=== PATIENT | female | born 1945 | race Caucasian/White ===

== ENCOUNTER → 2016-12-22 | Outpatient (CLI) | payer MEDICARE ==
--- NOTE | 2016-12-22 10:14 | CT ---
EXAMINATION TYPE: CT pelvis wo con DATE OF EXAM: 12/22/2016 COMPARISON: Previous CT scan of the chest, abdomen and pelvis dated 01/26/2013 HISTORY: pelvic pain CT DLP: 309.1 mGycm Automated exposure control for dose reduction was used. FINDINGS: There is a right hip prosthesis in place. There has been an extensive interpedicular fusion extending from the thoracic spine and to the level of S1. There is been an extensive laminectomy. There is uncomplicated diverticular disease small bowel loops are normal. The bladder is unremarkable. The uterus and ovaries are not visualized. IMPRESSION: 1. NO ACUTE ABNORMALITY. 2. EXTENSIVE POSTSURGICAL CHANGE.
== END | disposition home or self-care (01) ==
LOC: RADCTMAIN 08:14
PROVIDERS: ATTEND Family Medicine
DX: R10.2 Pelvic and perineal pain (principal); Z98.890 Other specified postprocedural states
CPT/HCPCS: 72192

== ENCOUNTER 2017-04-29 11:05 | Emergency (ER) | payer MEDICARE, OTHER ==
[2017-04-29] MEDS ORDERED: SODIUM CHLORIDE 0.9% 1,000 ML IV STA (11:23)
--- NOTE | 2017-04-29 11:23 | ED ---
General Adult HPI - General Chief complaint: GI Bleed Stated complaint: Coughing up blood Time Seen by Provider: 04/29/17 11:10 Source: patient, EMS, RN notes reviewed, old records reviewed Mode of arrival: EMS Limitations: no limitations - History of Present Illness Initial comments: This is a 72-year-old female to the ER for evaluation of coughing up blood. Patient has no medical history of similar issue. No shortness of breath with that she start coughing up blood today. Red blood. Patient denies blood in her stool. Denies any other symptoms. No chest pain. Patient was did recently have surgery where she was intubated. Patient states symptoms started shortly after. Again she denies any shortness of breath or pain - Related Data Home Medications Medication Instructions Recorded Confirmed Methotrexate Sodium [Methotrexate] 5 mg PO WE 05/20/16 04/29/17 traMADol HCL [Ultram] 50 mg PO Q4H PRN 05/20/16 04/29/17 Escitalopram [Lexapro] 10 mg PO DAILY 04/29/17 04/29/17 Irbesartan [Avapro] 150 mg PO DAILY 04/29/17 04/29/17 Allergies Allergy/AdvReac Type Severity Reaction Status Date / Time azathioprine [From Imuran] Allergy Rash/Hives Verified 04/29/17 11:50 codeine Allergy Rash/Hives Verified 04/29/17 11:50 hydrocodone Allergy Rash/Hives Verified 04/29/17 11:50 hydromorphone [From Dilaudid] Allergy Rash/Hives Verified 04/29/17 11:50 meperidine [From Demerol] Allergy Rash/Hives Verified 04/29/17 11:50 morphine Allergy Rash/Hives Verified 04/29/17 11:50 propoxyphene Allergy Rash/Hives Verified 04/29/17 11:50 [From Darvocet-N] Tetracyclines Allergy Rash/Hives Verified 04/29/17 11:50 Review of Systems ROS Statement: Those systems with pertinent positive or pertinent negative responses have been documented in the HPI. ROS Other: All systems not noted in ROS Statement are negative. Past Medical History Past Medical History: Cancer, Hypertension Additional Past Medical History / Comment(s): back pain (DDD), breast cancer History of Any Multi-Drug Resistant Organisms: None Reported Past Surgical History: Back Surgery, Joint Replacement Additional Past Surgical History / Comment(s): breast masectomy Past Psychological History: No Psychological Hx Reported Smoking Status: Never smoker Past Alcohol Use History: None Reported Past Drug Use History: None Reported General Exam Limitations: no limitations General appearance: alert, in no apparent distress Head exam: Present: atraumatic, normocephalic, normal inspection Eye exam: Present: normal appearance, PERRL, EOMI. Absent: scleral icterus, conjunctival injection, periorbital swelling ENT exam: Present: normal exam, mucous membranes moist Neck exam: Present: normal inspection. Absent: tenderness, meningismus, lymphadenopathy Respiratory exam: Present: normal lung sounds bilaterally. Absent: respiratory distress, wheezes, rales, rhonchi, stridor Cardiovascular Exam: Present: regular rate, normal rhythm, normal heart sounds. Absent: systolic murmur, diastolic murmur, rubs, gallop, clicks GI/Abdominal exam: Present: soft, normal bowel sounds. Absent: distended, tenderness, guarding, rebound, rigid Extremities exam: Present: normal inspection, full ROM, normal capillary refill. Absent: tenderness, pedal edema, joint swelling, calf tenderness Back exam: Present: normal inspection Neurological exam: Present: alert, oriented X3, CN II-XII intact Psychiatric exam: Present: normal affect, normal mood Skin exam: Present: warm, dry, intact, normal color. Absent: rash Course Vital Signs 04/29/17 04/29/17 11:08 12:58 Temperature 98.6 F 99.0 F Pulse Rate 69 66 Respiratory 18 16 Rate Blood Pressure 163/79 153/81 O2 Sat by Pulse 95 94 L Oximetry - Reevaluation(s) Reevaluation #1: Of patient with no significant lightheadedness or dizziness. EKG Findings - EKG Comments: EKG Findings:: EKG shows normal sinus rhythm rate of 64, WV 134, QRS 94, QTC 435 Medical Decision Making - Medical Decision Making 72 female to the ER for evaluation of coughing up blood. Patient is offices, patient was recently had surgery which with intubation. No significant source of breath x-rays negative labwork is normal and patient can be discharged home - Lab Data Result diagrams: 04/29/17 11:28 04/29/17 11:28 Lab Results 04/29/17 04/29/17 04/29/17 Range/Units 11:28 11:28 11:28 WBC 9.2 (3.8-10.6) k/uL RBC 3.43 L (3.80-5.40) m/uL Hgb 10.4 L (11.4-16.0) gm/dL Hct 31.6 L (34.0-46.0) % MCV 92.1 (80.0-100.0) fL MCH 30.4 (25.0-35.0) pg MCHC 33.0 (31.0-37.0) g/dL RDW 15.1 (11.5-15.5) % Plt Count 164 (150-450) k/uL Neutrophils % 72 % Lymphocytes % 20 % Monocytes % 6 % Eosinophils % 1 % Basophils % 0 % Neutrophils # 6.6 (1.3-7.7) k/uL Lymphocytes # 1.8 (1.0-4.8) k/uL Monocytes # 0.5 (0-1.0) k/uL Eosinophils # 0.1 (0-0.7) k/uL Basophils # 0.0 (0-0.2) k/uL PT (9.0-12.0) sec INR (<1.2) APTT (22.0-30.0) sec Sodium 134 L (137-145) mmol/L Potassium 4.3 (3.5-5.1) mmol/L Chloride 99 (98-107) mmol/L Carbon Dioxide 29 (22-30) mmol/L Anion Gap 6 mmol/L BUN 12 (7-17) mg/dL Creatinine 0.80 (0.52-1.04) mg/dL Est GFR (MDRD) Af Amer >60 (>60 ml/min/1.73 sqM) Est GFR (MDRD) Non-Af >60 (>60 ml/min/1.73 sqM) Glucose 86 (74-99) mg/dL Calcium 8.9 (8.4-10.2) mg/dL Magnesium 1.8 (1.6-2.3) mg/dL Total Bilirubin 0.5 (0.2-1.3) mg/dL AST 21 (14-36) U/L ALT 28 (9-52) U/L Alkaline Phosphatase 87 (38-126) U/L NT-Pro-B Natriuret Pep pg/mL Total Protein 6.1 L (6.3-8.2) g/dL Albumin 3.5 (3.5-5.0) g/dL Lipase 42 (23-300) U/L Blood Type O Positive Blood Type Recheck O Pos Antibody Screen NEGATIVE Spec Expiration Date 05/02/2017232704/29/17 04/29/17 Range/Units 11:28 11:28 WBC (3.8-10.6) k/uL RBC (3.80-5.40) m/uL Hgb (11.4-16.0) gm/dL Hct (34.0-46.0) % MCV (80.0-100.0) fL MCH (25.0-35.0) pg MCHC (31.0-37.0) g/dL RDW (11.5-15.5) % Plt Count (150-450) k/uL Neutrophils % % Lymphocytes % % Monocytes % % Eosinophils % % Basophils % % Neutrophils # (1.3-7.7) k/uL Lymphocytes # (1.0-4.8) k/uL Monocytes # (0-1.0) k/uL Eosinophils # (0-0.7) k/uL Basophils # (0-0.2) k/uL PT 9.4 (9.0-12.0) sec INR 0.9 (<1.2) APTT 23.0 (22.0-30.0) sec Sodium (137-145) mmol/L Potassium (3.5-5.1) mmol/L Chloride (98-107) mmol/L Carbon Dioxide (22-30) mmol/L Anion Gap mmol/L BUN (7-17) mg/dL Creatinine (0.52-1.04) mg/dL Est GFR (MDRD) Af Amer (>60 ml/min/1.73 sqM) Est GFR (MDRD) Non-Af (>60 ml/min/1.73 sqM) Glucose (74-99) mg/dL Calcium (8.4-10.2) mg/dL Magnesium (1.6-2.3) mg/dL Total Bilirubin (0.2-1.3) mg/dL AST (14-36) U/L ALT (9-52) U/L Alkaline Phosphatase (38-126) U/L NT-Pro-B Natriuret Pep 1400 pg/mL Total Protein (6.3-8.2) g/dL Albumin (3.5-5.0) g/dL Lipase (23-300) U/L Blood Type Blood Type Recheck Antibody Screen Spec Expiration Date - Radiology Data Radiology results: report reviewed (Chest x-rays negative), image reviewed Disposition Clinical Impression: Hematemesis Disposition: HOME SELF-CARE Condition: Good Instructions: Hematemesis (ED) Referrals: Pk Pizarro DO [Primary Care Provider] - 1-2 days
[2017-04-29 11:51] LABS: Basophils % (A) 0 %; CHCM 32.8; Eosinophils # (A) 0.1 k/uL (0-0.7); Eosinophils % (A) 1 %; HCT 31.6 % (34.0-46.0); HDW 2.46; HGB 10.4 gm/dL (11.4-16.0); Luc # (Auto) 0.13; Luc % (Auto) 1; Lymphocytes # (A) 1.8 k/uL (1.0-4.8); Lymphocytes % (A) 20 %; MCH 30.4 pg (25.0-35.0); MCV 92.1 fL (80.0-100.0); Mean Platelet Volume 8.6; Monocytes # (A) 0.5 k/uL (0-1.0); Monocytes % (A) 6 %; Neutrophils # (A) 6.6 k/uL (1.3-7.7); Neutrophils % (A) 72 %; RBC 3.43 m/uL (3.80-5.40); RDW 15.1 % (11.5-15.5); WBC 9.2 k/uL (3.8-10.6); WBC (Perox) 9.17
[2017-04-29 11:59] LABS: INR 0.9 (<1.2); Prothrombin Time 9.4 sec (9.0-12.0)
[2017-04-29 12:02] LABS: ALT 28 U/L (9-52); AST 21 U/L (14-36); Alkaline Phosphatase 87 U/L (38-126); Anion Gap 6 mmol/L; Blood Urea Nitrogen 12 mg/dL (7-17); Calcium 8.9 mg/dL (8.4-10.2); Carbon Dioxide 29 mmol/L (22-30); Chloride 99 mmol/L (98-107); Glucose 86 mg/dL (74-99); Magnesium 1.8 mg/dL (1.6-2.3); Non-African American GFR(MDRD) >60 (>60 ml/min/1.73 sqM); Potassium 4.3 mmol/L (3.5-5.1); Sodium 134 mmol/L (137-145); Total Bilirubin 0.5 mg/dL (0.2-1.3); Total Protein 6.1 g/dL (6.3-8.2)
--- NOTE | 2017-04-29 12:23 | XR ---
EXAMINATION TYPE: XR chest 2V DATE OF EXAM: 04/29/2017 COMPARISON: Prior chest x-ray 06/26/2013 HISTORY: Hemoptysis, chest pain TECHNIQUE: Frontal and lateral views of the chest are obtained. FINDINGS: There is no pleural effusion, or pneumothorax seen. No definite airspace disease. Postop changes are noted to the thoracic lumbar spine, upper abdomen. The cardiac silhouette size is within normal limits. The osseous structures are intact. IMPRESSION: No acute cardiopulmonary process.
[2017-04-29 13:00] VITALS: BP 153/81; PULSE 66; RESP 16; TEMP 99
--- NOTE | 2017-05-07 07:54 | CDI ---
Documentation Clarification OP Dear Renny HUNT, DO Please do addendum to ED report for HPI , Physical exam and MDM. Thank you, Julita Tong Process Control Technician If you have any question, Please contact sql manager at [phone] [facility]
== END 2017-04-29 12:56 | disposition home or self-care (01) ==
LOC: EC 11:05
DX: K92.0 Hematemesis (principal); I10 Essential (primary) hypertension; Z85.3 Personal history of malignant neoplasm of breast; Z79.899 Other long term (current) drug therapy; Z88.8 Allergy status to other drugs, medicaments and biological substances; Z88.5 Allergy status to narcotic agent; Z88.6 Allergy status to analgesic agent
CPT/HCPCS: 36415; 71020; 80053; 83690; 83735; 83880; 85025; 85610; 85730; 86850; 86900; 86901; 93005; 96360; 99285

== ENCOUNTER → 2017-10-27 | Outpatient (CLI) | payer MEDICARE ==
[2017-10-27 12:00] LABS: HCT 37.1 % (34.0-46.0); HGB 12.6 gm/dL (11.4-16.0); MCH 30.2 pg (25.0-35.0); MCHC 33.8 g/dL (31.0-37.0); MCV 89.4 fL (80.0-100.0); Mean Platelet Volume 7.5; Platelet Count 227 k/uL (150-450); RBC 4.15 m/uL (3.80-5.40); RDW 14.8 % (11.5-15.5); WBC 8.3 k/uL (3.8-10.6)
[2017-10-27 12:09] LABS: Partial Thromboplastin Time 22.5 sec (22.0-30.0); Prothrombin Time 9.6 sec (9.0-12.0)
[2017-10-27 12:14] LABS: Albumin 4.4 g/dL (3.5-5.0); Calcium 9.5 mg/dL (8.4-10.2); Potassium 4.2 mmol/L (3.5-5.1); Total Bilirubin 0.6 mg/dL (0.2-1.3)
[2017-10-27 12:29] LABS: Appearance,Urine Clear (Clear); Bilirubin,Urine Negative (Negative); Blood,Urine Negative (Negative); Color,Urine Light Yellow; Glucose,Urine (UA) Negative (Negative); Ketones,Urine Negative (Negative); Leukocyte Esterase,Urine Negative (Negative); Nitrite,Urine Negative (Negative); PH, Urine 6.5 (5.0-8.0); Protein,Urine Negative (Negative); Specific Gravity,Urine 1.004 (1.001-1.035); Urobilinogen,Urine <2.0 mg/dL (<2.0)
== END | disposition home or self-care (01) ==
LOC: LABPAT 10:59
PROVIDERS: ATTEND Orthopaedic Surgery
DX: Z01.818 Encounter for other preprocedural examination (principal); Z01.812 Encounter for preprocedural laboratory examination
CPT/HCPCS: 36415; 80053; 81003; 85027; 85610; 85730; 87070; 93005

== ENCOUNTER 2017-11-08 10:45 | Inpatient (IN) | payer MEDICARE, OTHER ==
[2017-10-28 09:38] VITALS: BMI 25.9
[~2017-11-08 10:45] MED LIST: ACETAMINOPHEN TAB 500 MG TAB PO ONE; DEXAMETHASONE SOD PHOSPHATE 10 MG/ML 1 ML VIAL IV ONE; MELOXICAM 7.5 MG TAB PO ONE; MIDAZOLAM 2 MG/2 ML VIAL IV PRN; ONDANSETRON 4 MG/2 ML VIAL IVP ONE; TRANEXAMIC ACID 1,000 MG in SODIUM CHLORIDE 0.9% 50 ML IVPB ONE; ceFAZolin IN SWFI 2 GM/20 ML SYRINGE IVP ONE
[2017-11-08] MEDS ORDERED: LIDOCAINE 1% 20 ML VIAL (10MG/ML) FOR IV START INTRADERMA ONE (11:17)
[2017-11-08] MEDS: LACTATED RINGERS 1,000 ML IV SCH ×2 (11:17→15:21)
[2017-11-08] MEDS ORDERED: ACETAMINOPHEN IV (For NPO) 1,000 MG/100 ML VIAL IVPB ONE (11:53)
--- NOTE | 2017-11-08 13:45 | P.OP ---
Date of Procedure: 11/08/17 Preoperative Diagnosis: Severe osteoarthritis left hip Postoperative Diagnosis: Severe osteoarthritis left hip Procedure(s) Performed: Total left hip arthroplasty with a direct anterior approach Implants: Ortega [employer] nephew Polarstem size 2 standard [employer]tega [employer] Nephew R3, 3 hole acetabular shell, 52 mm [employer]tega [employer]hew reflection 6.5 mm cancellus screw, 20 mm 2 [employer]hew R3, XLPE 20 acetabular liner [employer]tega [employer] Nephew Oxinium femoral head 36 m, +0 All components were press-fit. The articulation is Oxinium on polyethylene. Anesthesia: ROSIOA Surgeon: Bulmaro Sewell Heel Former #1: Pepper Lyn Estimated Blood Loss (ml): 450 (192 mL returned with Cell Saver) Pathology: other (Femoral head) Condition: stable Disposition: PACU Indications for Procedure: After failure of conservative treatment we discussed the surgical and nonsurgical treatment options at length. Patient wishes to proceed with a total hip arthroplasty with a direct anterior approach. Complications specific to this procedure were discussed at length, including but not limited to infection, leg length discrepancy, dislocation, and nerve injury. Patient is aware of all these complications and informed consent was obtained Operative Findings: The operative findings are consistent with severe osteoarthritis of the left hip Description of Procedure: Patient was seen and evaluated in the preoperative area, consent was reviewed, and the surgical site was marked with a skin marker. Patient was then brought to the operating room and given prophylactic antibiotics intravenously. 1 g of Tranexamic acid was also given. A general anesthetic was administered by the anesthesia department. The patient was then placed on the Dushore table with the bony prominences well-padded. The hip area was then prepped and draped in usual sterile fashion. A universal timeout was then performed, which confirmed the patient's name, surgical site, ALLERGIES, and procedure being performed. Next the incision site was located at 1 cm distal and 1 cm lateral to the anterior superior iliac spine. The skin and subcutaneous tissues were sharply incised. Incision was carefully dissected down to the fascia overlying the tensor fascia ric muscle. This fascia was then incised in line with the incision. Next, using blunt finger dissection, the tensor fascia ric muscle was dissected off its investing fascia. The muscle was then carefully retracted laterally with a cobra retractor over the lateral neck of the femur. Next, the circumflex vessels were identified and cauterized using the AquaMantis device. The anterior hip capsule was then exposed. The capsule was then opened and an inverted T fashion. Cobra retractors were then placed intracapsularly. The proximal femur was then visualized. The femoral neck was then osteotomized appropriate level above the lesser trochanter. Small amount of traction was placed with the Dushore table. A small wedge of bone was then removed from the remaining femoral head. Next, using a corkscrew femoral head was easily removed from the acetabulum. On gross visual inspection, the femoral head had complete loss of articular cartilage in multiple periarticular osteophytes. Attention was then turned to the acetabulum. the acetabulum was exposed and any remaining labrum was excised. Sequential reaming of the acetabulum was performed using fluoroscopic guidance. When the appropriate size was reached, a trial was then placed. The position and fit of the trial was checked with fluoroscopy. The trial was then removed. Then, using fluoroscopic guidance, the final implant was impacted at 20 of anteversion and 40 of abduction, and fully seated in the acetabulum. 2 screws were then placed in the acetabulum. Again fluoroscopy was used to check position of the screws. Next, the liner was then impacted, with a 20 elevated liner located in the anterior superior quadrant. Component locking was confirmed. Attention was then directed to the femur. With the aid of the Dushore table, the femur was externally rotated to approximately 130, extended, and abducted under the opposite leg. A side hook was then placed under the proximal femur, and the side hook elevator was used to elevate the proximal femur. Retractors were then placed. A capsular release was performed, as well as a release of the conjoined tendon, which afforded excellent visualization of the proximal femur. Next, a box osteotome was used to lateralize the proximal femur. A hand sole sewer was then used to locate the femoral canal. Sequential broaching was then performed with appropriate size which afforded excellent fixation in the proximal femur. A trial was then placed with appropriate head and neck, and the hip was gently reduced with the aid of the Dushore table. Fluoroscopy was then used to check position of the components, as well as to ensure equal leg lengths. The hip was then gently dislocated and the trials were then removed. Final implants were then impacted and the hip was again reduced. Final fluoroscopic x-rays confirmed that the components were in anatomic position, as well as equal leg lengths. The hip was also taken through range of motion, and found to be stable. The hip was then copiously irrigated with antibiotic solution with pulsatile lavage. The hip was then irrigated with Irrisept solution. A second dose of 1 g of Tranexamic acid was also given. the fascia was then closed with 2-0 strata fix suture. The subcutaneous tissue was closed with 3-0 Vicryl. The subcuticular tissue was closed with 3-0 strata fix suture. The skin was then closed with Dermabond glue and a sterile silver dressing. The patient was then transferred to the recovery room in stable condition. The boiler assistant operator JL Hutchison was required due to the complexity of surgery, and the need for skilled pharmacy assistant for positioning, draping, exposure, retraction, and closure of the wound.
--- NOTE | 2017-11-08 13:50 | FL ---
Fluoroscopy HISTORY: Hip replacement 29 seconds fluoroscopy time supplied to the referring clinician. 2 intraoperative C-arm images docum ent the procedure. See dictated report from orthopedic surgery.
[2017-11-08] MEDS ORDERED: HYDROcodone/APAP 5-325MG 1 EACH TAB PO PRN ×2 (14:04)
[2017-11-08] MEDS ORDERED: MAGNESIUM HYDROXIDE 2,400 MG/10 ML CUP PO PRN (14:04)
[2017-11-08] MEDS ORDERED: NALOXONE 0.4 MG/ML 1 ML VIAL IV PRN (14:04)
[2017-11-08] MEDS ORDERED: ONDANSETRON 4 MG/2 ML VIAL IVP PRN (14:04)
[2017-11-08] MEDS ORDERED: hydrOXYzine PAMOATE 25 MG CAP PO PRN (14:04)
[2017-11-08] MEDS ORDERED: TEMAZEPAM 15 MG CAP PO PRN (14:04)
[2017-11-08] MEDS: fentaNYL (PF) 50 MCG/ML 2 ML AMP IV PRN ×2 (14:10→14:25)
[2017-11-08] MEDS ORDERED: diphenhydrAMINE 50 MG/ML 1 ML VIAL IVP ONE (14:10)
--- NOTE | 2017-11-08 14:10 | XR ---
EXAMINATION TYPE: XR Hip Limited LT DATE OF EXAM: 11/08/2017 COMPARISON: NONE HISTORY: Hip arthroplasty Fluoroscopy support supplied to the referring clinician. See dictated report from orthopedic surgery . 2 intraoperative C-arm images document the procedure.
[2017-11-08 14:26] VITALS: RESP 16
[2017-11-08] MEDS ORDERED: traMADol 50 MG TAB PO PRN (14:30)
--- NOTE | 2017-11-08 14:38 | XR ---
Limited left hip HISTORY: Status post left hip arthroplasty Single frontal view of the left hip Patient is status post left hip arthroplasty. There is anatomic alignment. Postop change noted to the lumbar spine. Lucency present in the soft tissues compatible with postop state. IMPRESSION: Orthopedic follow-up.
[2017-11-08] MEDS: traMADol 50 MG TAB PO PRN ×2 (15:12→21:39)
[2017-11-08] MEDS ORDERED: ACETAMINOPHEN TAB 500 MG TAB PO PRN (18:26)
[2017-11-08] MEDS ORDERED: SENNOSIDES-DOCUSATE SODIUM 1 EACH TAB PO SCH (21:00)
[2017-11-08] MEDS: ASPIRIN 325 MG TAB PO SCH (21:39)
[2017-11-08] MEDS: ceFAZolin IN SWFI 2 GM/20 ML SYRINGE IVP SCH (21:47)
[2017-11-09] MEDS: LACTATED RINGERS 1,000 ML IV SCH ×3 (00:31→10:47)
[2017-11-09] MEDS: traMADol 50 MG TAB PO PRN ×3 (04:38→15:28)
[2017-11-09] MEDS: ceFAZolin IN SWFI 2 GM/20 ML SYRINGE IVP SCH (04:39)
[2017-11-09 07:31] LABS: Basophils % (A) 0 %; Eosinophils % (A) 0 %; HCT 30.6 % (34.0-46.0); Lymphocytes # (A) 1.4 k/uL (1.0-4.8); Lymphocytes % (A) 10 %; MCHC 32.3 g/dL (31.0-37.0); MCV 92.9 fL (80.0-100.0); Mean Platelet Volume 7.6; Monocytes # (A) 0.9 k/uL (0-1.0); Monocytes % (A) 6 %; Neutrophils # (A) 12.1 k/uL (1.3-7.7); Neutrophils % (A) 83 %; Platelet Count 187 k/uL (150-450); RBC 3.29 m/uL (3.80-5.40); RDW 15.7 % (11.5-15.5); WBC 14.5 k/uL (3.8-10.6)
[2017-11-09 07:39] LABS: HGB 9.9 gm/dL (11.4-16.0)
[2017-11-09] MEDS: ASPIRIN 325 MG TAB PO SCH (08:21)
--- NOTE | 2017-11-09 08:41 | P.DS ---
Providers Date of admission: 11/08/17 10:45 Expected date of discharge: 11/09/17 Attending physician: Bulmaro Sewell Consults: 11/08/17 14:07 Consult Physician Routine Consulting Provider: Pk Pizarro Reason/Comments: medical management Do you want consulting provider notified?: Yes Primary care physician: Pk Pizarro - Discharge Diagnosis(es) (1) Primary localized osteoarthritis of left hip Current Visit: Yes Status: Acute (2) Status post total hip replacement, left Current Visit: Yes Status: Acute Hospital Course: This is a 72-year-old female with known history of degenerative arthritis of the left hip. The patient presents for evaluation. After discussion and consideration patient elects to proceed with total hip arthroplasty. The patient is seen preoperatively by Dr. Pizarro and cleared for surgery. Patient is admitted to [facility] on 11/08/2017 for total hip arthroplasty. The procedures performed without complication or sequelae. The patient is doing well postoperatively. Labs and vital signs are stable on day of discharge. On day of discharge patient's hip incision is healing well. There is minimal erythema. There is no drainage noted at this time. There is minimal soft tissue swelling to the hip and thigh. Patient has full foot and ankle motion without difficulty or pain. Neurovascular status to the left lower extremity is intact. Patient is discharged to home in good condition. Pertinent Studies: Laboratory Tests 11/09/17 06:57 WBC 14.5 H RBC 3.29 L Hgb 9.9 L D Hct 30.6 L RDW 15.7 H Neutrophils # 12.1 H Patient Condition at Discharge: Stable Plan - Discharge Summary Discharge Rx Participant: Yes New Discharge Prescriptions: New Aspirin 325 mg PO BID #60 tab Sennosides-Docusate Sodium [Senokot-S] 2 tab PO DAILY #30 tablet traMADol HCl [Ultram] 50 - 100 mg PO Q4-6H PRN #90 tab PRN Reason: Pain No Action traMADol HCL [Ultram] 50 mg PO Q4H PRN PRN Reason: Pain Methotrexate Sodium [Methotrexate] 5 mg PO MO Diltiazem HCl [Cardizem LA] 180 mg PO HS Escitalopram [Lexapro] 10 mg PO HS Discharge Medication List Methotrexate Sodium [Methotrexate] 5 mg PO MO 05/20/16 [History] traMADol HCL [Ultram] 50 mg PO Q4H PRN 05/20/16 [History] Diltiazem HCl [Cardizem LA] 180 mg PO HS 10/28/17 [History] Escitalopram [Lexapro] 10 mg PO HS 10/28/17 [History] Aspirin 325 mg PO BID #60 tab 11/09/17 [Rx] Sennosides-Docusate Sodium [Senokot-S] 2 tab PO DAILY #30 tablet 11/09/17 [Rx] traMADol HCl [Ultram] 50 - 100 mg PO Q4-6H PRN #90 tab 11/09/17 [Rx] Follow up Appointment(s)/Referral(s): Bulmaro Sewell DO [Doctor of Osteopathic Medicine] - 2 Weeks Activity/Diet/Wound Care/Special Instructions: Weightbearing as tolerated with a walker Aspirin twice a daily for 1 month Homecare to remove dressing in 10 days May shower over dressing Call [facility] at [phone] with questions or concerns Discharge Disposition: HOME WITH HOME HEALTH SERVICES
[2017-11-09 14:29] VITALS: BP 117/57; PULSE 77; TEMP 98.2
--- NOTE | 2017-11-09 20:58 | CONS ---
CONSULTATION DATE OF CONSULTATION: 11/09/2017 The patient is a pleasant 72-year-old white female. I was asked to consult and participate regarding multiple medical problems. She underwent an elective left total hip arthroplasty with anterior approach secondary to [id number] degenerative joint disease. She is currently resting in bed comfortably without any complaints, ready to eat breakfast. PAST MEDICAL HISTORY: 1. Hypertension. 2. Hyperthyroidism. 3. Neuropathy. 4. Breast cancer. ALLERGIES: 1. DILAUDID. 2. MORPHINE. 3. DARVON. 4. CODEINE. 5. DARVOCET. 6. TETRACYCLINE. HOME MEDICATIONS: 1. Tramadol 50 mg q.4. 2. Methotrexate 5 mg daily. 3. Lexapro 10 mg daily. 4. Cardizem LA 180 at bedtime. 5. Senokot daily. 6. Aspirin 325 b.i.d. 7. 300 mg once daily. SOCIAL: Negative for tobacco, alcohol or drugs. REVIEW OF SYSTEMS: Essentially unremarkable. She denies any fever, cough, congestion. She denies any shortness of breath. She denies any abdominal pain, diarrhea. She denies any chest pain. She denies any paralysis or stroke. She denies any depression. She is recently, she states. PAST MEDICAL HISTORY: 1. Scleroderma. 2. Ankylosing spondylitis. 3. Basal cell carcinoma of the face. 4. Previous H pylori. PAST SURGICAL HISTORY: 1. Cholecystectomy. 2. Tonsils and adenoids. 3. Gastroplasty. 4. Parathyroidectomy. 5. Right total hip arthroplasty. 6. T10-S1 fusion. 7. Bilateral cataracts. 8. Basal cell of her nose with repair. FAMILY HISTORY: Hypertension. PHYSICAL EXAMINATION: Patient is alert and oriented x3. No acute distress. HEENT. Head is normocephalic and atraumatic. NECK: Supple. No JVD. HEART: Regular rate and rhythm. LUNGS: Clear to auscultation. ABDOMEN: Soft, nontender. No rebound, rigidity or guarding. EXTREMITIES: Left lower extremity with anterior ABD pad placed and a small incision, left groin. NEUROLOGICAL: Cranial nerves 2 through 12 are grossly intact. IMPRESSIONS: 1. Left total hip arthroplasty with anterior approach. 2. Hypertensive cardiovascular disease, controlled with medication. 3. History of scleroderma, currently on methotrexate, well controlled. 4. Ankylosing spondylitis with previous spinal fusion. PLAN: DVT prophylaxis. Pain control. Early ambulation. Physical therapy. Patient is doing very well. She is up and around. Anticipate discharge today. Thank you for allowing me to participate in this patient's care. GUERDA / CHAD: [id number] /
== END 2017-11-09 15:47 | disposition home health service (06) | DRG 470 ==
LOC: 2ORMAIN 10:45 → 3SUR 14:07
PROVIDERS: ADMIT Orthopaedic Surgery; ATTEND Orthopaedic Surgery
PROC: 4A11X4G Monitoring of Peripheral Nervous Electrical Activity, Intraoperative, External Approach (ICD-10-PCS; 2017-11-08)
PROC: 0SRB06A Replacement of Left Hip Joint with Oxidized Zirconium on Polyethylene Synthetic Substitute, Uncemented, Open Approach (ICD-10-PCS; principal; 2017-11-08 12:30)
DX: M16.12 Unilateral primary osteoarthritis, left hip (principal); I11.9 Hypertensive heart disease without heart failure; M34.9 Systemic sclerosis, unspecified; G62.9 Polyneuropathy, unspecified; E89.2 Postprocedural hypoparathyroidism; Z79.899 Other long term (current) drug therapy; Z98.1 Arthrodesis status; Z96.641 Presence of right artificial hip joint; Z86.19 Personal history of other infectious and parasitic diseases; Z85.828 Personal history of other malignant neoplasm of skin; Z85.3 Personal history of malignant neoplasm of breast; Z88.1 Allergy status to other antibiotic agents; Z88.5 Allergy status to narcotic agent; Z88.8 Allergy status to other drugs, medicaments and biological substances; Z90.710 Acquired absence of both cervix and uterus; Z90.49 Acquired absence of other specified parts of digestive tract; Z98.42 Cataract extraction status, left eye; Z98.41 Cataract extraction status, right eye; Z96.1 Presence of intraocular lens; Z82.49 Family history of ischemic heart disease and other diseases of the circulatory system
CPT/HCPCS: 73501; 85025; 86850; 86891; 86900; 86901; 88300

== ENCOUNTER → 2018-01-05 | Outpatient (CLI) | payer MEDICARE ==
[2018-01-05 13:22] LABS: HCT 35.9 % (34.0-46.0); HGB 11.4 gm/dL (11.4-16.0); Hypochromasia Slight; MCH 28.5 pg (25.0-35.0); MCHC 31.9 g/dL (31.0-37.0); MCV 89.6 fL (80.0-100.0); Mean Platelet Volume 7.5; Platelet Count 294 k/uL (150-450); RBC 4.01 m/uL (3.80-5.40); RDW 14.2 % (11.5-15.5); WBC 9.4 k/uL (3.8-10.6)
[2018-01-05 15:06] LABS: Erythrocyte Sedimentation Rate 35 mm/hr (0-20)
== END | disposition home or self-care (01) ==
LOC: LABWHC1 12:23
PROVIDERS: ATTEND Orthopaedic Surgery
DX: M25.552 Pain in left hip (principal); Z47.1 Aftercare following joint replacement surgery; Z96.642 Presence of left artificial hip joint
CPT/HCPCS: 36415; 83520; 85027; 85652; 86140

== ENCOUNTER 2018-01-23 15:55 | Emergency (ER) | payer MEDICARE ==
[2018-01-23 16:05] VITALS: RESP 18
[2018-01-23] MEDS ORDERED: SODIUM CHLORIDE 0.9% 1,000 ML IV STA (16:19)
--- NOTE | 2018-01-23 16:22 | ED ---
General Adult HPI - General Chief complaint: Neuro Symptoms/Deficit Stated complaint: Hypertension Time Seen by Provider: 01/23/18 16:15 Source: patient, RN notes reviewed Mode of arrival: ambulatory Limitations: no limitations - History of Present Illness Initial comments: Patient is a pleasant 72-year-old female presenting to the emergency department with concerns for high blood pressure and an odd facial sensation. Blood pressure at home was 212/108. Patient was concerned her blood pressure may be high. Patient also had paresthesias of the right side of her face. Patient also had headache behind her right eye that was 8/10. Headache is near resolved and now only mild. No history of similar symptoms previously. No speech problems. No confusion. No weakness. No visual change. - Related Data Home Medications Medication Instructions Recorded Confirmed Methotrexate Sodium [Methotrexate] 5 mg PO MO 05/20/16 01/23/18 Diltiazem HCl [Cardizem LA] 180 mg PO DAILY 10/28/17 01/23/18 Escitalopram [Lexapro] 10 mg PO HS 10/28/17 01/23/18 Aspirin EC [Ecotrin Low Dose] 324 mg PO DAILY PRN 01/23/18 01/23/18 Colchicine [Colcrys] 0.6 mg PO DAILY 01/23/18 01/23/18 Irbesartan 300 mg PO DAILY 01/23/18 01/23/18 Previous Rx's Medication Instructions Recorded traMADol HCl [Ultram] 50 - 100 mg PO Q4-6H PRN #90 tab 11/09/17 Allergies Allergy/AdvReac Type Severity Reaction Status Date / Time azathioprine [From Imuran] Allergy liver Verified 01/23/18 16:52 inflammation codeine Allergy Rash/Hives Verified 01/23/18 16:52 hydrocodone Allergy Rash/Hives Verified 01/23/18 16:52 hydromorphone [From Dilaudid] Allergy Rash/Hives Verified 01/23/18 16:52 ibuprofen [From Motrin] Allergy Unknown Verified 01/23/18 16:52 meperidine [From Demerol] Allergy Rash/Hives Verified 01/23/18 16:52 morphine Allergy Rash/Hives Verified 01/23/18 16:52 propoxyphene Allergy Rash/Hives Verified 01/23/18 16:52 [From Darvocet-N] Tetracyclines Allergy Rash/Hives Verified 01/23/18 16:52 clonidine [From Catapres] AdvReac Cough Verified 01/23/18 16:52 lisinopril AdvReac Cough Verified 01/23/18 16:52 Review of Systems ROS Statement: Those systems with pertinent positive or pertinent negative responses have been documented in the HPI. ROS Other: All systems not noted in ROS Statement are negative. Constitutional: Denies: fever Eyes: Denies: vision change ENT: Denies: ear pain Respiratory: Denies: cough Cardiovascular: Denies: chest pain Endocrine: Denies: fatigue Gastrointestinal: Denies: abdominal pain Genitourinary: Denies: dysuria Musculoskeletal: Denies: back pain Skin: Denies: rash Neurological: Reports: paresthesias. Denies: weakness Past Medical History Past Medical History: Cancer, Hypertension Additional Past Medical History / Comment(s): back pain (DDD), breast cancer, states esophageous doesn't work right--has a hard time swallowing and stomach contents come back up History of Any Multi-Drug Resistant Organisms: None Reported Past Surgical History: Back Surgery, Joint Replacement Additional Past Surgical History / Comment(s): breast masectomy Past Anesthesia/Blood Transfusion Reactions: Previous Problems w/ Anesthesia Additional Past Anesthesia/Blood Transfusion Reaction / Comment(s): stopped breathing in Recovery after spinal fusion revision in 2012(7 hr surgery),no problems with prior blood transfusions. Past Psychological History: No Psychological Hx Reported Smoking Status: Never smoker Past Alcohol Use History: None Reported Past Drug Use History: None Reported - Past Family History Brother(s) Family Medical History: Cancer Additional Family Medical History / Comment(s): colon Mother Family Medical History: Cancer Additional Family Medical History / Comment(s): gallbladder General Exam Limitations: no limitations General appearance: alert, in no apparent distress Head exam: Present: atraumatic, other (No tenderness over the temporal artery) Eye exam: Present: normal appearance, PERRL, EOMI. Absent: nystagmus ENT exam: Present: normal oropharynx Neck exam: Present: normal inspection Respiratory exam: Present: normal lung sounds bilaterally Cardiovascular Exam: Present: regular rate, normal rhythm GI/Abdominal exam: Present: soft. Absent: tenderness Extremities exam: Present: normal inspection Neurological exam: Present: alert, oriented X3, CN II-XII intact. Absent: motor sensory deficit Expanded Neurological exam: Present: protecting the airway Patient oriented to: Present: person, place, time Speech: Present: fluid speech Cranial nerves: EOM's Intact: Normal, Facial Sensation: Normal Sensory exam: Upper Extremity Light Touch: Normal, Lower Extremity Light Touch: Normal Motor strength exam: RUE: 5, LUE: 5, RLE: 5, LLE: 5 Eye Response: (4) open spontaneously Motor Response: (6) obeys commands Verbal Response: (5) oriented Psychiatric exam: Present: normal affect, normal mood Skin exam: Present: normal color Course Vital Signs 01/23/18 01/23/18 01/23/18 16:00 17:14 19:13 Temperature 98.7 F 98.1 F Pulse Rate 98 55 L 51 L Respiratory 18 18 18 Rate Blood Pressure 158/68 148/68 163/77 O2 Sat by Pulse 98 96 96 Oximetry EKG Findings - EKG Comments: EKG Findings:: Sinus spray cardiac 59. WI 134. QRS 92. QT 408. QTC 43. Left axis. LVH criteria. No acute ST change. Medical Decision Making - Medical Decision Making Patient reevaluated and further improved. Patient is near symptom-free. Still no weakness. Patient is updated on results. Patient is comfortable with discharge home. Patient advised close follow-up with her primary care physician regarding this as well as blood pressure. Blood pressure has been stable in the emergency department. - Lab Data Result diagrams: 01/23/18 16:45 01/23/18 16:45 Lab Results 01/23/18 01/23/18 01/23/18 Range/Units 16:45 16:45 16:45 WBC 8.4 (3.8-10.6) k/uL RBC 4.17 (3.80-5.40) m/uL Hgb 11.5 (11.4-16.0) gm/dL Hct 35.9 (34.0-46.0) % MCV 86.1 (80.0-100.0) fL MCH 27.5 (25.0-35.0) pg MCHC 32.0 (31.0-37.0) g/dL RDW 14.9 (11.5-15.5) % Plt Count 235 (150-450) k/uL Neutrophils % 63 % Lymphocytes % 26 % Monocytes % 7 % Eosinophils % 1 % Basophils % 1 % Neutrophils # 5.2 (1.3-7.7) k/uL Lymphocytes # 2.2 (1.0-4.8) k/uL Monocytes # 0.6 (0-1.0) k/uL Eosinophils # 0.1 (0-0.7) k/uL Basophils # 0.1 (0-0.2) k/uL ESR 26 H (0-20) mm/hr PT (9.0-12.0) sec INR (<1.2) APTT (22.0-30.0) sec Sodium 141 (137-145) mmol/L Potassium 3.8 (3.5-5.1) mmol/L Chloride 107 (98-107) mmol/L Carbon Dioxide 25 (22-30) mmol/L Anion Gap 9 mmol/L BUN 25 H (7-17) mg/dL Creatinine 0.90 (0.52-1.04) mg/dL Est GFR (CKD-EPI)AfAm 74 (>60 ml/min/1.73 sqM) Est GFR (CKD-EPI)NonAf 64 (>60 ml/min/1.73 sqM) Glucose 100 H (74-99) mg/dL Calcium 9.4 (8.4-10.2) mg/dL Total Bilirubin 0.2 (0.2-1.3) mg/dL AST 22 (14-36) U/L ALT 20 (9-52) U/L Alkaline Phosphatase 117 (38-126) U/L Total Creatine Kinase 49 (30-135) U/L CK-MB (CK-2) 0.8 (0.0-2.4) ng/mL CK-MB (CK-2) Rel Index 1.6 Troponin I <0.012 (0.000-0.034) ng/mL Total Protein 6.7 (6.3-8.2) g/dL Albumin 4.0 (3.5-5.0) g/dL 01/23/18 Range/Units 16:45 WBC (3.8-10.6) k/uL RBC (3.80-5.40) m/uL Hgb (11.4-16.0) gm/dL Hct (34.0-46.0) % MCV (80.0-100.0) fL MCH (25.0-35.0) pg MCHC (31.0-37.0) g/dL RDW (11.5-15.5) % Plt Count (150-450) k/uL Neutrophils % % Lymphocytes % % Monocytes % % Eosinophils % % Basophils % % Neutrophils # (1.3-7.7) k/uL Lymphocytes # (1.0-4.8) k/uL Monocytes # (0-1.0) k/uL Eosinophils # (0-0.7) k/uL Basophils # (0-0.2) k/uL ESR (0-20) mm/hr PT 9.4 (9.0-12.0) sec INR 0.9 (<1.2) APTT 22.2 (22.0-30.0) sec Sodium (137-145) mmol/L Potassium (3.5-5.1) mmol/L Chloride (98-107) mmol/L Carbon Dioxide (22-30) mmol/L Anion Gap mmol/L BUN (7-17) mg/dL Creatinine (0.52-1.04) mg/dL Est GFR (CKD-EPI)AfAm (>60 ml/min/1.73 sqM) Est GFR (CKD-EPI)NonAf (>60 ml/min/1.73 sqM) Glucose (74-99) mg/dL Calcium (8.4-10.2) mg/dL Total Bilirubin (0.2-1.3) mg/dL AST (14-36) U/L ALT (9-52) U/L Alkaline Phosphatase (38-126) U/L Total Creatine Kinase (30-135) U/L CK-MB (CK-2) (0.0-2.4) ng/mL CK-MB (CK-2) Rel Index Troponin I (0.000-0.034) ng/mL Total Protein (6.3-8.2) g/dL Albumin (3.5-5.0) g/dL - Radiology Data Radiology results: report reviewed (Computed tomography scan the brain and CTA shows no acute process.), image reviewed (Chest x-ray shows no acute process) Disposition Clinical Impression: Paresthesia Disposition: HOME SELF-CARE Condition: Stable Instructions: Paresthesia (ED) Additional Instructions: Aspirin daily until further directed by primary care physician. Please follow- up with primary care physician in the next one to 2 days for recheck. Please also have primary care physician review blood pressure and CT scan results from today. He will need further evaluation regarding lung nodule on computed tomography scan. Return for weakness, facial weakness, speech problems, confusion, loss of sensation, worsening symptoms or other concerns. Is patient prescribed a controlled substance at d/c from ED?: No Referrals: Pk Pizarro DO [Primary Care Provider] - 1-2 days Time of Disposition: 20:18
[2018-01-23 16:55] LABS: Basophils # (A) 0.1 k/uL (0-0.2); Basophils % (A) 1 %; Eosinophils # (A) 0.1 k/uL (0-0.7); Eosinophils % (A) 1 %; HCT 35.9 % (34.0-46.0); HGB 11.5 gm/dL (11.4-16.0); Lymphocytes # (A) 2.2 k/uL (1.0-4.8); Lymphocytes % (A) 26 %; MCH 27.5 pg (25.0-35.0); MCV 86.1 fL (80.0-100.0); Mean Platelet Volume 7.2; Monocytes # (A) 0.6 k/uL (0-1.0); Monocytes % (A) 7 %; Neutrophils # (A) 5.2 k/uL (1.3-7.7); Neutrophils % (A) 63 %; Platelet Count 235 k/uL (150-450); RBC 4.17 m/uL (3.80-5.40); RDW 14.9 % (11.5-15.5); WBC 8.4 k/uL (3.8-10.6)
[2018-01-23 17:07] LABS: Calcium 9.4 mg/dL (8.4-10.2); Potassium 3.8 mmol/L (3.5-5.1); Total Bilirubin 0.2 mg/dL (0.2-1.3); Total Protein 6.7 g/dL (6.3-8.2)
[2018-01-23 17:10] LABS: Creatine Kinase 49 U/L (30-135); INR 0.9 (<1.2); Partial Thromboplastin Time 22.2 sec (22.0-30.0); Prothrombin Time 9.4 sec (9.0-12.0)
--- NOTE | 2018-01-23 17:13 | XR ---
EXAMINATION TYPE: XR chest 2V DATE OF EXAM: 01/23/2018 COMPARISON: Chest radiograph 11-17 HISTORY: TECHNIQUE: Frontal and lateral views of the chest are obtained. FINDINGS: There is no focal air space opacity, pleural effusion, or pneumothorax seen. The cardiac silhouette size is within normal limits. Surgical clips in the right axillary region.. Posterior thor acolumbar fusion hardware is again present and intact. IMPRESSION: No acute cardiopulmonary process.
[2018-01-23 17:22] LABS: Creatine Kinase MB 0.8 ng/mL (0.0-2.4); Troponin I <0.012 ng/mL (0.000-0.034)
--- NOTE | 2018-01-23 18:57 | CT ---
EXAMINATION TYPE: CT brain wo con DATE OF EXAM: 01/23/2018 HISTORY: Weakness and Right sided headache with inability to regulate blood pressure CT DLP: 1064.3 mGycm. Automated Exposure Control for Dose Reduction was Utilized. TECHNIQUE: CT scan of the head is performed without contrast. COMPARISON: None. FINDINGS: There is no acute intracranial hemorrhage or midline shift identified. There is diffuse v entricular and sulcal prominence consistent with diffuse age-related cerebral atrophy. There is low- attenuation in the periventricular white matter consistent with chronic small vessel ischemic change. The globes are intact and the visualized sinuses are clear. No acute skull fracture. IMPRESSION: No acute intracranial hemorrhage or midline shift. There is minimal age-related cerebra l atrophy and chronic small vessel ischemic change noted.
[2018-01-23 19:16] VITALS: TEMP 98.1
[2018-01-23 19:17] LABS: Erythrocyte Sedimentation Rate 26 mm/hr (0-20)
--- NOTE | 2018-01-23 19:48 | CT ---
EXAMINATION TYPE: CT angio head neck DATE OF EXAM: 01/23/2018 HISTORY: Weakness and Right sided headache with inability to regulate blood pressure COMPARISON: NONE CT DLP: 334.6 mGycm. Automated Exposure Control for Dose Reduction was Utilized. TECHNIQUE: CTA scan of the neck is performed with IV Contrast, patient injected with 65 mL of Isovue 370, axial images are obtained, coronal and sagittal reformatted images are reviewed. Three-D recons tructed images are created on an independent workstation and reviewed. FINDINGS: Carotid/Vascular Structures: Visualized portions of the aortic arch are unremarkable with the excepti on of some calcified atheromatous plaquing. Normal three-vessel aortic arch. The bilateral vertebral arteries are unremarkable throughout their visualized portions of the neck and eventual joining at th e basilar artery. The common carotid arteries have a normal origin with no significant atheroscleroti c or other narrowing. Some minimal less than 50% luminal narrowing is seen secondary to calcified ath eromatous plaquing near the right carotid bulb. The origins of the external carotid arteries are with in normal limits. The internal carotid arteries are patent bilaterally with extension intracranially without significant narrowing or dilatation. Intracranial arterial structures demonstrate no high-grade luminal narrowing or aneurysmal dilatation . The right posterior communicating artery is not identified. The basilar artery is within normal powell its. The posterior cerebral arteries, middle cerebral arteries and anterior cerebral arteries are pat ent throughout the visualized portions. Other: Degenerative type changes are seen throughout the cervical spine. Prevertebral soft tissues ar e unremarkable. A 3 mm pleural-based nodule is identified in the posterior right lung. Lung apices ar e otherwise unremarkable. IMPRESSION: 1. No significant luminal narrowing or aneurysmal dilatation of the bilateral carotid system, vertebr al arteries or intracranial vasculature. 2. Multilevel degenerative changes of the cervical spine. 3. 3 mm pleural-based right lung apex nodule.
[2018-01-23 20:20] VITALS: BP 138/72; PULSE 53
== END 2018-01-23 20:27 | disposition home or self-care (01) ==
LOC: EC 15:55
DX: R20.2 Paresthesia of skin (principal); I10 Essential (primary) hypertension; R40.2142 Coma scale, eyes open, spontaneous, at arrival to emergency department; R40.2252 Coma scale, best verbal response, oriented, at arrival to emergency department; R40.2362 Coma scale, best motor response, obeys commands, at arrival to emergency department; Z85.3 Personal history of malignant neoplasm of breast; Z79.82 Long term (current) use of aspirin; Z79.899 Other long term (current) drug therapy; Z88.8 Allergy status to other drugs, medicaments and biological substances; Z88.5 Allergy status to narcotic agent; Z88.6 Allergy status to analgesic agent; Z88.1 Allergy status to other antibiotic agents
CPT/HCPCS: 36415; 93005; 80053; 85652; 82550; 82553; 84484; 85025; 85610; 85730; 71046; 70496; 70450; 70498; 99284; 96360; 96361 ×2; Q9967

== ENCOUNTER → 2018-03-04 | Outpatient (CLI) | payer MEDICARE ==
[2018-03-04 15:07] LABS: Basophils # (A) 0.1 k/uL (0-0.2); Basophils % (A) 1 %; Eosinophils # (A) 0.1 k/uL (0-0.7); Eosinophils % (A) 1 %; HCT 36.5 % (34.0-46.0); HGB 11.4 gm/dL (11.4-16.0); Hypochromasia Slight; Lymphocytes # (A) 2.6 k/uL (1.0-4.8); Lymphocytes % (A) 29 %; MCH 27.1 pg (25.0-35.0); MCHC 31.1 g/dL (31.0-37.0); Mean Platelet Volume 7.3; Monocytes # (A) 0.6 k/uL (0-1.0); Monocytes % (A) 6 %; Neutrophils # (A) 5.5 k/uL (1.3-7.7); Neutrophils % (A) 60 %; Platelet Count 240 k/uL (150-450); RBC 4.19 m/uL (3.80-5.40); RDW 15.9 % (11.5-15.5); WBC 9.1 k/uL (3.8-10.6)
[2018-03-04 18:08] LABS: Erythrocyte Sedimentation Rate 35 mm/hr (0-20)
== END | disposition home or self-care (01) ==
LOC: LABWHC1 14:20
PROVIDERS: ATTEND Orthopaedic Surgery
DX: M25.552 Pain in left hip (principal); Z96.642 Presence of left artificial hip joint
CPT/HCPCS: 36415; 85025; 85652; 86140

== ENCOUNTER → 2018-03-14 | Outpatient (CLI) | payer MEDICARE ==
--- NOTE | 2018-03-14 08:47 | CT ---
EXAMINATION TYPE: CT hip LT wo con DATE OF EXAM: 03/14/2018 COMPARISON: 12/22/2016 HISTORY: Presence of left artificial hip joint CT DLP: 677 mGycm Automated exposure control for dose reduction was used. Unenhanced CT of the left hip was performed w ith bone and soft tissue settings are submitted. Coronal and sagittal reconstruction also reviewed. FINDINGS: There is extensive streak artifact from the patient's left hip prosthesis. This results in significan t image degradation and limitation. There is evidence of total left hip arthroplasty with femoral and acetabular components appearing well seated. I do not see evidence for fracture dislocation or bony lesion. No abnormal collections seen. Vacuum changes of the SI joints. Postoperative changes lumbar s pine. Postoperative changes right hip. IMPRESSION: LEFT HIP PROSTHESIS APPEARS TO BE WELL SEATED. NO EVIDENCE FOR FRACTURE. STUDY IS LIMITED BY STREAK A RTIFACT.
== END | disposition home or self-care (01) ==
LOC: RADCTMAIN 07:34
PROVIDERS: ATTEND Orthopaedic Surgery
DX: M25.552 Pain in left hip (principal); Z96.642 Presence of left artificial hip joint

== ENCOUNTER → 2018-04-25 | Outpatient (CLI) | payer MEDICARE ==
--- NOTE | 2018-04-25 11:14 | MM ---
Reason for exam: additional evaluation requested from prior study. Last mammogram was performed 1 year ago. History: Patient is postmenopausal, has history of breast cancer at age 59, and history of other cancer. Family history of breast cancer in paternal cousin. Radiation therapy of the right breast, 2004. Lumpectomy of the right breast, 2003. Benign core biopsy of the left breast, 1989. Benign core biopsy of the left breast, 1987. Took estrogen for 30 years. Took antineoplastic for 5 years beginning at age 59. Physical Findings: Nurse did not find any significant physical abnormalities on exam. MG 3D Diag Mammo W/Cad JANUSZ Bilateral CC and MLO view(s) were taken. Prior study comparison: April 23, 2017, bilateral MG 3d diag mammo w/cad JANUSZ. April 06, 2016, bilateral MG 3d diag mammo w/cad JANUSZ. The breast tissue is heterogeneously dense. This may lower the sensitivity of mammography. Stable benign calcifications. Stable post operative changes in the right breast. No significant new findings when compared with previous films. These results were verbally communicated with the patient and result sheet given to the patient on 04/25/18. ASSESSMENT: Benign, BI-RAD 2 RECOMMENDATION: Follow-up diagnostic mammogram of both breasts in 1 year.
== END ==
LOC: RADMAMWWP 10:26
PROVIDERS: ATTEND Internal Medicine Hematology & Oncology
DX: Z08 Encounter for follow-up examination after completed treatment for malignant neoplasm (principal); Z85.3 Personal history of malignant neoplasm of breast
CPT/HCPCS: 77066; G0279; 77062

== ENCOUNTER → 2019-01-24 | Outpatient (CLI) | payer MEDICARE ==
--- NOTE | 2019-01-24 11:34 | CT ---
EXAMINATION TYPE: CT chest w con DATE OF EXAM: 01/24/2019 COMPARISON: CT angiogram of the neck dated 01/23/2018, CT chest 01/26/2013 HISTORY: Previous abnormal exam of the lung. History of nodule. CT DLP: 315.8 mGycm Automated exposure control for dose reduction was used. CONTRAST: CT scan of the chest is performed with IV Contrast, patient injected with 80 mL of Isovue M300. FINDINGS: LUNGS: The lungs are stable, there is no concerning parenchymal mass or nodule identified. The subpl eural nodule in the right upper lobe has been stable since prior chest CT 01/26/2013 and is benign, kassie cified nodule present in the right lower lobe. There is no pleural effusion or pneumothorax seen. Th e tracheobronchial tree is patent. MEDIASTINUM: There are no greater than 1 cm hilar or mediastinal lymph nodes. No pericardial effusi on is seen. There are coronary artery calcifications present. Calcified right hilar nodes are presen t. Pulmonary artery is prominent measuring 3.5 cm. AORTA: No additional significant abnormality is seen. OTHER: Postop changes are noted to the thoracic lumbar spine level. There is multilevel spondylosis. Postop changes are noted to the stomach. In spite of low dense focus associated with the right lobe of the thyroid. Postop changes associated with the right breast towards the axillary region. IMPRESSION: Old granulomatous disease. Postop changes. Correlate for possible pulmonary artery hyper tension. Additional findings above.
== END | disposition home or self-care (01) ==
LOC: RADCTMAIN 10:04
PROVIDERS: ATTEND Internal Medicine Hematology & Oncology
DX: R91.8 Other nonspecific abnormal finding of lung field (principal); Z98.890 Other specified postprocedural states
CPT/HCPCS: 36415; 71260; 82565; 84520

== ENCOUNTER → 2019-05-31 | Outpatient (CLI) | payer MEDICARE, OTHER ==
--- NOTE | 2019-05-31 10:29 | MM ---
Reason for exam: additional evaluation requested from prior study. Last mammogram was performed 1 year and 1 month ago. History: Patient is postmenopausal, has history of breast cancer at age 59, and history of other cancer. Family history of breast cancer in paternal cousin. Radiation therapy of the right breast, 2004. Lumpectomy of the right breast, 2003. Benign core biopsy of the left breast, 1989. Benign core biopsy of the left breast, 1987. Took estrogen for 30 years. Took antineoplastic for 5 years beginning at age 59. Physical Findings: Nurse did not find any significant physical abnormalities on exam. MG 3D Diag Mammo W/Cad JANUSZ Bilateral CC and MLO view(s) were taken. Prior study comparison: April 25, 2018, bilateral MG 3d diag mammo w/cad JANUSZ. April 23, 2017, bilateral MG 3d diag mammo w/cad JANUSZ. There are scattered fibroglandular densities. Benign appearing bilateral calcifications. Right upper outer quadrant far posterior depth post therapy change. These results were verbally communicated with the patient and result sheet given to the patient on 05/31/19. ASSESSMENT: Benign, BI-RAD 2 RECOMMENDATION: Follow-up diagnostic mammogram of both breasts in 1 year.
== END | disposition home or self-care (01) ==
LOC: RADMAMWWP 08:53
PROVIDERS: ATTEND Internal Medicine Hematology & Oncology
DX: Z08 Encounter for follow-up examination after completed treatment for malignant neoplasm (principal); Z85.3 Personal history of malignant neoplasm of breast
CPT/HCPCS: 77066; G0279; 77062

== ENCOUNTER 2019-06-12 07:34 | Emergency (ER) | payer MEDICARE ==
[2019-06-12 07:41] VITALS: TEMP 98
[2019-06-12] MEDS ORDERED: diphenhydrAMINE 50 MG/ML 1 ML VIAL IVP STA (08:00)
[2019-06-12] MEDS ORDERED: methylPREDNISolone SOD SUCCI 125 MG/2 ML VIAL IV STA (08:00)
--- NOTE | 2019-06-12 08:08 | ED ---
General Adult HPI - General Chief complaint: Allergic Reaction Stated complaint: throat/tongue swelling Time Seen by Provider: 06/12/19 07:40 Source: patient, RN notes reviewed, old records reviewed Mode of arrival: ambulatory Limitations: no limitations - History of Present Illness Initial comments: This is a 74-year-old female who presents emergency department stating that she comes in because the left side of her tongue is swollen. Patient states she was started on a new high blood pressure med about 6 months ago and for the last 2 months she can't stop coughing. Patient now states she is having swelling or tongue. Patient denies any shortness of breath or difficulty breathing. Patient states she has no problems swallowing. Patient denies any rashes or hives. Patient denies any other symptoms at this time. Patient's medication for her high blood pressure is benzopril - Related Data Home Medications Medication Instructions Recorded Confirmed Methotrexate Sodium [Methotrexate] 5 mg PO MO 05/20/16 01/23/18 Diltiazem HCl [Cardizem LA] 180 mg PO DAILY 10/28/17 01/23/18 Escitalopram [Lexapro] 10 mg PO HS 10/28/17 01/23/18 Aspirin EC [Ecotrin Low Dose] 324 mg PO DAILY PRN 01/23/18 01/23/18 Colchicine [Colcrys] 0.6 mg PO DAILY 01/23/18 01/23/18 Irbesartan 300 mg PO DAILY 01/23/18 01/23/18 Previous Rx's Medication Instructions Recorded traMADol HCl [Ultram] 50 - 100 mg PO Q4-6H PRN #90 tab 11/09/17 predniSONE 40 mg PO DAILY #8 tab 06/12/19 Allergies Allergy/AdvReac Type Severity Reaction Status Date / Time azathioprine [From Imuran] Allergy liver Verified 01/23/18 16:52 inflammation codeine Allergy Rash/Hives Verified 01/23/18 16:52 hydrocodone Allergy Rash/Hives Verified 01/23/18 16:52 hydromorphone [From Dilaudid] Allergy Rash/Hives Verified 01/23/18 16:52 ibuprofen [From Motrin] Allergy Unknown Verified 01/23/18 16:52 meperidine [From Demerol] Allergy Rash/Hives Verified 01/23/18 16:52 morphine Allergy Rash/Hives Verified 01/23/18 16:52 propoxyphene Allergy Rash/Hives Verified 01/23/18 16:52 [From Darvocet-N] Tetracyclines Allergy Rash/Hives Verified 01/23/18 16:52 clonidine [From Catapres] AdvReac Cough Verified 01/23/18 16:52 lisinopril AdvReac Cough Verified 01/23/18 16:52 Review of Systems ROS Statement: Those systems with pertinent positive or pertinent negative responses have been documented in the HPI. ROS Other: All systems not noted in ROS Statement are negative. Past Medical History Past Medical History: Cancer, Hypertension Additional Past Medical History / Comment(s): back pain (DDD), breast cancer, states esophageous doesn't work right--has a hard time swallowing and stomach contents come back up History of Any Multi-Drug Resistant Organisms: None Reported Past Surgical History: Back Surgery, Joint Replacement Additional Past Surgical History / Comment(s): breast masectomy, left hip replacement Past Anesthesia/Blood Transfusion Reactions: Previous Problems w/ Anesthesia Additional Past Anesthesia/Blood Transfusion Reaction / Comment(s): stopped breathing in Recovery after spinal fusion revision in 2012(7 hr surgery),no problems with prior blood transfusions. Past Psychological History: No Psychological Hx Reported Smoking Status: Never smoker Past Alcohol Use History: None Reported Past Drug Use History: None Reported - Past Family History Brother(s) Family Medical History: Cancer Additional Family Medical History / Comment(s): colon Mother Family Medical History: Cancer Additional Family Medical History / Comment(s): gallbladder General Exam - General Exam Comments Initial Comments: GENERAL: Patient is well-developed and well-nourished. Patient is nontoxic and well- hydrated and is in no acute distress. ENT: Neck is soft and supple. No significant lymphadenopathy is noted. Oropharynx is clear. Patient's left side of her tongue is swollen. Moist mucous membranes. Neck has full range of motion without eliciting any pain. EYES: The sclera were anicteric and conjunctiva were pink and moist. Extraocular movements were intact and pupils were equal round and reactive to light. Eyelids were unremarkable. PULMONARY: Unlabored respirations. Good breath sounds bilaterally. No audible rales rhonchi or wheezing was noted. CARDIOVASCULAR: There is a regular rate and rhythm without any murmurs gallops or rubs. ABDOMEN: Soft and nontender with normal bowel sounds. SKIN: Skin is clear with no lesions or rashes and otherwise unremarkable. NEUROLOGIC: Patient is alert and oriented x3. Cranial nerves II through XII are grossly intact. Motor and sensory are also intact. Normal speech, volume and content. Symmetrical smile. MUSCULOSKELETAL: Normal extremities with adequate strength and full range of motion. LYMPHATICS: No significant lymphadenopathy is noted PSYCHIATRIC: Normal psychiatric evaluation. Limitations: no limitations Course Vital Signs 06/12/19 06/12/19 07:38 08:18 Temperature 98.0 F Pulse Rate 87 Respiratory 20 18 Rate Blood Pressure 152/77 O2 Sat by Pulse 98 Oximetry Medical Decision Making - Medical Decision Making Dr. Pizarro will see the patient later today and will determine if the patient is on an CHRIST inhibitor for sure and if she is he will stop that. If not the patient is going to take the prednisone as prescribed. Disposition Clinical Impression: CHRIST inhibitor-aggravated angioedema Disposition: HOME SELF-CARE Condition: Good Instructions (If sedation given, give patient instructions): Angioedema (ED) Additional Instructions: Patient is to contact her physician today to get placed on another blood pressure medication. Patient is to stop her Benzapril Prescriptions: predniSONE 40 mg PO DAILY #8 tab Is patient prescribed a controlled substance at d/c from ED?: No Referrals: Pk Pizarro DO [Primary Care Provider] - 1-2 days Time of Disposition: 08:07
[2019-06-12 08:22] VITALS: RESP 18
[2019-06-12 08:46] VITALS: BP 150/76; PULSE 80
== END 2019-06-12 08:45 | disposition home or self-care (01) ==
LOC: EC 07:34
DX: T78.3XXA Angioneurotic edema, initial encounter (principal); T46.4X5A Adverse effect of angiotensin-converting-enzyme inhibitors, initial encounter; R05 Cough; I10 Essential (primary) hypertension; Z85.3 Personal history of malignant neoplasm of breast; Z96.652 Presence of left artificial knee joint; Z79.82 Long term (current) use of aspirin; Z79.899 Other long term (current) drug therapy; Z88.8 Allergy status to other drugs, medicaments and biological substances; Z88.5 Allergy status to narcotic agent; Z88.6 Allergy status to analgesic agent; Z88.1 Allergy status to other antibiotic agents
CPT/HCPCS: 99285; 96374; 96375; J1200; J2930

== ENCOUNTER 2019-06-13 00:02 | Emergency (ER) | payer MEDICARE ==
[2019-06-13 00:06] VITALS: RESP 18; TEMP 97.9
[2019-06-13] MEDS ORDERED: diphenhydrAMINE 50 MG/ML 1 ML VIAL IVP STA (00:20)
[2019-06-13] MEDS ORDERED: FAMOTIDINE 20 MG/2 ML VIAL IV STA (00:20)
--- NOTE | 2019-06-13 00:28 | ED ---
General Adult HPI - General Chief complaint: Allergic Reaction Stated complaint: Allergic Reaction Time Seen by Provider: 06/13/19 00:14 Source: patient, RN notes reviewed, old records reviewed Mode of arrival: ambulatory Limitations: no limitations - History of Present Illness Initial comments: 74-year-old female presentingfor reevaluation of tongue swelling. Patient was seen in the emergency department earlier today with angioedema of the tongue. She is on Benzapril took her last dose this morning. She was initiated on prednisone and discharged home. Her tongue swelling had improved prior to discharge and over the past several hours she developed recurrent tongue swelling which is predominantly on the right side. Denies any lip swelling. She reports some anxiety and dyspnea associated with this. No cough. No fever. She did not take any additional doses of Benzapril. - Related Data Home Medications Medication Instructions Recorded Confirmed Methotrexate Sodium [Methotrexate] 5 mg PO MO 05/20/16 01/23/18 Diltiazem HCl [Cardizem LA] 180 mg PO DAILY 10/28/17 01/23/18 Escitalopram [Lexapro] 10 mg PO HS 10/28/17 01/23/18 Aspirin EC [Ecotrin Low Dose] 324 mg PO DAILY PRN 01/23/18 01/23/18 Colchicine [Colcrys] 0.6 mg PO DAILY 01/23/18 01/23/18 Irbesartan 300 mg PO DAILY 01/23/18 01/23/18 Previous Rx's Medication Instructions Recorded traMADol HCl [Ultram] 50 - 100 mg PO Q4-6H PRN #90 tab 11/09/17 predniSONE 40 mg PO DAILY #8 tab 06/12/19 Allergies Allergy/AdvReac Type Severity Reaction Status Date / Time azathioprine [From Imuran] Allergy liver Verified 01/23/18 16:52 inflammation codeine Allergy Rash/Hives Verified 01/23/18 16:52 hydrocodone Allergy Rash/Hives Verified 01/23/18 16:52 hydromorphone [From Dilaudid] Allergy Rash/Hives Verified 01/23/18 16:52 ibuprofen [From Motrin] Allergy Unknown Verified 01/23/18 16:52 meperidine [From Demerol] Allergy Rash/Hives Verified 01/23/18 16:52 morphine Allergy Rash/Hives Verified 01/23/18 16:52 propoxyphene Allergy Rash/Hives Verified 01/23/18 16:52 [From Darvocet-N] Tetracyclines Allergy Rash/Hives Verified 01/23/18 16:52 clonidine [From Catapres] AdvReac Cough Verified 01/23/18 16:52 lisinopril AdvReac Cough Verified 01/23/18 16:52 Review of Systems ROS Statement: Those systems with pertinent positive or pertinent negative responses have been documented in the HPI. ROS Other: All systems not noted in ROS Statement are negative. Past Medical History Past Medical History: Cancer, Hypertension Additional Past Medical History / Comment(s): back pain (DDD), breast cancer, states esophageous doesn't work right--has a hard time swallowing and stomach contents come back up History of Any Multi-Drug Resistant Organisms: None Reported Past Surgical History: Back Surgery, Joint Replacement Additional Past Surgical History / Comment(s): breast masectomy, left hip replacement Past Anesthesia/Blood Transfusion Reactions: Previous Problems w/ Anesthesia Additional Past Anesthesia/Blood Transfusion Reaction / Comment(s): stopped breathing in Recovery after spinal fusion revision in 2012(7 hr surgery),no problems with prior blood transfusions. Past Psychological History: No Psychological Hx Reported Smoking Status: Never smoker Past Alcohol Use History: None Reported Past Drug Use History: None Reported - Past Family History Brother(s) Family Medical History: Cancer Additional Family Medical History / Comment(s): colon Mother Family Medical History: Cancer Additional Family Medical History / Comment(s): gallbladder General Exam Limitations: no limitations General appearance: alert, in no apparent distress Head exam: Present: atraumatic, normocephalic Eye exam: Present: normal appearance, PERRL ENT exam: Present: other (tongue swelling on the right. No lip swelling. Uvula has been surgically removed) Neck exam: Present: normal inspection. Absent: tenderness, meningismus Respiratory exam: Present: normal lung sounds bilaterally. Absent: respiratory distress, wheezes, stridor Cardiovascular Exam: Present: regular rate, normal rhythm GI/Abdominal exam: Present: soft. Absent: distended, tenderness Extremities exam: Present: normal inspection, normal capillary refill. Absent: pedal edema Neurological exam: Present: alert, oriented X3, CN II-XII intact. Absent: motor sensory deficit Psychiatric exam: Present: normal affect, normal mood Skin exam: Present: warm, dry, intact. Absent: cyanosis, diaphoretic Course Vital Signs 06/13/19 06/13/19 00:03 00:06 Temperature 97.9 F Pulse Rate 77 75 Respiratory 18 18 Rate Blood Pressure 191/78 156/56 O2 Sat by Pulse 95 98 Oximetry Medical Decision Making - Medical Decision Making 74-YEAR-OLD FEMALE WITH christ INHIBITOR-INDUCED ANGIOEDEMA OF THE TONGUE. pATIENT IS WELL-APPEARING SHE HAS SWELLING OF THE RIGHT SIDE OF HER TONGUE. nO LIP SWELLING. nO POSTERIOR OROPHARYNGEAL SWELLING. sHE'S HAD HER UVULA SURGICALLY REMOVED IN THE REMOTE PAST. She was given prednisone at the time of discharge she has taken this today. She was given Benadryl and Pepcid in the emergency department. She is observed with significant improvement in tongue swelling. Laboratory studies were obtained and these are reviewed she has a mild elevation in serum creatinine she's given IV fluid and is encouraged to maintain oral hydration. This will be rechecked by her primary care physician. Benzopril will be added to her ALLERGY list. She will continue prednisone and Benadryl at home. she is requesting discharge and has family at home. She is home with family and can be observed closely at home they will return with any worsening or changing symptoms. I discussed case with the patient's primary care physician Dr. Pizarro who will see her in the office tomorrow for reevaluation and close monitoring of blood pressure and medication. - Lab Data Result diagrams: 06/13/19 00:15 06/13/19 00:15 Lab Results 06/13/19 06/13/19 06/13/19 Range/Units 00:15 00:15 00:33 WBC 10.1 (3.8-10.6) k/uL RBC 4.54 (3.80-5.40) m/uL Hgb 12.9 (11.4-16.0) gm/dL Hct 39.4 (34.0-46.0) % MCV 86.8 (80.0-100.0) fL MCH 28.5 (25.0-35.0) pg MCHC 32.8 (31.0-37.0) g/dL RDW 14.3 (11.5-15.5) % Plt Count 212 (150-450) k/uL Neutrophils % 83 % Lymphocytes % 10 % Monocytes % 5 % Eosinophils % 0 % Basophils % 0 % Neutrophils # 8.4 H (1.3-7.7) k/uL Lymphocytes # 1.0 (1.0-4.8) k/uL Monocytes # 0.5 (0-1.0) k/uL Eosinophils # 0.0 (0-0.7) k/uL Basophils # 0.0 (0-0.2) k/uL Sodium 140 (137-145) mmol/L Potassium 4.6 (3.5-5.1) mmol/L Chloride 109 H (98-107) mmol/L Carbon Dioxide 19 L (22-30) mmol/L Anion Gap 12 mmol/L BUN 25 H (7-17) mg/dL Creatinine 1.72 H (0.52-1.04) mg/dL Est GFR (CKD-EPI)AfAm 33 (>60 ml/min/1.73 sqM) Est GFR (CKD-EPI)NonAf 29 (>60 ml/min/1.73 sqM) Glucose 111 H (74-99) mg/dL Calcium 9.7 (8.4-10.2) mg/dL Total Bilirubin 0.4 (0.2-1.3) mg/dL AST 24 (14-36) U/L ALT 18 (4-34) U/L Alkaline Phosphatase 97 (38-126) U/L Total Protein 7.4 (6.3-8.2) g/dL Albumin 4.4 (3.5-5.0) g/dL Blood Type O Positive Blood Type Recheck O Pos Bld Type Recheck Status No Antibody Screen NEGATIVE Spec Expiration Date 06/16/20192332 Disposition Clinical Impression: CHRIST inhibitor-aggravated angioedema Disposition: HOME SELF-CARE Condition: Good Instructions (If sedation given, give patient instructions): Angioedema (ED) Additional Instructions: please continue Benadryl and prednisone, follow-up with primary care physician tomorrow. Is patient prescribed a controlled substance at d/c from ED?: No Referrals: Pk Pizarro DO [Primary Care Provider] - 1-2 days Time of Disposition: 02:20
[2019-06-13 00:45] LABS: Basophils % (A) 0 %; Eosinophils % (A) 0 %; HCT 39.4 % (34.0-46.0); HGB 12.9 gm/dL (11.4-16.0); Lymphocytes % (A) 10 %; MCH 28.5 pg (25.0-35.0); MCHC 32.8 g/dL (31.0-37.0); MCV 86.8 fL (80.0-100.0); Mean Platelet Volume 8.5; Monocytes # (A) 0.5 k/uL (0-1.0); Monocytes % (A) 5 %; Neutrophils # (A) 8.4 k/uL (1.3-7.7); Neutrophils % (A) 83 %; Platelet Count 212 k/uL (150-450); RBC 4.54 m/uL (3.80-5.40); RDW 14.3 % (11.5-15.5); WBC 10.1 k/uL (3.8-10.6)
[2019-06-13 00:53] LABS: Albumin 4.4 g/dL (3.5-5.0); Calcium 9.7 mg/dL (8.4-10.2); Potassium 4.6 mmol/L (3.5-5.1); Total Bilirubin 0.4 mg/dL (0.2-1.3); Total Protein 7.4 g/dL (6.3-8.2)
[2019-06-13] MEDS ORDERED: SODIUM CHLORIDE 0.9% 500 ML 500 ML IV ONE (01:17)
[2019-06-13] MEDS ORDERED: SODIUM CHLORIDE 0.9% 1,000 ML IV SCH (01:30)
[2019-06-13 02:35] VITALS: BP 150/84; PULSE 65
== END 2019-06-13 02:35 | disposition home or self-care (01) ==
LOC: EC 00:02
DX: T78.3XXA Angioneurotic edema, initial encounter (principal); R79.89 Other specified abnormal findings of blood chemistry; I10 Essential (primary) hypertension; Z79.82 Long term (current) use of aspirin; Z79.899 Other long term (current) drug therapy; Z88.1 Allergy status to other antibiotic agents; Z88.5 Allergy status to narcotic agent; Z88.6 Allergy status to analgesic agent; Z88.8 Allergy status to other drugs, medicaments and biological substances; Z85.3 Personal history of malignant neoplasm of breast; Z96.642 Presence of left artificial hip joint; Z90.10 Acquired absence of unspecified breast and nipple
CPT/HCPCS: 99285; 96374; 96375; 96361; 36415; 86900; 86901; 80053; 85025; 86850; J1200

== ENCOUNTER 2019-07-30 11:40 | Emergency (ER) | payer MEDICARE ==
--- NOTE | 2019-07-30 13:01 | XR ---
EXAMINATION TYPE: XR chest 2V DATE OF EXAM: 07/30/2019 HISTORY: cough and fever. REFERENCE: Previous study dated 01/23/2018. FINDINGS: The lungs remain clear. Pleural space are clear. The heart is not enlarged. There is been p revious carmelo fixation of the lumbar spine. IMPRESSION: NO ACTIVE INTRATHORACIC DISEASE.
[2019-07-30 13:06] LABS: Basophils # (A) 0.1 k/uL (0-0.2); Basophils % (A) 1 %; Eosinophils # (A) 0.2 k/uL (0-0.7); Eosinophils % (A) 2 %; HCT 38.2 % (34.0-46.0); HGB 12.4 gm/dL (11.4-16.0); Lymphocytes % (A) 16 %; MCH 28.7 pg (25.0-35.0); MCHC 32.4 g/dL (31.0-37.0); MCV 88.8 fL (80.0-100.0); Mean Platelet Volume 8.3; Monocytes # (A) 0.8 k/uL (0-1.0); Monocytes % (A) 6 %; Neutrophils % (A) 72 %; Platelet Count 195 k/uL (150-450); WBC 12.4 k/uL (3.8-10.6)
[2019-07-30 13:21] LABS: Albumin 4.2 g/dL (3.5-5.0); Calcium 9.2 mg/dL (8.4-10.2); Potassium 4.4 mmol/L (3.5-5.1); Total Bilirubin 0.4 mg/dL (0.2-1.3); Total Protein 7.5 g/dL (6.3-8.2)
[2019-07-30] MEDS ORDERED: SODIUM CHLORIDE 0.9% 1,000 ML IV STA (13:37)
--- NOTE | 2019-07-30 14:53 | ED ---
General Adult HPI - General Source: patient Mode of arrival: wheelchair Limitations: no limitations <Hrenando Mendez - Last Filed: 07/30/19 15:52> <George De La Rosa - Last Filed: 07/30/19 16:12> - General Chief complaint: Recheck/Abnormal Lab/Rx Stated complaint: positive flu test Time Seen by Provider: 07/30/19 12:24 - History of Present Illness Initial comments: Patient is 74-year-old female presenting to emergency Department with a chief complaint of a fever and cough. States the symptoms began about one week ago. Patient reports exactly 8 days ago she was exposed to her grandmother's boyfriend was diagnosed with the flu. Stay she developed symptoms the following day. Patient reports taking Tylenol Motrin home to control the fever. Patient also reports bilateral otalgia, sinus congestion and clear bilateral rhinorrhea. Also reports a left shoulder and left elbow pain is started yesterday. She d oes a history of bone spurs in the left shoulder is states the pain is most likely secondary to that. Does report sore throat. History of tonsillectomy. No history of asthma or smoking. Denies chest pain or shortness of breath back. Her abdominal pain. Denies nausea vomiting diarrhea. Does report an occasional headache after coughing fits which gradually resolved after. (Hernando Ybarra) - Related Data Home Medications Medication Instructions Recorded Confirmed Methotrexate Sodium [Methotrexate] 5 mg PO MO 05/20/16 01/23/18 Diltiazem HCl [Cardizem LA] 180 mg PO DAILY 10/28/17 01/23/18 Escitalopram [Lexapro] 10 mg PO HS 10/28/17 01/23/18 Aspirin EC [Ecotrin Low Dose] 324 mg PO DAILY PRN 01/23/18 01/23/18 Colchicine [Colcrys] 0.6 mg PO DAILY 01/23/18 01/23/18 Irbesartan 300 mg PO DAILY 01/23/18 01/23/18 Previous Rx's Medication Instructions Recorded traMADol HCl [Ultram] 50 - 100 mg PO Q4-6H PRN #90 tab 11/09/17 predniSONE [Deltasone] 40 mg PO DAILY #8 tab 06/12/19 Azithromycin [Zithromax Z-pack] 0 mg PO DIRECTED #1 pack 07/30/19 Allergies Allergy/AdvReac Type Severity Reaction Status Date / Time azathioprine [From Imuran] Allergy liver Verified 07/30/19 12:09 inflammation benazepril Allergy Anaphylaxis Verified 07/30/19 12:09 codeine Allergy Rash/Hives Verified 07/30/19 12:09 hydrocodone Allergy Rash/Hives Verified 07/30/19 12:09 hydromorphone [From Dilaudid] Allergy Rash/Hives Verified 07/30/19 12:09 ibuprofen [From Motrin] Allergy Unknown Verified 07/30/19 12:09 meperidine [From Demerol] Allergy Rash/Hives Verified 07/30/19 12:09 morphine Allergy Rash/Hives Verified 07/30/19 12:09 propoxyphene Allergy Rash/Hives Verified 07/30/19 12:09 [From Darvocet-N] Tetracyclines Allergy Rash/Hives Verified 07/30/19 12:09 clonidine [From Catapres] AdvReac Cough Verified 07/30/19 12:09 lisinopril AdvReac Anaphylaxis Verified 07/30/19 12:09 Review of Systems ROS Other: All systems not noted in ROS Statement are negative. <Hernando Mendez - Last Filed: 07/30/19 15:52> ROS Other: All systems not noted in ROS Statement are negative. <George De La Rosa - Last Filed: 07/30/19 16:12> ROS Statement: Those systems with pertinent positive or pertinent negative responses have been documented in the HPI. Past Medical History Past Medical History: Cancer, Hypertension Additional Past Medical History / Comment(s): back pain (DDD), breast cancer (in remission,) states esophageous doesn't work right--has a hard time swallowing and stomach contents come back up History of Any Multi-Drug Resistant Organisms: None Reported Past Surgical History: Back Surgery, Joint Replacement Additional Past Surgical History / Comment(s): breast masectomy, left hip replacement Past Anesthesia/Blood Transfusion Reactions: Previous Problems w/ Anesthesia Additional Past Anesthesia/Blood Transfusion Reaction / Comment(s): stopped breathing in Recovery after spinal fusion revision in 2012(7 hr surgery),no problems with prior blood transfusions. Past Psychological History: No Psychological Hx Reported Smoking Status: Never smoker Past Alcohol Use History: None Reported Past Drug Use History: None Reported - Past Family History Brother(s) Family Medical History: Cancer Additional Family Medical History / Comment(s): colon Mother Family Medical History: Cancer Additional Family Medical History / Comment(s): gallbladder <MartinHernando regan - Last Filed: 07/30/19 15:52> General Exam Limitations: no limitations General appearance: alert, in no apparent distress Head exam: Present: atraumatic, normocephalic, normal inspection Eye exam: Present: normal appearance. Absent: PERRL, EOMI Pupils: Present: normal accommodation ENT exam: Present: normal exam, normal oropharynx (Tonsillectomy no pharyngeal erythema.), mucous membranes moist, TM's normal bilaterally (Fluid behind bilateral tympanic members. No erythema or bulging.), normal external ear exam Neck exam: Present: normal inspection, full ROM. Absent: lymphadenopathy Respiratory exam: Present: normal lung sounds bilaterally. Absent: respiratory distress, wheezes, rales, chest wall tenderness, accessory muscle use, decreased breath sounds Cardiovascular Exam: Present: regular rate, normal rhythm, normal heart sounds GI/Abdominal exam: Present: soft. Absent: distended, tenderness Extremities exam: Present: normal inspection, full ROM, tenderness (Mild tenderness of the left shoulder.), normal capillary refill, other (+2 ulnar and radial pulses bilaterally.) Back exam: Present: normal inspection, full ROM Neurological exam: Present: alert, oriented X3 Psychiatric exam: Present: normal affect, normal mood Skin exam: Present: warm, dry, intact, normal color <Hernando Mendez - Last Filed: 07/30/19 15:52> Course <George De La Rosa - Last Filed: 07/30/19 16:12> Vital Signs 07/30/19 07/30/19 07/30/19 12:09 12:26 13:44 Temperature 98.4 F Pulse Rate 83 68 Respiratory 18 20 20 Rate Blood Pressure 148/86 168/98 O2 Sat by Pulse 95 97 Oximetry 07/30/19 14:59 Temperature Pulse Rate Respiratory 18 Rate Blood Pressure O2 Sat by Pulse Oximetry - Reevaluation(s) Reevaluation #1: 07/30/19 16:12 PA supervision: I proceeded [id number] evaluation patient does present with c omplaints of shortness of breath fevers her lung sounds at this time are clear x-ray was unremarkable for acute findings patient will be discharged with appropriate medication I do agree with the assessment and plan. She and her family are in agreement with this. (George De La Rosa) Medical Decision Making - Lab Data Result diagrams: 07/30/19 12:55 07/30/19 12:55 <Hernando Mendez - Last Filed: 07/30/19 15:52> - Lab Data Result diagrams: 07/30/19 12:55 07/30/19 12:55 <George De La Rosa - Last Filed: 07/30/19 16:12> - Medical Decision Making Patient is 74-year-old female presenting to emergency Department with a chief complaint of cough and fever. Patient developed symptoms about one week ago after she was exposed to somebody with influenza positive. Patient also reports bilateral otalgia sinus congestion. No nausea vomiting. Does report chills but never obtain a fever at home. No chest pain or shortness of breath. Denies any back pain. Does report a headache after coughing fits that resolves quickly. Physical examination is indicative of fluid behind bilateral tympanic membranes. No signs of otitis media. Patient is not in respiratory distress. Chest x-ray is unremarkable. EKG shows no signs of ST changes. Similar to an EKG in 2018. Influenza negative. Initial troponins are negative. CBC shows mild leukocytosis but otherwise unremarkable. CMP does show elevation in BUN most likely secondary to mild dehydration. Patient given antibiotics in the ED and will be discharged with azithromycin. Strict return primary was with early discussed the patient was understanding and agreeable. Vitals are stable. Patient will follow up with primary care. Case discussed with physician. (Hernando Mendez) - Lab Data Lab Results 07/30/19 07/30/19 07/30/19 Range/Units 12:25 12:55 12:55 WBC 12.4 H (3.8-10.6) k/uL RBC 4.30 (3.80-5.40) m/uL Hgb 12.4 (11.4-16.0) gm/dL Hct 38.2 (34.0-46.0) % MCV 88.8 (80.0-100.0) fL MCH 28.7 (25.0-35.0) pg MCHC 32.4 (31.0-37.0) g/dL RDW 14.0 (11.5-15.5) % Plt Count 195 (150-450) k/uL Neutrophils % 72 % Lymphocytes % 16 % Monocytes % 6 % Eosinophils % 2 % Basophils % 1 % Neutrophils # 9.0 H (1.3-7.7) k/uL Lymphocytes # 2.0 (1.0-4.8) k/uL Monocytes # 0.8 (0-1.0) k/uL Eosinophils # 0.2 (0-0.7) k/uL Basophils # 0.1 (0-0.2) k/uL Sodium 142 (137-145) mmol/L Potassium 4.4 (3.5-5.1) mmol/L Chloride 106 (98-107) mmol/L Carbon Dioxide 26 (22-30) mmol/L Anion Gap 10 mmol/L BUN 22 H (7-17) mg/dL Creatinine 0.88 (0.52-1.04) mg/dL Est GFR (CKD-EPI)AfAm 75 (>60 ml/min/1.73 sqM) Est GFR (CKD-EPI)NonAf 65 (>60 ml/min/1.73 sqM) Glucose 96 (74-99) mg/dL Calcium 9.2 (8.4-10.2) mg/dL Total Bilirubin 0.4 (0.2-1.3) mg/dL AST 24 (14-36) U/L ALT 13 (4-34) U/L Alkaline Phosphatase 120 (38-126) U/L Troponin I (0.000-0.034) ng/mL Total Protein 7.5 (6.3-8.2) g/dL Albumin 4.2 (3.5-5.0) g/dL Influenza Type A RNA Not Detected (Not Detectd) Influenza Type B (PCR) Not Detected (Not Detectd) 07/30/19 Range/Units 12:55 WBC (3.8-10.6) k/uL RBC (3.80-5.40) m/uL Hgb (11.4-16.0) gm/dL Hct (34.0-46.0) % MCV (80.0-100.0) fL MCH (25.0-35.0) pg MCHC (31.0-37.0) g/dL RDW (11.5-15.5) % Plt Count (150-450) k/uL Neutrophils % % Lymphocytes % % Monocytes % % Eosinophils % % Basophils % % Neutrophils # (1.3-7.7) k/uL Lymphocytes # (1.0-4.8) k/uL Monocytes # (0-1.0) k/uL Eosinophils # (0-0.7) k/uL Basophils # (0-0.2) k/uL Sodium (137-145) mmol/L Potassium (3.5-5.1) mmol/L Chloride (98-107) mmol/L Carbon Dioxide (22-30) mmol/L Anion Gap mmol/L BUN (7-17) mg/dL Creatinine (0.52-1.04) mg/dL Est GFR (CKD-EPI)AfAm (>60 ml/min/1.73 sqM) Est GFR (CKD-EPI)NonAf (>60 ml/min/1.73 sqM) Glucose (74-99) mg/dL Calcium (8.4-10.2) mg/dL Total Bilirubin (0.2-1.3) mg/dL AST (14-36) U/L ALT (4-34) U/L Alkaline Phosphatase (38-126) U/L Troponin I <0.012 (0.000-0.034) ng/mL Total Protein (6.3-8.2) g/dL Albumin (3.5-5.0) g/dL Influenza Type A RNA (Not Detectd) Influenza Type B (PCR) (Not Detectd) Disposition Is patient prescribed a controlled substance at d/c from ED?: No Time of Disposition: 15:57 <Hernando Mendez - Last Filed: 07/30/19 15:52> <George De La Rosa - Last Filed: 07/30/19 16:12> Clinical Impression: Bronchitis, Cough, Otalgia, bilateral Disposition: HOME SELF-CARE Condition: Stable Instructions (If sedation given, give patient instructions): Acute Bronchitis (ED) Additional Instructions: Please take prescribed medication as directed. Follow-up with primary care. Return to emergency department if symptoms worsen. Prescriptions: Azithromycin [Zithromax Z-pack] 0 mg PO DIRECTED #1 pack Referrals: Pk Pizarro DO [Primary Care Provider] - 1-2 days
[2019-07-30] MEDS ORDERED: cefTRIAXone IN SWFI 1,000 MG/10 ML SYRINGE IVP STA (15:58)
[2019-07-30 16:16] VITALS: BP 161/86; PULSE 64; RESP 16; TEMP 98.1
== END 2019-07-30 16:10 | disposition home or self-care (01) ==
LOC: EC 11:40
DX: J40 Bronchitis, not specified as acute or chronic (principal); H92.03 Otalgia, bilateral; D72.829 Elevated white blood cell count, unspecified; E86.0 Dehydration; I10 Essential (primary) hypertension; Z79.899 Other long term (current) drug therapy; Z88.5 Allergy status to narcotic agent; Z88.8 Allergy status to other drugs, medicaments and biological substances; Z88.6 Allergy status to analgesic agent; Z88.1 Allergy status to other antibiotic agents; Z85.3 Personal history of malignant neoplasm of breast; Z90.10 Acquired absence of unspecified breast and nipple; Z96.642 Presence of left artificial hip joint
CPT/HCPCS: 36415; 93005; 80053; 84484; 85025; 87502; 71046; 99284; 96374; 96361; J0696

== ENCOUNTER 2019-11-09 10:37 | Inpatient (IN) | payer MEDICARE ==
[2019-11-09] MEDS ORDERED: ALPRAZolam 0.5 MG TAB PO STA (11:08)
[2019-11-09] MEDS ORDERED: ASPIRIN 81 MG PO STA (11:08)
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
[2019-11-09 11:44] LABS: Basophils # (A) 0.1 k/uL (0-0.2); Basophils % (A) 1 %; Eosinophils # (A) 0.1 k/uL (0-0.7); Eosinophils % (A) 1 %; HCT 41.1 % (34.0-46.0); HGB 13.1 gm/dL (11.4-16.0); Lymphocytes # (A) 2.4 k/uL (1.0-4.8); Lymphocytes % (A) 24 %; MCH 27.7 pg (25.0-35.0); MCHC 31.8 g/dL (31.0-37.0); Mean Platelet Volume 7.7; Monocytes # (A) 0.8 k/uL (0-1.0); Monocytes % (A) 8 %; Neutrophils # (A) 6.4 k/uL (1.3-7.7); Neutrophils % (A) 64 %; Platelet Count 224 k/uL (150-450); RBC 4.73 m/uL (3.80-5.40); RDW 14.1 % (11.5-15.5); WBC 10.1 k/uL (3.8-10.6)
[2019-11-09] MEDS ORDERED: hydrALAZINE HCL 20 MG/ML 1 ML VIAL IVP STA (11:52)
[2019-11-09 12:04] LABS: INR 0.9 (<1.2); Partial Thromboplastin Time 22.3 sec (22.0-30.0); Prothrombin Time 9.3 sec (9.0-12.0)
[2019-11-09 12:12] LABS: Calcium 9.8 mg/dL (8.4-10.2); Magnesium 2.2 mg/dL (1.6-2.3); Potassium 4.5 mmol/L (3.5-5.1); Total Bilirubin 0.2 mg/dL (0.2-1.3); Total Protein 7.1 g/dL (6.3-8.2)
[2019-11-09] MEDS ORDERED: NALOXONE 0.4 MG/ML 1 ML VIAL IV PRN (12:27)
[2019-11-09] MEDS ORDERED: NITROGLYCERIN SL TABS 0.4 MG TAB SUBLINGUAL PRN (12:28)
[2019-11-09] MEDS ORDERED: HEPARIN SODIUM,PORCINE 5,000 UNIT/ML 1 ML VIAL IV PRN (12:47)
[2019-11-09] MEDS ORDERED: HEPARIN SODIUM,PORCINE 5,000 UNIT/ML 1 ML VIAL IV ONE (12:47)
--- NOTE | 2019-11-09 13:13 | XR ---
EXAMINATION TYPE: XR chest 2V DATE OF EXAM: 11/09/2019 COMPARISON: Prior chest x-ray 07/30/2019 HISTORY: Chest pain TECHNIQUE: Frontal and lateral views of the chest are obtained. FINDINGS: There is no focal air space opacity, pleural effusion, or pneumothorax seen. The cardiac silhouette size is within normal limits. The osseous structures are intact. Postop changes are note d at the thoracic lumbar spine. There are overlying cardiac leads. Arthropathy noted at the acromiocl avicular joints. IMPRESSION: No acute cardiopulmonary process.
[2019-11-09] MEDS: HEPARIN SOD,PORK IN 0.45% NACL 25,000 UNIT in 0.45% NACL 1 250ML.BAG IV SCH (13:37)
[2019-11-09] MEDS ORDERED: ALPRAZolam 0.5 MG TAB PO PRN (17:41)
[2019-11-09 19:14] LABS: Glucose,Whole Blood 109 mg/dL (75-99)
[2019-11-10 06:14] LABS: Basophils # (A) 0.1 k/uL (0-0.2); Basophils % (A) 1 %; Eosinophils # (A) 0.1 k/uL (0-0.7); Eosinophils % (A) 2 %; HCT 38.4 % (34.0-46.0); HGB 11.7 gm/dL (11.4-16.0); Lymphocytes # (A) 2.8 k/uL (1.0-4.8); Lymphocytes % (A) 36 %; MCHC 30.5 g/dL (31.0-37.0); MCV 88.3 fL (80.0-100.0); Monocytes # (A) 0.6 k/uL (0-1.0); Monocytes % (A) 8 %; Neutrophils % (A) 51 %; Platelet Count 199 k/uL (150-450); RBC 4.35 m/uL (3.80-5.40); RDW 14.1 % (11.5-15.5); WBC 7.9 k/uL (3.8-10.6)
[2019-11-10 06:27] LABS: Cholesterol 168 mg/dL (<200); HDL Cholesterol 54 mg/dL (40-60); LDL Cholesterol,Calculated 92 mg/dL (0-99); Triglycerides 112 mg/dL (<150)
[2019-11-10] MEDS ORDERED: ALPRAZolam 0.25 MG TAB PO PRN (09:31)
[2019-11-10] MEDS ORDERED: ASPIRIN 325 MG TAB PO STA (09:31)
[2019-11-10] MEDS ORDERED: ATORVASTATIN 80 MG TAB PO STA (09:31)
[2019-11-10] MEDS ORDERED: NITROGLYCERIN SL TABS 0.4 MG TAB SUBLINGUAL PRN (09:31)
[2019-11-10] MEDS ORDERED: SODIUM CHLORIDE 0.9% 1,000 ML in EMPTY BAG 1 BAG IV ONE (09:31)
[2019-11-10] MEDS ORDERED: ALPRAZolam 0.5 MG TAB PO PRN (09:31)
--- NOTE | 2019-11-10 10:49 | ECHOF ---
Referral Reason:mi MEASUREMENTS -------- HEIGHT: 167.6 cm WEIGHT: 83.0 kg BP: IVSd: 1.7 cm (0.6 - 1.1) LVIDd: 4.1 cm (3.9 - 5.3) LVPWd: 1.7 cm (0.6 - 1.1) IVSs: 2.0 cm LVIDs: 2.2 cm LVPWs: 1.9 cm Ao Diam: 3.2 cm (2.0 - 3.7) AV Cusp: 2.1 cm (1.5 - 2.6) LA Diam: 2.7 cm (2.7 - 3.8) MV EXCURSION: 18.048 mm (> 18.000) MV EF SLOPE: 62 mm/s (70 - 150) EPSS: 1.0 cm MV E Dagoberto: 0.45 m/s MV DecT: 365 ms MV A Dagoberto: 0.56 m/s MV E/A Ratio: 0.82 AR PHT: 381 ms RAP: 5.00 mmHg RVSP: 20.42 mmHg FINDINGS -------- Sinus rhythm. This was a technically difficult study with suboptimal views. The left ventricular size is normal. There is severe concentric left ventricular hypertrophy. Ove rall left ventricular systolic function is normal with, an EF between 55 - 60 %. The right ventricle is normal in size. The left atrial size is normal. The right atrial size is normal. Lumason used Interatrial and interventricular septum intact. The aortic valve is trileaflet and appears structurally normal. Trace amount of aortic regurgitatio n. The mitral valve is normal. The mitral valve leaflets are mildly thickened. Mild mitral annular c alcification present. Mild mitral regurgitation is present. The tricuspid valve appears structurally normal. Mild tricuspid regurgitation present. Right vent ricular systolic pressure is normal at < 35 mmHg. There is no pulmonic regurgitation present. The aortic root size is normal. IVC Not well visulized. There is no pericardial effusion. CONCLUSIONS -------- 1. Sinus rhythm. 2. This was a technically difficult study with suboptimal views. 3. The left ventricular size is normal. 4. There is severe concentric left ventricular hypertrophy. 5. Overall left ventricular systolic function is normal with, an EF between 55 - 60 %. 6. The right ventricle is normal in size. 7. The left atrial size is normal. 8. The right atrial size is normal. 9. Lumason used 10. Interatrial and interventricular septum intact. 11. The aortic valve is trileaflet and appears structurally normal. 12. Trace amount of aortic regurgitation. 13. The mitral valve is normal. 14. The mitral valve leaflets are mildly thickened. 15. Mild mitral annular calcification present. 16. Mild mitral regurgitation is present. 17. The tricuspid valve appears structurally normal. 18. Mild tricuspid regurgitation present. 19. Right ventricular systolic pressure is normal at < 35 mmHg. 20. There is no pulmonic regurgitation present. 21. The aortic root size is normal. 22. IVC Not well visulized. 23. There is no pericardial effusion. GROCERY SUPERVISOR: Alanna Greenwood RDCS
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
[2019-11-10 12:02] VITALS: RESP 16
[2019-11-10 12:28] LABS: Glucose,Whole Blood 88 mg/dL (75-99)
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
[2019-11-10] MEDS ORDERED: IV FLUID CONTINUATION 600 ML IV ONE (14:38)
[2019-11-10] MEDS: HEPARIN SOD,PORK IN 0.45% NACL 25,000 UNIT in 0.45% NACL 1 250ML.BAG IV SCH (14:46)
[2019-11-10] MEDS ORDERED: LIDOCAINE 1% INJ 10MG/ML (20 ML MDV) ONE (14:47)
[2019-11-10] MEDS ORDERED: MIDAZOLAM 2 MG/2 ML VIAL IV ONE ×2 (14:48→14:51)
[2019-11-10] MEDS ORDERED: LIDOCAINE 1% INJ 10MG/ML (20 ML MDV) SQ ONE ×2 (14:50→14:53)
[2019-11-10] MEDS ORDERED: fentaNYL (PF) 50 MCG/ML 2 ML AMP IV ONE ×2 (14:52→14:55)
[2019-11-10] MEDS ORDERED: fentaNYL (PF) 50 MCG/ML 2 ML AMP ONE (14:52)
[2019-11-10] MEDS ORDERED: IOPAMIDOL-370 125ML BTL INJ ONE (15:09)
[2019-11-10] MEDS ORDERED: RX INFO: IV CONTRAST WAS GIVEN 1 EACH MISC MISCELLANE PRN (15:09)
[2019-11-10] MEDS: PANTOPRAZOLE 40 MG/10 ML VIAL IVP SCH (15:37)
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
[2019-11-10] MEDS ORDERED: amLODIPine 5 MG TAB PO SCH (21:00)
[2019-11-11] MEDS: PANTOPRAZOLE 40 MG/10 ML VIAL IVP SCH (08:37)
[2019-11-11] MEDS ORDERED: ATORVASTATIN 80 MG TAB PO SCH (09:00)
[2019-11-11 09:05] LABS: Basophils % (A) 1 %; Eosinophils # (A) 0.1 k/uL (0-0.7); Eosinophils % (A) 1 %; HCT 40.3 % (34.0-46.0); HGB 12.1 gm/dL (11.4-16.0); Hypochromasia Slight; Lymphocytes # (A) 1.8 k/uL (1.0-4.8); Lymphocytes % (A) 25 %; MCHC 29.9 g/dL (31.0-37.0); MCV 90.4 fL (80.0-100.0); Mean Platelet Volume 8.1; Monocytes # (A) 0.5 k/uL (0-1.0); Monocytes % (A) 7 %; Neutrophils # (A) 4.7 k/uL (1.3-7.7); Neutrophils % (A) 65 %; Platelet Count 186 k/uL (150-450); RBC 4.46 m/uL (3.80-5.40); WBC 7.2 k/uL (3.8-10.6)
[2019-11-11 09:17] LABS: Calcium 9.3 mg/dL (8.4-10.2); Potassium 4.5 mmol/L (3.5-5.1)
--- NOTE | 2019-11-11 10:52 | P.PN ---
Subjective Progress Note Date: 11/11/19 This is a 74-year-old female with past medical history of hypertension presented to the hospital with complaints of chest pain in the precordial area with moderate intensity at rest with radiation to the left arm. Patient gradually became chest pain-free after being admitted to the hospital. Patient has been hemodynamically stable. EKG was a sinus rhythm with nonspecific ST-T wave changes. 11/10: Patient underwent heart catheterization yesterday with Dr. Cason that found mild nonobstructive coronary artery disease. Chest pain most likely is related to acute stressful event that she recently experienced as her boyfriend suddenly while he was driving a truck down the road. Troponin elevation most likely related to that. Echocardiogram revealed normal LV function. Patient denies having any chest pain or shortness of breath at this time. She is anxious to be discharged home. Patient will have follow-up in the office with Dr. Cason Gen: This is a 74-year-old female. Patient is resting in recliner appears to be comfortable. VS: Afebrile, heart rate 72, blood pressure 135/64, pulse ox 96% on room air. HEENT: Head is atraumatic, normocephalic. Pupils equal, round. Sclerae is anicteric. NECK: Supple. No JVD. No lymphadenopathy. No thyromegaly. LUNGS: Clear to auscultation. No wheezes or rhonchi. No intercostal retractions. HEART: Regular rate and rhythm. No murmur. ABDOMEN: Soft. Bowel sounds are present. No masses. No tenderness. EXTREMITIES: No pedal edema. No calf tenderness. Left groin soft. NEUROLOGICAL: Patient is awake, alert and oriented x3. Cranial nerves 2 through 12 are grossly intact. Assessment: Elevated troponins most likely secondary to stressful event, mild nonobstructive coronary artery disease on heart catheterization Hypertension Plan: Continue current cardiac medications Patient is cleared for discharge home Follow up with Dr. Cason in 1-2 weeks Nurse practitioner note has been reviewed, I agree with documented findings and plan of care. Patient was seen and examined. Objective - Vital Signs Vital signs: Vital Signs Temp 97.8 F 11/11/19 05:24 Pulse 72 11/11/19 05:24 Resp 16 11/11/19 05:24 BP 135/64 11/11/19 05:24 Pulse Ox 96 11/11/19 05:24 Intake & Output 11/10/19 11/11/19 11/11/19 18:59 06:59 18:59 Intake Total 468 250 Balance 468 250 Weight 82.6 kg Intake: IV 100 Intake, IV Titration 250 250 Amount Sodium Chloride 0.9% 1, 250 250 000 ml In Empty Bag 1 bag @ 1 ML/KG/HR 83.3 mls/hr IV .Q12H1M ONE Rx#: [id number] Oral 118 Other: Voiding Method Bedpan # Voids 1 - Labs CBC & Chem 7: 11/11/19 08:32 11/11/19 08:32 Labs: Abnormal Lab Results - Last 24 Hours (Table) 11/10/19 11/11/19 11/11/19 Range/Units 12:11 08:32 08:32 MCHC 29.9 L (31.0-37.0) g/dL APTT 32.6 H (22.0-30.0) sec BUN 24 H (7-17) mg/dL Creatinine 1.07 H (0.52-1.04) mg/dL Glucose 106 H (74-99) mg/dL
--- NOTE | 2019-11-11 14:42 | P.DS ---
Providers Date of admission: 11/10/19 07:21 Expected date of discharge: 11/11/19 Attending physician: Pk Pizarro Consults: 11/09/19 12:28 Consult Physician Urgent Consulting Provider: Pedro Cason Consult Reason/Comments: chest pain, elevated troponin and STEMI vs takotsubo Do you want consulting provider notified?: Yes Primary care physician: Pk Pizarro Hospital Course: 74-year-old female with past medical history of hypertension presented to the hospital with complaints of chest pain in the precordial area with moderate intensity at rest with radiation to the left arm. Patient gradually became chest pain-free after being admitted to the hospital. Patient has been hemodynamically stable. EKG was a sinus rhythm with nonspecific ST-T wave changes. 11/10: Patient underwent heart catheterization yesterday with Dr. Cason that found mild nonobstructive coronary artery disease. Chest pain most likely is related to acute stressful event that she recently experienced as her boyfriend suddenly while he was driving a truck down the road. Troponin elevation most likely related to that. Echocardiogram revealed normal LV function. Patient denies having any chest pain or shortness of breath at this time. She is anxious to be discharged home. Patient is started on Lipitor 80 mg daily at bedtime and aspirin 81 mg daily; Patient will have follow-up in the office with Dr. Cason Patient Condition at Discharge: Stable Plan - Discharge Summary Discharge Rx Participant: No New Discharge Prescriptions: New Atorvastatin [Lipitor] 80 mg PO DAILY #30 tab Continue Aspirin EC [Ecotrin Low Dose] 81 mg PO HS amLODIPine [Norvasc] 5 mg PO HS Discharge Medication List Aspirin EC [Ecotrin Low Dose] 81 mg PO HS 01/23/18 [History] amLODIPine [Norvasc] 5 mg PO HS 11/09/19 [History] Atorvastatin [Lipitor] 80 mg PO DAILY #30 tab 11/11/19 [Rx] Follow up Appointment(s)/Referral(s): Pk Pizarro DO [Primary Care Provider] - 1-2 days Pedro Cason MD [STAFF PHYSICIAN] - 1 Week Patient Instructions/Handouts: Chest Pain (ED) Discharge Disposition: HOME SELF-CARE
[2019-11-11 15:17] VITALS: TEMP 97.7
[2019-11-11 15:25] VITALS: BP 156/70; PULSE 56
[2019-11-11] MEDS ORDERED: ASPIRIN 81 MG PO SCH (21:00)
[2019-11-12] MEDS ORDERED: PANTOPRAZOLE 40 MG TABLET PO SCH (09:00)
== END 2019-11-11 16:24 | disposition home or self-care (01) | DRG 287 ==
LOC: EC 10:37 → 3SCARD 12:27 → 2SICU 17:46 → OBSVTOIN 11-10 07:21 → 3SCARD 11-10 07:57
PROVIDERS: ADMIT Family Medicine; ATTEND Family Medicine
PROC: B2111ZZ Fluoroscopy of Multiple Coronary Arteries using Low Osmolar Contrast (ICD-10-PCS; principal; 2019-11-10 11:20)
PROC: 4A023N7 Measurement of Cardiac Sampling and Pressure, Left Heart, Percutaneous Approach (ICD-10-PCS; principal; 2019-11-10 11:20)
DX: I51.81 Takotsubo syndrome (principal); E86.0 Dehydration; I10 Essential (primary) hypertension; I25.10 Atherosclerotic heart disease of native coronary artery without angina pectoris; G89.29 Other chronic pain; M54.9 Dorsalgia, unspecified; R79.89 Other specified abnormal findings of blood chemistry; F41.9 Anxiety disorder, unspecified; Z11.59 Encounter for screening for other viral diseases; Z79.82 Long term (current) use of aspirin; Z79.899 Other long term (current) drug therapy; Z88.5 Allergy status to narcotic agent; Z88.8 Allergy status to other drugs, medicaments and biological substances; Z85.3 Personal history of malignant neoplasm of breast; Z96.642 Presence of left artificial hip joint; Z98.1 Arthrodesis status; Z90.10 Acquired absence of unspecified breast and nipple; Z82.49 Family history of ischemic heart disease and other diseases of the circulatory system; Z80.0 Family history of malignant neoplasm of digestive organs
CPT/HCPCS: 36415; 71046; 80048; 80053; 80061; 83735; 84484; 85025; 85610; 85730; 87635; 93005; 93306; 93458; 96365; 96366; 96376; 99291

== ENCOUNTER 2019-12-03 18:45 | Emergency (ER) | payer MEDICARE ==
[2019-12-03 18:53] VITALS: BP 192/92; PULSE 77; RESP 18; TEMP 98.2
[2019-12-03] MEDS ORDERED: LIDOCAINE 1% INJ 10MG/ML (20 ML MDV) SQ ONE (18:55)
[2019-12-03] MEDS ORDERED: DIPH,PERTUS(ACELL)TETVAC-LF 0.5 ML VIAL IM ONE (19:00)
--- NOTE | 2019-12-03 19:05 | ED ---
Wound/Laceration HPI - General Chief Complaint: Wound/Laceration Stated Complaint: Hand laceration Time Seen by Provider: 12/03/19 18:55 Source: patient Mode of arrival: ambulatory Limitations: no limitations - History of Present Illness Initial Comments: Patient is a 74-year-old female presenting to emergency Department with a chief complaint of a laceration. Patient states she was handling a hanging basket when she lacerated the posterior aspect of the right hand. Patient reports there was some initial bleeding which has since resolved. He has full range of motion the thumb. Denies any numbness or tingling. Denies taking medication to alleviate her symptoms. - Related Data Home Medications Medication Instructions Recorded Confirmed Aspirin EC [Ecotrin Low Dose] 81 mg PO HS 01/23/18 11/09/19 amLODIPine [Norvasc] 5 mg PO HS 11/09/19 11/09/19 Previous Rx's Medication Instructions Recorded Atorvastatin [Lipitor] 80 mg PO DAILY #30 tab 11/11/19 Allergies Allergy/AdvReac Type Severity Reaction Status Date / Time azathioprine [From Imuran] Allergy liver Verified 12/03/19 18:53 inflammation benazepril Allergy Anaphylaxis Verified 12/03/19 18:53 codeine Allergy Rash/Hives Verified 12/03/19 18:53 hydrocodone Allergy Rash/Hives Verified 12/03/19 18:53 hydromorphone [From Dilaudid] Allergy Rash/Hives Verified 12/03/19 18:53 ibuprofen [From Motrin] Allergy Unknown Verified 12/03/19 18:53 meperidine [From Demerol] Allergy Rash/Hives Verified 12/03/19 18:53 morphine Allergy Rash/Hives Verified 12/03/19 18:53 propoxyphene Allergy Rash/Hives Verified 12/03/19 18:53 [From Darvocet-N] Tetracyclines Allergy Rash/Hives Verified 12/03/19 18:53 clonidine [From Catapres] AdvReac Cough Verified 12/03/19 18:53 lisinopril AdvReac Anaphylaxis Verified 12/03/19 18:53 Review of Systems ROS Statement: Those systems with pertinent positive or pertinent negative responses have been documented in the HPI. ROS Other: All systems not noted in ROS Statement are negative. 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 Past Psychological History: No Psychological Hx Reported Smoking Status: Never smoker Past Alcohol Use History: None Reported Past Drug Use History: None Reported - Past Family History Brother(s) Family Medical History: Cancer Additional Family Medical History / Comment(s): colon Mother Family Medical History: Cancer Additional Family Medical History / Comment(s): gallbladder General Exam Limitations: no limitations General appearance: alert, in no apparent distress Head exam: Present: atraumatic, normocephalic, normal inspection Eye exam: Present: normal appearance, PERRL, EOMI Pupils: Present: normal accommodation ENT exam: Present: normal exam, normal oropharynx, mucous membranes moist Neck exam: Present: normal inspection, full ROM Respiratory exam: Present: normal lung sounds bilaterally. Absent: respiratory distress, wheezes, rales Cardiovascular Exam: Present: regular rate, normal rhythm, normal heart sounds Extremities exam: Present: full ROM (Full range of motion in the right thumb), normal capillary refill, other (+2 ulnar and radial pulses bilaterally.). Absent: normal inspection (3 cm laceration with flap formation on the posterior aspect of the right hand near the thumb.) Back exam: Present: normal inspection, full ROM Neurological exam: Present: alert, oriented X3 Psychiatric exam: Present: normal affect, normal mood Skin exam: Present: warm, dry, intact, normal color Course Vital Signs 12/03/19 18:50 Temperature 98.2 F Pulse Rate 77 Respiratory 18 Rate Blood Pressure 192/92 Procedures - Laceration Laceration #1 Consent Obtained: verbal consent Indication: laceration Site: hand Size (cm): 3 Description: linear, clean Depth: simple, single layer Sedation/Analgesia: none Anesthetic Used: lidocaine 1% Anesthesia Technique: local infiltration Amount (mls): 2 Pre-repair: irrigated extensively, deep structures intact Type of Sutures: nylon Size of Sutures: 4-0 Number of Sutures: 4 Technique: simple, interrupted Patient Tolerated Procedure: well, no complications Medical Decision Making - Medical Decision Making Patient is 74-year-old female presenting to emergency Department with a chief complaint of laceration. Patient has a superficial laceration on the dorsal aspect of the left right hand. She has full range of motion in thumb is neurovascularly intact. Tetanus was administered. Laceration site was repaired with 4 sutures. Advised to return in 7-10 days for suture removal. Suture instructions given. Patient tolerate the procedure well. Case discussed physician. Disposition Clinical Impression: Laceration Disposition: HOME SELF-CARE Instructions (If sedation given, give patient instructions): Care For Your Stitches (DC), Laceration (DC) Additional Instructions: Return to emergency department for suture removal in 7-10 days. Is patient prescribed a controlled substance at d/c from ED?: No Referrals: Pk Pizarro DO [Primary Care Provider] - 1-2 days Time of Disposition: 19:33
== END 2019-12-03 19:50 | disposition home or self-care (01) ==
LOC: EC 18:45
DX: S61.411A Laceration without foreign body of right hand, initial encounter (principal); I10 Essential (primary) hypertension; Z23 Encounter for immunization; Z79.82 Long term (current) use of aspirin; Z79.899 Other long term (current) drug therapy; Z88.8 Allergy status to other drugs, medicaments and biological substances; Z88.5 Allergy status to narcotic agent; Z88.6 Allergy status to analgesic agent; Z88.1 Allergy status to other antibiotic agents; Z85.3 Personal history of malignant neoplasm of breast; Z90.11 Acquired absence of right breast and nipple; Z96.642 Presence of left artificial hip joint; W26.8XXA Contact with other sharp object(s), not elsewhere classified, initial encounter; Y93.89 Activity, other specified
CPT/HCPCS: 90715; 90471; 12002; 99282; J2001

== ENCOUNTER 2020-05-24 14:34 | Emergency (ER) | payer MEDICARE ==
--- NOTE | 2020-05-24 15:13 | ED ---
General Adult HPI - General Chief complaint: Upper Respiratory Infection Stated complaint: Upper Resp Time Seen by Provider: 05/24/20 14:45 Source: patient Mode of arrival: ambulatory Limitations: no limitations - History of Present Illness Initial comments: 75-year-old female presenting to the emergency department with chief complaint of sinus congestion and sore throat. Patient reports symptoms have been ongoing for over a week. Patient reports she was recently at a home for low family member and was exposed to several people. She also reports her granddaughter tested positive and was around her. Patient reports she didn't have any upper respiratory like symptoms along with a productive cough with white sputum production. She also reports over the last day she's noticed some discomfort in her "left lung". She denies any radiation of the discomfort. Denies any shortness of breath. She denies any nausea or vomiting headaches one-sided weakness or paresthesias. She also reports generalized fatigue. - Related Data Home Medications Medication Instructions Recorded Confirmed amLODIPine [Norvasc] 5 mg PO HS 11/09/19 05/24/20 ALPRAZolam [Xanax] 0.5 mg PO HS 05/24/20 05/24/20 Niacin (Unknown Strength) 1 tab PO W/BRKFST 05/24/20 05/24/20 Vitamin C (Unknown Strength) 1 tab PO W/BRKFST 05/24/20 05/24/20 Vitamin D (Unknown Strength) 1 tab PO W/BRKFST 05/24/20 05/24/20 Allergies Allergy/AdvReac Type Severity Reaction Status Date / Time azathioprine [From Imuran] Allergy liver Verified 05/24/20 18:59 inflammation benazepril Allergy Anaphylaxis Verified 05/24/20 18:59 codeine Allergy Rash/Hives Verified 05/24/20 18:59 hydrocodone Allergy Rash/Hives Verified 05/24/20 18:59 hydromorphone [From Dilaudid] Allergy Rash/Hives Verified 05/24/20 18:59 ibuprofen [From Motrin] Allergy Unknown Verified 05/24/20 18:59 meperidine [From Demerol] Allergy Rash/Hives Verified 05/24/20 18:59 morphine Allergy Rash/Hives Verified 05/24/20 18:59 propoxyphene Allergy Rash/Hives Verified 05/24/20 18:59 [From Darvocet-N] Tetracyclines Allergy Rash/Hives Verified 05/24/20 18:59 clonidine [From Catapres] AdvReac Cough Verified 05/24/20 18:59 lisinopril AdvReac Anaphylaxis Verified 05/24/20 18:59 Review of Systems ROS Statement: Those systems with pertinent positive or pertinent negative responses have been documented in the HPI. ROS Other: All systems not noted in ROS Statement are negative. 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 Past Psychological History: No Psychological Hx Reported Smoking Status: Never smoker Past Alcohol Use History: None Reported Past Drug Use History: None Reported - Past Family History Brother(s) Family Medical History: Cancer Additional Family Medical History / Comment(s): colon Mother Family Medical History: Cancer Additional Family Medical History / Comment(s): gallbladder General Exam Limitations: no limitations General appearance: alert, in no apparent distress, obese Head exam: Present: atraumatic, normocephalic, normal inspection Eye exam: Present: normal appearance, PERRL, EOMI Pupils: Present: normal accommodation ENT exam: Present: normal exam, normal oropharynx, mucous membranes moist, TM's normal bilaterally, normal external ear exam Neck exam: Present: normal inspection, full ROM. Absent: tenderness Respiratory exam: Present: normal lung sounds bilaterally. Absent: respiratory distress, wheezes, rales, rhonchi, stridor, chest wall tenderness, accessory muscle use Cardiovascular Exam: Present: regular rate, normal rhythm, normal heart sounds. Absent: systolic murmur GI/Abdominal exam: Present: soft. Absent: distended, tenderness, guarding, rebound, rigid Extremities exam: Present: normal inspection, full ROM, normal capillary refill, other (+2 ulnar and radial pulses bilaterally). Absent: tenderness, pedal edema, joint swelling, calf tenderness Back exam: Present: normal inspection, full ROM. Absent: tenderness, CVA tenderness (R), CVA tenderness (L), muscle spasm, paraspinal tenderness Neurological exam: Present: alert, oriented X3, normal gait Psychiatric exam: Present: normal affect, normal mood Skin exam: Present: warm, dry, intact, normal color Course Vital Signs 05/24/20 05/24/20 05/24/20 14:38 16:12 16:30 Temperature 98.5 F Pulse Rate 95 Respiratory 18 Rate Blood Pressure 191/94 174/107 161/89 O2 Sat by Pulse 97 Oximetry 05/24/20 05/24/20 05/24/20 16:51 17:00 17:30 Temperature Pulse Rate 82 Respiratory 20 Rate Blood Pressure 172/104 164/74 O2 Sat by Pulse 97 Oximetry 05/24/20 05/24/20 05/24/20 18:00 18:30 19:00 Temperature Pulse Rate Respiratory Rate Blood Pressure 182/103 170/102 161/99 O2 Sat by Pulse Oximetry 05/24/20 05/24/20 19:34 20:29 Temperature 98.6 F Pulse Rate 92 86 Respiratory 16 14 Rate Blood Pressure 157/97 152/97 O2 Sat by Pulse 98 97 Oximetry Medical Decision Making - Medical Decision Making 75-year-old female presenting to the emergency department with chief complaint of sinus congestion or sore throat. Physical examination is unremarkable. Patient is not in any respiratory distress. She is clear to auscultation. CBC CMP and coags within normal limits. Patient did have an elevated d-dimer 1.26. She had no significant chest pain or shortness of breath. CT of chest angiogram performed shows no signs of a PE or other acute pulmonary processes. Initial troponin is negative. Patient had a cardiac cath performed in October of this year which revealed mild nonobstructive coronary artery disease. covid-19 test was also negative. However, there is a possibility for false negative. On reevaluation, patient reports there is no more chest discomfort. Repeat troponi n is also negative. Patient was advised to follow-up with her primary care physician. Strict return parameters were thoroughly discussed the patient is understanding and agreeable. Case discussed with physician. - Lab Data Result diagrams: 05/24/20 16:19 05/24/20 16:19 Lab Results 05/24/20 05/24/20 05/24/20 Range/Units 16:19 16:19 16:19 WBC 9.0 (3.8-10.6) k/uL RBC 4.34 (3.80-5.40) m/uL Hgb 12.8 (11.4-16.0) gm/dL Hct 38.4 (34.0-46.0) % MCV 88.6 (80.0-100.0) fL MCH 29.6 (25.0-35.0) pg MCHC 33.4 (31.0-37.0) g/dL RDW 14.3 (11.5-15.5) % Plt Count 219 (150-450) k/uL MPV 7.5 Neutrophils % 65 % Lymphocytes % 25 % Monocytes % 6 % Eosinophils % 1 % Basophils % 1 % Neutrophils # 5.9 (1.3-7.7) k/uL Lymphocytes # 2.2 (1.0-4.8) k/uL Monocytes # 0.6 (0-1.0) k/uL Eosinophils # 0.1 (0-0.7) k/uL Basophils # 0.1 (0-0.2) k/uL PT 9.3 (9.0-12.0) sec INR 0.9 (<1.2) APTT 22.4 (22.0-30.0) sec D-Dimer 1.23 H (<0.60) mg/L FEU Sodium 141 (137-145) mmol/L Potassium 4.3 (3.5-5.1) mmol/L Chloride 107 (98-107) mmol/L Carbon Dioxide 28 (22-30) mmol/L Anion Gap 6 mmol/L BUN 17 (7-17) mg/dL Creatinine 0.97 (0.52-1.04) mg/dL Est GFR (CKD-EPI)AfAm 66 (>60 ml/min/1.73 sqM) Est GFR (CKD-EPI)NonAf 57 (>60 ml/min/1.73 sqM) Glucose 105 H (74-99) mg/dL Calcium 9.1 (8.4-10.2) mg/dL Magnesium 2.3 (1.6-2.3) mg/dL Total Bilirubin 0.3 (0.2-1.3) mg/dL AST 22 (14-36) U/L ALT 14 (4-34) U/L Alkaline Phosphatase 121 (38-126) U/L Troponin I (0.000-0.034) ng/mL Total Protein 6.7 (6.3-8.2) g/dL Albumin 3.8 (3.5-5.0) g/dL Coronavirus (PCR) (Not Detectd) 05/24/20 05/24/20 05/24/20 Range/Units 16:19 16:19 19:02 WBC (3.8-10.6) k/uL RBC (3.80-5.40) m/uL Hgb (11.4-16.0) gm/dL Hct (34.0-46.0) % MCV (80.0-100.0) fL MCH (25.0-35.0) pg MCHC (31.0-37.0) g/dL RDW (11.5-15.5) % Plt Count (150-450) k/uL MPV Neutrophils % % Lymphocytes % % Monocytes % % Eosinophils % % Basophils % % Neutrophils # (1.3-7.7) k/uL Lymphocytes # (1.0-4.8) k/uL Monocytes # (0-1.0) k/uL Eosinophils # (0-0.7) k/uL Basophils # (0-0.2) k/uL PT (9.0-12.0) sec INR (<1.2) APTT (22.0-30.0) sec D-Dimer (<0.60) mg/L FEU Sodium (137-145) mmol/L Potassium (3.5-5.1) mmol/L Chloride (98-107) mmol/L Carbon Dioxide (22-30) mmol/L Anion Gap mmol/L BUN (7-17) mg/dL Creatinine (0.52-1.04) mg/dL Est GFR (CKD-EPI)AfAm (>60 ml/min/1.73 sqM) Est GFR (CKD-EPI)NonAf (>60 ml/min/1.73 sqM) Glucose (74-99) mg/dL Calcium (8.4-10.2) mg/dL Magnesium (1.6-2.3) mg/dL Total Bilirubin (0.2-1.3) mg/dL AST (14-36) U/L ALT (4-34) U/L Alkaline Phosphatase (38-126) U/L Troponin I <0.012 <0.012 (0.000-0.034) ng/mL Total Protein (6.3-8.2) g/dL Albumin (3.5-5.0) g/dL Coronavirus (PCR) Not Detected (Not Detectd) Disposition Clinical Impression: Chest discomfort, Sinus congestion Disposition: HOME SELF-CARE Condition: Stable Instructions (If sedation given, give patient instructions): Chest Pain (DC) Additional Instructions: Follow-up with your fundraising coordinator. Return to emergency department if symptoms worsen. Is patient prescribed a controlled substance at d/c from ED?: No Referrals: Pk Pizarro DO [Primary Care Provider] - 1-2 days Time of Disposition: 19:47
--- NOTE | 2020-05-24 15:52 | XR ---
EXAMINATION TYPE: XR chest 1V portable DATE OF EXAM: 05/24/2020 COMPARISON: 11/09/2019 INDICATION: Cough and cavernous sinus contrast TECHNIQUE: Single frontal view of the chest is obtained. FINDINGS: The heart size is normal. The pulmonary vasculature is normal. The lungs are clear. Postsurgical changes are at the thoracolumbar junction IMPRESSION: 1. No acute pulmonary process.
[2020-05-24 16:37] LABS: Basophils # (A) 0.1 k/uL (0-0.2); Basophils % (A) 1 %; Eosinophils # (A) 0.1 k/uL (0-0.7); Eosinophils % (A) 1 %; HCT 38.4 % (34.0-46.0); HGB 12.8 gm/dL (11.4-16.0); Lymphocytes # (A) 2.2 k/uL (1.0-4.8); Lymphocytes % (A) 25 %; MCH 29.6 pg (25.0-35.0); MCHC 33.4 g/dL (31.0-37.0); MCV 88.6 fL (80.0-100.0); Mean Platelet Volume 7.5; Monocytes # (A) 0.6 k/uL (0-1.0); Monocytes % (A) 6 %; Neutrophils # (A) 5.9 k/uL (1.3-7.7); Neutrophils % (A) 65 %; Platelet Count 219 k/uL (150-450); RBC 4.34 m/uL (3.80-5.40); RDW 14.3 % (11.5-15.5)
[2020-05-24 16:48] LABS: Albumin 3.8 g/dL (3.5-5.0); Calcium 9.1 mg/dL (8.4-10.2); Magnesium 2.3 mg/dL (1.6-2.3); Potassium 4.3 mmol/L (3.5-5.1); Total Bilirubin 0.3 mg/dL (0.2-1.3); Total Protein 6.7 g/dL (6.3-8.2)
[2020-05-24 16:53] LABS: INR 0.9 (<1.2); Partial Thromboplastin Time 22.4 sec (22.0-30.0); Prothrombin Time 9.3 sec (9.0-12.0)
[2020-05-24 16:57] LABS: D-Dimer 1.23 mg/L FEU (<0.60)
--- NOTE | 2020-05-24 18:06 | CT ---
EXAMINATION TYPE: CT chest angio for PE DATE OF EXAM: 05/24/2020 COMPARISON: 01/24/2019 HISTORY: Elevated d-dimer. CT DLP: 418.6 mGycm Automated exposure control for dose reduction was used. CONTRAST: Performed with IV Contrast, patient injected with 80 mL of Isovue 300. There is some mild interstitial density scattered in the lungs. There is no evidence of a pulmonary m ass. There is no pleural effusion. There is no pericardial effusion. Heart is top normal in size. There is no mediastinal adenopathy. There are no hilar masses. The ascending aorta measures 3.2 cm. T here is no aneurysm or dissection. There is normal contrast opacification of the pulmonary arteries. There are no filling defects. There is some spurring in the thoracic spine. There is posterior fusion surgery in the lower thoracic spine. IMPRESSION: No evidence of pulmonary embolism. Slight increased pulmonary interstitial markings compared to old e xam. No suspicious pulmonary mass.
[2020-05-24 20:30] VITALS: BP 152/97; PULSE 86; RESP 14; TEMP 98.6
== END 2020-05-24 20:25 | disposition home or self-care (01) ==
LOC: EC 14:34
DX: R09.81 Nasal congestion (principal); R07.89 Other chest pain; I10 Essential (primary) hypertension; Z79.899 Other long term (current) drug therapy; Z88.1 Allergy status to other antibiotic agents; Z88.5 Allergy status to narcotic agent; Z88.8 Allergy status to other drugs, medicaments and biological substances; Z96.642 Presence of left artificial hip joint; Z98.1 Arthrodesis status; Z85.3 Personal history of malignant neoplasm of breast
CPT/HCPCS: 99284; 36415; 93005; 85379; 80053; 83735; 84484; 85025; 85610; 85730; 87635; 71045; 71275; Q9967

== ENCOUNTER → 2020-06-04 | Outpatient (CLI) | payer MEDICARE ==
--- NOTE | 2020-06-04 11:42 | MM ---
Reason for exam: additional evaluation requested from prior study. Last mammogram was performed 1 year ago. History: Patient is postmenopausal, has history of other cancer at age 69, and has history of breast cancer at age 59. Family history of breast cancer in paternal cousin at age 60. Radiation therapy of the right breast, 2004. Lumpectomy of the right breast, 2003. Benign core biopsy of the left breast, 1989. Benign core biopsy of the left breast, 1987. Took estrogen for 30 years. Took antineoplastic for 5 years beginning at age 59. Physical Findings: Nurse did not find any significant physical abnormalities on exam. MG 3D Diag Mammo W/Cad JANUSZ Bilateral CC and MLO view(s) were taken. Prior study comparison: May 31, 2019, bilateral MG 3d diag mammo w/cad JANUSZ. April 25, 2018, bilateral MG 3d diag mammo w/cad JANUSZ. The breast tissue is heterogeneously dense. This may lower the sensitivity of mammography. Post surgical changes, right upper outer quadrant. Limited right CC view. No significant new findings when compared with previous films. These results were verbally communicated with the patient and result sheet given to the patient on 06/04/20. ASSESSMENT: Benign, BI-RAD 2 RECOMMENDATION: Routine screening mammogram of both breasts in 1 year.
== END | disposition home or self-care (01) ==
LOC: RADMAMWWP 10:41
PROVIDERS: ATTEND Internal Medicine Hematology & Oncology
DX: Z08 Encounter for follow-up examination after completed treatment for malignant neoplasm (principal); Z85.3 Personal history of malignant neoplasm of breast
CPT/HCPCS: 77066; G0279; 77062

== ENCOUNTER 2021-04-04 14:40 | Emergency (ER) | payer MEDICARE ==
[2021-04-04 15:55] VITALS: RESP 20
[2021-04-04 16:25] LABS: Basophils # (A) 0.1 k/uL (0-0.2); Basophils % (A) 1 %; Eosinophils # (A) 0.2 k/uL (0-0.7); Eosinophils % (A) 2 %; HCT 39.2 % (34.0-46.0); HGB 12.7 gm/dL (11.4-16.0); Lymphocytes # (A) 2.9 k/uL (1.0-4.8); Lymphocytes % (A) 24 %; MCH 28.9 pg (25.0-35.0); MCHC 32.5 g/dL (31.0-37.0); MCV 88.8 fL (80.0-100.0); Mean Platelet Volume 7.7; Monocytes # (A) 0.8 k/uL (0-1.0); Monocytes % (A) 7 %; Neutrophils % (A) 66 %; Platelet Count 291 k/uL (150-450); RBC 4.41 m/uL (3.80-5.40); RDW 14.4 % (11.5-15.5); WBC 12.1 k/uL (3.8-10.6)
[2021-04-04 16:35] LABS: Albumin 4.3 g/dL (3.5-5.0); Calcium 9.4 mg/dL (8.4-10.2); Potassium 4.7 mmol/L (3.5-5.1); Total Bilirubin 0.3 mg/dL (0.2-1.3); Total Protein 7.8 g/dL (6.3-8.2)
[2021-04-04] MEDS ORDERED: KETOROLAC 15 MG/ML 1 ML VIAL IVP STA (19:03)
--- NOTE | 2021-04-04 19:17 | ED ---
General Adult HPI - General Chief complaint: Shortness of Breath Stated complaint: LAUREANO Time Seen by Provider: 04/04/21 18:43 Source: patient, RN notes reviewed, old records reviewed Mode of arrival: ambulatory Limitations: no limitations - History of Present Illness Initial comments: I evaluated the patient when she was placed in a room. Workup was started by triage. Patient a 75-year-old female with past medical history remarkable for cancer, chronic back pain, esophageal dysmotility, hypertension who presents emergency Department complaining of a 1-2 week history of chest pain. She scribes the pain as a achy sensation located over left chest with radiation towards her left shoulder. It is palpable, including the radiation towards her left shoulder. It is somewhat worse with movement of her left shoulder. It is somewhat pleuritic in nature. Denies any cough, fevers. Denies any sick contacts. Denies any abdominal pain, nausea, vomiting. Denies any lightheadedness, blurry vision. She has no known palliative or provocative factors. She presents emergency department over concern for chest pain. Patient was seen in early 2019 for similar chest pain, which she had after she witnessed her boyfriend I have a cardiac arrest in front of her. Cath at that time was negative for significant stenosis. - Related Data Home Medications Medication Instructions Recorded Confirmed amLODIPine [Norvasc] 5 mg PO HS 11/09/19 05/24/20 ALPRAZolam [Xanax] 0.5 mg PO HS 05/24/20 05/24/20 Niacin (Unknown Strength) 1 tab PO W/BRKFST 05/24/20 05/24/20 Vitamin C (Unknown Strength) 1 tab PO W/BRKFST 05/24/20 05/24/20 Vitamin D (Unknown Strength) 1 tab PO W/BRKFST 05/24/20 05/24/20 Previous Rx's Medication Instructions Recorded Lidocaine 5% Patch [Lidoderm 5% 1 patch TOPICAL DAILY PRN 14 Days 04/04/21 Patch] #14 patch Allergies Allergy/AdvReac Type Severity Reaction Status Date / Time azathioprine [From Imuran] Allergy liver Verified 04/04/21 15:55 inflammation benazepril Allergy Anaphylaxis Verified 04/04/21 15:55 codeine Allergy Rash/Hives Verified 04/04/21 15:55 hydrocodone Allergy Rash/Hives Verified 04/04/21 15:55 hydromorphone [From Dilaudid] Allergy Rash/Hives Verified 04/04/21 15:55 ibuprofen [From Motrin] Allergy Unknown Verified 04/04/21 15:55 meperidine [From Demerol] Allergy Rash/Hives Verified 04/04/21 15:55 morphine Allergy Rash/Hives Verified 04/04/21 15:55 propoxyphene Allergy Rash/Hives Verified 04/04/21 15:55 [From Darvocet-N] Tetracyclines Allergy Rash/Hives Verified 04/04/21 15:55 clonidine [From Catapres] AdvReac Cough Verified 05/24/20 18:59 lisinopril AdvReac Anaphylaxis Verified 05/24/20 18:59 Review of Systems ROS Statement: Those systems with pertinent positive or pertinent negative responses have been documented in the HPI. Review of Systems: CONST: Denies fever EYES: Denies blurry vision ENT: Denies nasal congestion C/V: Endorses chest pain RESP: Denies shortness of breath GI: Denies abdominal pain : Denies dysuria SKIN: Denies rash. MSK: Denies joint pain. NEURO: Denies headache ROS Other: All systems not noted in ROS Statement are negative. Past Medical History Past Medical History: Cancer, Hypertension Additional Past Medical History / Comment(s): back pain (DDD), breast cancer (in remission,) states esophageous doesn't work right--has a hard time swallowing and stomach contents come back up, History of Any Multi-Drug Resistant Organisms: None Reported Past Surgical History: Back Surgery, Joint Replacement Additional Past Surgical History / Comment(s): breast masectomy(right), left hip replacement, Past Anesthesia/Blood Transfusion Reactions: Previous Problems w/ Anesthesia Additional Past Anesthesia/Blood Transfusion Reaction / Comment(s): stopped breathing in recovery after spinal fusion revision in 2013 (7 hr surgery),no problems with prior blood transfusions. Past Psychological History: No Psychological Hx Reported Smoking Status: Never smoker Past Alcohol Use History: None Reported Past Drug Use History: None Reported - Past Family History Brother(s) Family Medical History: Cancer Additional Family Medical History / Comment(s): colon Mother Family Medical History: Cancer Additional Family Medical History / Comment(s): gallbladder General Exam - General Exam Comments Initial Comments: General: Appears in no acute distress. HEAD: Normal with no signs of head trauma. EYES: PERRLA, EOMI, conjunctiva normal, no discharge. ENT: Hearing grossly intact, normal oropharynx. RESPIRATORY: Clear breath sounds bilaterally. No wheezes, rales, or rhonchi. C/V: Regular rate and rhythm. S1 and S2 auscultated, no edema, peripheral pulses 2+ and intact throughout. Chest pain is somewhat reproducible on palpation of the left pectoral muscle was left shoulder. ABD: Abd is soft, nontender, nondistended EXT: Normal range of motion, no obvious deformity SKIN: No rashes or lesions observed on exposed skin. NEURO: Alert and oriented 4. Limitations: no limitations Course Vital Signs 04/04/21 04/04/21 15:53 19:36 Temperature 98.2 F Pulse Rate 86 81 Respiratory 20 20 Rate Blood Pressure 168/84 138/79 O2 Sat by Pulse 94 L 98 Oximetry Medical Decision Making - Medical Decision Making Based on the patient's presentation and physical exam, I would like to rule out cardiac etiology for her current symptoms. Cardiac he evaluation will be obtained including troponin, EKG, chest x-ray. We will also add on a d-dimer throughout the possibility of pulmonary embolus. She does not perk out and her well's criteria is low. She was in agreement this plan. By the time I evaluated the patient, initial laboratory studies were remarkable for negative troponin, mild leukocytosis 12.1 which is likely reactive, as well as baseline any function. Remainder of her labs are unremarkable. EKG showed no signs of acute ischemia. I spoke with the patient, and she was in agreement the plan for further workup, including a second troponin as well as a d-dimer. She'll be given Toradol for pain management. She was in agreement with this plan. Patient's second troponin is negative. D-dimer is elevated to 1.13 and therefore we will obtain a CT angiogram of the possibility of pulmonary embolism. Chest x-ray revealed no acute cardiopulmonary process.Patient's CT angiogram showed no signs of pulmonary embolism. It shows a healed prior infectious process. No other acute findings. On reevaluation, patient's chest wall pain is very improved. She states it is minimally tender at this time. I discussed with her the results of laboratory studies and imaging. I do believe it is safer to be discharged home, as we obtain 2 troponins, as well as a negative CT angiogram on this admission. It appears that her chest pain is likely secondary to muscular skeletal pain in the chest wall. She was in agreement. Patient will be discharged home with close follow-up with her PCP. I will provide the patient with a prescription for lidocaine patches. I instructed the patient to follow up with their PCP in the next 3 days. I explained that the patient should return to the emergency department if they experience any worsening symptoms. Strict return precautions were discussed with the patient. The patient expressed understanding of these instructions. I answered all questions that the patient had. The patient was discharged home in good condition with their prescriptions and follow up information. - Lab Data Result diagrams: 04/04/21 16:16 04/04/21 16:16 Lab Results 04/04/21 04/04/21 04/04/21 Range/Units 16:16 16:16 16:16 WBC 12.1 H (3.8-10.6) k/uL RBC 4.41 (3.80-5.40) m/uL Hgb 12.7 (11.4-16.0) gm/dL Hct 39.2 (34.0-46.0) % MCV 88.8 (80.0-100.0) fL MCH 28.9 (25.0-35.0) pg MCHC 32.5 (31.0-37.0) g/dL RDW 14.4 (11.5-15.5) % Plt Count 291 (150-450) k/uL MPV 7.7 Neutrophils % 66 % Lymphocytes % 24 % Monocytes % 7 % Eosinophils % 2 % Basophils % 1 % Neutrophils # 8.0 H (1.3-7.7) k/uL Lymphocytes # 2.9 (1.0-4.8) k/uL Monocytes # 0.8 (0-1.0) k/uL Eosinophils # 0.2 (0-0.7) k/uL Basophils # 0.1 (0-0.2) k/uL D-Dimer (<0.60) mg/L FEU Sodium 137 (137-145) mmol/L Potassium 4.7 (3.5-5.1) mmol/L Chloride 104 (98-107) mmol/L Carbon Dioxide 24 (22-30) mmol/L Anion Gap 9 mmol/L BUN 32 H (7-17) mg/dL Creatinine 1.09 H (0.52-1.04) mg/dL Est GFR (CKD-EPI)AfAm 57 (>60 ml/min/1.73 sqM) Est GFR (CKD-EPI)NonAf 50 (>60 ml/min/1.73 sqM) Glucose 95 (74-99) mg/dL Calcium 9.4 (8.4-10.2) mg/dL Total Bilirubin 0.3 (0.2-1.3) mg/dL AST 22 (14-36) U/L ALT 11 (4-34) U/L Alkaline Phosphatase 138 H (38-126) U/L Troponin I <0.012 (0.000-0.034) ng/mL Total Protein 7.8 (6.3-8.2) g/dL Albumin 4.3 (3.5-5.0) g/dL 04/04/21 04/04/21 Range/Units 19:27 19:27 WBC (3.8-10.6) k/uL RBC (3.80-5.40) m/uL Hgb (11.4-16.0) gm/dL Hct (34.0-46.0) % MCV (80.0-100.0) fL MCH (25.0-35.0) pg MCHC (31.0-37.0) g/dL RDW (11.5-15.5) % Plt Count (150-450) k/uL MPV Neutrophils % % Lymphocytes % % Monocytes % % Eosinophils % % Basophils % % Neutrophils # (1.3-7.7) k/uL Lymphocytes # (1.0-4.8) k/uL Monocytes # (0-1.0) k/uL Eosinophils # (0-0.7) k/uL Basophils # (0-0.2) k/uL D-Dimer 1.13 H (<0.60) mg/L FEU Sodium (137-145) mmol/L Potassium (3.5-5.1) mmol/L Chloride (98-107) mmol/L Carbon Dioxide (22-30) mmol/L Anion Gap mmol/L BUN (7-17) mg/dL Creatinine (0.52-1.04) mg/dL Est GFR (CKD-EPI)AfAm (>60 ml/min/1.73 sqM) Est GFR (CKD-EPI)NonAf (>60 ml/min/1.73 sqM) Glucose (74-99) mg/dL Calcium (8.4-10.2) mg/dL Total Bilirubin (0.2-1.3) mg/dL AST (14-36) U/L ALT (4-34) U/L Alkaline Phosphatase (38-126) U/L Troponin I <0.012 (0.000-0.034) ng/mL Total Protein (6.3-8.2) g/dL Albumin (3.5-5.0) g/dL - EKG Data -: EKG Interpreted by Me EKG Comments: 12-lead Electrocardiogram Interpretation Note EKG was reviewed and interpreted by myself. 12-lead ECG performed at 1600 is interpreted by me as revealing normal sinus rhythm at a rate of 62 beats per minute. Mild left axis deviation. OH interval is 130 ms, QRS duration is 90 ms, QTc is 90 ms.. There were no ST or T wave abnormalities to suggest myocardial ischemia or injury. R wave progression across the precordium was satisfactory. By my interpretation this EKG is non-diagnostic for acute ischemia. EKG is unchanged when compared to prior EKG's in our system. Disposition Clinical Impression: Chest wall pain, Elevated d-dimer, Musculoskeletal pain Disposition: HOME SELF-CARE Condition: Good Instructions (If sedation given, give patient instructions): Chest Wall Pain (ED) Prescriptions: Lidocaine 5% Patch [Lidoderm 5% Patch] 1 patch TOPICAL DAILY PRN 14 Days #14 patch PRN Reason: Pain Is patient prescribed a controlled substance at d/c from ED?: No Referrals: Pk Pizarro DO [Primary Care Provider] - 1-2 days
--- NOTE | 2021-04-04 20:22 | XR ---
EXAMINATION TYPE: XR chest 2V DATE OF EXAM: 04/04/2021 COMPARISON: Chest radiograph 05/24/2020, chest CT dated October 2020 HISTORY: Chest pain TECHNIQUE: Frontal and lateral views of the chest are obtained. FINDINGS: There is no focal air space opacity, pleural effusion, or pneumothorax seen. The cardiac silhouette size is within normal limits. The osseous structures are intact. Partially visualized posterior spinal fusion hardware of the thoracolumbar spine. Clips over the righ t chest wall. IMPRESSION: No acute cardiopulmonary process.
--- NOTE | 2021-04-04 21:22 | CT ---
EXAMINATION TYPE: CT chest angio for PE DATE OF EXAM: 04/04/2021 COMPARISON: CT chest 01/24/2019 HISTORY: chest pain, elevated d-dimer CT DLP: 470.6 mGycm Automated exposure control for dose reduction was used. CONTRAST: CT Chest for pulmonary embolism performed with with IV Contrast, patient injected with 80cc mL of Iso fatoumata 370. FINDINGS: LUNGS: The lungs are grossly clear, there is no concerning parenchymal mass or nodule identified. Mi nimal groundglass opacity in the right middle lobe. There are tiny 3 mm pleural-based nodules at the right apex similar to prior study from 2019. Mild bronchial wall thickening. There is no pleural effu charles or pneumothorax seen. The tracheobronchial tree is patent. MEDIASTINUM: There is satisfactory enhancement of the pulmonary artery and its branches, there is no CT evidence for pulmonary embolism. Hilar and subcarinal lymph nodes. There are no greater than 1 cm hilar or mediastinal lymph nodes. No pericardial effusion is seen. The esophagus is mildly patulou s. OTHER: Gastric bypass surgery. Partially visualized spinal fusion hardware. Calcifications in the ri ght axilla scarring/nodularity of the right anterolateral chest wall similar to prior. IMPRESSION: 1. No pulmonary embolus. 2. Minimal groundglass opacity some bronchial wall thickening in the lung with some prominent but no nenlarged right hilar and subcarinal lymph nodes. Likely post infectious/post inflammatory. Attention on follow-up.
[2021-04-04 21:53] VITALS: BP 129/78; PULSE 85; TEMP 98
== END 2021-04-04 21:45 | disposition home or self-care (01) ==
LOC: EC 14:40
DX: R07.89 Other chest pain (principal); R79.1 Abnormal coagulation profile; I10 Essential (primary) hypertension; Z79.899 Other long term (current) drug therapy; Z88.5 Allergy status to narcotic agent; Z88.6 Allergy status to analgesic agent; Z88.8 Allergy status to other drugs, medicaments and biological substances; Z85.3 Personal history of malignant neoplasm of breast
CPT/HCPCS: 36415; 85379; 80053; 84484; 85025; 71046; 71275; 99285; 96374; J1885; Q9967; 93005

== ENCOUNTER 2021-04-21 10:01 | Day surgery (SDC) | payer MEDICARE ==
[2021-04-17 10:54] VITALS: BMI 29.0
[2021-04-21] MEDS ORDERED: LACTATED RINGERS 1,000 ML IV SCH (10:37)
[2021-04-21 10:51] VITALS: TEMP 98.3
--- NOTE | 2021-04-21 11:15 | P.GSHP ---
History of Present Illness H&P Date: 04/21/21 Chief Complaint: Rectal bleeding, GERD Dysphagia Is a 76-year-old female who has history of rectal bleeding. Patient also has history of GERD and dysphagia. She has a previous history of vertical banded gastroplasty performed by Dr. Ward approximately 30 years ago. 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 Past Psychological History: No Psychological Hx Reported - Past Family History Brother(s) Family Medical History: Cancer Additional Family Medical History / Comment(s): colon Mother Family Medical History: Cancer Additional Family Medical History / Comment(s): gallbladder Father Family Medical History: Cancer Medications and Allergies Home Medications Medication Instructions Recorded Confirmed Type amLODIPine [Norvasc] 5 mg PO HS 11/09/19 04/17/21 History ALPRAZolam [Xanax] 0.25 mg PO HS 05/24/20 04/17/21 History Escitalopram [Lexapro] 5 mg PO HS 04/17/21 04/17/21 History Allergies Allergy/AdvReac Type Severity Reaction Status Date / Time azathioprine [From Imuran] Allergy liver Verified 04/21/21 10:45 inflammation benazepril Allergy Anaphylaxis Verified 04/21/21 10:45 codeine Allergy Rash/Hives Verified 04/21/21 10:45 hydrocodone Allergy Rash/Hives Verified 04/21/21 10:45 hydromorphone [From Dilaudid] Allergy Rash/Hives Verified 04/21/21 10:45 ibuprofen [From Motrin] Allergy Unknown Verified 04/21/21 10:45 meperidine [From Demerol] Allergy Rash/Hives Verified 04/21/21 10:45 morphine Allergy Rash/Hives Verified 04/21/21 10:45 propoxyphene Allergy Rash/Hives Verified 04/21/21 10:45 [From Darvocet-N] Tetracyclines Allergy Rash/Hives Verified 04/21/21 10:45 clonidine [From Catapres] AdvReac Cough Verified 04/21/21 10:45 lisinopril AdvReac Anaphylaxis Verified 04/21/21 10:45 Surgical - Exam Vital Signs Temp Pulse Resp BP Pulse Ox 98.3 F 90 16 158/82 95 04/21/21 10:43 04/21/21 10:43 04/21/21 10:43 04/21/21 10:43 04/21/21 10:43 - General well developed, well nourished, no distress - Eyes PERRL - ENT normal pinna - Neck no masses - Respiratory normal expansion - Cardiovascular Rhythm: regular - Abdomen Abdomen: soft, non tender Assessment and Plan Assessment: Rectal bleeding, we'll perform colonoscopy. GERD, dysphagia we'll perform EGD
--- NOTE | 2021-04-21 11:33 | P.OP ---
Date of Procedure: 04/21/21 Preoperative Diagnosis: GERD Dysphagia Rectal bleeding Postoperative Diagnosis: Gastritis Mild esophagitis Procedure(s) Performed: EGD Colonoscopy Anesthesia: MAC Surgeon: Shane Leroy Pathology: other (Antrum, esophagus) Condition: stable Disposition: PACU Description of Procedure: Patient's placed on the endoscopy table in the lateral position. She received IV sedation. The gastro-/oropharynx passed in the esophagus into the patient a previous gastroplasty. The proximal stomach appeared to be slightly dilated. This was mildly inflamed. Biopsies performed. The scope was placed into the distal stomach. Scope withdrawn. The distal esophagus appeared mildly inflamed. A biopsies performed. The proximal esophagus appeared normal. Scope was withdrawn for patient. Next digital rectal exam was performed which revealed external hemorrhoids. The flexible colonoscope was then placed patient anus passed rotator entire colon. The ileocecal valve was visualized. The cecum, ascending and transverse colon appeared normal. In the descending; there is moderate diverticular changes. The scope was brought back the rectum this appeared normal. The scope was withdrawn for patient. There is no evidence of any GI bleed. However is presumed patient's rectal bleeding is due to hemorrhoids.
[2021-04-21] MEDS ORDERED: PROPOFOL 10 MG/ML 20 ML VIAL IV ONE (11:41)
[2021-04-21] MEDS ORDERED: LIDOCAINE 1% INJ 10MG/ML (20 ML MDV) ONE (11:41)
[2021-04-21 12:01] VITALS: BP 132/87
[2021-04-21 12:50] VITALS: PULSE 66; RESP 20
== END 2021-04-21 13:11 | disposition home or self-care (01) ==
LOC: ORWHC2ENDO 10:01
PROVIDERS: ATTEND Surgery
DX: K29.50 Unspecified chronic gastritis without bleeding (principal); B96.81 Helicobacter pylori [H. pylori] as the cause of diseases classified elsewhere; K64.4 Residual hemorrhoidal skin tags; I25.10 Atherosclerotic heart disease of native coronary artery without angina pectoris; I10 Essential (primary) hypertension; Z85.3 Personal history of malignant neoplasm of breast; R13.10 Dysphagia, unspecified; G47.33 Obstructive sleep apnea (adult) (pediatric); R32 Unspecified urinary incontinence; Z90.11 Acquired absence of right breast and nipple; Z96.642 Presence of left artificial hip joint; Z98.1 Arthrodesis status; Z80.0 Family history of malignant neoplasm of digestive organs; Z98.84 Bariatric surgery status; Z80.8 Family history of malignant neoplasm of other organs or systems; Z85.828 Personal history of other malignant neoplasm of skin; Z86.73 Personal history of transient ischemic attack (TIA), and cerebral infarction without residual deficits; Z97.2 Presence of dental prosthetic device (complete) (partial); Z79.899 Other long term (current) drug therapy; Z88.6 Allergy status to analgesic agent; Z88.1 Allergy status to other antibiotic agents; Z88.5 Allergy status to narcotic agent; Z88.8 Allergy status to other drugs, medicaments and biological substances
CPT/HCPCS: 88305; 88342; 45378; 43239; J2001; J2704

== ENCOUNTER → 2021-05-07 | Outpatient (CLI) | payer MEDICARE ==
--- NOTE | 2021-05-07 15:09 | CT ---
EXAMINATION TYPE: CT abdomen pelvis w con DATE OF EXAM: 05/07/2021 COMPARISON: No recent prior exam HISTORY: Diverticulitis CT DLP: 1543.70 mGycm Automated exposure control for dose reduction was used. TECHNIQUE: Helical acquisition of images from the lung bases through the pelvis have been completed. CONTRAST: Performed with Oral Contrast and with IV Contrast, patient injected with 100 mL of Isovue 300. FINDINGS: Patient is likely post gastric surgery, suture line is present along the stomach, there is a portion of the stomach lateral to the suture line which is filling with an retaining contrast. LUNG BASES: No significant abnormality is appreciated. AORTA: No significant abnormality is appreciated. LIVER/GB: No significant abnormality is appreciated within the liver, gallbladder is absent. PANCREAS: No significant abnormality is seen. SPLEEN: No significant abnormality is seen. ADRENALS: No significant abnormality is seen. KIDNEYS: No significant abnormality is seen. REPRODUCTIVE ORGANS: Uterus and adnexal structures are not seen. BOWEL: Diverticular changes associated with the sigmoid colon, no inflammatory change. The appendix is not seen. FREE AIR: No Free Air visible. ASCITES: None visible. PELVIC ADENOPATHY: None visualized. RETROPERITONEAL ADENOPATHY: No Retroperitoneal Adenopathy visible. URINARY BLADDER: No significant abnormality is seen. OSSEOUS STRUCTURES: Postop changes to the thoracic lumbar spine, bilateral hip arthroplasties are pr esent streak artifact over portions of the exam. IMPRESSION: POSTOP CHANGES, DIVERTICULOSIS
== END | disposition home or self-care (01) ==
LOC: RADCTMAIN 09:45
PROVIDERS: ATTEND Surgery
DX: K57.30 Diverticulosis of large intestine without perforation or abscess without bleeding (principal); Z98.890 Other specified postprocedural states
CPT/HCPCS: 82565; 84520; 74177; 36415; Q9967

== ENCOUNTER 2021-07-01 11:31 | Emergency (ER) | payer MEDICARE ==
[2021-07-01 11:51] VITALS: RESP 20; TEMP 98.5
--- NOTE | 2021-07-01 12:16 | ED ---
General Adult HPI - General Chief complaint: Upper Respiratory Infection Stated complaint: Covid+/BAM Time Seen by Provider: 07/01/21 11:55 Source: patient Mode of arrival: ambulatory Limitations: no limitations - History of Present Illness Initial comments: Dictation was produced using [employer] dictation software. please excuse any grammatical, word or spelling errors. Chief Complaint: 76-year-old female presents to the emergency department for monoclonal antibodies History of Present Illness: Patient is a 76-year-old female presents emergency department for 2 days of COVID-19 symptoms. She had a positive tests earlier today ordered by her primary care doctor. Patient states she had a [employer] get-together which is when she believes she might have contracted the virus. She has not had any obvious exposures. She went to follow-up with her primary care doctor today. He sent her to the inpatient lead to get a Covid test which was positive. She is instructed to come to the emergency department to receive monoclonal antibodies. She states that her symptoms include myalgias, weakness cough and shortness of breath. The ROS documented in this emergency department record has been reviewed and confirmed by me. Those systems with pertinent positive or negative responses have been documented in the HPI. All other systems are other negative and/or noncontributory. PHYSICAL EXAM: General Impression: Alert and oriented x3, not in acute distress HEENT: Normocephalic atraumatic, extra-ocular movements intact, pupils equal and reactive to light bilaterally, mucous membranes moist. Cardiovascular: Heart regular rate and rhythm Chest: Able to complete full sentences, no retractions, no tachypnea Abdomen: abdomen soft, non-tender, non-distended, no organomegaly Musculoskeletal: Pulses present and equal in all extremities, no peripheral edema Motor: no focal deficits noted Neurological: CN II-XII grossly intact, no focal motor or sensory deficits noted Skin: Intact with no visualized rashes Psych: Normal affect and mood ED course: 76-year-old female presents emergency department for monoclonal antibodies. Has been symptomatic for 2 days. She doesn't positive for COVID-19 today. There is confirmation of positive result on our electronic medical record dated for today at 10:47 AM. Vital signs upon arrival are within acceptable limits. She is not hypoxic she is well-appearing at the bedside. Patient meets criteria for monoclonal antibodies for medical history and age. Observed in emergency department for one hour after infusion found to be in stable medical condition. Patient be discharged. - Related Data Home Medications Medication Instructions Recorded Confirmed amLODIPine [Norvasc] 5 mg PO HS 11/09/19 07/01/21 ALPRAZolam [Xanax] 0.25 mg PO HS 05/24/20 07/01/21 Escitalopram [Lexapro] 10 mg PO HS 07/01/21 07/01/21 Allergies Allergy/AdvReac Type Severity Reaction Status Date / Time benazepril Allergy Anaphylaxis Verified 07/01/21 13:29 codeine Allergy Rash/Hives Verified 07/01/21 13:29 hydrocodone Allergy Rash/Hives Verified 07/01/21 13:29 hydromorphone [From Dilaudid] Allergy Rash/Hives Verified 07/01/21 13:29 ibuprofen [From Motrin] Allergy Unknown Verified 07/01/21 13:29 lisinopril Allergy Anaphylaxis Verified 07/01/21 13:29 meperidine [From Demerol] Allergy Rash/Hives Verified 07/01/21 13:29 morphine Allergy Rash/Hives Verified 07/01/21 13:29 propoxyphene Allergy Rash/Hives Verified 07/01/21 13:29 [From Darvocet-N] Tetracyclines Allergy Rash/Hives Verified 07/01/21 13:29 azathioprine [From Imuran] AdvReac liver Verified 07/01/21 13:29 inflammation clonidine [From Catapres] AdvReac Cough Verified 07/01/21 13:29 Review of Systems ROS Statement: Those systems with pertinent positive or pertinent negative responses have been documented in the HPI. ROS Other: All systems not noted in ROS Statement are negative. Past Medical History Past Medical History: Cancer, Hypertension Additional Past Medical History / Comment(s): back pain (DDD), breast cancer (in remission,) states esophageous doesn't work right--has a hard time swallowing and stomach contents come back up, History of Any Multi-Drug Resistant Organisms: None Reported Past Surgical History: Back Surgery, Heart Catheterization, Joint Replacement Additional Past Surgical History / Comment(s): breast masectomy(right), sayda hip replacement, back surgery x 5(rods and screws/fusion) Past Anesthesia/Blood Transfusion Reactions: Previous Problems w/ Anesthesia Additional Past Anesthesia/Blood Transfusion Reaction / Comment(s): stopped breathing in recovery after spinal fusion revision in 2013 (7 hr surgery),no problems with 2 surgeries after this one Past Psychological History: No Psychological Hx Reported Smoking Status: Never smoker Past Alcohol Use History: None Reported Past Drug Use History: None Reported - Past Family History Brother(s) Family Medical History: Cancer Additional Family Medical History / Comment(s): colon Mother Family Medical History: Cancer Additional Family Medical History / Comment(s): gallbladder Father Family Medical History: Cancer General Exam Limitations: no limitations Course Vital Signs 07/01/21 11:48 Temperature 98.5 F Pulse Rate 90 Respiratory 20 Rate Blood Pressure 124/65 O2 Sat by Pulse 96 Oximetry Disposition Clinical Impression: Coronavirus infection Disposition: HOME SELF-CARE Condition: Fair Instructions (If sedation given, give patient instructions): Coronavirus Disease 2019 (COVID-19) Is patient prescribed a controlled substance at d/c from ED?: No Referrals: Pk Pizarro DO [Primary Care Provider] - 1-2 days
[2021-07-01] MEDS ORDERED: BAMLANIVIMAB (EUA) 700 MG, ETESEVIMAB (EUA) 1,400 MG in SODIUM CHLORIDE 0.9% 100 ML IVPB ONE (12:30)
[2021-07-01] MEDS ORDERED: SODIUM CHLORIDE 0.9% 50 ML IVPB ONE (13:00)
[2021-07-01 14:33] VITALS: BP 172/84; PULSE 74
== END 2021-07-01 14:30 | disposition home or self-care (01) ==
LOC: EC 11:31
DX: U07.1 COVID-19 (principal); I10 Essential (primary) hypertension; Z79.899 Other long term (current) drug therapy
CPT/HCPCS: 99284; J3490

== ENCOUNTER 2021-08-28 08:02 | Day surgery (SDC) | payer MEDICARE ==
[2021-08-27 09:09] VITALS: BMI 29.5
[~2021-08-28 08:02] MED LIST changes: -ACETAMINOPHEN TAB 500 MG TAB PO ONE; -DEXAMETHASONE SOD PHOSPHATE 10 MG/ML 1 ML VIAL IV ONE; +LACTATED RINGERS 1,000 ML IV SCH; -MELOXICAM 7.5 MG TAB PO ONE; -MIDAZOLAM 2 MG/2 ML VIAL IV PRN; -ONDANSETRON 4 MG/2 ML VIAL IVP ONE; -TRANEXAMIC ACID 1,000 MG in SODIUM CHLORIDE 0.9% 50 ML IVPB ONE; -ceFAZolin IN SWFI 2 GM/20 ML SYRINGE IVP ONE
[2021-08-28 08:28] VITALS: RESP 16; TEMP 98.2
[2021-08-28] MEDS ORDERED: LIDOCAINE 1% (10MG/ML) FOR IV START INTRADERMA ONE (08:35)
[2021-08-28] MEDS ORDERED: PROPOFOL 10 MG/ML 20 ML VIAL IV ONE (08:51)
--- NOTE | 2021-08-28 08:57 | P.GSHP ---
History of Present Illness H&P Date: 08/28/21 Chief Complaint: Dysphagia gastritis This is a 76-year-old female who has complaints of dysphagia. Patient states he feels food sitting in her stomach after she eats. Patient has a previous history of what sounds like a horizontal gastroplasty by Dr. Ward in the 1980s. Past Medical History Past Medical History: Cancer, Hypertension Additional Past Medical History / Comment(s): Back pain (DDD), breast cancer (in remission), states esophageous doesn't work right-has a hard time swallowing and stomach contents come back up, +COVID 06/30/21, " LOW HR AND OXYGEN LEVELS 89-91%-HAD ANTIBODY INFUSION. History of Any Multi-Drug Resistant Organisms: None Reported Past Surgical History: Back Surgery, Heart Catheterization, Joint Replacement Additional Past Surgical History / Comment(s): Breast masectomy(right), bilateral hip replacements, back surgery X5(rods and screws/fusion), BILATERAL CATARACTS REMOVED WITH LENS IMPLANTS. Past Anesthesia/Blood Transfusion Reactions: Previous Problems w/ Anesthesia Additional Past Anesthesia/Blood Transfusion Reaction / Comment(s): Stopped james thing in recovery after spinal fusion revision in 2012 (7 hr surgery),no problems with 2 surgeries after that one. Past Psychological History: No Psychological Hx Reported Smoking Status: Never smoker Past Alcohol Use History: None Reported Past Drug Use History: None Reported - Past Family History Brother(s) Family Medical History: Cancer Additional Family Medical History / Comment(s): Colon cancer. Mother Family Medical History: Cancer Additional Family Medical History / Comment(s): Gallbladder. Father Family Medical History: Cancer Medications and Allergies Home Medications Medication Instructions Recorded Confirmed Type amLODIPine [Norvasc] 5 mg PO HS 11/09/19 08/27/21 History ALPRAZolam [Xanax] 0.25 mg PO HS 05/24/20 08/27/21 History Escitalopram [Lexapro] 10 mg PO HS 07/01/21 08/27/21 History Allergies Allergy/AdvReac Type Severity Reaction Status Date / Time benazepril Allergy Anaphylaxis Verified 08/28/21 08:24 codeine Allergy Rash/Hives Verified 08/28/21 08:24 hydrocodone Allergy Rash/Hives Verified 08/28/21 08:24 hydromorphone [From Dilaudid] Allergy Rash/Hives Verified 08/28/21 08:24 ibuprofen [From Motrin] Allergy Unknown Verified 08/28/21 08:24 lisinopril Allergy Anaphylaxis Verified 08/28/21 08:24 meperidine [From Demerol] Allergy Rash/Hives Verified 08/28/21 08:24 morphine Allergy Rash/Hives Verified 08/28/21 08:24 propoxyphene Allergy Rash/Hives Verified 08/28/21 08:24 [From Darvocet-N] Tetracyclines Allergy Rash/Hives Verified 08/28/21 08:24 azathioprine [From Imuran] AdvReac liver Verified 08/28/21 08:24 inflammation clonidine [From Catapres] AdvReac Cough Verified 08/28/21 08:24 Surgical - Exam Vital Signs Temp Pulse Resp BP Pulse Ox 98.2 F 70 16 133/70 95 08/28/21 08:26 08/28/21 08:26 08/28/21 08:26 08/28/21 08:26 08/28/21 08:26 - General well developed, well nourished, no distress - Eyes PERRL - ENT normal pinna - Neck no masses - Respiratory normal expansion - Cardiovascular Rhythm: regular - Abdomen Abdomen: soft, non tender Assessment and Plan Assessment: Dysphagia, gastritis. Patient will undergo EGD.
--- NOTE | 2021-08-28 09:06 | P.OP ---
Date of Procedure: 08/28/21 Preoperative Diagnosis: Dysphagia, GERD Postoperative Diagnosis: Patulous esophagus History of horizontal gastroplasty. No obvious obstruction of upper GI tract Anesthesia: MAC Surgeon: Shane Leroy Pathology: none sent Condition: stable Disposition: PACU Description of Procedure: The patient's placed on the endoscopy table in the lateral position. She received IV sedation. The gastroscope placed oropharynx passed in the esophagus and into the stomach. The scope was then placed through the pylorus. The first and second portion of the duodenum appeared normal. Scope was brought back. The distal some appeared normal. Scope was brought back and there was evidence of a previous horizontal gastroplasty. The gastroplasty lumen was narrowed however the scope was easily passed through this area. The proximal stomach appeared normal. The GE junction was at 40 cm the distal esophagus appeared inflamed. The proximal esophagus appeared normal. The scope was withdrawn for patient. Patient was scheduled for and esophagram upper GI.
[2021-08-28 09:33] VITALS: BP 154/71; PULSE 82
--- NOTE | 2021-08-28 16:22 | FL ---
EXAMINATION TYPE: FL UGI w esophagus DATE OF EXAM: 08/28/2021 COMPARISON: None HISTORY: Dysphagia history of horizontal gastroplasty TECHNIQUE: Real-time fluoroscopy is utilized for single contrast evaluation FINDINGS: Fluoroscopy time: 43 seconds Images: 105 Esophagus dilates to normal caliber and has a normal contour the gastroesophageal junction. Gastroeso phageal junction opens to normal caliber. Some reflux is evident during this examination. Single contrast imaging through the stomach appears unremarkable. There is contrast emptying into the duodenal cap and sweep. Duodenum appears in a normal position. Surgical changes are adjacent to the proximal stomach IMPRESSION: 1. Postsurgical changes within the stomach. 2. Mild gastroesophageal reflux.
== END 2021-08-28 10:50 | disposition home or self-care (01) ==
LOC: ORWHC2ENDO 08:02
PROVIDERS: ATTEND Surgery
DX: Q39.1 Atresia of esophagus with tracheo-esophageal fistula (principal); K21.9 Gastro-esophageal reflux disease without esophagitis; I10 Essential (primary) hypertension; I25.10 Atherosclerotic heart disease of native coronary artery without angina pectoris; Z86.73 Personal history of transient ischemic attack (TIA), and cerebral infarction without residual deficits; Z80.9 Family history of malignant neoplasm, unspecified
CPT/HCPCS: 43235; 74240; J2704

== ENCOUNTER → 2021-09-04 | Outpatient (CLI) | payer MEDICARE ==
--- NOTE | 2021-09-04 14:09 | MM ---
Reason for exam: additional evaluation requested from prior study. Last mammogram was performed 1 year and 3 months ago. History: Patient is postmenopausal, has history of other cancer at age 69, and has history of breast cancer at age 59. Family history of breast cancer in paternal cousin at age 60. Radiation therapy of the right breast, 2004. Lumpectomy of the right breast, 2003. Benign core biopsy of the left breast, 1989. Benign core biopsy of the left breast, 1987. Took estrogen for 30 years. Took antineoplastic for 5 years beginning at age 59. Physical Findings: A clinical breast exam by your physician is recommended on an annual basis and results should be correlated with mammographic findings. MG 3D Diag Mammo W/Cad JANUSZ Bilateral CC and MLO view(s) were taken. Prior study comparison: June 04, 2020, bilateral MG 3d diag mammo w/cad JANUSZ. May 31, 2019, bilateral MG 3d diag mammo w/cad JANUSZ. Post operative changes right breast. Benign appearing bilateral calcifications. No significant new findings when compared with previous films. These results were verbally communicated with the patient and result sheet given to the patient on 09/04/21. ASSESSMENT: Benign, BI-RAD 2 RECOMMENDATION: Follow-up diagnostic mammogram of both breasts in 1 year.
== END | disposition home or self-care (01) ==
LOC: RADMAMWWP 11:55
PROVIDERS: ATTEND Internal Medicine Hematology & Oncology
DX: R92.8 Other abnormal and inconclusive findings on diagnostic imaging of breast (principal); Z85.3 Personal history of malignant neoplasm of breast; Z78.0 Asymptomatic menopausal state; Z80.3 Family history of malignant neoplasm of breast
CPT/HCPCS: 77066; G0279; 77062

== ENCOUNTER → 2021-10-17 | Outpatient (CLI) | payer MEDICARE | END | disposition home or self-care (01) | LOC: RADCTMAIN 06:39 | PROVIDERS: ATTEND Internal Medicine | DX: R91.8 Other nonspecific abnormal finding of lung field (principal) | CPT/HCPCS: 82565; 84520 ==

== ENCOUNTER → 2021-10-20 | Outpatient (CLI) | payer MEDICARE ==
--- NOTE | 2021-10-20 14:15 | CT ---
EXAMINATION TYPE: CT chest wo con DATE OF EXAM: 10/20/2021 COMPARISON: 01/24/2019 HISTORY: R91.[address] DLP: [address] of the chest was performed with lung and mediastinal window settings submitted. The la ck of contrast limits evaluation of the vascular, mediastinal and parenchymal structures including th e upper abdomen. LUNGS: The lungs are clear and free of infiltrate. A few scattered calcified granulomas noted. No ate lectasis. No pulmonary nodule or mass is detected. No pleural effusion. Hyperinflation compatible w ith COPD. Mild scattered subpleural fibrosis. MEDIASTINUM/PARKER: Thoracic aorta is of normal caliber with limited evaluation given lack of contrast . The heart is not enlarged. No evidence for mediastinal mass. No lymph nodes greater than 1cm. UPPER ABDOMEN: No significant abnormality is seen. OTHER: No significant other abnormality. IMPRESSION: 1. Remote granulomatous disease. COPD. Mild scattered subpleural fibrosis.
== END | disposition home or self-care (01) ==
LOC: RADCTMAIN 10:27
PROVIDERS: ATTEND Internal Medicine
DX: J44.9 Chronic obstructive pulmonary disease, unspecified (principal); D71 Functional disorders of polymorphonuclear neutrophils; J94.1 Fibrothorax
CPT/HCPCS: 71250

== ENCOUNTER → 2021-12-22 | Outpatient (CLI) | payer MEDICARE ==
[2021-12-22 18:38] LABS: Basophils # (A) 0.06 X 10*3/uL (0.00-0.10); Basophils % (A) 0.7 %; Eosinophils % (A) 1.1 %; HCT 38.1 % (37.2-46.3); HGB 11.7 g/dL (12.0-15.0); Lymphocytes # (A) 2.08 X 10*3/uL (0.90-5.00); Lymphocytes % (A) 22.8 %; MCH 27.5 pg (27.0-32.0); MCHC 30.7 g/dL (32.0-37.0); MCV 89.6 fL (80.0-97.0); Mean Platelet Volume 10.6 fL (9.5-12.2); Monocytes # (A) 0.97 X 10*3/uL (0.20-1.00); Monocytes % (A) 10.6 %; NRBC Per 100 WBC 0 /100 WBCS (0.0-0.0); Neutrophils # (A) 5.82 X 10*3/uL (1.80-7.70); Neutrophils % (A) 63.8 %; Platelet Count 261 X 10*3/uL (140-440); RBC 4.25 X 10*6/uL (4.10-5.20); RDW 13.7 % (11.5-14.5); WBC 9.12 X 10*3/uL (4.50-10.00)
[2021-12-22 18:46] LABS: Anion Gap 10.9 mmol/L (10.00-18.00); Carbon Dioxide 25.1 mmol/L (20.0-27.5); Potassium 4.7 mmol/L (3.5-5.5)
== END | disposition home or self-care (01) ==
LOC: LABPAT 12:02
PROVIDERS: ATTEND Orthopaedic Surgery Hand Surgery
DX: Z01.812 Encounter for preprocedural laboratory examination (principal); M65.341 Trigger finger, right ring finger
CPT/HCPCS: 80051; 85025

== ENCOUNTER 2021-12-24 06:24 | Day surgery (SDC) | payer MEDICARE ==
--- NOTE | 2021-12-22 09:03 | P.HPOR ---
History of Present Illness H&P Date: 12/22/21 Chief Complaint: Right ring finger trigger finger Subjective: This is a 76 year old female that presents today for initial evaluation regarding regarding over a year history of right ring finger stiffness and pain. She states the finger started off as a trigger finger but she then noticed it was no longer able to be passively corrected and has been in the flexed position for months now. She denies any injury or other symptoms. Physical Examination: RUE: AIN/PIN/Radial/Ulnar/Median motor intact. Radial/Ulnar/Median SILT. 2+/4 Radial/Ulnar pulses palpated. 5/5 APB, 5/5 FDI. Negative Finkelsteins, negative CMC grind, negative Durkan's compression. Left ring finger TTP over A1 tatum with finger unable to be passively extended at PIP joint due to pain. Imaging: X-Rays of the right ring finger demonstrate no acute fracture/ dislocation Impression: 1.) Right ring finger trigger finger, incarcerated. Plan: Diagnosis and treatment options were discussed with the patient. She wishes to proceed with surgical intervention. We discussed A1 tatum release with possible need for PIP joint contracture release if we are unable to achieve extension after A1 tatum release. She would like to have the procedure done under local anesthetic which I am agreeable to. CC: Pk Marks DO -Con Ryan DO Orthopedic Hand/Upper Extremity Surgeon Past Medical History Past Medical History: Cancer, Hypertension Additional Past Medical History / Comment(s): Back pain (DDD), breast cancer (in remission), states esophageous doesn't work right-has a hard time swallowing and stomach contents come back up, +COVID 06/30/21, " LOW HR AND OXYGEN LEVELS 89-91%-HAD ANTIBODY INFUSION. History of Any Multi-Drug Resistant Organisms: None Reported Past Surgical History: Back Surgery, Heart Catheterization, Joint Replacement Additional Past Surgical History / Comment(s): Breast masectomy(right), bilateral hip replacements, back surgery X5(rods and screws/fusion), BILATERAL CATARACTS REMOVED WITH LENS IMPLANTS. Past Anesthesia/Blood Transfusion Reactions: Previous Problems w/ Anesthesia Additional Past Anesthesia/Blood Transfusion Reaction / Comment(s): Stopped breathing in recovery after spinal fusion revision in 2012 (7 hr surgery),no problems with 2 surgeries after that one. Past Psychological History: No Psychological Hx Reported Smoking Status: Never smoker Past Alcohol Use History: None Reported Past Drug Use History: None Reported - Past Family History Brother(s) Family Medical History: Cancer Additional Family Medical History / Comment(s): Colon cancer. Mother Family Medical History: Cancer Additional Family Medical History / Comment(s): Gallbladder. Father Family Medical History: Cancer Medications and Allergies Home Medications Medication Instructions Recorded Confirmed Type amLODIPine [Norvasc] 5 mg PO HS 11/09/19 08/27/21 History ALPRAZolam [Xanax] 0.25 mg PO HS 05/24/20 08/27/21 History Escitalopram [Lexapro] 10 mg PO HS 07/01/21 08/27/21 History Allergies Allergy/AdvReac Type Severity Reaction Status Date / Time benazepril Allergy Anaphylaxis Verified 08/28/21 08:24 codeine Allergy Rash/Hives Verified 08/28/21 08:24 hydrocodone Allergy Rash/Hives Verified 08/28/21 08:24 hydromorphone [From Dilaudid] Allergy Rash/Hives Verified 08/28/21 08:24 ibuprofen [From Motrin] Allergy Unknown Verified 08/28/21 08:24 lisinopril Allergy Anaphylaxis Verified 08/28/21 08:24 meperidine [From Demerol] Allergy Rash/Hives Verified 08/28/21 08:24 morphine Allergy Rash/Hives Verified 08/28/21 08:24 propoxyphene Allergy Rash/Hives Verified 08/28/21 08:24 [From Darvocet-N] Tetracyclines Allergy Rash/Hives Verified 08/28/21 08:24 azathioprine [From Imuran] AdvReac liver Verified 08/28/21 08:24 inflammation clonidine [From Catapres] AdvReac Cough Verified 08/28/21 08:24 Physical Examination Osteopathic Statement: *. No significant issues noted on an osteopathic structural exam other than those noted in the History and Physical/Consult.
[2021-12-22 14:19] VITALS: BMI 30.7
[~2021-12-24 06:24] MED LIST changes: +LIDOCAINE 1% (10MG/ML) FOR IV START INTRADERMA PRN; +Pre Op ABX Message 1 EACH MISC MISCELLANE ONE
[2021-12-24] MEDS ORDERED: fentaNYL (PF) 50 MCG/ML 2 ML AMP IV PRN (07:00)
[2021-12-24 07:07] VITALS: TEMP 97.8
[2021-12-24] MEDS ORDERED: ONDANSETRON 4 MG/2 ML VIAL ONE (07:13)
[2021-12-24] MEDS ORDERED: DEXAMETHASONE SOD PHOSPHATE 4 MG/ML 1 ML VIAL IVP ONE (07:14)
[2021-12-24] MEDS ORDERED: ONDANSETRON 4 MG/2 ML VIAL IVP ONE (07:15)
[2021-12-24] MEDS ORDERED: PROPOFOL 10 MG/ML 20 ML VIAL IV ONE (07:21)
[2021-12-24] MEDS ORDERED: fentaNYL (PF) 50 MCG/ML 2 ML AMP ONE (07:21)
[2021-12-24] MEDS ORDERED: MIDAZOLAM 2 MG/2 ML VIAL ONE (07:21)
[2021-12-24] MEDS ORDERED: BUPIVACAINE (PF) 0.5% 30 ML VIAL SQ ONE (07:29)
[2021-12-24] MEDS ORDERED: LIDOCAINE 1% INJ 10MG/ML (20 ML MDV) SQ ONE (07:29)
[2021-12-24 08:13] VITALS: BP 146/75; PULSE 78; RESP 17
--- NOTE | 2021-12-24 18:27 | P.OP ---
Date of Procedure: 12/24/21 Preoperative Diagnosis: Right ring finger trigger finger Postoperative Diagnosis: Right ring finger trigger finger Procedure(s) Performed: 1.) Right ring finger A1 tatum release 2.) Right ring finger ulnar FDS partial slip release/excision Anesthesia: MAC Surgeon: Con Ryan Estimated Blood Loss (ml): 0 Pathology: none sent Condition: stable Disposition: PACU Description of Procedure: This is a 76 year old female who presents today for a right trigger finger A1 tatum release after having failed conservative treatment. Risks and benefits of surgery were discussed with the patient including bleeding, damage to surrounding tissue, infection, need for further surgery as well as risks of anesthesia including pulmonary embolism and even and the patient wished to proceed with surgical intervention. The patient was seen in the pre-operative area by myself. Consent and H&P were completed and updated. The correct extremity was marked in the pre-operative area by myself and all other questions were answered. Operative Narrative: The patient was brought to the operating room by the department of anesthesia. They remained on the portable stretcher and a rolling hand table was brought to the side of the operative extremity. Pre-operative time out was performed indicating the correct patient, procedure and laterality. All in the room agreed. Pre-operative antibiotics were given prior to skin incision. The patient was then drifted off to sleep by the department of anesthesia. MAC anesthesia was utilized and a 50:50 mixture of 1% Lidocaine and 0.5% bupivacaine was injected into the subcutaneous tissues of the palmar skin, 6 ccs total. A nonsterile tourniquet was then applied to the operative extremity and the right upper extremity was then prepped and draped in normal sterile fashion. The operative extremity was the exsanguinated with an esmarch bandage and the tourniquet was inflated to 250mmHg. Oblique incision was made at the base of the right finger. Blunt dissection was taken down to the level of the A1 tatum. Ragnell retractors were placed both radially and ulnarly to protect neurovascular bundles. Littler tenotomy scissors were then used to release the A1 tatum from proximal to distal under direct visualization. Proximal fascial attachments were released. The tendon was then taken through range of motion and there was still fullness with locking or catching even despite having released the A1 Tatum. Rupert incision was extended distally and the A2 tatum was slightly vented. The ulnar slip of the FDS tendon was released and excised. The hand was then taken through range of motion and there was no locking or catching appreciated any longer. The patient was then woken prior to skin closure and active flexion and extension of the digit was achieved with smooth gliding and no catching. The wound was then closed with interrupted 4-0 nylon sutures in a horizontal mattress fashion. Sterile dressing consisting of adaptic, 4x4s, webril, and an renny wrap was applied. Tourniquet was let down and the hand was immediately well perfused. The patient was then woken by the department of anesthesia and transferred to PACU in stable condition. Con Ryan D.O. Orthopedic Hand/Upper Extremity Surgeon
== END 2021-12-24 08:45 | disposition home or self-care (01) ==
LOC: OR 06:24
PROVIDERS: ATTEND Orthopaedic Surgery Hand Surgery
DX: M65.341 Trigger finger, right ring finger (principal); I10 Essential (primary) hypertension; Z85.3 Personal history of malignant neoplasm of breast; Z86.16 Personal history of COVID-19; Z96.643 Presence of artificial hip joint, bilateral; Z98.1 Arthrodesis status; Z98.42 Cataract extraction status, left eye; Z98.41 Cataract extraction status, right eye; Z96.1 Presence of intraocular lens; Z80.0 Family history of malignant neoplasm of digestive organs; Z80.8 Family history of malignant neoplasm of other organs or systems; Z79.899 Other long term (current) drug therapy; Z88.5 Allergy status to narcotic agent; Z88.8 Allergy status to other drugs, medicaments and biological substances; Z88.0 Allergy status to penicillin; Z88.6 Allergy status to analgesic agent; Z88.1 Allergy status to other antibiotic agents
CPT/HCPCS: 26055; J2250; J1100; J2405; J2001; J3010; J2704

== ENCOUNTER → 2022-09-23 | Outpatient (CLI) | payer MEDICARE ==
--- NOTE | 2022-09-24 09:56 | MM ---
Reason for Exam: Screening (asymptomatic). Last screening mammogram was performed 12 month(s) ago. Patient History: Menarche at age 12. First Full-Term at age 25. Right ovary removed at age 32. Hysterectomy at age 32. Postmenopausal. Other cancer, age 69. Breast cancer, age 59. Previous chest radiation therapy at age 59. Patient used Estrogen for 30 years. 1989, Benign Core Biopsy on the left side. 1987, Benign Core Biopsy on the left side. 2003, Lumpectomy on the Right side. 2004, Radiation Therapy on the right side. Paternal cousin had breast cancer, age 60. Prior Study Comparison: Screening Mammogram, [facility]. 04/22/2005 Screening Mammogram, [place]. 05/06/2009 Right Diagnostic Mammogram, [facility]. 11/04/2009 Bilateral Diagnostic Mammogram, [facility]. 10/23/2010 Bilateral Diagnostic Mammogram, [facility]. 10/28/2011 Bilateral Diagnostic Mammogram, [facility]. 04/28/2012 Left Diagnostic Mammogram, [facility]. 04/28/2012 Left Diagnostic Ultrasound, [facility]. 01/26/2013 Right Diagnostic Ultrasound, [facility]. 03/30/2013 Bilateral Diagnostic Mammogram, [facility]. 04/02/2014 Bilateral Diagnostic Mammogram, [facility]. 04/03/2015 Bilateral Diagnostic Mammogram, [facility]. 10/04/2015 Right Diagnostic Mammogram, [facility]. 04/06/2016 Bilateral Diagnostic Mammogram, [facility]. 04/23/2017 Bilateral Diagnostic Mammogram, [facility]. 04/25/2018 Bilateral Diagnostic Mammogram, [facility]. 05/31/2019 Bilateral Diagnostic Mammogram, [facility]. 06/04/2020 Bilateral Diagnostic Mammogram, [facility]. 09/04/2021 Bilateral Diagnostic Mammogram, [facility]. Tissue Density: There are scattered fibroglandular densities. Findings: Analyzed By CAD. There is asymmetry of breast size with small right breast compared to left. Postsurgical changes are evident. Benign round calcifications are within the left breast. No suspicious groups of microcalcifications, spiculated or lobular masses, architectural distortion or other secondary signs of malignancy are mammographically apparent. Overall Assessment: Benign, BI-RAD 2 Management: Screening Mammogram of both breasts in 1 year. A negative mammogram report should not preclude additional follow up of suspicious palpable abnormalities. Patient should continue monthly self breast exam. A clinical breast exam by your physician is recommended on an annual basis and results should be correlated with mammographic findings. Electronically signed and approved by: Manuel Flower D.O. Radiologis
== END | disposition home or self-care (01) ==
LOC: RADMAMWWP 13:13
PROVIDERS: ATTEND Internal Medicine Hematology & Oncology
DX: Z12.31 Encounter for screening mammogram for malignant neoplasm of breast (principal); Z78.0 Asymptomatic menopausal state; Z80.3 Family history of malignant neoplasm of breast
CPT/HCPCS: 77063; 77067

== ENCOUNTER 2022-11-16 13:48 | Observation (INO) | payer MEDICARE ==
--- NOTE | 2022-11-16 14:20 | ED ---
General Adult HPI - General Chief complaint: Chest Pain Stated complaint: Chest Pain Time Seen by Provider: 11/16/22 13:59 Source: patient Mode of arrival: wheelchair Limitations: no limitations - History of Present Illness Initial comments: Dictation was produced using [employer] dictation software. please excuse any grammatical, word or spelling errors. Chief Complaint: 77-year-old female presents emergency department for chest pain History of Present Illness: She 77-year-old female presents emergency department for pressure-like chest pain. She is a known history of coronary artery disease versus she has a 30% blockage in one of her heart arteries. Patient states that she had an episode today that felt worse. States that her chest is tight pressure radiates to the left chest left arm and left jaw. Denies any fevers. She had a similar episode though much milder approximately for 5 days ago. Patient states she's having symptoms at the bedside. The ROS documented in this emergency department record has been reviewed and confirmed by me. Those systems with pertinent positive or negative responses have been documented in the HPI. All other systems are other negative and/or noncontributory. - Related Data Home Medications Medication Instructions Recorded Confirmed amLODIPine [Norvasc] 5 mg PO HS 11/09/19 12/24/21 ALPRAZolam [Xanax] 0.25 mg PO HS 05/24/20 12/24/21 Escitalopram [Lexapro] 10 mg PO HS 07/01/21 12/24/21 Cholecalciferol [Vitamin D3 (25 50 mcg PO DAILY 12/22/21 12/24/21 Mcg = 1000 Iu)] Famotidine [Pepcid] 10 mg PO HS 12/22/21 12/24/21 Oxybutynin Chloride 5 mg PO HS 12/22/21 12/24/21 Allergies Allergy/AdvReac Type Severity Reaction Status Date / Time benazepril Allergy Anaphylaxis Verified 12/24/21 07:08 codeine Allergy Rash/Hives Verified 12/24/21 07:08 hydrocodone Allergy Rash/Hives Verified 12/24/21 07:08 hydromorphone [From Dilaudid] Allergy Rash/Hives Verified 12/24/21 07:08 ibuprofen [From Motrin] Allergy Unknown Verified 12/24/21 07:08 lisinopril Allergy Anaphylaxis Verified 12/24/21 07:08 meperidine [From Demerol] Allergy Rash/Hives Verified 12/24/21 07:08 morphine Allergy Rash/Hives Verified 12/24/21 07:08 propoxyphene Allergy Rash/Hives Verified 12/24/21 07:08 [From Darvocet-N] Tetracyclines Allergy Rash/Hives Verified 12/24/21 07:08 azathioprine [From Imuran] AdvReac liver Verified 12/24/21 07:08 inflammation clonidine [From Catapres] AdvReac Cough Verified 12/24/21 07:08 Review of Systems ROS Statement: Those systems with pertinent positive or pertinent negative responses have been documented in the HPI. ROS Other: All systems not noted in ROS Statement are negative. Past Medical History Past Medical History: Coronary Artery Disease (CAD), Cancer, Hypertension Additional Past Medical History / Comment(s): Back pain (DDD), breast cancer (in remission), states esophageous doesn't work right-has a hard time swallowing and stomach contents come back up, +COVID 06/30/21, " LOW HR AND OXYGEN LEVELS 89-91%-HAD ANTIBODY INFUSION. History of Any Multi-Drug Resistant Organisms: None Reported Past Surgical History: Back Surgery, Heart Catheterization, Joint Replacement Additional Past Surgical History / Comment(s): Breast masectomy(right), bilateral hip replacements, back surgery X5(rods and screws/fusion), BILATERAL CATARACTS REMOVED WITH LENS IMPLANTS. Past Anesthesia/Blood Transfusion Reactions: Previous Problems w/ Anesthesia Additional Past Anesthesia/Blood Transfusion Reaction / Comment(s): Stopped breathing in recovery after spinal fusion revision in 2012 (7 hr surgery),no problems with 2 surgeries after that one. Past Psychological History: No Psychological Hx Reported Smoking Status: Never smoker Past Alcohol Use History: None Reported Past Drug Use History: None Reported - Past Family History Brother(s) Family Medical History: Cancer Additional Family Medical History / Comment(s): Colon cancer. Mother Family Medical History: Cancer Additional Family Medical History / Comment(s): Gallbladder. Father Family Medical History: Cancer General Exam - General Exam Comments Initial Comments: PHYSICAL EXAM: General Impression: Alert and oriented x3, not in acute distress HEENT: Normocephalic atraumatic, extra-ocular movements intact, pupils equal and reactive to light bilaterally, mucous membranes moist. Cardiovascular: Heart regular rate and rhythm Chest: Able to complete full sentences, no retractions, no tachypnea Abdomen: abdomen soft, non-tender, non-distended, no organomegaly Musculoskeletal: Pulses present and equal in all extremities, no peripheral edema Motor: no focal deficits noted Neurological: CN II-XII grossly intact, no focal motor or sensory deficits noted Skin: Intact with no visualized rashes Psych: Normal affect and mood Limitations: no limitations Course Vital Signs 11/16/22 13:54 Temperature 97.9 F Pulse Rate 64 Respiratory 20 Rate O2 Sat by Pulse 98 Oximetry EKG Findings - EKG Comments: EKG Findings:: My EKG interpretation: Ventricular rate 66, sinus rhythm,. 144, QRS 116, QTC 418. No MO prolongation, no QTC prolongation, no ST or T-wave changes noted. EKG compared to 04/04/2021 showing no changes. Overall, this EKG is unremarkable Medical Decision Making - Medical Decision Making Was pt. sent in by a medical professional or institution (, PA, DOCUMENT IMAGE TECHNICIAN, urgent care, hospital, or longterm...) When possible be specific @ -No Did you speak to anyone other than the patient for history (EMS, parent, family, police, friend...)? What history was obtained from this source @ -Daughter At the bedside states that patient has been having chest pain for several days Did you review nursing and triage notes (agree or disagree)? Why? @ -I reviewed and agree with nursing and triage notes Were old charts reviewed (outside hosp., previous admission, EMS record, old EKG, old radiological studies, urgent care reports/EKG's, longterm records)? Report findings @ -Cardiac catheter was reviewed showing patient has history of coronary artery disease Differential Diagnosis (chest pain, altered mental status, abdominal pain women, abdominal pain men, vaginal bleeding, musculoskeletal, weakness, fever, dyspnea, syncope, headache, dizziness, GI bleed, back pain, seizure, CVA, palpatations, mental health)? @ -Differential Chest Pain: Stable Angina, Unstable Angina, STEMI, NSTEMI Aortic Dissection, Pneumothorax, Musculoskeletal, Esophageal Spasm GERD, Cholecystitis, Pancreatitis, Zoster, this is not meant to be an all-inclusive list. EKG interpreted by me (3pts min.). @ -See above X-rays interpreted by me (1pt min.). @ -Chest x-ray is unremarkable CT interpreted by me (1pt min.). @ -None done U/S interpreted by me (1pt. min.). @ -None done What testing was considered but not performed or refused? (CT, X-rays, U/S, labs)? Why? @ -None What meds were considered but not given or refused? Why? @ -None Did you discuss the management of the patient with other professionals (christine wiseman i.e. , PA, DOCUMENT IMAGE TECHNICIAN, lab, RT, psych nurse, dialysis social worker, stonecutter assistant, teacher, credit officer, case repairer)? Give summary @ -Discussed with Dr. Pk Pizarro for admission. Labs and imaging were reviewed with Dr. Pk Pizarro Was smoking cessation discussed for >3mins.? @ -No Was critical care preformed (if so, how long)? @ -No Were there social determinants of health that impacted care today? How? (Homelessness, low income, unemployed, alcoholism, drug addiction, transportation, low edu. Level, literacy, decrease access to med. care, halfway, rehab)? @ -No Was there de-escalation of care discussed even if they declined (Discuss DNR or withdrawal of care, Hospice)? DNR status @ -No What co-morbidities impacted this encounter? (DM, HTN, Smoking, COPD, CAD, Cancer, CVA, ARF, Chemo, Hep., AIDS, mental health diagnosis, sleep apnea, morbid obesity)? @ -Coronary artery disease Was patient admitted / discharged? Hospital course, mention meds given and route, prescriptions, significant lab abnormalities, going to OR and other pertinent info. @ -69-year-old female past medical history of coronary artery disease presents to emergency Department with episodic ACS symptoms. Vital signs are stable. EKG does not show any ischemic or infarction. She does have some nonspecific signs. Troponin is negative. Rest was within acceptable limits. Patient will be admitted observation for cardiac care, desk monitor and cardiology consultation. Undiagnosed new problem with uncertain prognosis? @ -No Drug Therapy requiring intensive monitoring for toxicity (Heparin, Nitro, Insulin, Cardizem)? @ -No Were any procedures done? @ -No Diagnosis/symptom? Acute, or Chronic, or Acute on Chronic? Uncomplicated (wit hout systemic symptoms) or Complicated (systemic symptoms)? @ -1. Chest pain Side effects of treatment? @ -No Exacerbation, Progression, or Severe Exacerbation? @ -No Poses a threat to life or bodily function? How? (Chest pain, [place], [place], pneumonia, PE, COPD, DKA, ARF, appy, cholecystitis, CVA, Diverticulitis, Homicidal, Suicidal, threat to staff... and all critical care pts) @ -yes - Lab Data Result diagrams: 11/16/22 14:18 11/16/22 14:18 Lab Results 11/16/22 11/16/22 11/16/22 Range/Units 14:18 14:18 14:18 WBC 11.5 H (3.8-10.6) k/uL RBC 4.33 (3.80-5.40) m/uL Hgb 12.6 (11.4-16.0) gm/dL Hct 38.1 (34.0-46.0) % MCV 88.0 (80.0-100.0) fL MCH 29.0 (25.0-35.0) pg MCHC 33.0 (31.0-37.0) g/dL RDW 14.2 (11.5-15.5) % Plt Count 265 (150-450) k/uL MPV 8.0 Neutrophils % 71 % Lymphocytes % 19 % Monocytes % 6 % Eosinophils % 1 % Basophils % 0 % Neutrophils # 8.2 H (1.3-7.7) k/uL Lymphocytes # 2.2 (1.0-4.8) k/uL Monocytes # 0.7 (0-1.0) k/uL Eosinophils # 0.1 (0-0.7) k/uL Basophils # 0.0 (0-0.2) k/uL PT 9.4 (9.0-12.0) sec INR 0.9 (<1.2) APTT 23.2 (22.0-30.0) sec Sodium 140 (137-145) mmol/L Potassium 4.4 (3.5-5.1) mmol/L Chloride 104 (98-107) mmol/L Carbon Dioxide 24 (22-30) mmol/L Anion Gap 12 mmol/L BUN 29 H (7-17) mg/dL Creatinine 1.06 H (0.52-1.04) mg/dL Est GFR (CKD-EPI)AfAm 58 (>60 ml/min/1.73 sqM) Est GFR (CKD-EPI)NonAf 51 (>60 ml/min/1.73 sqM) Glucose 92 (74-99) mg/dL Calcium 9.0 (8.4-10.2) mg/dL Magnesium 2.2 (1.6-2.3) mg/dL Total Bilirubin 0.4 (0.2-1.3) mg/dL AST 23 (14-36) U/L ALT 17 (4-34) U/L Alkaline Phosphatase 106 (38-126) U/L Troponin I (0.000-0.034) ng/mL Total Protein 7.8 (6.3-8.2) g/dL Albumin 4.3 (3.5-5.0) g/dL 11/16/22 Range/Units 14:18 WBC (3.8-10.6) k/uL RBC (3.80-5.40) m/uL Hgb (11.4-16.0) gm/dL Hct (34.0-46.0) % MCV (80.0-100.0) fL MCH (25.0-35.0) pg MCHC (31.0-37.0) g/dL RDW (11.5-15.5) % Plt Count (150-450) k/uL MPV Neutrophils % % Lymphocytes % % Monocytes % % Eosinophils % % Basophils % % Neutrophils # (1.3-7.7) k/uL Lymphocytes # (1.0-4.8) k/uL Monocytes # (0-1.0) k/uL Eosinophils # (0-0.7) k/uL Basophils # (0-0.2) k/uL PT (9.0-12.0) sec INR (<1.2) APTT (22.0-30.0) sec Sodium (137-145) mmol/L Potassium (3.5-5.1) mmol/L Chloride (98-107) mmol/L Carbon Dioxide (22-30) mmol/L Anion Gap mmol/L BUN (7-17) mg/dL Creatinine (0.52-1.04) mg/dL Est GFR (CKD-EPI)AfAm (>60 ml/min/1.73 sqM) Est GFR (CKD-EPI)NonAf (>60 ml/min/1.73 sqM) Glucose (74-99) mg/dL Calcium (8.4-10.2) mg/dL Magnesium (1.6-2.3) mg/dL Total Bilirubin (0.2-1.3) mg/dL AST (14-36) U/L ALT (4-34) U/L Alkaline Phosphatase (38-126) U/L Troponin I <0.012 (0.000-0.034) ng/mL Total Protein (6.3-8.2) g/dL Albumin (3.5-5.0) g/dL Disposition Clinical Impression: Chest pain Disposition: ADMITTED IP TO THIS HOSP Condition: Fair Referrals: Pk Pizarro DO [Primary Care Provider] - 1-2 days Decision Time: 15:15
[2022-11-16 14:27] LABS: Basophils % (A) 0 %; Eosinophils # (A) 0.1 k/uL (0-0.7); Eosinophils % (A) 1 %; HCT 38.1 % (34.0-46.0); HGB 12.6 gm/dL (11.4-16.0); Lymphocytes # (A) 2.2 k/uL (1.0-4.8); Lymphocytes % (A) 19 %; Monocytes # (A) 0.7 k/uL (0-1.0); Monocytes % (A) 6 %; Neutrophils # (A) 8.2 k/uL (1.3-7.7); Neutrophils % (A) 71 %; Platelet Count 265 k/uL (150-450); RBC 4.33 m/uL (3.80-5.40); RDW 14.2 % (11.5-15.5); WBC 11.5 k/uL (3.8-10.6)
[2022-11-16 14:36] LABS: INR 0.9 (<1.2); Partial Thromboplastin Time 23.2 sec (22.0-30.0); Prothrombin Time 9.4 sec (9.0-12.0)
[2022-11-16 14:46] LABS: Albumin 4.3 g/dL (3.5-5.0); Magnesium 2.2 mg/dL (1.6-2.3); Potassium 4.4 mmol/L (3.5-5.1); Total Bilirubin 0.4 mg/dL (0.2-1.3); Total Protein 7.8 g/dL (6.3-8.2)
--- NOTE | 2022-11-16 15:13 | XR ---
EXAMINATION TYPE: XR chest 2V DATE OF EXAM: 11/16/2022 COMPARISON: 04/04/2021 HISTORY: 77-year-old female with chest pain TECHNIQUE: PA and lateral views FINDINGS: Heart normal size. Mild atherosclerotic arch calcifications. Mild interstitial prominence of the partnership development manager cesar appearance. Some strandy atelectasis at the left base. No consolidation or pleural effusion. Part ially visualized lower thoracolumbar fusion hardware. Some surgical clips of the right axilla. IMPRESSION: No acute cardiopulmonary process.
[2022-11-16] MEDS ORDERED: NITROGLYCERIN SL TABS 0.4 MG TAB SUBLINGUAL STA (16:05)
[2022-11-16] MEDS ORDERED: NALOXONE 0.4 MG/ML 1 ML VIAL IV PRN (17:24)
--- NOTE | 2022-11-16 17:27 | ED ---
Medical Decision Making - Medical Decision Making Prior physician forgot admission orders. These were subsequently placed by myself, including cardiology consult. Dr. Pizarro notified by prior physician who accepted the patient. - Lab Data Result diagrams: 11/16/22 14:18 11/16/22 14:18 Lab Results 11/16/22 11/16/22 11/16/22 Range/Units 14:18 14:18 14:18 WBC 11.5 H (3.8-10.6) k/uL RBC 4.33 (3.80-5.40) m/uL Hgb 12.6 (11.4-16.0) gm/dL Hct 38.1 (34.0-46.0) % MCV 88.0 (80.0-100.0) fL MCH 29.0 (25.0-35.0) pg MCHC 33.0 (31.0-37.0) g/dL RDW 14.2 (11.5-15.5) % Plt Count 265 (150-450) k/uL MPV 8.0 Neutrophils % 71 % Lymphocytes % 19 % Monocytes % 6 % Eosinophils % 1 % Basophils % 0 % Neutrophils # 8.2 H (1.3-7.7) k/uL Lymphocytes # 2.2 (1.0-4.8) k/uL Monocytes # 0.7 (0-1.0) k/uL Eosinophils # 0.1 (0-0.7) k/uL Basophils # 0.0 (0-0.2) k/uL PT 9.4 (9.0-12.0) sec INR 0.9 (<1.2) APTT 23.2 (22.0-30.0) sec Sodium 140 (137-145) mmol/L Potassium 4.4 (3.5-5.1) mmol/L Chloride 104 (98-107) mmol/L Carbon Dioxide 24 (22-30) mmol/L Anion Gap 12 mmol/L BUN 29 H (7-17) mg/dL Creatinine 1.06 H (0.52-1.04) mg/dL Est GFR (CKD-EPI)AfAm 58 (>60 ml/min/1.73 sqM) Est GFR (CKD-EPI)NonAf 51 (>60 ml/min/1.73 sqM) Glucose 92 (74-99) mg/dL Calcium 9.0 (8.4-10.2) mg/dL Magnesium 2.2 (1.6-2.3) mg/dL Total Bilirubin 0.4 (0.2-1.3) mg/dL AST 23 (14-36) U/L ALT 17 (4-34) U/L Alkaline Phosphatase 106 (38-126) U/L Troponin I (0.000-0.034) ng/mL Total Protein 7.8 (6.3-8.2) g/dL Albumin 4.3 (3.5-5.0) g/dL 11/16/22 Range/Units 14:18 WBC (3.8-10.6) k/uL RBC (3.80-5.40) m/uL Hgb (11.4-16.0) gm/dL Hct (34.0-46.0) % MCV (80.0-100.0) fL MCH (25.0-35.0) pg MCHC (31.0-37.0) g/dL RDW (11.5-15.5) % Plt Count (150-450) k/uL MPV Neutrophils % % Lymphocytes % % Monocytes % % Eosinophils % % Basophils % % Neutrophils # (1.3-7.7) k/uL Lymphocytes # (1.0-4.8) k/uL Monocytes # (0-1.0) k/uL Eosinophils # (0-0.7) k/uL Basophils # (0-0.2) k/uL PT (9.0-12.0) sec INR (<1.2) APTT (22.0-30.0) sec Sodium (137-145) mmol/L Potassium (3.5-5.1) mmol/L Chloride (98-107) mmol/L Carbon Dioxide (22-30) mmol/L Anion Gap mmol/L BUN (7-17) mg/dL Creatinine (0.52-1.04) mg/dL Est GFR (CKD-EPI)AfAm (>60 ml/min/1.73 sqM) Est GFR (CKD-EPI)NonAf (>60 ml/min/1.73 sqM) Glucose (74-99) mg/dL Calcium (8.4-10.2) mg/dL Magnesium (1.6-2.3) mg/dL Total Bilirubin (0.2-1.3) mg/dL AST (14-36) U/L ALT (4-34) U/L Alkaline Phosphatase (38-126) U/L Troponin I <0.012 (0.000-0.034) ng/mL Total Protein (6.3-8.2) g/dL Albumin (3.5-5.0) g/dL Disposition Clinical Impression: Chest pain Disposition: ADMITTED IP TO THIS HOSP Condition: Fair Referrals: Pk Pizarro DO [Primary Care Provider] - 1-2 days
[2022-11-16] MEDS: HEPARIN SODIUM,PORCINE/PF 5,000 UNIT/0.5 ML SYRINGE SQ SCH (21:07)
[2022-11-17] MEDS ORDERED: ALPRAZolam 0.5 MG TAB PO PRN (05:15)
[2022-11-17] MEDS: SODIUM CHLORIDE 0.9% 250 ML IV SCH ×6 (08:26→12:35)
[2022-11-17] MEDS: SODIUM CHLORIDE 0.9% 1,000 ML IV SCH ×2 (08:26→20:36)
[2022-11-17 08:50] LABS: African American GFR (CKD) 50.1 (60.0-200.0); Anion Gap 11.3 mmol/L (10.00-18.00); BUN/Creat Ratio 20.67 Ratio (12.00-20.00); Blood Urea Nitrogen 24.8 mg/dL (9.0-27.0); Calcium 9.7 mg/dL (8.7-10.3); Carbon Dioxide 27.7 mmol/L (20.0-27.5); Non-African American GFR(CKD) 43.3 (60.0-200.0); Potassium 4.7 mmol/L (3.5-5.5)
[2022-11-17] MEDS ORDERED: amLODIPine 5 MG TAB PO SCH (09:00)
--- NOTE | 2022-11-17 10:08 | P.CRDCN ---
History of Present Illness History of present illness: HISTORY OF PRESENT ILLNESS: This is a 77-year-old female with a past medical history significant for mild coronary artery disease and hypertension. Patient used to follow in the office with Dr. Levy but has not been to the office since November 2019. We have been asked to see the patient in consultation for chest pain. Patient examined at the bedside. Patient states on Wednesday she began having pain in the middle of her chest. She states that the pain has continued since then but has been intermittent. She states the pain radiates into her back. She states her blood pressures have been high at home and she has been taking extra blood pressure medication. She states that she got up yesterday morning and the pain is worse so she came to the emergency room. She also reports that she feels her heart skipping beats at times. Patient's blood pressure has been elevated since admission with systolics up to the 180s. * EKG reveals sinus mechanism with nonspecific ST-T wave changes. T-wave inversion in lead 3. * Chest xray negative for acute process * Laboratory data: WBC 11.5. Hemoglobin 12.6. Platelet count 265. Sodium 145. Potassium 4.7. BUN 24. Creatinine 1.2. Troponin negative 3. * Current home cardiac medications include aspirin 81 mg daily and Norvasc 5 mg daily * Most recent echocardiogram obtained in October 2019 revealed ejection fraction 55- 60%, mild MR, mild TR * Cardiac catheterization history: October 2019 revealing mild coronary artery dise ase REVIEW OF SYSTEMS: At the time of my exam: CONSTITUTIONAL: Denies fever or chills. HEENT: Denies blurred vision, vision changes, or eye pain. Denies hemoptysis CARDIOVASCULAR: Denies chest pain. Denies orthopnea. Denies PND. Denies palpitations RESPIRATORY: Denies shortness of breath. GASTROINTESTINAL: Denies abdominal pain. Denies nausea or vomiting. HEMATOLOGIC: Denies bleeding disorders. GENITOURINARY: Denies any blood in urine. SKIN: Denies pruitis. Denies rash. PHYSICAL EXAM: VITAL SIGNS: Reviewed. GENERAL: Well-developed in no acute distress. HEENT: Head is normocephalic. Pupils are equal, round. Sclerae anicteric. Mucous membranes of the mouth are moist. Neck supple. No JVD or thyromegaly LUNGS: Respirations even and unlabored. Lungs essentially clear to auscultation bilaterally. HEART: Regular rate and rhythm. S1 and S2 heard. ABDOMEN: Soft. Nondistended. Nontender. EXTREMITIES: Normal range of motion. No clubbing or cyanosis. Peripheral pulses intact. No lower extremity edema NEUROLOGIC: Awake and alert. Oriented x 3. ASSESSMENT: Chest pain, troponins negative 3 Hypertension, uncontrolled Mild nonobstructive coronary artery disease per cath in 2006 PLAN: An acute coronary event has been ruled out Increase amlodipine to 10 mg daily Continue to monitor blood pressure Obtain chest CT to assess aorta Further recommendations pending patient's course Nurse practitioner note has been reviewed by physician. Signing provider agrees with the documented findings, assessment, and plan of care. Past Medical History Past Medical History: Coronary Artery Disease (CAD), Cancer, Hypertension Additional Past Medical History / Comment(s): Back pain (DDD), breast cancer (in remission), states esophageous doesn't work right-has a hard time swallowing and stomach contents come back up, +COVID 06/30/21, " LOW HR AND OXYGEN LEVELS 89-91%-HAD ANTIBODY INFUSION. History of Any Multi-Drug Resistant Organisms: None Reported Past Surgical History: Back Surgery, Heart Catheterization, Joint Replacement Additional Past Surgical History / Comment(s): Breast masectomy(right), bilateral hip replacements, back surgery X5(rods and screws/fusion), BILATERAL CATARACTS REMOVED WITH LENS IMPLANTS. Past Anesthesia/Blood Transfusion Reactions: Previous Problems w/ Anesthesia Additional Past Anesthesia/Blood Transfusion Reaction / Comment(s): Stopped breathing in recovery after spinal fusion revision in 2012 (7 hr surgery),no problems with 2 surgeries after that one. Past Psychological History: No Psychological Hx Reported Smoking Status: Never smoker Past Alcohol Use History: None Reported Past Drug Use History: None Reported - Past Family History Brother(s) Family Medical History: Cancer Additional Family Medical History / Comment(s): Colon cancer. Mother Family Medical History: Cancer Additional Family Medical History / Comment(s): Gallbladder. Father Family Medical History: Cancer Medications and Allergies Home Medications Medication Instructions Recorded Confirmed Type amLODIPine [Norvasc] 5 mg PO DAILY 11/09/19 11/16/22 History ALPRAZolam [Xanax] 0.5 mg PO DAILY PRN 11/16/22 11/16/22 History Aspirin EC [Ecotrin Low Dose] 81 mg PO DAILY 11/16/22 11/16/22 History Omeprazole 20 mg PO DAILY 11/16/22 11/16/22 History oxyBUTYnin chloride [oxyBUTYnin 5 mg PO DAILY 11/16/22 11/16/22 History chloride ER] Allergies Allergy/AdvReac Type Severity Reaction Status Date / Time benazepril Allergy Anaphylaxis Verified 11/16/22 17:00 codeine Allergy Rash/Hives Verified 11/16/22 17:00 hydrocodone Allergy Rash/Hives Verified 11/16/22 17:00 hydromorphone [From Dilaudid] Allergy Rash/Hives Verified 11/16/22 17:00 ibuprofen [From Motrin] Allergy Unknown Verified 11/16/22 17:00 lisinopril Allergy Anaphylaxis Verified 11/16/22 17:00 meperidine [From Demerol] Allergy Rash/Hives Verified 11/16/22 17:00 morphine Allergy Rash/Hives Verified 11/16/22 17:00 propoxyphene Allergy Rash/Hives Verified 11/16/22 17:00 [From Darvocet-N] Tetracyclines Allergy Rash/Hives Verified 11/16/22 17:00 azathioprine [From Imuran] AdvReac liver Verified 11/16/22 17:00 inflammation clonidine [From Catapres] AdvReac Cough Verified 11/16/22 17:00 Physical Exam Vitals: Vital Signs Temp Pulse Pulse Resp BP BP Pulse Ox 11/17/22 02:12 98.4 F 79 16 178/86 95 11/16/22 22:36 98.0 F 65 16 183/93 96 11/16/22 21:35 86 161/83 11/16/22 21:06 68 18 179/95 94 L 11/16/22 19:08 64 18 155/92 96 11/16/22 13:54 97.9 F 64 20 98 Intake and Output 11/16/22 11/17/22 11/17/22 22:59 06:59 14:59 Other: # Voids 1 1 Weight 88.451 kg Results 11/16/22 14:18 11/17/22 05:45 Cardiac Enzymes 11/16/22 11/16/22 11/16/22 Range/Units 14:18 14:18 18:38 AST 23 (14-36) U/L Troponin I <0.012 <0.012 (0.000-0.034) ng/mL 11/16/22 Range/Units 22:16 AST (14-36) U/L Troponin I <0.012 (0.000-0.034) ng/mL Coagulation 11/16/22 Range/Units 14:18 PT 9.4 (9.0-12.0) sec APTT 23.2 (22.0-30.0) sec CBC 11/16/22 Range/Units 14:18 WBC 11.5 H (3.8-10.6) k/uL RBC 4.33 (3.80-5.40) m/uL Hgb 12.6 (11.4-16.0) gm/dL Hct 38.1 (34.0-46.0) % Plt Count 265 (150-450) k/uL Comprehensive Metabolic Panel 11/16/22 Range/Units 14:18 Sodium 140 (137-145) mmol/L Potassium 4.4 (3.5-5.1) mmol/L Chloride 104 (98-107) mmol/L Carbon Dioxide 24 (22-30) mmol/L BUN 29 H (7-17) mg/dL Creatinine 1.06 H (0.52-1.04) mg/dL Glucose 92 (74-99) mg/dL Calcium 9.0 (8.4-10.2) mg/dL AST 23 (14-36) U/L ALT 17 (4-34) U/L Alkaline Phosphatase 106 (38-126) U/L Total Protein 7.8 (6.3-8.2) g/dL Albumin 4.3 (3.5-5.0) g/dL Current Medications Generic Name Dose Route Start Last Admin Trade Name Freq PRN Reason Stop Dose Admin Alprazolam 0.5 mg 11/17/22 05:15 Alprazolam 0.5 Mg Tab PO DAILY PRN Anxiety Amlodipine Besylate 10 mg 11/17/22 09:00 Amlodipine 5 Mg Tab PO DAILY RENUKA Aspirin 81 mg 11/17/22 09:00 Aspirin 81 Mg PO DAILY RENUKA Heparin Sodium (Porcine) 5,000 unit 11/16/22 21:00 11/16/22 21:07 Heparin Sodium,Porcine/Pf 5,000 Unit/0.5 Ml Syringe SQ 5,000 unit Q12HR RENUKA Administration Naloxone HCl 0.2 mg 11/16/22 17:24 Naloxone 0.4 Mg/Ml 1 Ml Vial IV Q2M PRN Opioid Reversal Oxybutynin Chloride 5 mg 11/17/22 09:00 Oxybutynin Xl 5 Mg Tab.Er.24 PO DAILY RENUKA Pantoprazole Sodium 40 mg 11/17/22 09:00 Pantoprazole 40 Mg Tablet PO DAILY RENUKA Intake and Output 11/16/22 11/17/22 11/17/22 22:59 06:59 14:59 Other: # Voids 1 1 Weight 88.451 kg 11/16/22 14:18 11/16/22 14:18
[2022-11-17] MEDS: amLODIPine 10 MG TAB PO SCH (10:11)
[2022-11-17] MEDS: HEPARIN SODIUM,PORCINE/PF 5,000 UNIT/0.5 ML SYRINGE SQ SCH ×2 (10:11→20:36)
[2022-11-17] MEDS: ASPIRIN 81 MG PO SCH (10:11)
[2022-11-17] MEDS: OXYBUTYNIN XL 5 MG TAB.ER.24 PO SCH (10:11)
[2022-11-17] MEDS: PANTOPRAZOLE 40 MG TABLET PO SCH (10:12)
--- NOTE | 2022-11-17 10:45 | CT ---
EXAMINATION TYPE: CT angio chest CT DLP: 909 mGycm, Automated exposure control for dose reduction was used. DATE OF EXAM: 11/17/2022 10:09 AM COMPARISON: 10/20/2021 CLINICAL INDICATION:Female, 77 years old with history of assess aorta, uncontrolled HTN; chest pain a nd assess aorta TECHNIQUE/CONTRAST: CTA scan of the thorax is performed with IV Contrast, patient injected with 80 mL of Isovue 370, pulm onary embolism protocol. MIP images are created and reviewed these are created on a separate worksta tion.. FINDINGS: Pulmonary Artery: There is no evidence for a filling defect within the pulmonary vasculature to sugge st acute pulmonary embolism. The pulmonary artery is of normal size. Lungs/Pleura: No evidence of focal consolidation, pleural effusion or pneumothorax. Right lower lobe calcified granulomas.. Airway: Large airways are patent. Heart: Heart is within normal limits for size. Vasculature: The aorta is within normal limits for size. No evidence for dissection or aortic aneurys m. Major vessels of the aorta are intact. There is a 2 vessel branching pattern of the aortic arch. S cattered atherosclerosis of the arterial vasculature. Mediastinum: No gross evidence of adenopathy. Musculoskeletal: No acute osseous abnormalities, multilevel disc degeneration changes throughout the spine. There is fixation hardware within the lower thoracic spine and upper lumbar spine. Hardware ap pears intact. Soft Tissues: Unremarkable. Lower neck: No significant findings. Upper Abdomen: Postsurgical changes to the gastric lumen. Small splenule is present. Left renal cyst partially visualized. IMPRESSION: 1. No evidence of pulmonary embolism. 2. No evidence for aortic aneurysm or dissection. Mild atherosclerosis of the aorta.
--- NOTE | 2022-11-17 14:00 | CA ---
Transthoracic Echo Report Name: Emilee Marks Age: 77 Gender: F : 1945 Exam Date: 11/17/2022 10:57 Exam Location: [facility] Ht (in): 66 Wt (lb): 195 Ordering Physician: Cinthya Carolina Attending/Referring Phys: [id number], Caity Mixing Roll Operator Natalia Schneider, LES Procedure CPT: Indications: LV function Cardiac Hx: Technical Quality: Technically difficult study Contrast 1: Lumason Total Dose (mL): 3 Contrast 2: Total Dose (mL): MEASUREMENTS (Male / Female) Normal Values 2D ECHO LV Diastolic Diameter PLAX 5.0 cm 4.2 - 5.9 / 3.9 - 5.3 cm LV Systolic Diameter PLAX 2.8 cm IVS Diastolic Thickness 1.2 cm 0.6 - 1.0 / 0.6 - 0.9 cm LVPW Diastolic Thickness 1.3 cm 0.6 - 1.0 / 0.6 - 0.9 cm LV Relative Wall Thickness 0.5 RV Internal Dim ED PLAX 3.6 cm LA Systolic Diameter LX 3.8 cm 3.0 - 4.0 / 2.7 - 3.8 cm LA Volume 54.6 cm??? 18 - 58 / 22 - 52 cm??? M-MODE Aortic Root Diameter MM 3.4 cm MV E Point Septal Separation 0.5 cm AV Cusp Separation MM 1.9 cm DOPPLER AV Peak Velocity 127.8 cm/s AV Peak Gradient 6.5 mmHg AI Peak Velocity 248.5 cm/s AI Peak Gradient 24.7 mmHg AI Pressure Half Time 703.8 ms MV Area PHT 2.4 cm??? Mitral E Point Velocity 87.1 cm/s Mitral A Point Velocity 112.7 cm/s Mitral E to A Ratio 0.8 MV Deceleration Time 254.1 ms TR Peak Velocity 285.3 cm/s TR Peak Gradient 32.6 mmHg Right Ventricular Systolic Press 36.6 mmHg FINDINGS Left Ventricle Left ventricular ejection fraction is estimated at 55-60 %. Left ventricular cavity size normal. Mildly increased septal wall thickness. Mildly increased posterior wall thickness. Right Ventricle Mild right ventricular dilatation. Mild pulmonary hypertension. Right Atrium Normal right atrial size. Left Atrium Mildly increased left atrial volume. Mitral Valve Mitral valve thickened. Mild mitral regurgitation. Aortic Valve Trileaflet aortic valve. Mild aortic regurgitation. Tricuspid Valve Structurally normal tricuspid valve. Mild tricuspid regurgitation. Pulmonic Valve Structurally normal pulmonic valve. Mild pulmonic regurgitation. Pericardium Normal pericardium. No pericardial effusion. Aorta Normal size aortic root and proximal ascending aorta. CONCLUSIONS Normal LV size and systolic function Previewed by: Dr. Farzad Pereira MD (Electronically Signed) Final Date: 17 Nov 2022 13:59
[2022-11-17] MEDS ORDERED: ATORVASTATIN 20 MG TAB PO SCH (21:00)
[2022-11-18] MEDS: SODIUM CHLORIDE 0.9% 1,000 ML IV SCH (04:33)
[2022-11-18] MEDS: OXYBUTYNIN XL 5 MG TAB.ER.24 PO SCH (08:05)
[2022-11-18] MEDS: ASPIRIN 81 MG PO SCH (08:06)
[2022-11-18] MEDS: PANTOPRAZOLE 40 MG TABLET PO SCH (08:06)
[2022-11-18] MEDS: HEPARIN SODIUM,PORCINE/PF 5,000 UNIT/0.5 ML SYRINGE SQ SCH (08:06)
[2022-11-18] MEDS: amLODIPine 10 MG TAB PO SCH (08:06)
[2022-11-18] MEDS ORDERED: METOPROLOL SUCCINATE (ER) 25 MG TAB.ER.24H PO SCH (09:00)
--- NOTE | 2022-11-18 09:05 | P.PN ---
Subjective HISTORY OF PRESENT ILLNESS: This is a 77-year-old female with a past medical history significant for mild coronary artery disease and hypertension. Patient used to follow in the office with Dr. Levy but has not been to the office since November 2019. We have been asked to see the patient in consultation for chest pain. Patient examined at the bedside. Patient states on Wednesday she began having pain in the middle of her chest. She states that the pain has continued since then but has been intermittent. She states the pain radiates into her back. She states her blood pressures have been high at home and she has been taking extra blood pressure medication. She states that she got up yesterday morning and the pain is worse so she came to the emergency room. She also reports that she feels her heart skipping beats at times. Patient's blood pressure has been elevated since admission with systolics up to the 180s. * EKG reveals sinus mechanism with nonspecific ST-T wave changes. T-wave inversion in lead 3. * Chest xray negative for acute process * Laboratory data: WBC 11.5. Hemoglobin 12.6. Platelet count 265. Sodium 145. Potassium 4.7. BUN 24. Creatinine 1.2. Troponin negative 3. * Current home cardiac medications include aspirin 81 mg daily and Norvasc 5 mg daily * Most recent echocardiogram obtained in October 2019 revealed ejection fraction 55- 60%, mild MR, mild TR * Cardiac catheterization history: October 2019 revealing mild coronary artery disease 11/18/2022 Patient examined this morning at the bedside. Patient denies chest pain or pressure. She denies shortness of breath. Blood pressures are improved with a systolic in the 130s. Echocardiogram completed revealing ejection fraction 55- 60%, mild MR, mild AR, mild TR PHYSICAL EXAM: VITAL SIGNS: Reviewed. GENERAL: Well-developed in no acute distress. HEENT: Head is normocephalic. Pupils are equal, round. Sclerae anicteric. Mucous membranes of the mouth are moist. Neck supple. No JVD or thyromegaly LUNGS: Respirations even and unlabored. Lungs essentially clear to auscultation bilaterally. HEART: Regular rate and rhythm. S1 and S2 heard. ABDOMEN: Soft. Nondistended. Nontender. EXTREMITIES: Normal range of motion. No clubbing or cyanosis. Peripheral pulses intact. No lower extremity edema NEUROLOGIC: Awake and alert. Oriented x 3. ASSESSMENT: Chest pain, troponins negative 3 Hypertension, uncontrolled on admission, improved Mild nonobstructive coronary artery disease per cath in 2006 PLAN: Continue current cardiac medications Add metoprolol succinate 12.5 mg daily Recommend outpatient stress testing Patient may be discharged home today from a cardiac standpoint She is to follow up on an outpatient basis Nurse practitioner note has been reviewed by physician. Signing provider agrees with the documented findings, assessment, and plan of care. Objective - Vital Signs Vital signs: Vital Signs Temp 97.5 F L 11/18/22 07:30 Pulse 67 11/18/22 07:30 Resp 16 11/18/22 07:30 BP 135/67 11/18/22 07:30 Pulse Ox 95 11/18/22 07:30 FiO2 21 11/18/22 07:26 Intake & Output 11/17/22 11/18/22 11/18/22 18:59 06:59 18:59 Intake Total 298 Balance 298 Intake: Oral 298 Other: # Voids 1 1 - Labs CBC & Chem 7: 11/16/22 14:18 11/17/22 05:45
[2022-11-18 14:10] VITALS: BP 157/62; PULSE 59; RESP 16; TEMP 98.2
--- NOTE | 2022-11-18 22:55 | P.DS ---
Providers Date of admission: 11/16/22 17:24 Expected date of discharge: 11/18/22 Attending physician: Pk Pizarro Primary care physician: Pk Pizarro - Discharge Diagnosis(es) (1) Chest pain Status: Acute (2) Dehydration Status: Acute (3) Elevated troponin Status: Acute (4) Uncontrolled hypertension Status: Acute Hospital Course: This is a pleasant 77-year-old white female who was admitted for chest pressure and left-sided pain she underwent cardiac evaluation and found not to have myocardial infarction. She had recently undergone a heart catheterization which showed a 30-40% blockage. She was sent for a CT and a chest x-ray at this visit which were both unremarkable she was eating sleeping ambulating without difficulty. Patient was cleared for discharge Patient Condition at Discharge: Fair Plan - Discharge Summary New Discharge Prescriptions: New Atorvastatin [Lipitor] 20 mg PO HS #90 tab amLODIPine [Norvasc] 10 mg PO DAILY #90 tab Metoprolol Succinate (ER) [Toprol XL] 12.5 mg PO DAILY #90 tab Continue Aspirin EC [Ecotrin Low Dose] 81 mg PO DAILY Discontinued amLODIPine [Norvasc] 5 mg PO DAILY No Action Omeprazole 20 mg PO DAILY oxyBUTYnin chloride [oxyBUTYnin chloride ER] 5 mg PO DAILY ALPRAZolam [Xanax] 0.5 mg PO DAILY PRN PRN Reason: Anxiety Discharge Medication List ALPRAZolam [Xanax] 0.5 mg PO DAILY PRN 11/16/22 [History] Aspirin EC [Ecotrin Low Dose] 81 mg PO DAILY 11/16/22 [History] Omeprazole 20 mg PO DAILY 11/16/22 [History] oxyBUTYnin chloride [oxyBUTYnin chloride ER] 5 mg PO DAILY 11/16/22 [History] Atorvastatin [Lipitor] 20 mg PO HS #90 tab 11/18/22 [Rx] Metoprolol Succinate (ER) [Toprol XL] 12.5 mg PO DAILY #90 tab 11/18/22 [Rx] amLODIPine [Norvasc] 10 mg PO DAILY #90 tab 11/18/22 [Rx] Follow up Appointment(s)/Referral(s): Farzad Pereira MD [STAFF PHYSICIAN] - 12/09/22 3:15 pm (Appointment made with Dr Cason) Pk Pizarro DO [Primary Care Provider] - 1-2 days Patient Instructions/Handouts: Chest Pain (DC)
== END 2022-11-18 15:42 ==
LOC: EC 13:48 → 6NMEDSUR 17:24
PROVIDERS: ADMIT Family Medicine; ATTEND Family Medicine
DX: R07.89 Other chest pain (principal); E86.0 Dehydration; I10 Essential (primary) hypertension; I25.10 Atherosclerotic heart disease of native coronary artery without angina pectoris; R79.89 Other specified abnormal findings of blood chemistry; R13.10 Dysphagia, unspecified; Z79.82 Long term (current) use of aspirin; Z79.899 Other long term (current) drug therapy; Z88.6 Allergy status to analgesic agent; Z88.1 Allergy status to other antibiotic agents; Z88.5 Allergy status to narcotic agent; Z88.8 Allergy status to other drugs, medicaments and biological substances; Z85.3 Personal history of malignant neoplasm of breast; Z86.16 Personal history of COVID-19; Z96.643 Presence of artificial hip joint, bilateral; Z98.42 Cataract extraction status, left eye; Z98.41 Cataract extraction status, right eye; Z96.1 Presence of intraocular lens; Z90.11 Acquired absence of right breast and nipple; Z98.1 Arthrodesis status; Z98.890 Other specified postprocedural states; Z80.0 Family history of malignant neoplasm of digestive organs
CPT/HCPCS: 96372 ×3; 96360; 96361; 99285; 36415; 94760 ×2; 93005; 80053; 80048; 83735; 84484; 85025; 85610; 85730; 71046; 71275; G0378 ×3; C8929; Q9950; Q9967; J1644 ×3; 93306

== ENCOUNTER 2023-08-20 12:34 | Inpatient (IN) | payer MEDICARE ==
[2023-08-20 13:19] LABS: Basophils % (A) 0 %; Eosinophils # (A) 0.2 k/uL (0-0.7); Eosinophils % (A) 2 %; HCT 39.3 % (34.0-46.0); HGB 12.8 gm/dL (11.4-16.0); Lymphocytes # (A) 2.5 k/uL (1.0-4.8); Lymphocytes % (A) 23 %; MCH 28.7 pg (25.0-35.0); MCHC 32.4 g/dL (31.0-37.0); MCV 88.5 fL (80.0-100.0); Monocytes # (A) 0.7 k/uL (0-1.0); Monocytes % (A) 7 %; Neutrophils # (A) 7.2 k/uL (1.3-7.7); Neutrophils % (A) 67 %; Platelet Count 222 k/uL (150-450); RBC 4.45 m/uL (3.80-5.40); RDW 13.8 % (11.5-15.5); WBC 10.8 k/uL (3.8-10.6)
[2023-08-20] MEDS: SODIUM CHLORIDE 0.9% 500 ML 500 ML IV STA (13:30)
[2023-08-20 13:33] LABS: ALT 17 U/L (4-34); African American GFR (CKD) 45 (>60 ml/min/1.73 sqM); Albumin 4.2 g/dL (3.5-5.0); Anion Gap 9 mmol/L; Blood Urea Nitrogen 36 mg/dL (7-17); Calcium 9.1 mg/dL (8.4-10.2); Carbon Dioxide 21 mmol/L (22-30); Chloride 109 mmol/L (98-107); Glucose 95 mg/dL (74-99); Non-African American GFR(CKD) 39 (>60 ml/min/1.73 sqM); Sodium 139 mmol/L (137-145); Total Bilirubin 0.5 mg/dL (0.2-1.3); Total Protein 7.6 g/dL (6.3-8.2)
[2023-08-20] MEDS: NITROGLYCERIN SL TABS 0.4 MG TAB SUBLINGUAL STA (13:33)
[2023-08-20 13:36] LABS: Magnesium 2.3 mg/dL (1.6-2.3); Potassium 5.8 mmol/L (3.5-5.1)
--- NOTE | 2023-08-20 13:36 | XR ---
EXAMINATION TYPE: XR chest 2V DATE OF EXAM: 08/20/2023 COMPARISON: 11/16/2022 TECHNIQUE: PA and lateral views submitted. HISTORY: Chest pain FINDINGS: The lungs are clear and there is no pneumothorax, pleural effusion, or focal pneumonia. Heart size normal and no overt failure. Osseous structures demonstrate hypertrophic and degenerative changes of the spine. AC joint arthropathy. Surgical clips in the right axilla. Atherosclerotic change aorta. IMPRESSION: 1. No acute process.
[2023-08-20 13:37] LABS: AST 30 U/L (14-36); Alkaline Phosphatase 109 U/L (38-126)
[2023-08-20 13:41] LABS: NT-Pro-B-Type Natriuretic Pept 795 pg/mL
[2023-08-20 13:46] LABS: INR 0.8 (<1.2); Partial Thromboplastin Time 22.2 sec (22.0-30.0); Prothrombin Time 9.5 sec (10.0-12.5)
[2023-08-20] MEDS ORDERED: NALOXONE 0.4 MG/ML 1 ML VIAL IV PRN (14:41)
--- NOTE | 2023-08-20 14:43 | ED ---
General Adult HPI - General Chief complaint: Chest Pain Stated complaint: Chest Pain Time Seen by Provider: 08/20/23 12:34 Source: patient, RN notes reviewed, old records reviewed Mode of arrival: ambulatory Limitations: no limitations - History of Present Illness Initial comments: Patient is a 78-year-old female who presents emergency department complaining of chest pain for 2 months, low-grade fever, cough, as well as bradycardia. No history of bradycardia. Patient states she has a history of CAD but no stents. States she has had the same chest pain for the last month and 1/2 to 2 months. She has a chronic ache in her left chest. Occasionally gets worse with radiation to her left shoulder. This has been stable over that time with no change. No known palliative or provocative factors, except for worsening movement. Denies any other acute complaints at this time. Denies any nausea, vomiting, diarrhea. Denies any abdominal pain. Presents for further evaluation. - Related Data Home Medications Medication Instructions Recorded Confirmed ALPRAZolam [Xanax] 0.5 mg PO HS 11/16/22 08/20/23 oxyBUTYnin chloride [oxyBUTYnin 5 mg PO HS 11/16/22 08/20/23 chloride ER] Aspirin EC [Ecotrin] 325 mg PO HS 08/20/23 08/20/23 Bismuth Subsalicylate 262 - 524 mg PO Q1H PRN 08/20/23 08/20/23 [Pepto-Bismol] Escitalopram [Lexapro] 10 mg PO HS 08/20/23 08/20/23 amLODIPine [Norvasc] 10 mg PO HS 08/20/23 08/20/23 Allergies Allergy/AdvReac Type Severity Reaction Status Date / Time benazepril Allergy Anaphylaxis Verified 08/20/23 14:54 codeine Allergy Rash/Hives Verified 08/20/23 14:54 hydrocodone Allergy Rash/Hives Verified 08/20/23 14:54 hydromorphone [From Dilaudid] Allergy Rash/Hives Verified 08/20/23 14:54 ibuprofen [From Motrin] Allergy Unknown Verified 08/20/23 14:54 lisinopril Allergy Anaphylaxis Verified 08/20/23 14:54 meperidine [From Demerol] Allergy Rash/Hives Verified 08/20/23 14:54 morphine Allergy Rash/Hives Verified 08/20/23 14:54 propoxyphene Allergy Rash/Hives Verified 08/20/23 14:54 [From Darvocet-N] Tetracyclines Allergy Rash/Hives Verified 08/20/23 14:54 azathioprine [From Imuran] AdvReac liver Verified 08/20/23 14:54 inflammation clonidine [From Catapres] AdvReac Cough Verified 08/20/23 14:54 Review of Systems ROS Statement: Those systems with pertinent positive or pertinent negative responses have been documented in the HPI. Review of Systems: CONST: Denies fever EYES: Denies blurry vision ENT: Denies nasal congestion C/V: Endorses chronic chest pain RESP: Denies shortness of breath GI: Denies abdominal pain : Denies dysuria SKIN: Denies rash. MSK: Denies joint pain. NEURO: Denies headache ROS Other: All systems not noted in ROS Statement are negative. Past Medical History Past Medical History: Coronary Artery Disease (CAD), Cancer, Hypertension Additional Past Medical History / Comment(s): Back pain (DDD), breast cancer (in remission), states esophageous doesn't work right-has a hard time swallowing and stomach contents come back up, +COVID 06/30/21, " LOW HR AND OXYGEN LEVELS 89-91%-HAD ANTIBODY INFUSION. History of Any Multi-Drug Resistant Organisms: None Reported Past Surgical History: Back Surgery, Heart Catheterization, Joint Replacement Additional Past Surgical History / Comment(s): Breast masectomy(right), bilateral hip replacements, back surgery X5(rods and screws/fusion), BILATERAL CATARACTS REMOVED WITH LENS IMPLANTS. Past Anesthesia/Blood Transfusion Reactions: Previous Problems w/ Anesthesia Additional Past Anesthesia/Blood Transfusion Reaction / Comment(s): Stopped breathing in recovery after spinal fusion revision in 2012 (7 hr surgery),no problems with 2 surgeries after that one. Past Psychological History: No Psychological Hx Reported Smoking Status: Never smoker Past Alcohol Use History: None Reported Past Drug Use History: None Reported - Past Family History Brother(s) Family Medical History: Cancer Additional Family Medical History / Comment(s): Colon cancer. Mother Family Medical History: Cancer Additional Family Medical History / Comment(s): Gallbladder. Father Family Medical History: Cancer General Exam - General Exam Comments Initial Comments: General: Appears in no acute distress. HEAD: Normal with no signs of head trauma. EYES: PERRLA, EOMI, conjunctiva normal, no discharge. ENT: Hearing grossly intact, normal oropharynx. RESPIRATORY: Clear breath sounds bilaterally. No wheezes, rales, or rhonchi. C/V: Bradycardia . S1 and S2 auscultated, no edema, peripheral pulses 2+ and intact throughout ABD: Abd is soft, nontender, nondistended EXT: Normal range of motion, no obvious deformity SKIN: No rashes or lesions observed on exposed skin. NEURO: Alert and oriented x 4. Cranial nerves II-XII intact. No focal sensory or strength deficits. Limitations: no limitations Course Vital Signs 08/20/23 08/20/23 08/20/23 12:45 13:00 13:31 Temperature 98.6 F Pulse Rate 42 L 35 L 38 L Respiratory 18 18 18 Rate Blood Pressure 169/72 148/72 142/74 O2 Sat by Pulse 96 96 95 Oximetry 08/20/23 08/20/23 08/20/23 14:00 14:30 14:59 Temperature 98.4 F Pulse Rate 38 L 50 L 47 L Respiratory 18 18 Rate Blood Pressure 184/73 148/77 O2 Sat by Pulse 94 L 95 Oximetry 08/20/23 08/20/23 08/20/23 15:00 15:09 16:00 Temperature 98.5 F Pulse Rate 47 L 52 L 73 Respiratory 18 18 Rate Blood Pressure 152/93 148/75 O2 Sat by Pulse 95 93 L Oximetry 08/20/23 17:41 Temperature 98.4 F Pulse Rate 82 Respiratory 18 Rate Blood Pressure 151/79 O2 Sat by Pulse 95 Oximetry Medical Decision Making - Medical Decision Making Was pt. sent in by a medical professional or institution (, PA, SOCIAL INSURANCE ADMINISTRATOR, urgent care, hospital, or [facility]...) When possible be specific @ -No Did you speak to anyone other than the patient for history (EMS, parent, family, police, friend...)? What history was obtained from this source @ -No Did you review nursing and triage notes (agree or disagree)? Why? @ -I reviewed and agree with nursing and triage notes Were old charts reviewed (outside hosp., previous admission, EMS record, old EKG, old radiological studies, urgent care reports/EKG's, mcc records)? Report findings @ -Old charts reviewed Differential Diagnosis (chest pain, altered mental status, abdominal pain women, abdominal pain men, vaginal bleeding, weakness, fever, dyspnea, syncope, headache, dizziness, GI bleed, back pain, seizure, CVA, palpatations, mental health, musculoskeletal)? @ -Differential Chest Pain: Stable Angina, Unstable Angina, STEMI, NSTEMI Aortic Dissection, Pneumothorax, Musculoskeletal, Esophageal Spasm GERD, Cholecystitis, Pancreatitis, Zoster, this is not meant to be an all-inclusive list. EKG interpreted by me (3pts min.). @ -As above X-rays interpreted by me (1pt min.). @ -Chest x-ray reveals no obvious acute cardiopulmonary process CT interpreted by me (1pt min.). @ -None done U/S interpreted by me (1pt. min.). @ -None done What testing was considered but not performed or refused? (CT, X-rays, U/S, labs)? Why? @ -None What meds were considered but not given or refused? Why? @ -None Did you discuss the management of the patient with other professionals (professionals i.e. , PA, SOCIAL INSURANCE ADMINISTRATOR, lab, RT, psych nurse, neonatal social worker, service or work dispatcher chief, teacher, event security officer, case finisher)? Give summary @ -Discussed with Dr. Araujo who was in agreement the plan and accepted the admission. Was smoking cessation discussed for >3mins.? @ -No Was critical care preformed (if so, how long)? @ -No Were there social determinants of health that impacted care today? How? (Homelessness, low income, unemployed, alcoholism, drug addiction, transportation, low edu. Level, literacy, decrease access to med. care, mcc, rehab)? @ -No Was there de-escalation of care discussed even if they declined (Discuss DNR or withdrawal of care, Hospice)? DNR status @ -No What co-morbidities impacted this encounter? (DM, HTN, Smoking, COPD, CAD, Cancer, CVA, ARF, Chemo, Hep., AIDS, mental health diagnosis, sleep apnea, morbid obesity)? @ -CAD Was patient admitted / discharged? Hospital course, mention meds given and route, prescriptions, significant lab abnormalities, going to OR and other pertinent info. @ -Patient presents for chronic chest pain. Also bradycardia. Vital signs currently remarkable for bradycardia. We will obtain cardiopulmonary workup. She was in agreement this plan. Vital signs otherwise within acceptable limits. Patient be symptomatically treated with IV fluids at this time as well as a dose of nitro. Patient already took 324 mg of aspirin. Nitroglycerin did nothing for the patient's chest pain. EKG shows sinus bradycardia. Chest x-ray shows no obvious acute cardiopulmonary process. Laboratory studies remarkable for a hyperkalemia as well as undetectable troponin. Remainder the labs within acceptable limits. Urine is still pending. I updated the patient. Chest pain is the normal steady ache that she has had for the last 2 months that is constant. She has had no breakthrough worsening of the pain which happened earlier today prior to arrival. I discussed results with her. She will be given hyperkalemia cocktail. This could be contributing to her bradycardia. She was in agreement this plan. Cocktail consists of c alcium, albuterol, insulin, sodium bicarb. Patient also received Lokelma. Patient will be admitted at this time. I spoke with Dr. Araujo who accepted the admission. Patient's bradycardia improved following the therapy. Cardiology consulted for the chest pain and bradycardia Undiagnosed new problem with uncertain prognosis? @ -No Drug Therapy requiring intensive monitoring for toxicity (Heparin, Nitro, Insulin, Cardizem)? @ -No Were any procedures done? @ -No Diagnosis/symptom? @ -Sinus bradycardia, chronic chest pain, hyperkalemia Acute, or Chronic, or Acute on Chronic? @ -Acute Uncomplicated (without systemic symptoms) or Complicated (systemic symptoms)? @ -Complicated Side effects of treatment? @ -No Exacerbation, Progression, or Severe Exacerbation? @ -No Poses a threat to life or bodily function? How? (Chest pain, [place], [place], pneumonia, PE, COPD, DKA, ARF, appy, cholecystitis, CVA, Diverticulitis, Homicidal, Suicidal, threat to staff... and all critical care pts) @ -Yes - Lab Data Result diagrams: 08/20/23 13:12 08/20/23 17:51 Lab Results 08/20/23 08/20/23 08/20/23 Range/Units 13:12 13:12 13:12 WBC 10.8 H (3.8-10.6) k/uL RBC 4.45 (3.80-5.40) m/uL Hgb 12.8 (11.4-16.0) gm/dL Hct 39.3 (34.0-46.0) % MCV 88.5 (80.0-100.0) fL MCH 28.7 (25.0-35.0) pg MCHC 32.4 (31.0-37.0) g/dL RDW 13.8 (11.5-15.5) % Plt Count 222 (150-450) k/uL MPV 8.0 Neutrophils % 67 % Lymphocytes % 23 % Monocytes % 7 % Eosinophils % 2 % Basophils % 0 % Neutrophils # 7.2 (1.3-7.7) k/uL Lymphocytes # 2.5 (1.0-4.8) k/uL Monocytes # 0.7 (0-1.0) k/uL Eosinophils # 0.2 (0-0.7) k/uL Basophils # 0.0 (0-0.2) k/uL PT 9.5 L (10.0-12.5) sec INR 0.8 (<1.2) APTT 22.2 (22.0-30.0) sec Sodium 139 (137-145) mmol/L Potassium 5.8 H (3.5-5.1) mmol/L Chloride 109 H (98-107) mmol/L Carbon Dioxide 21 L (22-30) mmol/L Anion Gap 9 mmol/L BUN 36 H (7-17) mg/dL Creatinine 1.30 H (0.52-1.04) mg/dL Est GFR (CKD-EPI)AfAm 45 (>60 ml/min/1.73 sqM) Est GFR (CKD-EPI)NonAf 39 (>60 ml/min/1.73 sqM) Glucose 95 (74-99) mg/dL Calcium 9.1 (8.4-10.2) mg/dL Magnesium 2.3 (1.6-2.3) mg/dL Total Bilirubin 0.5 (0.2-1.3) mg/dL AST 30 (14-36) U/L ALT 17 (4-34) U/L Alkaline Phosphatase 109 (38-126) U/L Troponin I (0.000-0.034) ng/mL NT-Pro-B Natriuret Pep 795 pg/mL Total Protein 7.6 (6.3-8.2) g/dL Albumin 4.2 (3.5-5.0) g/dL TSH (0.465-4.680) mIU/L Influenza Type A (PCR) (Not Detectd) Influenza Type B (PCR) (Not Detectd) RSV (PCR) (Not Detectd) SARS-CoV-2 (PCR) (Not Detectd) 08/20/23 08/20/23 08/20/23 Range/Units 13:12 13:12 14:02 WBC (3.8-10.6) k/uL RBC (3.80-5.40) m/uL Hgb (11.4-16.0) gm/dL Hct (34.0-46.0) % MCV (80.0-100.0) fL MCH (25.0-35.0) pg MCHC (31.0-37.0) g/dL RDW (11.5-15.5) % Plt Count (150-450) k/uL MPV Neutrophils % % Lymphocytes % % Monocytes % % Eosinophils % % Basophils % % Neutrophils # (1.3-7.7) k/uL Lymphocytes # (1.0-4.8) k/uL Monocytes # (0-1.0) k/uL Eosinophils # (0-0.7) k/uL Basophils # (0-0.2) k/uL PT (10.0-12.5) sec INR (<1.2) APTT (22.0-30.0) sec Sodium (137-145) mmol/L Potassium 5.4 H (3.5-5.1) mmol/L Chloride (98-107) mmol/L Carbon Dioxide (22-30) mmol/L Anion Gap mmol/L BUN (7-17) mg/dL Creatinine (0.52-1.04) mg/dL Est GFR (CKD-EPI)AfAm (>60 ml/min/1.73 sqM) Est GFR (CKD-EPI)NonAf (>60 ml/min/1.73 sqM) Glucose (74-99) mg/dL Calcium (8.4-10.2) mg/dL Magnesium (1.6-2.3) mg/dL Total Bilirubin (0.2-1.3) mg/dL AST (14-36) U/L ALT (4-34) U/L Alkaline Phosphatase (38-126) U/L Troponin I <0.012 (0.000-0.034) ng/mL NT-Pro-B Natriuret Pep pg/mL Total Protein (6.3-8.2) g/dL Albumin (3.5-5.0) g/dL TSH (0.465-4.680) mIU/L Influenza Type A (PCR) Not Detected (Not Detectd) Influenza Type B (PCR) Not Detected (Not Detectd) RSV (PCR) Not Detected (Not Detectd) SARS-CoV-2 (PCR) Not Detected (Not Detectd) 08/20/23 Range/Units 14:24 WBC (3.8-10.6) k/uL RBC (3.80-5.40) m/uL Hgb (11.4-16.0) gm/dL Hct (34.0-46.0) % MCV (80.0-100.0) fL MCH (25.0-35.0) pg MCHC (31.0-37.0) g/dL RDW (11.5-15.5) % Plt Count (150-450) k/uL MPV Neutrophils % % Lymphocytes % % Monocytes % % Eosinophils % % Basophils % % Neutrophils # (1.3-7.7) k/uL Lymphocytes # (1.0-4.8) k/uL Monocytes # (0-1.0) k/uL Eosinophils # (0-0.7) k/uL Basophils # (0-0.2) k/uL PT (10.0-12.5) sec INR (<1.2) APTT (22.0-30.0) sec Sodium (137-145) mmol/L Potassium (3.5-5.1) mmol/L Chloride (98-107) mmol/L Carbon Dioxide (22-30) mmol/L Anion Gap mmol/L BUN (7-17) mg/dL Creatinine (0.52-1.04) mg/dL Est GFR (CKD-EPI)AfAm (>60 ml/min/1.73 sqM) Est GFR (CKD-EPI)NonAf (>60 ml/min/1.73 sqM) Glucose (74-99) mg/dL Calcium (8.4-10.2) mg/dL Magnesium (1.6-2.3) mg/dL Total Bilirubin (0.2-1.3) mg/dL AST (14-36) U/L ALT (4-34) U/L Alkaline Phosphatase (38-126) U/L Troponin I (0.000-0.034) ng/mL NT-Pro-B Natriuret Pep pg/mL Total Protein (6.3-8.2) g/dL Albumin (3.5-5.0) g/dL TSH 2.270 (0.465-4.680) mIU/L Influenza Type A (PCR) (Not Detectd) Influenza Type B (PCR) (Not Detectd) RSV (PCR) (Not Detectd) SARS-CoV-2 (PCR) (Not Detectd) - EKG Data -: EKG Interpreted by Me EKG Comments: 12-lead Electrocardiogram Interpretation Note EKG was reviewed and interpreted by myself. 12-lead ECG performed at 1259 is interpreted by me as revealing sinus bradycardia at a rate of 34 beats per minute. [place] is normal. AR interval is 143 ms, QRS duration is 109 ms, QTc is 374 ms. Isolated T wave inversion lead V3.. There were no ST or T wave abnormalities to suggest myocardial ischemia or injury. R wave progression across the precordium was satisfactory. By my interpretation this EKG is non- diagnostic for acute ischemia. Disposition Clinical Impression: Chest pain, Bradycardia, Hyperkalemia Disposition: ADMITTED IP TO THIS HOSP Condition: Stable Time of Disposition: 14:41
[2023-08-20] MEDS: ALBUTEROL NEB (CONC) 2.5 MG/0.5 ML INHALATION ONE (14:58)
[2023-08-20] MEDS: SODIUM BICARB 8.4% 50 ML SYR (1 MEQ/ML) IV ONE (17:33)
[2023-08-20] MEDS: DEXTROSE 50% SYRINGE 50 ML IVP ONE (17:34)
[2023-08-20] MEDS: INSULIN REGULAR 100 UNIT/ML VIAL (IV) IV ONE (17:36)
[2023-08-20] MEDS: SODIUM ZIRCONIUM CYCLOSILICATE 10 GM PACKET PO ONE (17:38)
[2023-08-20] MEDS: NITROGLYCERIN OINT 1 INCH/GM PACKET TOPICAL SCH (17:38)
[2023-08-20] MEDS: CALCIUM GLUCONATE IN NACL 1 GM in SALINE 1 100ML.BAG IVPB ONE (17:39)
[2023-08-20] MEDS: ALPRAZolam 0.5 MG TAB PO SCH (21:08)
[2023-08-20] MEDS: ESCITALOPRAM 10 MG TAB PO SCH (21:08)
[2023-08-20] MEDS: HEPARIN SODIUM,PORCINE 5,000 UNIT/ML 1 ML VIAL SQ SCH (21:09)
[2023-08-20] MEDS: amLODIPine 10 MG TAB PO SCH (21:09)
[2023-08-20] MEDS: ASPIRIN 325 MG TAB PO SCH (21:09)
[2023-08-20] MEDS: OXYBUTYNIN XL 5 MG TAB.ER.24 PO SCH (21:09)
--- NOTE | 2023-08-20 21:58 | P.HPIM ---
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 Patient was also having cough. Yesterday patient had resection of SCC on the forehead. Since yesterday patient has been having persistent chest pressure along with left arm pain. Also felt leg weakness. Presents to ER for further relation. Patient does have cough with deep breathing. No complaints of pleuritic pain. Denies any dizziness or lightheadedness. No nausea vomiting or diarrhea. Patient did receive nitro tablet in the ER which seemed to help her pain. Patient was also given albuterol inhalation while in the ER. Patient also states that she is not having left leg swelling on and off for the past 2 months. Denies any calf tenderness. Patient has been afebrile on admission. Patient was bradycardic with heart rate went down to 35 on admission. Chest x-ray showed no acute process. EKG showed sinus bradycardia Laboratory showed sodium 139 potassium 5.8 with slight hemolysis and repeat 5.4 Chloride 109 bicarb is 21 BUN 36 and creatinine 1.30 Liver enzymes are not elevated. Troponin x 3 negative., proBNP 795 and TSH 2.27 within normal limits. Influenza A B RSV and COVID-19 PCR not detected. Review of Systems Constitutional: Patient denies any fever or chills . Patient does have generalized weakness. No weight loss. Abdomen: Patient denied nausea vomiting and diarrhea and abdominal pain. Cardiovascular: Patient complains of chest pressure. Mild short of breath no palpitations. Left leg occasional swelling Respiratory: patient cough without production. Mild shortness of breath Neurologic: Patient denied any numbness or tingling headache. Musculoskeletal: Patient denies any complaints of joint swelling or deformity. Skin: Negative Psychiatric: Negative Endocrine: No heat or cold intolerance. No recent weight gain. Genitourinary: No dysuria or hematuria. All other 14 point ROS negative except the above Past Medical History Past Medical History: Coronary Artery Disease (CAD), Cancer, Hypertension Additional Past Medical History / Comment(s): Back pain (DDD), breast cancer (in remission), states esophageous doesn't work right-has a hard time swallowing and stomach contents come back up, +COVID 06/30/21, " LOW HR AND OXYGEN LEVELS 89-91%-HAD ANTIBODY INFUSION. History of Any Multi-Drug Resistant Organisms: None Reported Past Surgical History: Back Surgery, Heart Catheterization, Joint Replacement Additional Past Surgical History / Comment(s): Breast masectomy(right), bilateral hip replacements, back surgery X5(rods and screws/fusion), BILATERAL CATARACTS REMOVED WITH LENS IMPLANTS. Past Anesthesia/Blood Transfusion Reactions: Previous Problems w/ Anesthesia Additional Past Anesthesia/Blood Transfusion Reaction / Comment(s): Stopped breathing in recovery after spinal fusion revision in 2012 (7 hr surgery),no problems with 2 surgeries after that one. Past Psychological History: No Psychological Hx Reported Smoking Status: Never smoker Past Alcohol Use History: None Reported Past Drug Use History: None Reported - Past Family History Brother(s) Family Medical History: Cancer Additional Family Medical History / Comment(s): Colon cancer. Mother Family Medical History: Cancer Additional Family Medical History / Comment(s): Gallbladder. Father Family Medical History: Cancer Medications and Allergies Home Medications Medication Instructions Recorded Confirmed Type ALPRAZolam [Xanax] 0.5 mg PO HS 11/16/22 08/20/23 History oxyBUTYnin chloride [oxyBUTYnin 5 mg PO HS 11/16/22 08/20/23 History chloride ER] Aspirin EC [Ecotrin] 325 mg PO HS 08/20/23 08/20/23 History Bismuth Subsalicylate 262 - 524 mg PO Q1H PRN 08/20/23 08/20/23 History [Pepto-Bismol] Escitalopram [Lexapro] 10 mg PO HS 08/20/23 08/20/23 History amLODIPine [Norvasc] 10 mg PO HS 08/20/23 08/20/23 History Allergies Allergy/AdvReac Type Severity Reaction Status Date / Time benazepril Allergy Anaphylaxis Verified 08/20/23 14:54 codeine Allergy Rash/Hives Verified 08/20/23 14:54 hydrocodone Allergy Rash/Hives Verified 08/20/23 14:54 hydromorphone [From Dilaudid] Allergy Rash/Hives Verified 08/20/23 14:54 ibuprofen [From Motrin] Allergy Unknown Verified 08/20/23 14:54 lisinopril Allergy Anaphylaxis Verified 08/20/23 14:54 meperidine [From Demerol] Allergy Rash/Hives Verified 08/20/23 14:54 morphine Allergy Rash/Hives Verified 08/20/23 14:54 propoxyphene Allergy Rash/Hives Verified 08/20/23 14:54 [From Darvocet-N] Tetracyclines Allergy Rash/Hives Verified 08/20/23 14:54 azathioprine [From Imuran] AdvReac liver Verified 08/20/23 14:54 inflammation clonidine [From Catapres] AdvReac Cough Verified 08/20/23 14:54 Physical Exam Vitals: Vital Signs Temp Pulse Resp BP Pulse Ox 08/20/23 21:05 65 18 153/76 96 08/20/23 17:41 98.4 F 82 18 151/79 95 08/20/23 16:00 73 18 148/75 93 L 08/20/23 15:09 52 L 08/20/23 15:00 98.5 F 47 L 18 152/93 95 08/20/23 14:59 47 L 08/20/23 14:30 50 L 18 148/77 95 08/20/23 14:00 98.4 F 38 L 18 184/73 94 L 08/20/23 13:31 38 L 18 142/74 95 08/20/23 13:00 35 L 18 148/72 96 08/20/23 12:45 98.6 F 42 L 18 169/72 96 Intake and Output 08/20/23 08/20/23 08/20/23 06:59 14:59 22:59 Other: Weight 81.193 kg PHYSICAL EXAMINATION: Patient is lying in the bed comfortably, no acute distress, awake alert and oriented.. HEENT: Normocephalic. Neck is supple. Pupils reactive. Nostrils clear. Oral cavity is moist. Neck reveals no JVD, carotid bruits, or thyromegaly. CHEST EXAMINATION: Trachea is central. Symmetrical expansion. Patient does have expiratory wheezing and no rhonchi or crackles. Nonlabored breathing.. CARDIAC: Normal S1, S2 with no gallops. No murmurs ABDOMEN: Soft. Bowel sounds normal. No organomegaly. No abdominal bruits. Extremities: reveal no edema. No clubbing or cyanosis Neurologically awake, alert, oriented x3 with well-coordinated movements. No focal deficits noted Skin: No rash or skin lesions. Psychiatric: Coperative. Nonsuicidal Musculoskeletal: No joint swelling or deformity. Normal range of motion. Results CBC & Chem 7: 08/20/23 13:12 08/20/23 17:51 Labs: Abnormal Lab Results - Last 24 Hours (Table) 08/20/23 08/20/23 08/20/23 Range/Units 13:12 13:12 13:12 WBC 10.8 H (3.8-10.6) k/uL PT 9.5 L (10.0-12.5) sec Potassium 5.8 H (3.5-5.1) mmol/L Chloride 109 H (98-107) mmol/L Carbon Dioxide 21 L (22-30) mmol/L BUN 36 H (7-17) mg/dL Creatinine 1.30 H (0.52-1.04) mg/dL 08/20/23 Range/Units 14:02 WBC (3.8-10.6) k/uL PT (10.0-12.5) sec Potassium 5.4 H (3.5-5.1) mmol/L Chloride (98-107) mmol/L Carbon Dioxide (22-30) mmol/L BUN (7-17) mg/dL Creatinine (0.52-1.04) mg/dL Thrombosis Risk Factor Assmnt - DVT/VTE Prophylaxis DVT/VTE Prophylaxis: Pharmacologic Prophylaxis ordered Assessment and Plan Assessment: Atypical chest pain/pressure. Rule out ACS. Could be due to bronchospasm. Sinus bradycardia Hyperkalemia could be due to acute kidney injury. Mild non-anion gap metabolic acidosis Coronary artery disease with prior cardiac catheterization. No PCI SCC on the forehead s/p resection on 08/19/2023 Hypertension uncontrolled on admission History of breast cancer currently in remission History of back surgery x 5 and bilateral hip replacement Secondhand smoking x 50 years DVT prophylaxis with heparin subcu Plan: Patient will be continued on telemonitoring. Serial EKG and troponin x 3 negative. proBNP is not elevated. Continue with DuoNebs and monitor breathing status. Patient was given Lokelma, insulin and D50 and sodium bicarb in the ER. Potassium came down to 4.1. Monitor renal function. Cardiology was consulted for further evaluation. Follow-up CBC and BMP tomorrow. Time with Patient: Greater than 30
--- NOTE | 2023-08-20 23:41 | US ---
EXAMINATION TYPE: US venous doppler duplex LE DATE OF EXAM: 08/20/2023 11:19 PM COMPARISON: US 2012 CLINICAL INDICATION: Female, 78 years old with history of left leg swelling; No hx of DVT. Patient ta kes aspirin. Patient states she gets swelling in her right leg. SIDE PERFORMED: Bilateral per Aguila Taylor NP structural ironworker provider. TECHNIQUE: The lower extremity deep venous system is examined utilizing real time linear array sonog jayne with graded compression, doppler sonography and color-flow sonography. VESSELS IMAGED: Common Femoral Vein Deep Femoral Vein Greater Saphenous Vein * Femoral Vein Popliteal Vein Small Saphenous Vein * Proximal Calf Veins (* superficial vessels) Right Leg: No evidence of DVT. Left Leg: No evidence of DVT. *Complex fluid collection seen left medial knee area: 5.2 x 3.2 x 0. 7 cm. Probable small to moderate sized popliteal cyst. IMPRESSION: No ultrasound evidence for acute DVT in either lower extremity.
--- NOTE | 2023-08-21 12:07 | P.PN ---
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 Patient was also having cough. Yesterday patient had resection of SCC on the forehead. Since yesterday patient has been having persistent chest pressure along with left arm pain. Also felt leg weakness. Presents to ER for further relation. Patient does have cough with deep breathing. No complaints of pleuritic pain. Denies any dizziness or lightheadedness. No nausea vomiting or diarrhea. Patient did receive nitro tablet in the ER which seemed to help her pain. Patient was also given albuterol inhalation while in the ER. Patient also states that she is not having left leg swelling on and off for the past 2 months. Denies any calf tenderness. Patient has been afebrile on admission. Patient was bradycardic with heart rate went down to 35 on admission. Chest x-ray showed no acute process. EKG showed sinus bradycardia Laboratory showed sodium 139 potassium 5.8 with slight hemolysis and repeat 5.4 Chloride 109 bicarb is 21 BUN 36 and creatinine 1.30 Liver enzymes are not elevated. Troponin x 3 negative., proBNP 795 and TSH 2.27 within normal limits. Influenza A B RSV and COVID-19 PCR not detected. 08/21/2023 Patient has little chest pressure No dyspnea, she has chronic cough and phlegm which is mild, She feels very tired No confused., Patient is afebrile She reports some choking, were going to check swallow evaluation Cardiology on the case for possible pacemaker for severe bradycardia Objective - Vital Signs Vital signs: Vital Signs Temp 97.8 F 08/21/23 08:30 Pulse 53 L 08/21/23 08:30 Resp 16 08/21/23 08:30 BP 126/61 08/21/23 08:30 Pulse Ox 97 08/21/23 08:30 FiO2 Intake & Output 08/20/23 08/21/23 08/21/23 18:59 06:59 18:59 Weight 81.193 kg 81.193 kg Other: Voiding Method Toilet Toilet # Voids 0 - Labs CBC & Chem 7: 02/23/24 13:12 08/20/23 17:51 Labs: Abnormal Lab Results - Last 24 Hours (Table) 08/20/23 08/20/23 08/20/23 Range/Units 13:12 13:12 13:12 WBC 10.8 H (3.8-10.6) k/uL PT 9.5 L (10.0-12.5) sec Potassium 5.8 H (3.5-5.1) mmol/L Chloride 109 H (98-107) mmol/L Carbon Dioxide 21 L (22-30) mmol/L BUN 36 H (7-17) mg/dL Creatinine 1.30 H (0.52-1.04) mg/dL 08/20/23 Range/Units 14:02 WBC (3.8-10.6) k/uL PT (10.0-12.5) sec Potassium 5.4 H (3.5-5.1) mmol/L Chloride (98-107) mmol/L Carbon Dioxide (22-30) mmol/L BUN (7-17) mg/dL Creatinine (0.52-1.04) mg/dL Assessment and Plan Assessment: Atypical chest pain/pressure. Rule out ACS. Sinus bradycardia, severe. Present on admission Hyperkalemia could be due to acute kidney injury. Coronary artery disease with prior cardiac catheterization. No PCI SCC on the forehead s/p resection on 08/19/2023 Hypertension uncontrolled on admission History of breast cancer currently in remission History of back surgery x 5 and bilateral hip replacement Secondhand smoking x 50 years DVT prophylaxis with heparin subcu Plan: Cardiology consult for possible pacemaker requirement Patient will be continued on tele-monitoring. d. Continue with DuoNebs and monitor breathing status. mointor potassium level Monitor renal function. Check swallow evaluation Cardiology was consulted for further evaluation. Prognosis guarded
[2023-08-21 12:48] LABS: Basophils # (A) 0.1 k/uL (0-0.2); Basophils % (A) 1 %; Eosinophils # (A) 0.1 k/uL (0-0.7); Eosinophils % (A) 1 %; HCT 38.5 % (34.0-46.0); HGB 12.4 gm/dL (11.4-16.0); Lymphocytes # (A) 1.9 k/uL (1.0-4.8); Lymphocytes % (A) 24 %; MCH 28.5 pg (25.0-35.0); MCHC 32.3 g/dL (31.0-37.0); MCV 88.3 fL (80.0-100.0); Mean Platelet Volume 7.8; Monocytes # (A) 0.5 k/uL (0-1.0); Monocytes % (A) 6 %; Neutrophils # (A) 5.3 k/uL (1.3-7.7); Neutrophils % (A) 66 %; Platelet Count 238 k/uL (150-450); RBC 4.36 m/uL (3.80-5.40); RDW 13.8 % (11.5-15.5); WBC 7.9 k/uL (3.8-10.6)
[2023-08-21 12:58] LABS: African American GFR (CKD) 38 (>60 ml/min/1.73 sqM); Anion Gap 9 mmol/L; Blood Urea Nitrogen 27 mg/dL (7-17); Calcium 9.6 mg/dL (8.4-10.2); Carbon Dioxide 27 mmol/L (22-30); Chloride 106 mmol/L (98-107); Glucose 102 mg/dL (74-99); Non-African American GFR(CKD) 33 (>60 ml/min/1.73 sqM); Potassium 4.5 mmol/L (3.5-5.1); Sodium 142 mmol/L (137-145)
--- NOTE | 2023-08-21 14:43 | P.CRDCN ---
History of Present Illness Consult date: 08/21/23 Reason for Consult (text): Bradycardia History of present illness: The patient is a 78-year-old female who presented to the hospital with weakness and fatigue. The patient states she had been extremely tired with lower extremity weakness over the course the last month. The patient has a known history of hypertension. Initial EKG showed sinus bradycardia. DIAGNOSTICS: EKG shows sinus bradycardia with heart rate at 34 Telemetry shows heart rates averaging in the 40s Ultrasound lower extremity shows no evidence DVT Chest x-ray shows no acute cardiopulmonary process Lab data: WBC 7.9, hemoglobin 12.4, hematocrit 30.5, platelet 238, sodium 142, potassium 4.5, BUN 27, creatinine 1.49, troponins negative x 3, TSH 2.27 REVIEW OF SYSTEMS: No fever or chills. No cough or expectoration. No diaphoresis. Patient denies headache, dizziness, blurred vision, double vision. Patient denies any stomach discomfort. No nausea, vomiting. No hematochezia. No hematemesis. Denies any black stools or blood in his stools. Denies dysuria or hematuria. Positive for generalized weakness. Denies chest pain or chest pressure. No shortness of breath. PHYSICAL EXAMINATION: This is a 78-year-old female in no apparent distress at the time of my examination. HEENT: Head is atraumatic, normocephalic. Pupils are equal, round. There is no jugular venous distention. No carotid bruit is heard. CHEST EXAMINATION: Lungs are clear to auscultation. No chest wall tenderness is noted on palpation or with deep breathing. HEART EXAMINATION: Heart regular rate and rhythm. S1, S2 heard. No murmurs, gallops or rub. ABDOMEN: Soft, nontender. Bowel sounds are heard. No organomegaly noted. EXTREMITIES: 2+ peripheral pulses with no evidence of peripheral edema and no calf tenderness noted. NEUROLOGIC EXAMINATION: Patient is awake, alert and oriented x3. FINAL ASSESSMENT AND PLAN: Symptomatic bradycardia Hypertension Hyperkalemia Coronary artery disease Hypertension PLAN: Continue to monitor on telemetry Proceed with permanent pacemaker implantation on Wednesday with Dr. Pereira I am dictating on behalf of Dr Farzad Pereira's history/physical and as sessment/plan. Past Medical History Past Medical History: Coronary Artery Disease (CAD), Cancer, Hypertension Additional Past Medical History / Comment(s): Back pain (DDD), breast cancer (in remission), states esophageous doesn't work right-has a hard time swallowing and stomach contents come back up, +COVID 06/30/21, " LOW HR AND OXYGEN LEVELS 89-91%-HAD ANTIBODY INFUSION. History of Any Multi-Drug Resistant Organisms: None Reported Past Surgical History: Back Surgery, Heart Catheterization, Joint Replacement Additional Past Surgical History / Comment(s): Breast masectomy(right), bilateral hip replacements, back surgery X5(rods and screws/fusion), BILATERAL CATARACTS REMOVED WITH LENS IMPLANTS. Past Anesthesia/Blood Transfusion Reactions: Previous Problems w/ Anesthesia Additional Past Anesthesia/Blood Transfusion Reaction / Comment(s): Stopped breathing in recovery after spinal fusion revision in 2012 (7 hr surgery),no problems with 2 surgeries after that one. Past Psychological History: No Psychological Hx Reported Smoking Status: Never smoker Past Alcohol Use History: None Reported Past Drug Use History: None Reported - Past Family History Brother(s) Family Medical History: Cancer Additional Family Medical History / Comment(s): Colon cancer. Mother Family Medical History: Cancer Additional Family Medical History / Comment(s): Gallbladder. Father Family Medical History: Cancer Medications and Allergies Home Medications Medication Instructions Recorded Confirmed Type ALPRAZolam [Xanax] 0.5 mg PO HS 11/16/22 08/20/23 History oxyBUTYnin chloride [oxyBUTYnin 5 mg PO HS 11/16/22 08/20/23 History chloride ER] Aspirin EC [Ecotrin] 325 mg PO HS 08/20/23 08/20/23 History Bismuth Subsalicylate 262 - 524 mg PO Q1H PRN 08/20/23 08/20/23 History [Pepto-Bismol] Escitalopram [Lexapro] 10 mg PO HS 08/20/23 08/20/23 History amLODIPine [Norvasc] 10 mg PO HS 08/20/23 08/20/23 History Allergies Allergy/AdvReac Type Severity Reaction Status Date / Time benazepril Allergy Anaphylaxis Verified 08/20/23 14:54 codeine Allergy Rash/Hives Verified 08/20/23 14:54 hydrocodone Allergy Rash/Hives Verified 08/20/23 14:54 hydromorphone [From Dilaudid] Allergy Rash/Hives Verified 08/20/23 14:54 ibuprofen [From Motrin] Allergy Unknown Verified 08/20/23 14:54 lisinopril Allergy Anaphylaxis Verified 08/20/23 14:54 meperidine [From Demerol] Allergy Rash/Hives Verified 08/20/23 14:54 morphine Allergy Rash/Hives Verified 08/20/23 14:54 propoxyphene Allergy Rash/Hives Verified 08/20/23 14:54 [From Darvocet-N] Tetracyclines Allergy Rash/Hives Verified 08/20/23 14:54 azathioprine [From Imuran] AdvReac liver Verified 08/20/23 14:54 inflammation clonidine [From Catapres] AdvReac Cough Verified 08/20/23 14:54 Physical Exam Vitals: Vital Signs Temp Pulse Pulse Resp BP BP Pulse Ox 08/21/23 12:03 97.6 F 46 L 16 125/60 96 08/21/23 08:30 97.8 F 53 L 16 126/61 97 08/21/23 04:00 57 L 16 111/54 98 08/21/23 02:00 46 L 16 08/21/23 00:30 98.0 F 46 L 16 154/68 96 08/21/23 00:25 46 L 08/21/23 00:09 97.8 F 49 L 18 145/75 93 L 08/20/23 23:00 46 L 18 146/75 95 08/20/23 22:00 78 18 187/85 94 L 08/20/23 21:05 65 18 153/76 96 08/20/23 17:41 98.4 F 82 18 151/79 95 08/20/23 16:00 73 18 148/75 93 L 08/20/23 15:09 52 L 08/20/23 15:00 98.5 F 47 L 18 152/93 95 08/20/23 14:59 47 L 08/20/23 14:30 50 L 18 148/77 95 Intake and Output 08/20/23 08/21/23 08/21/23 22:59 06:59 14:59 Intake Total 240 Balance 240 Intake: Oral 240 Other: Voiding Method Toilet Toilet # Voids 0 Weight 81.193 kg Results 08/21/23 12:23 08/21/23 12:23 Cardiac Enzymes 08/20/23 08/20/23 Range/Units 16:07 17:51 Troponin I <0.012 <0.012 (0.000-0.034) ng/mL CBC 08/21/23 Range/Units 12:23 WBC 7.9 (3.8-10.6) k/uL RBC 4.36 (3.80-5.40) m/uL Hgb 12.4 (11.4-16.0) gm/dL Hct 38.5 (34.0-46.0) % Plt Count 238 (150-450) k/uL Comprehensive Metabolic Panel 08/20/23 08/20/23 08/21/23 Range/Units 14:02 17:51 12:23 Sodium 142 (137-145) mmol/L Potassium 5.4 H 4.1 4.5 (3.5-5.1) mmol/L Chloride 106 (98-107) mmol/L Carbon Dioxide 27 (22-30) mmol/L BUN 27 H (7-17) mg/dL Creatinine 1.49 H (0.52-1.04) mg/dL Glucose 102 H (74-99) mg/dL Calcium 9.6 (8.4-10.2) mg/dL Current Medications Generic Name Dose Route Start Last Admin Trade Name Freq PRN Reason Stop Dose Admin Albuterol/Ipratropium 3 ml 08/20/23 21:29 Ipratropium-Albuterol 3 Ml Neb INHALATION RT-QID PRN Shortness Of Breath Or Wheezing Alprazolam 0.5 mg 08/20/23 21:00 08/20/23 21:08 Alprazolam 0.5 Mg Tab PO 0.5 mg HS RENUKA Administration Amlodipine Besylate 10 mg 08/20/23 21:00 08/20/23 21:09 Amlodipine 10 Mg Tab PO 10 mg HS RENUKA Administration Aspirin 325 mg 08/20/23 21:00 08/20/23 21:09 Aspirin 325 Mg Tab PO 325 mg HS RENUKA Administration Escitalopram Oxalate 10 mg 08/20/23 21:00 08/20/23 21:08 Escitalopram 10 Mg Tab PO 10 mg HS RENUKA Administration Heparin Sodium (Porcine) 5,000 unit 08/20/23 21:00 08/21/23 08:24 Heparin Sodium,Porcine 5,000 Unit/Ml 1 Ml Vial SQ 5,000 unit Q12HR RENUKA Administration Cefazolin Sodium 2 gm/ Sodium 50 mls @ 100 mls/hr 08/23/23 07:00 Chloride IVPB 08/23/23 23:00 ONCE PRN Pre-Op Cefazolin Sodium 1 gm/ Sodium 250 mls @ 250 mls/hr 08/23/23 07:00 Chloride IRRIGATION 08/23/23 23:00 ONCE PRN PRE-OP Naloxone HCl 0.2 mg 08/20/23 14:41 Naloxone 0.4 Mg/Ml 1 Ml Vial IV Q2M PRN Opioid Reversal Nitroglycerin 0.5 inch 08/20/23 14:30 08/21/23 08:24 Nitroglycerin Oint 1 Inch/Gm Packet TOPICAL 0.5 inch Q8HR RENUKA Administration Ondansetron HCl 4 mg 08/20/23 14:41 Ondansetron 4 Mg/2 Ml Vial IVP Q8HR PRN Nausea And Vomiting Oxybutynin Chloride 5 mg 08/20/23 21:00 08/20/23 21:09 Oxybutynin Xl 5 Mg Tab.Er.24 PO 5 mg HS RENUKA Administration Intake and Output 08/20/23 08/21/23 08/21/23 22:59 06:59 14:59 Intake Total 240 Balance 240 Intake: Oral 240 Other: Voiding Method Toilet Toilet # Voids 0 Weight 81.193 kg 08/21/23 12:23 08/21/23 12:23
[2023-08-21 18:35] LABS: Appearance,Urine Clear (Clear); Bilirubin,Urine Negative (Negative); Blood,Urine Negative (Negative); Color,Urine Colorless; Glucose,Urine (UA) Negative (Negative); Ketones,Urine Negative (Negative); Leukocyte Esterase,Urine Negative (Negative); Nitrite,Urine Negative (Negative); PH, Urine 6.5 (5.0-8.0); Protein,Urine 1+ (Negative); RBC,Urine 1 /hpf (0-5); Specific Gravity,Urine 1.007 (1.001-1.035); Squamous Epithelial Cell,Urine 1 /hpf (0-4); Urobilinogen,Urine <2.0 mg/dL (<2.0); WBC,Urine 1 /hpf (0-5)
[2023-08-22] MEDS: NITROGLYCERIN OINT 1 INCH/GM PACKET TOPICAL STA (05:05)
[2023-08-22] MEDS: DOPamine DRIP 800 MG in DEXTROSE/WATER 1 250ML.BAG IV SCH (05:19)
[2023-08-22 05:24] LABS: African American GFR (CKD) 42 (>60 ml/min/1.73 sqM); Anion Gap 5 mmol/L; Blood Urea Nitrogen 23 mg/dL (7-17); Calcium 9.3 mg/dL (8.4-10.2); Carbon Dioxide 29 mmol/L (22-30); Chloride 106 mmol/L (98-107); Glucose 86 mg/dL (74-99); Non-African American GFR(CKD) 36 (>60 ml/min/1.73 sqM); Potassium 3.8 mmol/L (3.5-5.1); Sodium 140 mmol/L (137-145)
--- NOTE | 2023-08-22 11:19 | P.NPCON ---
History of Present Illness - Reason for Consult acute renal failure - History of Present Illness Patient is a 74-year-old female with history of hypertension who is admitted to the hospital with complaints of chest pain radiating to the left arm. Patient was noted to be bradycardic with heart rate in the 30s and has been started on dopamine. Patient is also maintained on IV fluids. Serum creatinine was 1.3 mg/dL on admission and increased to 1.49 yesterday. Today it is at 1.39. Previous labs show serum creatinine ranging from 1.3 to 1.0 mg/dL. No complaints of nausea vomiting abdominal pain or diarrhea. No history of use of NSAIDs. No significant hypotension documented. Review of Systems As per HPI Past Medical History Past Medical History: Coronary Artery Disease (CAD), Cancer, Hypertension Additional Past Medical History / Comment(s): Back pain (DDD), breast cancer (in remission), states esophageous doesn't work right-has a hard time swallowing and stomach contents come back up, +COVID 06/30/21, " LOW HR AND OXYGEN LEVELS 89-91%-HAD ANTIBODY INFUSION. History of Any Multi-Drug Resistant Organisms: None Reported Past Surgical History: Back Surgery, Heart Catheterization, Joint Replacement Additional Past Surgical History / Comment(s): Breast masectomy(right), bilateral hip replacements, back surgery X5(rods and screws/fusion), BILATERAL CATARACTS REMOVED WITH LENS IMPLANTS. Past Anesthesia/Blood Transfusion Reactions: Previous Problems w/ Anesthesia Additional Past Anesthesia/Blood Transfusion Reaction / Comment(s): Stopped breathing in recovery after spinal fusion revision in 2012 (7 hr surgery),no problems with 2 surgeries after that one. Past Psychological History: No Psychological Hx Reported Smoking Status: Never smoker Past Alcohol Use History: None Reported Past Drug Use History: None Reported - Past Family History Brother(s) Family Medical History: Cancer Additional Family Medical History / Comment(s): Colon cancer. Mother Family Medical History: Cancer Additional Family Medical History / Comment(s): Gallbladder. Father Family Medical History: Cancer Medications and Allergies Home Medications Medication Instructions Recorded Confirmed Type ALPRAZolam [Xanax] 0.5 mg PO HS 11/16/22 08/20/23 History oxyBUTYnin chloride [oxyBUTYnin 5 mg PO HS 11/16/22 08/20/23 History chloride ER] Aspirin EC [Ecotrin] 325 mg PO HS 08/20/23 08/20/23 History Bismuth Subsalicylate 262 - 524 mg PO Q1H PRN 08/20/23 08/20/23 History [Pepto-Bismol] Escitalopram [Lexapro] 10 mg PO HS 08/20/23 08/20/23 History amLODIPine [Norvasc] 10 mg PO HS 08/20/23 08/20/23 History Allergies Allergy/AdvReac Type Severity Reaction Status Date / Time benazepril Allergy Anaphylaxis Verified 08/20/23 14:54 codeine Allergy Rash/Hives Verified 08/20/23 14:54 hydrocodone Allergy Rash/Hives Verified 08/20/23 14:54 hydromorphone [From Dilaudid] Allergy Rash/Hives Verified 08/20/23 14:54 ibuprofen [From Motrin] Allergy Unknown Verified 08/20/23 14:54 lisinopril Allergy Anaphylaxis Verified 08/20/23 14:54 meperidine [From Demerol] Allergy Rash/Hives Verified 08/20/23 14:54 morphine Allergy Rash/Hives Verified 08/20/23 14:54 propoxyphene Allergy Rash/Hives Verified 08/20/23 14:54 [From Darvocet-N] Tetracyclines Allergy Rash/Hives Verified 08/20/23 14:54 azathioprine [From Imuran] AdvReac liver Verified 08/20/23 14:54 inflammation clonidine [From Catapres] AdvReac Cough Verified 08/20/23 14:54 Physical Exam Vitals: Vital Signs Temp Pulse Resp BP Pulse Ox 08/22/23 08:41 97.8 F 46 L 16 119/53 96 08/22/23 04:00 32 L 18 147/61 96 08/22/23 02:00 52 L 18 08/22/23 00:00 97.8 F 52 L 18 122/60 95 08/21/23 20:00 43 L 18 138/69 94 L 08/21/23 16:00 97.8 F 48 L 16 111/61 96 08/21/23 14:00 46 L 16 08/21/23 12:03 97.6 F 46 L 16 125/60 96 Intake and Output 08/21/23 08/22/23 08/22/23 22:59 06:59 14:59 Output Total 900 700 Balance -900 -700 Output: Urine 900 700 Other: Voiding Method Toilet Toilet Toilet Patient is awake, comfortable, no acute distress Examination of the heart S1 and S2 Examination of the lungs bilateral breath sounds are heard Abdomen is soft nontender Examination of lower extremities shows no significant edema [employer] exam grossly intact Results - Lab Results Most recent lab results Calcium 9.3 mg/dL (8.4-10.2) 08/22/23 04:57 Magnesium 2.3 mg/dL (1.6-2.3) 08/20/23 13:12 08/21/23 12:23 08/22/23 04:57 Assessment and Plan Assessment: 1. Acute kidney injury most likely associated with bradycardia. Currently nonoliguric. UA is quite benign. 2. Chronic kidney disease and Stage IIIa with baseline creatinine 1.0 to 1.2 mg/dL. Etiology is likely nephrosclerosis. UA shows 1+ protein but was negative in 2018. This will need to be followed as outpatient with repeat UA. Abdominal CT in 2020 did not show any renal abnormalities. 3. Bradycardia currently maintained on dopamine and scheduled for pacemaker placement in a.m. 4. Hyperkalemia on admission associated with acute kidney injury, currently improved. Rule out urine retention. Plan: Check bladder scan Continue IV fluids Repeat labs in a.m. Avoid nephrotoxic agents. Check ultrasound of the kidneys Thank you for the consultation. We will continue to follow the patient with you during her hospitalization.
--- NOTE | 2023-08-22 13:22 | P.PN ---
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 Patient was also having cough. Yesterday patient had resection of SCC on the forehead. Since yesterday patient has been having persistent chest pressure along with left arm pain. Also felt leg weakness. Presents to ER for further relation. Patient does have cough with deep breathing. No complaints of pleuritic pain. Denies any dizziness or lightheadedness. No nausea vomiting or diarrhea. Patient did receive nitro tablet in the ER which seemed to help her pain. Patient was also given albuterol inhalation while in the ER. Patient also states that she is not having left leg swelling on and off for the past 2 months. Denies any calf tenderness. Patient has been afebrile on admission. Patient was bradycardic with heart rate went down to 35 on admission. Chest x-ray showed no acute process. EKG showed sinus bradycardia Laboratory showed sodium 139 potassium 5.8 with slight hemolysis and repeat 5.4 Chloride 109 bicarb is 21 BUN 36 and creatinine 1.30 Liver enzymes are not elevated. Troponin x 3 negative., proBNP 795 and TSH 2.27 within normal limits. Influenza A B RSV and COVID-19 PCR not detected. 08/21/2023 Patient has little chest pressure No dyspnea, she has chronic cough and phlegm which is mild, She feels very tired No confused., Patient is afebrile She reports some choking, were going to check swallow evaluation Cardiology on the case for possible pacemaker for severe bradycardia 08/22. Patient seen and examined. Patient was bradycardic overnight, was started on dopamine drip this morning REVIEW OF SYSTEMS: CONSTITUTIONAL: No fever, no malaise,. CARDIOVASCULAR: No chest pain, no palpitations, no syncope. PULMONARY: No shortness of breath, no cough, GASTROINTESTINAL: No diarrhea, no nausea, no vomiting, no abdominal pain. NEUROLOGICAL: No headaches, no weakness, PHYSICAL EXAMINATION: GENERAL: The patient is alert and oriented x3, not in any acute distress. Well developed, well nourished. HEENT: Pupils are round and equally reacting to light. EOMI. No scleral icterus. No conjunctival pallor. Normocephalic, atraumatic. No pharyngeal erythema. No thyromegaly. CARDIOVASCULAR: S1 and S2 present. No murmurs, rubs, or gallops. Bradycardic PULMONARY: Chest is clear to auscultation, no wheezing or crackles. ABDOMEN: Soft, nontender, nondistended, normoactive bowel sounds. No palpable organomegaly. MUSCULOSKELETAL: No joint swelling or deformity. EXTREMITIES: No cyanosis, clubbing, or pedal edema. NEUROLOGICAL: Gross neurological examination did not reveal any focal deficits. SKIN: No rashes. Assessment and plan Atypical chest pain/pressure. Rule out ACS. Sinus bradycardia, severe. Present on admission Hyperkalemia could be due to acute kidney injury. Coronary artery disease with prior cardiac catheterization. No PCI SCC on the forehead s/p resection on 08/19/2023 Hypertension uncontrolled on admission History of breast cancer currently in remission History of back surgery x 5 and bilateral hip replacement Secondhand smoking x 50 years DVT prophylaxis with heparin subcu Plan: Monitor vital signs monitor CBC Monitor CMP Avoid AV aruna blocking agents Continue telemetry monitoring Continue IV dopamine Continue with DuoNebs and monitor breathing status. mointor potassium level Cardiology planning pacemaker placement the morning. Nephrology Consulted Labs and medication were reviewed.. Continue same treatment. Continue with symptomatic treatment. Resume home medication. Monitor labs and vitals. DVT and GI prophylaxis. Further recommendations as per clinical course of the patient Dictation was produced using [employer] dictation software. please excuse any grammatical, word or spelling errors. Objective - Vital Signs Vital signs: Vital Signs Temp 97.8 F 08/22/23 08:41 Pulse 46 L 08/22/23 08:41 Resp 16 08/22/23 08:41 BP 119/53 08/22/23 08:41 Pulse Ox 96 08/22/23 08:41 FiO2 Intake & Output 08/21/23 08/22/23 08/22/23 18:59 06:59 18:59 Intake Total 240 Output Total 900 700 Balance 240 -900 -700 Intake: Oral 240 Output: Urine 900 700 Other: Voiding Method Toilet Toilet Toilet - Labs CBC & Chem 7: 08/21/23 12:23 08/22/23 04:57 Labs: Abnormal Lab Results - Last 24 Hours (Table) 08/21/23 08/21/23 08/22/23 Range/Units 12:23 17:23 04:57 BUN 27 H 23 H (7-17) mg/dL Creatinine 1.49 H 1.39 H (0.52-1.04) mg/dL Glucose 102 H (74-99) mg/dL Urine Protein 1+ H (Negative)
--- NOTE | 2023-08-22 13:39 | US ---
EXAMINATION TYPE: US kidneys/renal and bladder DATE OF EXAM: 08/22/2023 Exam done portable COMPARISON: CT 2020 CLINICAL INDICATION: Female, 78 years old with history of frandy; EXAM MEASUREMENTS: Right Kidney: 8.4 x 4.8 x 4.0 cm Left Kidney: 9.2 x 4.5 x 4.3 cm Right Kidney: No hydronephrosis or masses seen Left Kidney: No hydronephrosis or masses seen Bladder: wnl Bilateral Jets seen: left jet seen, right jet not seen There is no evidence for hydronephrosis at this point in time. No nephrolithiasis is seen. No wen s are identified. The urinary bladder is anechoic. The left jet is visualized. The right jet visuali zed. IMPRESSION: No evidence for obstructive uropathy. Cortical medullary differentiation is maintained.
--- NOTE | 2023-08-22 13:46 | P.PN ---
Subjective Progress Note Date: 08/22/23 The patient is a 78-year-old female who presented to the hospital with weakness and fatigue. She is currently being monitored on telemetry in preparation for permanent pacemaker implantation tomorrow with Dr. Pereira. Overnight it was reported that the patient had several pauses with heart rates dipping into the 30s and therefore she was started on dopamine drip. Overall review of telemetry readings show average heart rates in the 40s and 50s. Patient currently denies any chest pain or difficulty breathing. No dizziness or lightheadedness. GENERAL: Well-appearing, well-nourished and in no acute distress. NECK: Supple without JVD or thyromegaly. LUNGS: Breath sounds clear to auscultation bilaterally. Respiration equal and unlabored. No wheezes, rales or rhonchi. HEART: Regular rate and rhythm without murmurs, rubs or gallops. S1 and S2 heard. EXTREMITIES: Normal range of motion, no edema. No clubbing or cyanosis. Peripheral pulses intact and strong. TELEMETRY: Sinus bradycardia with heart rates in the 40s and 50s overnight IMPRESSION: Symptomatic bradycardia Hypertension Hyperkalemia Coronary artery disease Hypertension PLAN: Start low-dose IV fluids Continue dopamine drip N.p.o. after midnight Proceed with pacemaker implantation tomorrow with Dr. Pereira I am dictating on behalf of Dr Farzad Pereira's history/physical and assessment/plan. Objective - Vital Signs Vital signs: Vital Signs Temp 98.2 F 08/22/23 12:02 Pulse 55 L 08/22/23 12:02 Resp 16 08/22/23 12:02 BP 121/66 08/22/23 12:02 Pulse Ox 99 08/22/23 12:02 FiO2 Intake & Output 08/21/23 08/22/23 08/22/23 18:59 06:59 18:59 Intake Total 240 Output Total 900 700 Balance 240 -900 -700 Intake: Oral 240 Output: Urine 900 700 Other: Voiding Method Toilet Toilet Toilet - Labs CBC & Chem 7: 08/21/23 12:23 08/22/23 04:57 Labs: Abnormal Lab Results - Last 24 Hours (Table) 08/21/23 08/22/23 Range/Units 17:23 04:57 BUN 23 H (7-17) mg/dL Creatinine 1.39 H (0.52-1.04) mg/dL Urine Protein 1+ H (Negative)
[2023-08-22] MEDS: SODIUM CHLORIDE 0.45% 1,000 ML IV SCH (18:12)
[2023-08-23] MEDS ORDERED: ceFAZolin 1 GM in SODIUM CHLORIDE 0.9% IRRIG BTL 250 ML IRRIGATION PRN (07:00)
[2023-08-23 09:14] LABS: Basophils % (A) 0 %; Eosinophils # (A) 0.1 k/uL (0-0.7); Eosinophils % (A) 1 %; HGB 11.5 gm/dL (11.4-16.0); Lymphocytes # (A) 1.6 k/uL (1.0-4.8); Lymphocytes % (A) 18 %; MCH 28.1 pg (25.0-35.0); MCHC 31.9 g/dL (31.0-37.0); MCV 88.1 fL (80.0-100.0); Monocytes # (A) 0.6 k/uL (0-1.0); Monocytes % (A) 6 %; Neutrophils # (A) 6.6 k/uL (1.3-7.7); Neutrophils % (A) 72 %; Platelet Count 259 k/uL (150-450); RBC 4.09 m/uL (3.80-5.40); RDW 13.9 % (11.5-15.5); WBC 9.1 k/uL (3.8-10.6)
[2023-08-23 09:32] LABS: ALT 12 U/L (4-34); AST 21 U/L (14-36); African American GFR (CKD) 38 (>60 ml/min/1.73 sqM); Albumin 3.9 g/dL (3.5-5.0); Alkaline Phosphatase 100 U/L (38-126); Anion Gap 9 mmol/L; Blood Urea Nitrogen 21 mg/dL (7-17); Calcium 9.3 mg/dL (8.4-10.2); Carbon Dioxide 25 mmol/L (22-30); Chloride 106 mmol/L (98-107); Glucose 112 mg/dL (74-99); Non-African American GFR(CKD) 33 (>60 ml/min/1.73 sqM); Potassium 4.1 mmol/L (3.5-5.1); Sodium 140 mmol/L (137-145); Total Bilirubin 0.4 mg/dL (0.2-1.3); Total Protein 6.9 g/dL (6.3-8.2)
--- NOTE | 2023-08-23 10:38 | P.PN ---
Subjective Patient is seen in follow-up for acute kidney injury on chronic kidney disease. Renal function fairly stable. Scheduled for pacemaker placement today. Denies chest pain or shortness of breath. Vital signs are stable. General: No acute distress. HEENT: Head exam is unremarkable. LUNGS: No audible rhonchi or wheezes. HEART: Bradycardic. ABDOMEN: No acute distress. EXTREMITITES: No edema. Objective - Vital Signs Vital signs: Vital Signs Temp 97.9 F 08/23/23 08:47 Pulse 57 L 08/23/23 09:53 Resp 19 08/23/23 09:53 BP 110/61 08/23/23 08:47 Pulse Ox 99 08/23/23 08:47 FiO2 Intake & Output 08/22/23 08/23/23 08/23/23 18:59 06:59 18:59 Intake Total 720 Output Total 1600 1550 Balance -880 -1550 Intake: Oral 720 Output: Urine 1600 1550 Other: Voiding Method Toilet External Catheter External Catheter - Labs CBC & Chem 7: 08/23/23 07:38 08/23/23 07:38 Labs: Abnormal Lab Results - Last 24 Hours (Table) 08/23/23 Range/Units 07:38 BUN 21 H (7-17) mg/dL Creatinine 1.50 H (0.52-1.04) mg/dL Glucose 112 H (74-99) mg/dL Assessment and Plan Plan: Assessment: 1. Acute kidney injury secondary to hemodynamic ATN. Renal function fairly stable. UA with 1+ protein and no blood. No hydronephrosis noted on kidney ultrasound. Right kidney atrophic. 2. Chronic kidney disease stage IIIa with baseline creatinine 1.1-1.3 secondary to nephrosclerosis. 3. Symptomatic bradycardia on dopamine. Scheduled for pacemaker placement. 4. Hypertension with chronic kidney disease. Stable. Plan: Maintain gentle IV hydration. Pacemaker to be placed today. Avoid nephrotoxins.
[2023-08-23] MEDS: IV FLUID CONTINUATION 1,000 ML IV ONE (14:15)
[2023-08-23] MEDS ORDERED: fentaNYL (PF) 50 MCG/ML 2 ML AMP ONE (14:15)
[2023-08-23] MEDS ORDERED: MIDAZOLAM 2 MG/2 ML VIAL ONE (14:15)
[2023-08-23] MEDS ORDERED: LIDOCAINE 1% INJ 10MG/ML (20 ML MDV) ONE (14:20)
[2023-08-23] MEDS: IOPAMIDOL-370 100ML BTL IVP ONE (14:31)
--- NOTE | 2023-08-23 14:34 | P.PN ---
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 Patient was also having cough. Yesterday patient had resection of SCC on the forehead. Since yesterday patient has been having persistent chest pressure along with left arm pain. Also felt leg weakness. Presents to ER for further relation. Patient does have cough with deep breathing. No complaints of pleuritic pain. Denies any dizziness or lightheadedness. No nausea vomiting or diarrhea. Patient did receive nitro tablet in the ER which seemed to help her pain. Patient was also given albuterol inhalation while in the ER. Patient also states that she is not having left leg swelling on and off for the past 2 months. Denies any calf tenderness. Patient has been afebrile on admission. Patient was bradycardic with heart rate went down to 35 on admission. Chest x-ray showed no acute process. EKG showed sinus bradycardia Laboratory showed sodium 139 potassium 5.8 with slight hemolysis and repeat 5.4 Chloride 109 bicarb is 21 BUN 36 and creatinine 1.30 Liver enzymes are not elevated. Troponin x 3 negative., proBNP 795 and TSH 2.27 within normal limits. Influenza A B RSV and COVID-19 PCR not detected. 08/21/2023 Patient has little chest pressure No dyspnea, she has chronic cough and phlegm which is mild, She feels very tired No confused., Patient is afebrile She reports some choking, were going to check swallow evaluation Cardiology on the case for possible pacemaker for severe bradycardia 08/22. Patient seen and examined. Patient was bradycardic overnight, was started on dopamine drip this morning 08/23. Patient seen and examined. Patient scheduled for pacemaker placement today. Labs done this morning showed WBC 9.1, hemoglobin 11.5, platelet count 259, sodium 140, potassium 4.1, BUN 21, creatinine 1.5, REVIEW OF SYSTEMS: CONSTITUTIONAL: No fever, no malaise,. CARDIOVASCULAR: No chest pain, no palpitations, no syncope. PULMONARY: No shortness of breath, no cough, GASTROINTESTINAL: No diarrhea, no nausea, no vomiting, no abdominal pain. NEUROLOGICAL: No headaches, no weakness, PHYSICAL EXAMINATION: GENERAL: The patient is alert and oriented x3, not in any acute distress. Well developed, well nourished. HEENT: Pupils are round and equally reacting to light. EOMI. No scleral icterus. No conjunctival pallor. Normocephalic, atraumatic. No pharyngeal erythema. No thyromegaly. CARDIOVASCULAR: S1 and S2 present. No murmurs, rubs, or gallops. Bradycardic PULMONARY: Chest is clear to auscultation, no wheezing or crackles. ABDOMEN: Soft, nontender, nondistended, normoactive bowel sounds. No palpable organomegaly. MUSCULOSKELETAL: No joint swelling or deformity. EXTREMITIES: No cyanosis, clubbing, or pedal edema. NEUROLOGICAL: Gross neurological examination did not reveal any focal deficits. SKIN: No rashes. Assessment and plan Atypical chest pain/pressure. Rule out ACS. Sinus bradycardia, severe. Present on admission Hyperkalemia could be due to acute kidney injury. Coronary artery disease with prior cardiac catheterization. No PCI SCC on the forehead s/p resection on 08/19/2023 Hypertension uncontrolled on admission History of breast cancer currently in remission History of back surgery x 5 and bilateral hip replacement Secondhand smoking x 50 years DVT prophylaxis with heparin subcu Plan: Monitor vital signs monitor CBC Monitor CMP Avoid AV aruna blocking agents Continue telemetry monitoring Continue IV dopamine Continue with DuoNebs and monitor breathing status. mointor potassium level Cardiology planning pacemaker placement today, currently n.p.o. Nephrology following Labs and medication were reviewed.. Continue same treatment. Continue with symptomatic treatment. Resume home medication. Monitor labs and vitals. DVT and GI prophylaxis. Further recommendations as per clinical course of the patient Dictation was produced using [employer] dictation software. please excuse any grammatical, word or spelling errors. Objective - Vital Signs Vital signs: Vital Signs Temp 97.9 F 08/23/23 08:47 Pulse 57 L 08/23/23 09:53 Resp 19 08/23/23 09:53 BP 110/61 08/23/23 08:47 Pulse Ox 99 08/23/23 08:47 FiO2 Intake & Output 08/22/23 08/23/23 08/23/23 18:59 06:59 18:59 Intake Total 720 Output Total 1600 1550 Balance -880 -1550 Intake: Oral 720 Output: Urine 1600 1550 Other: Voiding Method Toilet External Catheter External Catheter - Labs CBC & Chem 7: 08/23/23 07:38 08/23/23 07:38 Labs: Abnormal Lab Results - Last 24 Hours (Table) 08/23/23 Range/Units 07:38 BUN 21 H (7-17) mg/dL Creatinine 1.50 H (0.52-1.04) mg/dL Glucose 112 H (74-99) mg/dL
[2023-08-23] MEDS: LIDOCAINE 1% INJ 10MG/ML (20 ML MDV) SQ ONE (15:00)
--- NOTE | 2023-08-23 16:15 | P.EPPROC ---
- EP Procedure Note Electrophysiology Procedure Note: Diagnosis Severe symptomatic bradycardia, sick sinus syndrome with syncope No incriminating drugs, no triggers, normal thyroid function Procedure Dual-chamber pacemaker implantation Details Patient was brought to the EP lab in a fasting state. Written informed consent was obtained prior to the procedure. Conscious sedation provided. IV antibiotics administered. Local anesthesia administered. A 4 cm incision made in the pectoral area. Subfascial pocket made. Venous accesses obtained Venous sheaths placed. Leads placed in the right heart Atrial lead position the right atrial appendage. Littlejohn tendril STS screw-in lead Positioned in the right atrial appendage. Pacing threshold 1 V at point 5 ms, P waves 2.1 mV and pacing impedance 560 ohms 10 V test negative RV lead position in the RV apex. 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
[2023-08-23] MEDS: ACETAMINOPHEN IV (For NPO) 1,000 MG in EMPTY BAG 1 BAG IVPB ONE (16:58)
[2023-08-23] MEDS: SODIUM CHLORIDE 0.9% 1,000 ML IV SCH (16:59)
[2023-08-23] MEDS: ACETAMINOPHEN TAB 325 MG TAB PO PRN (16:59)
[2023-08-23] MEDS: ONDANSETRON 4 MG/2 ML VIAL IVP PRN (17:32)
[2023-08-24] MEDS: traMADol 50 MG TAB PO PRN (10:05)
--- NOTE | 2023-08-24 10:58 | P.PN ---
Subjective Patient is seen in follow-up for acute kidney injury on chronic kidney disease. Renal function fairly stable as of yesterday. Pacemaker placed August 23, 2023. Denies chest pain or shortness of breath. Vital signs are stable. General: No acute distress. HEENT: Head exam is unremarkable. LUNGS: No audible rhonchi or wheezes. HEART: Regular rate rhythm. ABDOMEN: No acute distress. EXTREMITITES: No edema. Objective - Vital Signs Vital signs: Vital Signs Temp 98.5 F 08/24/23 04:00 Pulse 60 08/24/23 04:00 Resp 18 08/24/23 04:00 BP 125/66 08/24/23 04:00 Pulse Ox 95 08/24/23 00:00 FiO2 Intake & Output 08/23/23 08/24/23 08/24/23 18:59 06:59 18:59 Intake Total 688 480 Output Total 1670 950 Balance 688 -1670 -470 Intake: IV 450 Oral 238 480 Output: Urine 1670 950 Other: Voiding Method External Catheter External Catheter - Labs CBC & Chem 7: 08/23/23 07:38 08/23/23 07:38 Assessment and Plan Plan: Assessment: 1. Acute kidney injury secondary to hemodynamic ATN. Renal function fairly stable as of yesterday. UA with 1+ protein and no blood. No hydronephrosis noted on kidney ultrasound. Right kidney atrophic. 2. Chronic kidney disease stage IIIa with baseline creatinine 1.1-1.3 secondary to nephrosclerosis. 3. Symptomatic bradycardia on dopamine. Status post pacemaker placement this a dmission. 4. Hypertension with chronic kidney disease. Stable. Plan: Maintain gentle IV hydration. Avoid nephrotoxins. Follow-up outpatient 1 week postdischarge.
--- NOTE | 2023-08-24 12:20 | P.PN ---
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 Patient was also having cough. Yesterday patient had resection of SCC on the forehead. Since yesterday patient has been having persistent chest pressure along with left arm pain. Also felt leg weakness. Presents to ER for further relation. Patient does have cough with deep breathing. No complaints of pleuritic pain. Denies any dizziness or lightheadedness. No nausea vomiting or diarrhea. Patient did receive nitro tablet in the ER which seemed to help her pain. Patient was also given albuterol inhalation while in the ER. Patient also states that she is not having left leg swelling on and off for the past 2 months. Denies any calf tenderness. Patient has been afebrile on admission. Patient was bradycardic with heart rate went down to 35 on admission. Chest x-ray showed no acute process. EKG showed sinus bradycardia Laboratory showed sodium 139 potassium 5.8 with slight hemolysis and repeat 5.4 Chloride 109 bicarb is 21 BUN 36 and creatinine 1.30 Liver enzymes are not elevated. Troponin x 3 negative., proBNP 795 and TSH 2.27 within normal limits. Influenza A B RSV and COVID-19 PCR not detected. 08/21/2023 Patient has little chest pressure No dyspnea, she has chronic cough and phlegm which is mild, She feels very tired No confused., Patient is afebrile She reports some choking, were going to check swallow evaluation Cardiology on the case for possible pacemaker for severe bradycardia 08/22. Patient seen and examined. Patient was bradycardic overnight, was started on dopamine drip this morning 08/23. Patient seen and examined. Patient scheduled for pacemaker placement today. Labs done this morning showed WBC 9.1, hemoglobin 11.5, platelet count 259, sodium 140, potassium 4.1, BUN 21, creatinine 1.5, 08/24. Patient seen examined. Status post pacemaker placement on 08/23. Complaining of pain in the left chest wall near the pacemaker site, added tramadol. Vital signs stable REVIEW OF SYSTEMS: CONSTITUTIONAL: No fever, no malaise,. CARDIOVASCULAR: No chest pain, no palpitations, no syncope. PULMONARY: No shortness of breath, no cough, GASTROINTESTINAL: No diarrhea, no nausea, no vomiting, no abdominal pain. NEUROLOGICAL: No headaches, no weakness, PHYSICAL EXAMINATION: GENERAL: The patient is alert and oriented x3, not in any acute distress. Well developed, well nourished. HEENT: Pupils are round and equally reacting to light. EOMI. No scleral icterus. No conjunctival pallor. Normocephalic, atraumatic. No pharyngeal erythema. No thyromegaly. CARDIOVASCULAR: S1 and S2 present. No murmurs, rubs, or gallops. Left chest pacemaker pocket seen PULMONARY: Chest is clear to auscultation, no wheezing or crackles. ABDOMEN: Soft, nontender, nondistended, normoactive bowel sounds. No palpable organomegaly. MUSCULOSKELETAL: No joint swelling or deformity. EXTREMITIES: No cyanosis, clubbing, or pedal edema. NEUROLOGICAL: Gross neurological examination did not reveal any focal deficits. SKIN: No rashes. Assessment and plan Atypical chest pain/pressure. Rule out ACS. Sinus bradycardia, severe. Present on admission Hyperkalemia could be due to acute kidney injury. Coronary artery disease with prior cardiac catheterization. No PCI SCC on the forehead s/p resection on 08/19/2023 Hypertension uncontrolled on admission History of breast cancer currently in remission History of back surgery x 5 and bilateral hip replacement Secondhand smoking x 50 years DVT prophylaxis with heparin subcu Plan: Monitor vital signs monitor CBC Monitor CMP Continue telemetry monitoring S/p dual-chamber pacemaker implantation on 08/23 Continue with DuoNebs and monitor breathing status. Cardiology following Nephrology following Labs and medication were reviewed.. Continue same treatment. Continue with symptomatic treatment. Resume home medication. Monitor labs and vitals. DVT and GI prophylaxis. Further recommendations as per clinical course of the patient Dictation was produced using [employer] dictation software. please excuse any grammatical, word or spelling errors. Objective - Vital Signs Vital signs: Vital Signs Temp 97.9 F 08/24/23 08:00 Pulse 60 08/24/23 08:00 Resp 18 08/24/23 08:00 BP 116/55 08/24/23 08:00 Pulse Ox 94 L 08/24/23 08:00 FiO2 Intake & Output 08/23/23 08/24/23 08/24/23 18:59 06:59 18:59 Intake Total 688 480 Output Total 1670 950 Balance 069 -4776 -547 Intake: IV 450 Oral 238 480 Output: Urine 1670 950 Other: Voiding Method External Catheter External Catheter External Catheter - Labs CBC & Chem 7: 08/23/23 07:38 08/23/23 07:38
--- NOTE | 2023-08-24 12:22 | XR ---
EXAMINATION TYPE: XR chest 2V DATE OF EXAM: 08/24/2023 COMPARISON: 08/20/2023 HISTORY: 78-year-old female placement check TECHNIQUE: PA and lateral views FINDINGS: Left anterior chest wall pacemaker generator with right atrial and right ventricular leads. Heart nor mal size. Interstitial prominence is unchanged. No consolidation or pleural effusion. No appreciable pneumothorax. Lower thoracolumbar fusion hardware partially visualized. Surgical material left upper quadrant. Surgical clips right axilla. IMPRESSION: Left anterior chest wall pacemaker generator with right atrial and ventricular leads. No appreciable pneumothorax.
--- NOTE | 2023-08-24 13:46 | P.PN ---
Subjective Progress Note Date: 08/24/23 The patient is a 78-year-old female who presented to the hospital with weakness and fatigue. She is currently being monitored on telemetry in preparation for permanent pacemaker implantation tomorrow with Dr. Pereira. Overnight it was reported that the patient had several pauses with heart rates dipping into the 30s and therefore she was started on dopamine drip. Overall review of telemetry readings show average heart rates in the 40s and 50s. Patient currently denies any chest pain or difficulty breathing. No dizziness or lightheadedness. 08/24 Yesterday, patient underwent dual-chamber pacemaker implantation with Dr. Pereira. Pacemaker interrogation has has been evaluated by company as well as chest x-ray reviewed. No postprocedural complications. Blood pressure 116/55, heart rate in the 60s. GENERAL: Well-appearing, well-nourished and in no acute distress. NECK: Supple without JVD or thyromegaly. LUNGS: Breath sounds clear to auscultation bilaterally. Respiration equal and unlabored. No wheezes, rales or rhonchi. HEART: Regular rate and rhythm without murmurs, rubs or gallops. S1 and S2 heard. EXTREMITIES: Normal range of motion, no edema. No clubbing or cyanosis. Peripheral pulses intact and strong. IMPRESSION: Symptomatic bradycardia Hypertension Hyperkalemia Coronary artery disease Hypertension PLAN: Continue current cardiac medications Patient is cleared for discharge from cardiology and may follow-up with Dr. Pereira in 1 to 2 weeks. Nurse practitioner note has been reviewed, I agree with documented findings and plan of care. Patient was seen and examined. Objective - Vital Signs Vital signs: Vital Signs Temp 98.5 F 08/24/23 04:00 Pulse 60 08/24/23 04:00 Resp 18 08/24/23 04:00 BP 125/66 08/24/23 04:00 Pulse Ox 95 08/24/23 00:00 FiO2 Intake & Output 08/23/23 08/24/23 08/24/23 18:59 06:59 18:59 Intake Total 688 480 Output Total 1670 Balance 688 -1670 480 Intake: IV 450 Oral 238 480 Output: Urine 1670 Other: Voiding Method External Catheter External Catheter - Labs CBC & Chem 7: 08/23/23 07:38 08/23/23 07:38
--- NOTE | 2023-08-25 10:41 | P.PN ---
Subjective Patient is seen in follow-up for acute kidney injury on chronic kidney disease. Renal function fairly stable as of August 23, 2023. Pacemaker placed August 23, 2023. Denies chest pain or shortness of breath. No active complaints. Vital signs are stable. General: No acute distress. HEENT: Head exam is unremarkable. LUNGS: No audible rhonchi or wheezes. HEART: Regular rate rhythm. ABDOMEN: No acute distress. EXTREMITITES: No edema. Objective - Vital Signs Vital signs: Vital Signs Temp 97.9 F 08/25/23 04:00 Pulse 60 08/25/23 04:00 Resp 18 08/25/23 02:00 BP 119/65 08/25/23 04:00 Pulse Ox 94 L 08/25/23 04:00 FiO2 Intake & Output 08/24/23 08/25/23 08/25/23 18:59 06:59 18:59 Intake Total 1690 234 480 Output Total 950 1400 Balance 740 -1166 480 Intake: Intake, IV Titration 550 Amount Sodium Chloride 0.9% 1, 550 000 ml @ 50 mls/hr IV . Q20H [facility] Rx#:[id number] Oral 1140 234 480 Output: Urine 950 1400 Other: Voiding Method External Catheter External Catheter - Labs CBC & Chem 7: 08/23/23 07:38 08/23/23 07:38 Assessment and Plan Plan: Assessment: 1. Acute kidney injury secondary to hemodynamic ATN. Creatinine 1.5 August 23, 2023. UA with 1+ protein and no blood. No hydronephrosis noted on kidney ultrasound. Right kidney atrophic. 2. Chronic kidney disease stage IIIa with baseline creatinine 1.1-1.3 secondary to nephrosclerosis. 3. Symptomatic bradycardia on dopamine. Status post pacemaker placement this admission. 4. Hypertension with chronic kidney disease. Stable. Plan: Hep-Lock IV fluids. Encouraged oral intake. Avoid nephrotoxins. Follow-up outpatient 1 week postdischarge.
[2023-08-25] MEDS: LIDOCAINE 4% CREAM 5 GM TUBE TOPICAL ONE (12:47)
[2023-08-25] MEDS: traMADol 50 MG TAB PO SCH (12:47)
[2023-08-25] MEDS: traMADol 50 MG TAB PO STA (12:47)
--- NOTE | 2023-08-25 13:13 | P.PN ---
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 Patient was also having cough. Yesterday patient had resection of SCC on the forehead. Since yesterday patient has been having persistent chest pressure along with left arm pain. Also felt leg weakness. Presents to ER for further relation. Patient does have cough with deep breathing. No complaints of pleuritic pain. Denies any dizziness or lightheadedness. No nausea vomiting or diarrhea. Patient did receive nitro tablet in the ER which seemed to help her pain. Patient was also given albuterol inhalation while in the ER. Patient also states that she is not having left leg swelling on and off for the past 2 months. Denies any calf tenderness. Patient has been afebrile on admission. Patient was bradycardic with heart rate went down to 35 on admission. Chest x-ray showed no acute process. EKG showed sinus bradycardia Laboratory showed sodium 139 potassium 5.8 with slight hemolysis and repeat 5.4 Chloride 109 bicarb is 21 BUN 36 and creatinine 1.30 Liver enzymes are not elevated. Troponin x 3 negative., proBNP 795 and TSH 2.27 within normal limits. Influenza A B RSV and COVID-19 PCR not detected. 08/21/2023 Patient has little chest pressure No dyspnea, she has chronic cough and phlegm which is mild, She feels very tired No confused., Patient is afebrile She reports some choking, were going to check swallow evaluation Cardiology on the case for possible pacemaker for severe bradycardia Resume the care of the patient on 08/25/2023 Patient status post permanent pacemaker left upper chest, she still have significant pain and tenderness at the PPM insertion site of the left upper chest which is worse with movement especially of left upper extremity Wound is healing and there is some evidence of mild hematoma. Patient currently on Ultram 3 times a day and increase it to 4 times a day and topical analgesic. Patient is some evidence of hypoxia on room air 84% improved to 90s on 2 L. Chest x-ray showing no acute process. Possible eminence on bronchitis and she was on normal saline 50 mL per order for her kidney function which is held now. The post chemo following. Troponin is negative. Speech therapist: Recommended continuing regular diet/thin liquids with strict reflux precautions. Objective - Vital Signs Vital signs: Vital Signs Temp 98.2 F 08/25/23 08:00 Pulse 60 08/25/23 12:00 Resp 18 08/25/23 08:00 BP 120/65 08/25/23 12:00 Pulse Ox 91 L 08/25/23 12:00 FiO2 Intake & Output 08/24/23 08/25/23 08/25/23 18:59 06:59 18:59 Intake Total 1690 234 480 Output Total 950 1400 Balance 740 -1166 480 Intake: Intake, IV Titration 550 Amount Sodium Chloride 0.9% 1, 550 000 ml @ 50 mls/hr IV . Q20H [facility] Rx#:[id number] Oral 1140 234 480 Output: Urine 950 1400 Other: Voiding Method External Catheter External Catheter External Catheter - Exam GENERAL: The patient is alert and oriented x3, not in any acute distress. Well developed, well nourished. HEENT: Pupils are round and equally reacting to light. EOMI. No scleral icterus. No conjunctival pallor. Normocephalic, atraumatic. No pharyngeal erythema. No thyromegaly. CARDIOVASCULAR: S1 and S2 present. No murmurs, rubs, or gallops. PULMONARY: Chest is clear to auscultation, no wheezing , no crackles. ABDOMEN: Soft, nontender, nondistended, normoactive bowel sounds. No palpable organomegaly. MUSCULOSKELETAL: No joint swelling or deformity. EXTREMITIES: No cyanosis, clubbing, or pedal edema. NEUROLOGICAL: Gross neurological examination did not reveal any focal deficits. SKIN: No rashes. no petechiae. - Labs CBC & Chem 7: 08/23/23 07:38 08/23/23 07:38 Assessment and Plan Assessment: Atypical chest pain/pressure. Improved, cardiac causes resolved Sinus bradycardia, severe. Present on admission. Status post permanent pacemaker Mild hypoxic respiratory failure most likely secondary to fluid overload and possible elements of bronchitis Hyperkalemia could be due to acute kidney injury. on chronic kidney disease stage III Coronary artery disease with prior cardiac catheterization. No PCI SCC on the forehead s/p resection on 08/19/2023 Hypertension uncontrolled on admission History of breast cancer currently in remission History of back surgery x 5 and bilateral hip replacement Secondhand smoking x 50 years DVT prophylaxis with heparin subcu Plan: Pain medication Incentive his parameters and bronchodilator. Also at fluid restriction Cardiology consult for pacemaker requirement Patient will be continued on tele-monitoring. Continue with DuoNebs and monitor breathing status. mointor potassium level Monitor renal function. Nephrology consult on the case Prognosis guarded
--- NOTE | 2023-08-25 13:56 | P.PN ---
Subjective Progress Note Date: 08/25/23 The patient is a 78-year-old female who presented to the hospital with weakness and fatigue. She is currently being monitored on telemetry in preparation for permanent pacemaker implantation tomorrow with Dr. Pereira. Overnight it was reported that the patient had several pauses with heart rates dipping into the 30s and therefore she was started on dopamine drip. Overall review of telemetry readings show average heart rates in the 40s and 50s. Patient currently denies any chest pain or difficulty breathing. No dizziness or lightheadedness. 08/24 Yesterday, patient underwent dual-chamber pacemaker implantation with Dr. Pereira. Pacemaker interrogation has has been evaluated by company as well as chest x-ray reviewed. No postprocedural complications. Blood pressure 116/55, heart rate in the 60s. 08/25 Patient is complaining of pain at the site of the pacemaker insertion. Patient is a small amount of dried blood, no active drainage, no erythema, edges are well-approximated. Heart rate is in the 60s, blood pressure 120/65, pulse ox 91% on 2 L. GENERAL: Well-appearing, well-nourished and in no acute distress. NECK: Supple without JVD or thyromegaly. LUNGS: Breath sounds clear to auscultation bilaterally. Respiration equal and unlabored. No wheezes, rales or rhonchi. HEART: Regular rate and rhythm without murmurs, rubs or gallops. S1 and S2 heard. EXTREMITIES: Normal range of motion, no edema. No clubbing or cyanosis. Peripheral pulses intact and strong. IMPRESSION: Symptomatic bradycardia Hypertension Hyperkalemia Coronary artery disease Hypertension PLAN: Continue current cardiac medications Patient is cleared for discharge from cardiology and may follow-up with Dr. Pereira in 1 to 2 weeks. Nurse practitioner note has been reviewed, I agree with documented findings and plan of care. Patient was seen and examined. Objective - Vital Signs Vital signs: Vital Signs Temp 97.9 F 08/25/23 04:00 Pulse 60 08/25/23 04:00 Resp 18 08/25/23 02:00 BP 119/65 08/25/23 04:00 Pulse Ox 94 L 08/25/23 04:00 FiO2 Intake & Output 08/24/23 08/25/23 08/25/23 18:59 06:59 18:59 Intake Total 1690 234 480 Output Total 950 1400 Balance 740 -1166 480 Intake: Intake, IV Titration 550 Amount Sodium Chloride 0.9% 1, 550 000 ml @ 50 mls/hr IV . Q20H [facility] Rx#:[id number] Oral 1140 234 480 Output: Urine 950 1400 Other: Voiding Method External Catheter External Catheter - Labs CBC & Chem 7: 08/23/23 07:38 08/23/23 07:38
--- NOTE | 2023-08-25 14:31 | XR ---
EXAMINATION TYPE: XR chest 1V DATE OF EXAM: 08/25/2023 COMPARISON: 08/24/2023 INDICATION: Hypoxia TECHNIQUE: Single frontal view of the chest is obtained. FINDINGS: The heart size is normal. The pulmonary vasculature is normal. The lungs are clear. Pacemaker overlies left chest. Surgical clips are in the right axilla IMPRESSION: 1. No acute pulmonary process.
[2023-08-25] MEDS: SYMBICORT 160-4.5 MCG INHALER INHALATION SCH (15:33)
[2023-08-25] MEDS: IPRATROPIUM-ALBUTEROL 3 ML NEB INHALATION STA (15:34)
[2023-08-25] MEDS: IPRATROPIUM-ALBUTEROL 3 ML NEB INHALATION PRN (16:14)
--- NOTE | 2023-08-26 10:43 | P.PN ---
Subjective Patient is seen in follow-up for acute kidney injury on chronic kidney disease. Renal function fairly stable as of August 23, 2023. Pacemaker placed August 23, 2023. Denies chest pain or shortness of breath. No active complaints. Vital signs are stable. General: No acute distress. HEENT: Head exam is unremarkable. LUNGS: No audible rhonchi or wheezes. HEART: Regular rate rhythm. ABDOMEN: No acute distress. EXTREMITITES: No edema. Objective - Vital Signs Vital signs: Vital Signs Temp 98.2 F 08/26/23 09:19 Pulse 68 08/26/23 09:40 Resp 16 08/26/23 09:19 BP 115/64 08/26/23 09:19 Pulse Ox 94 L 08/26/23 09:19 FiO2 Intake & Output 08/25/23 08/26/23 08/26/23 18:59 06:59 18:59 Intake Total 1216 360 Output Total 1500 900 Balance 1216 -1500 -540 Intake: Intake, IV Titration 500 Amount Sodium Chloride 0.9% 1, 500 000 ml @ 50 mls/hr IV . Q20H [facility] Rx#:[id number] Oral 716 360 Output: Urine 1500 900 Other: Voiding Method External Catheter External Catheter - Labs CBC & Chem 7: 08/23/23 07:38 08/23/23 07:38 Assessment and Plan Plan: Assessment: 1. Acute kidney injury secondary to hemodynamic ATN. Creatinine 1.5 August 23, 2023. UA with 1+ protein and no blood. No hydronephrosis noted on kidney ultrasound. Right kidney atrophic. 2. Chronic kidney disease stage IIIa with baseline creatinine 1.1-1.3 secondary to nephrosclerosis. 3. Symptomatic bradycardia s/p dopamine. Status post pacemaker placement this admission. 4. Hypertension with chronic kidney disease. Stable. Plan: Encouraged oral intake. Avoid nephrotoxins. Follow-up outpatient 1 week postdischarge.
[2023-08-26] MEDS: FUROSEMIDE 10 MG/ML 4 ML VIAL IV STA (11:11)
[2023-08-26 11:45] LABS: African American GFR (CKD) 44 (>60 ml/min/1.73 sqM); Anion Gap 8 mmol/L; Blood Urea Nitrogen 21 mg/dL (7-17); Carbon Dioxide 25 mmol/L (22-30); Chloride 105 mmol/L (98-107); Glucose 116 mg/dL (74-99); Non-African American GFR(CKD) 39 (>60 ml/min/1.73 sqM); Potassium 4.8 mmol/L (3.5-5.1); Sodium 138 mmol/L (137-145)
--- NOTE | 2023-08-26 14:17 | P.PN ---
Subjective Progress Note Date: 08/26/23 The patient is a 78-year-old female who presented to the hospital with weakness and fatigue. She is currently being monitored on telemetry in preparation for permanent pacemaker implantation tomorrow with Dr. Pereira. Overnight it was reported that the patient had several pauses with heart rates dipping into the 30s and therefore she was started on dopamine drip. Overall review of telemetry readings show average heart rates in the 40s and 50s. Patient currently denies any chest pain or difficulty breathing. No dizziness or lightheadedness. 08/24 Yesterday, patient underwent dual-chamber pacemaker implantation with Dr. Pereira. Pacemaker interrogation has has been evaluated by company as well as chest x-ray reviewed. No postprocedural complications. Blood pressure 116/55, heart rate in the 60s. 08/25 Patient is complaining of pain at the site of the pacemaker insertion. Patient is a small amount of dried blood, no active drainage, no erythema, edges are well-approximated. Heart rate is in the 60s, blood pressure 120/65, pulse ox 91% on 2 L. Patient continues to have tenderness at the site of the pacemaker insertion. The site continues to show no sign of infection. Small amount of dried blood at the incision. Edges are well-approximated. There is a small amount of ec chymosis and edema. Patient denies any chest pain, no lightheadedness or dizziness. She states that she is planning to go home today. Blood pressure 131/60, pulse ox 95% on 2 L, heart rate is in the 60s. GENERAL: Well-appearing, well-nourished and in no acute distress. NECK: Supple without JVD or thyromegaly. LUNGS: Breath sounds clear to auscultation bilaterally. Respiration equal and unlabored. No wheezes, rales or rhonchi. HEART: Regular rate and rhythm without murmurs, rubs or gallops. S1 and S2 heard. EXTREMITIES: Normal range of motion, no edema. No clubbing or cyanosis. Peripheral pulses intact and strong. IMPRESSION: Symptomatic bradycardia status post pacemaker Hypertension Hyperkalemia Coronary artery disease Hypertension PLAN: Continue current cardiac medications Patient is cleared for discharge from cardiology and may follow-up with Dr. Pereira in 1 to 2 weeks. Nurse practitioner note has been reviewed, I agree with documented findings and plan of care. Patient was seen and examined. Objective - Vital Signs Vital signs: Vital Signs Temp 98.2 F 08/26/23 09:19 Pulse 63 08/26/23 09:30 Resp 16 08/26/23 09:19 BP 115/64 08/26/23 09:19 Pulse Ox 94 L 08/26/23 09:19 FiO2 Intake & Output 08/25/23 08/26/23 08/26/23 18:59 06:59 18:59 Intake Total 1216 360 Output Total 1500 900 Balance 1216 -1500 -540 Intake: Intake, IV Titration 500 Amount Sodium Chloride 0.9% 1, 500 000 ml @ 50 mls/hr IV . Q20H [facility] Rx#:[id number] Oral 716 360 Output: Urine 1500 900 Other: Voiding Method External Catheter External Catheter - Labs CBC & Chem 7: 08/23/23 07:38 08/26/23 10:57
--- NOTE | 2023-08-26 20:12 | P.PN ---
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 Patient was also having cough. Yesterday patient had resection of SCC on the forehead. Since yesterday patient has been having persistent chest pressure along with left arm pain. Also felt leg weakness. Presents to ER for further relation. Patient does have cough with deep breathing. No complaints of pleuritic pain. Denies any dizziness or lightheadedness. No nausea vomiting or diarrhea. Patient did receive nitro tablet in the ER which seemed to help her pain. Patient was also given albuterol inhalation while in the ER. Patient also states that she is not having left leg swelling on and off for the past 2 months. Denies any calf tenderness. Patient has been afebrile on admission. Patient was bradycardic with heart rate went down to 35 on admission. Chest x-ray showed no acute process. EKG showed sinus bradycardia Laboratory showed sodium 139 potassium 5.8 with slight hemolysis and repeat 5.4 Chloride 109 bicarb is 21 BUN 36 and creatinine 1.30 Liver enzymes are not elevated. Troponin x 3 negative., proBNP 795 and TSH 2.27 within normal limits. Influenza A B RSV and COVID-19 PCR not detected. 08/21/2023 Patient has little chest pressure No dyspnea, she has chronic cough and phlegm which is mild, She feels very tired No confused., Patient is afebrile She reports some choking, were going to check swallow evaluation Cardiology on the case for possible pacemaker for severe bradycardia Resume the care of the patient on 08/25/2023 Patient status post permanent pacemaker left upper chest, she still have significant pain and tenderness at the PPM insertion site of the left upper chest which is worse with movement especially of left upper extremity Wound is healing and there is some evidence of mild hematoma. Patient currently on Ultram 3 times a day and increase it to 4 times a day and topical analgesic. Patient is some evidence of hypoxia on room air 84% improved to 90s on 2 L. Chest x-ray showing no acute process. Possible eminence on bronchitis and she was on normal saline 50 mL per order for her kidney function which is held now. The post chemo following. Troponin is negative. Speech therapist: Recommended continuing regular diet/thin liquids with strict reflux precautions. 08/26/2023 pt is still short of breath and requiring some oxygen , she was not on oxygen at home she has basal crepitation her creatinine is 1.3 and bun 21 We will give one dose of iv lasix 40 mg and reassess tomorrow as pt try to get off the oxygen possible dc in 2-48 hrs Objective - Vital Signs Vital signs: Vital Signs Temp 99 F 08/26/23 19:48 Pulse 60 08/26/23 19:48 Resp 18 08/26/23 19:48 BP 135/64 08/26/23 19:48 Pulse Ox 96 08/26/23 19:48 FiO2 Intake & Output 08/26/23 08/26/23 08/27/23 06:59 18:59 06:59 Intake Total 478 Output Total 1500 2000 Balance -1500 -1522 Intake: Oral 478 Output: Urine 1500 2000 Other: Voiding Method External Catheter External Catheter - Exam GENERAL: The patient is alert and oriented x3, not in any acute distress. Well developed, well nourished. HEENT: Pupils are round and equally reacting to light. EOMI. No scleral icterus. No conjunctival pallor. Normocephalic, atraumatic. No pharyngeal erythema. No thyromegaly. CARDIOVASCULAR: S1 and S2 present. No murmurs, rubs, or gallops. -PULMONARY: Chest is clear to auscultation, no wheezing , b/l basal crackles. ABDOMEN: Soft, nontender, nondistended, normoactive bowel sounds. No palpable organomegaly. MUSCULOSKELETAL: No joint swelling or deformity. EXTREMITIES: No cyanosis, clubbing, or pedal edema. NEUROLOGICAL: Gross neurological examination did not reveal any focal deficits. SKIN: No rashes. no petechiae. - Labs CBC & Chem 7: 08/23/23 07:38 08/26/23 10:57 Labs: Abnormal Lab Results - Last 24 Hours (Table) 08/26/23 Range/Units 10:57 BUN 21 H (7-17) mg/dL Creatinine 1.32 H (0.52-1.04) mg/dL Glucose 116 H (74-99) mg/dL Assessment and Plan Assessment: acute on chronic CHF , preserved EF 55-60 Based on Echo from 10/2022 Atypical chest pain/pressure. Improved, cardiac causes resolved Sinus bradycardia, severe. Present on admission. Status post permanent pacemaker Mild hypoxic respiratory failure most likely secondary to fluid overload and possible elements of bronchitis Hyperkalemia could be due to acute kidney injury. on chronic kidney disease stage III Coronary artery disease with prior cardiac catheterization. No PCI SCC on the forehead s/p resection on 08/19/2023 Hypertension uncontrolled on admission History of breast cancer currently in remission History of back surgery x 5 and bilateral hip replacement Secondhand smoking x 50 years DVT prophylaxis with heparin subcu Plan: lasix 40 mg iv x 1 Pain medication Incentive his parameters and bronchodilator. Also at fluid restriction Cardiology consult for pacemaker requirement Patient will be continued on tele-monitoring. Continue with DuoNebs and monitor breathing status. mointor potassium level Monitor renal function. Nephrology consult on the case Prognosis guarded
[2023-08-27 09:14] LABS: African American GFR (CKD) 35 (>60 ml/min/1.73 sqM); Anion Gap 9 mmol/L; Blood Urea Nitrogen 26 mg/dL (7-17); Calcium 9.2 mg/dL (8.4-10.2); Carbon Dioxide 27 mmol/L (22-30); Chloride 102 mmol/L (98-107); Glucose 89 mg/dL (74-99); Non-African American GFR(CKD) 30 (>60 ml/min/1.73 sqM); Potassium 4.7 mmol/L (3.5-5.1); Sodium 138 mmol/L (137-145)
[2023-08-27 09:35] VITALS: TEMP 98.1
--- NOTE | 2023-08-27 10:18 | P.PN ---
Subjective Patient is seen in follow-up for acute kidney injury on chronic kidney disease. Renal function worse from diuresis. Received IV Lasix yesterday. Pacemaker placed August 23, 2023. Denies chest pain or shortness of breath. No active complaints. Vital signs are stable. General: No acute distress. HEENT: Head exam is unremarkable. LUNGS: No audible rhonchi or wheezes. HEART: Regular rate rhythm. ABDOMEN: No acute distress. EXTREMITITES: No edema. Objective - Vital Signs Vital signs: Vital Signs Temp 98.1 F 08/27/23 09:04 Pulse 70 08/27/23 09:04 Resp 17 08/27/23 09:04 BP 109/57 08/27/23 09:04 Pulse Ox 90 L 08/27/23 09:04 FiO2 Intake & Output 08/26/23 08/27/23 08/27/23 18:59 06:59 18:59 Intake Total 478 200 Output Total 2000 800 Balance -1522 -800 200 Weight 84.1 kg Intake: Oral 478 200 Output: Urine 2000 800 Other: Voiding Method External Catheter Toilet Toilet - Labs CBC & Chem 7: 08/23/23 07:38 08/27/23 07:40 Labs: Abnormal Lab Results - Last 24 Hours (Table) 08/26/23 08/27/23 Range/Units 10:57 07:40 BUN 21 H 26 H (7-17) mg/dL Creatinine 1.32 H 1.61 H (0.52-1.04) mg/dL Glucose 116 H (74-99) mg/dL Assessment and Plan Plan: Assessment: 1. Acute kidney injury secondary to hemodynamic ATN. Renal function worse from diuretics. Creatinine 1.6 today. UA with 1+ protein and no blood. No hydronephrosis noted on kidney ultrasound. Right kidney atrophic. 2. Chronic kidney disease stage IIIa with baseline creatinine 1.1-1.3 secondary to nephrosclerosis. 3. Symptomatic bradycardia s/p dopamine. Status post pacemaker placement this admission. 4. Hypertension with chronic kidney disease. Stable. Plan: Encouraged oral intake. Avoid nephrotoxins. Follow-up outpatient 1 week postdischarge.
--- NOTE | 2023-08-27 13:27 | P.PN ---
Subjective Progress Note Date: 08/27/23 The patient is a 78-year-old female who presented to the hospital with weakness and fatigue. She is currently being monitored on telemetry in preparation for permanent pacemaker implantation tomorrow with Dr. Pereira. Overnight it was reported that the patient had several pauses with heart rates dipping into the 30s and therefore she was started on dopamine drip. Overall review of telemetry readings show average heart rates in the 40s and 50s. Patient currently denies any chest pain or difficulty breathing. No dizziness or lightheadedness. 08/24 Yesterday, patient underwent dual-chamber pacemaker implantation with Dr. Pereira. Pacemaker interrogation has has been evaluated by company as well as chest x-ray reviewed. No postprocedural complications. Blood pressure 116/55, heart rate in the 60s. 08/25 Patient is complaining of pain at the site of the pacemaker insertion. Patient is a small amount of dried blood, no active drainage, no erythema, edges are well-approximated. Heart rate is in the 60s, blood pressure 120/65, pulse ox 91% on 2 L. Patient continues to have tenderness at the site of the pacemaker insertion. The site continues to show no sign of infection. Small amount of dried blood at the incision. Edges are well-approximated. There is a small amount of ec chymosis and edema. Patient denies any chest pain, no lightheadedness or dizziness. She states that she is planning to go home today. Blood pressure 131/60, pulse ox 95% on 2 L, heart rate is in the 60s. 08/26 Patient has no new concerns today. She states she is going home today. Blood pressure running between 109/57-147/74, heart rate is in the 60s, pulse ox 94% on room air. Repeat blood work reveals BUN 26, creatinine 1.61, potassium 4.7. GENERAL: Well-appearing, well-nourished and in no acute distress. NECK: Supple without JVD or thyromegaly. LUNGS: Breath sounds clear to auscultation bilaterally. Respiration equal and unlabored. No wheezes, rales or rhonchi. HEART: Regular rate and rhythm without murmurs, rubs or gallops. S1 and S2 heard. EXTREMITIES: Normal range of motion, no edema. No clubbing or cyanosis. Peripheral pulses intact and strong. IMPRESSION: Symptomatic bradycardia status post pacemaker Hypertension Hyperkalemia Coronary artery disease Hypertension PLAN: Continue current cardiac medications Patient is cleared for discharge from cardiology and may follow-up with Dr. Pereira in 1 to 2 weeks. Nurse practitioner note has been reviewed, I agree with documented findings and plan of care. Patient was seen and examined. Objective - Vital Signs Vital signs: Vital Signs Temp 98.1 F 08/27/23 09:04 Pulse 70 08/27/23 09:04 Resp 17 08/27/23 09:04 BP 109/57 08/27/23 09:04 Pulse Ox 90 L 08/27/23 09:04 FiO2 Intake & Output 08/26/23 08/27/23 08/27/23 18:59 06:59 18:59 Intake Total 478 200 Output Total 2000 800 Balance -1522 -800 200 Weight 84.1 kg Intake: Oral 478 200 Output: Urine 2000 800 Other: Voiding Method External Catheter Toilet Toilet - Labs CBC & Chem 7: 08/23/23 07:38 08/27/23 07:40 Labs: Abnormal Lab Results - Last 24 Hours (Table) 08/26/23 08/27/23 Range/Units 10:57 07:40 BUN 21 H 26 H (7-17) mg/dL Creatinine 1.32 H 1.61 H (0.52-1.04) mg/dL Glucose 116 H (74-99) mg/dL
[2023-08-27 13:30] VITALS: BP 147/74; RESP 16
[2023-08-27 14:44] VITALS: BMI 29.9
[2023-08-27 15:58] VITALS: PULSE 64
--- NOTE | 2023-08-27 21:50 | P.DS ---
Providers Date of admission: 08/20/23 14:43 Attending physician: Pk Pizarro Consults: 08/20/23 14:41 Consult Physician Routine Consulting Provider: [facility] Consult Reason/Comments: chest pain, bradycardia Do you want consulting provider notified?: Yes 08/21/23 14:46 Consult Physician Routine Consulting Provider: Merari Valles Consult Reason/Comments: frandy Do you want consulting provider notified?: Yes Primary care physician: Pk Pizarro [place] Hospital Course: Diagnoses: acute on chronic CHF , preserved EF 55-60 Based on Echo from 10/2022 Atypical chest pain/pressure. Improved, cardiac causes resolved Sinus bradycardia, severe. Present on admission. Status post permanent pacemaker Mild hypoxic respiratory failure most likely secondary to fluid overload and possible elements of bronchitis Hyperkalemia could be due to acute kidney injury. on chronic kidney disease stage III Coronary artery disease with prior cardiac catheterization. 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 Patient was have severe bradycardia while she was not on beta-mayg she is s/p pacemaker placement in her left upper chest. She developed some mild subcutaneous hematoma and tenderness which is resolved. Also patient with evidence of mild pulmonary congestion and mild hypoxia s/p IV Lasix showing improvement. On the day of discharge she denies chest pain or dyspnea or coughing. Her basal crepitation improved. She is in saturation well on room air with saturation 95 to 96%, with exertion and drops down to 92%. Patient does not qualify for home oxygen. Creatinine with discharge age 1.6. Sodium within the reference range. No need for Lasix upon discharge, discussed with rn social work. Patient denies chest pain dyspnea. No other urinary or GI complaints. Patient is eager to go home today. Patient was cleared for discharge by all consultants including rn social work, cardiac rehabilitation program director. Problems and management plan were discussed with the patient and he verbalized understanding and acceptance Patient was found stable and can be discharged home in guarded prognosis however he needs follow-up as an outpatient. Patient was instructed to follow up with PCP Dr. Pizarro within one week and patient agrees Patient was instructed to follow-up with cardiac rehabilitation program director dr.krishen adler in 1 to 2 weeks patient was instructed to follow-up with Dr. Lopez in 1 week and she agrees On a chronic basis follow-up with ekg monitor Dr. Valdivia and she continues to continue doing follow-up Physical exam Gen: patient is a AAOx3, no distress CVS: S1-S2, RRR, no murmur Lungs: B/L CTA, no wheezing Abdomen: soft, no distention, no tenderness, positive bowel sounds Extremity: no leg edema or induration Time spent more than 35 minutes Patient Condition at Discharge: Stable Plan - Discharge Summary Discharge Rx Participant: No New Discharge Prescriptions: New Acetaminophen Tab [Tylenol] 650 mg PO Q6HR PRN #20 tab PRN Reason: Mild Pain (Scale 1 To 3) Albuterol Inhaler [Ventolin Hfa Inhaler] 1 - 2 puff INHALATION Q6H PRN 30 Days #8 gm PRN Reason: Shortness Of Breath Aspirin 81 mg PO DAILY #0 tab Continue amLODIPine [Norvasc] 10 mg PO HS Bismuth Subsalicylate [Pepto-Bismol] 262 - 524 mg PO Q1H PRN PRN Reason: Diarrhea oxyBUTYnin chloride [oxyBUTYnin chloride ER] 5 mg PO HS ALPRAZolam [Xanax] 0.5 mg PO HS Escitalopram [Lexapro] 10 mg PO HS Discontinued Aspirin EC [Ecotrin] 325 mg PO HS Discharge Medication List ALPRAZolam [Xanax] 0.5 mg PO HS 11/16/22 [History] oxyBUTYnin chloride [oxyBUTYnin chloride ER] 5 mg PO HS 11/16/22 [History] Bismuth Subsalicylate [Pepto-Bismol] 262 - 524 mg PO Q1H PRN 08/20/23 [History] Escitalopram [Lexapro] 10 mg PO HS 08/20/23 [History] amLODIPine [Norvasc] 10 mg PO HS 08/20/23 [History] Acetaminophen Tab [Tylenol] 650 mg PO Q6HR PRN #20 tab 08/27/23 [Rx] Albuterol Inhaler [Ventolin Hfa Inhaler] 1 - 2 puff INHALATION Q6H PRN 30 Days #8 gm 08/27/23 [Rx] Aspirin 81 mg PO DAILY #0 tab 08/27/23 [Rx] Follow up Appointment(s)/Referral(s): Farzad Yao MD [STAFF PHYSICIAN] - 08/30/23 3:00 pm (device clinic at [facility] at [address] yao appt wednesdayseptember 05 at 11:30) Pk Pizarro DO [Primary Care Provider] - 1-2 days (office closed please call tomorrow to schedule or when next open. ) Jer Schroeder DO [STAFF PHYSICIAN] - 1 Week (kidney doctor- office will call you with an appt. ) Ambulatory/Diagnostic Orders: Comprehensive Metabolic Panel [LAB.AMB] Time Frame: 3 Days, Location: None Selected Patient Instructions/Handouts: Pacemaker (DC) Activity/Diet/Wound Care/Special Instructions: diet: Recommended continuing regular diet/thin liquids with strict reflux precautions. PACEMAKER Keep dressing dry and intact for 5 days. You may cover the area with saran or cling wrap, prior to a shower. The dressing will be removed in the Device Clinic at [facility]. Absorbable sutures were used to close the wound. Avoid raising the left arm above the shoulder level. (4-week restriction). Avoid arm movements, like backscratching, rubbing your head, or pulling on a cord with your left arm. (4-week restriction). Gentle range of motion movements of the left shoulder should be performed to avoid a frozen shoulder. (Pendulum exercises). The opposite arm may be used freely. Avoid driving for 7 days. Avoid activities such as golfing, swimming, week whacking, lifting more than 10 pounds of weight, bowling, gymnastics and weight training/lifting. (6-week restriction). Activities such as chopping wood, pull-ups, power lifting, welding, and being around an induction cooktop will always be a problem and can interfere with your pacemaker. Your arm sling is only a reminder to not lift your arm above your head. You do not need to keep the arm completely immobilized. You are free to move your arm and use it for normal activities. In case of any problems, please call [facility] [place] @ [phone]. Discharge Disposition: HOME WITH HOME HEALTH SERVICES
== END 2023-08-27 17:03 | disposition home health service (06) | DRG 242 ==
LOC: EC 12:34 → 3SCARD 14:43 → 3NCARDOBS 08-22 22:46 → 3SCARD 08-22 22:49
PROVIDERS: ADMIT Internal Medicine; ATTEND Family Medicine
PROC: 02H63JZ Insertion of Pacemaker Lead into Right Atrium, Percutaneous Approach (ICD-10-PCS; 2023-08-23)
PROC: 02HK3JZ Insertion of Pacemaker Lead into Right Ventricle, Percutaneous Approach (ICD-10-PCS; 2023-08-23)
PROC: 0JH606Z Insertion of Pacemaker, Dual Chamber into Chest Subcutaneous Tissue and Fascia, Open Approach (ICD-10-PCS; principal; 2023-08-23 07:30)
DX: R00.1 Bradycardia, unspecified (principal); N17.0 Acute kidney failure with tubular necrosis; I25.110 Atherosclerotic heart disease of native coronary artery with unstable angina pectoris; K90.41 Non-celiac gluten sensitivity; Z11.52 Encounter for screening for COVID-19; N18.31 Chronic kidney disease, stage 3a; G89.29 Other chronic pain; E11.22 Type 2 diabetes mellitus with diabetic chronic kidney disease; K22.4 Dyskinesia of esophagus; K21.9 Gastro-esophageal reflux disease without esophagitis; I12.9 Hypertensive chronic kidney disease with stage 1 through stage 4 chronic kidney disease, or unspecified chronic kidney disease; E87.5 Hyperkalemia; Z96.643 Presence of artificial hip joint, bilateral; Z96.1 Presence of intraocular lens; Z92.3 Personal history of irradiation; Z86.16 Personal history of COVID-19; Z85.3 Personal history of malignant neoplasm of breast; Z80.0 Family history of malignant neoplasm of digestive organs; Z95.0 Presence of cardiac pacemaker; Z79.82 Long term (current) use of aspirin; Z98.1 Arthrodesis status; Z88.5 Allergy status to narcotic agent
CPT/HCPCS: 33208; 36415; 71045; 71046; 76770; 80048; 80053; 81001; 83735; 83880; 84132; 84145; 84443; 84484; 85025; 85610; 85730; 87636; 93005; 93970; 94640; 96361; 96372; 96374; 96375; 99285

== ENCOUNTER 2023-09-08 11:08 | Inpatient (IN) | payer MEDICARE ==
[2023-09-08 12:09] LABS: Basophils # (A) 0.1 k/uL (0-0.2); Basophils % (A) 0 %; Eosinophils # (A) 0.1 k/uL (0-0.7); Eosinophils % (A) 0 %; HCT 35.7 % (34.0-46.0); HGB 11.5 gm/dL (11.4-16.0); Lymphocytes # (A) 0.8 k/uL (1.0-4.8); Lymphocytes % (A) 5 %; MCH 28.3 pg (25.0-35.0); MCHC 32.1 g/dL (31.0-37.0); MCV 88.1 fL (80.0-100.0); Mean Platelet Volume 8.4; Monocytes # (A) 0.6 k/uL (0-1.0); Monocytes % (A) 3 %; Neutrophils # (A) 15.7 k/uL (1.3-7.7); Neutrophils % (A) 91 %; Platelet Count 285 k/uL (150-450); RBC 4.06 m/uL (3.80-5.40); RDW 14.2 % (11.5-15.5); WBC 17.3 k/uL (3.8-10.6)
[2023-09-08 12:18] LABS: ALT 13 U/L (4-34); AST 27 U/L (14-36); African American GFR (CKD) 38 (>60 ml/min/1.73 sqM); Alkaline Phosphatase 122 U/L (38-126); Anion Gap 13 mmol/L; Blood Urea Nitrogen 38 mg/dL (7-17); Calcium 9.4 mg/dL (8.4-10.2); Carbon Dioxide 17 mmol/L (22-30); Chloride 110 mmol/L (98-107); Glucose 151 mg/dL (74-99); Magnesium 1.8 mg/dL (1.6-2.3); Non-African American GFR(CKD) 33 (>60 ml/min/1.73 sqM); Potassium 4.5 mmol/L (3.5-5.1); Sodium 140 mmol/L (137-145); Total Bilirubin 0.5 mg/dL (0.2-1.3); Total Protein 7.2 g/dL (6.3-8.2)
--- NOTE | 2023-09-08 12:24 | XR ---
EXAMINATION TYPE: XR chest 2V DATE OF EXAM: 09/08/2023 COMPARISON: 08/25/2023 HISTORY: 78-year-old female with weakness, chest pain, shortness of breath TECHNIQUE: AP and lateral views FINDINGS: Left anterior chest wall pacemaker generator with right atrial and ventricular leads are present. Hea rt upper limits of normal in size. Surgical clips right axilla. Low lung volumes with crowded vascula r markings. [facility] throughout the thoracic spine. Lower thoracic lumbar fusion hardware. Hypodense exc lude focal retrocardiac opacity at the posterior medial left base. No pneumothorax. IMPRESSION: Unable to exclude a sizable area of focal retrocardiac atelectasis versus infiltrate. Limited by port able technique, body habitus, and hypoventilatory changes.
[2023-09-08 12:26] LABS: Appearance,Urine Clear (Clear); Bilirubin,Urine Negative (Negative); Blood,Urine Negative (Negative); Color,Urine Colorless; Glucose,Urine (UA) Negative (Negative); Ketones,Urine Negative (Negative); Leukocyte Esterase,Urine Negative (Negative); NT-Pro-B-Type Natriuretic Pept 780 pg/mL; Nitrite,Urine Negative (Negative); Protein,Urine 2+ (Negative); RBC,Urine <1 /hpf (0-5); Specific Gravity,Urine 1.011 (1.001-1.035); Urobilinogen,Urine <2.0 mg/dL (<2.0); WBC,Urine <1 /hpf (0-5)
[2023-09-08 12:38] LABS: INR 0.9 (<1.2); Partial Thromboplastin Time 22.4 sec (22.0-30.0); Prothrombin Time 9.7 sec (10.0-12.5)
[2023-09-08] MEDS: traMADol 50 MG TAB PO STA (13:05)
[2023-09-08] MEDS: SODIUM CHLORIDE 0.9% 1,000 ML IV ONE (13:05)
--- NOTE | 2023-09-08 14:09 | CT ---
Exam: CT ANGIOGRAPHY OF THE CHEST. Date: 09/08/2023. Comparison: 11/17/2022. History: Hypoxia. Technique: CT examination of the chest was performed with contrast. Coronal and sagittal reformats we re performed. CT dose lowering techniques were used, to include: automated exposure control, adjustme nt for patient size, and/or use of iterative reconstruction. 100 mL of Isovue-[id number] was given intraveno usly. FINDINGS: Mediastinum and Jyoti: There are scattered prominent lymph nodes seen within the hilar regions and med iastinum bilaterally which may be reactive. Pleural and Pericardial spaces: There are no pleural or pericardial effusions. Upper Abdomen: The visualized upper abdomen is unremarkable. Cardiovascular: The thoracic aorta is normal in caliber without evidence of aneurysmal dilation or di ssection. There are mild patchy coronary artery calcifications. Pacemaker generator has leads in the right atrium and right ventricle. Pulmonary artery: The pulmonary arteries are large measuring up to 3.8 cm in diameter compatible a co mponent of pulmonary chill hypertension. There are no pulmonary arterial filling defects. Lung Parenchyma and Airways: There is patchy areas of opacity in the upper lobes bilaterally with mor e extensive consolidative change in the lower lobes bilaterally compatible with a multifocal pneumoni a. Follow-up to resolution is recommended. Bones: No fracture or aggressive osseous lesion. IMPRESSION: 1. Multifocal pneumonia with some scattered mediastinal and hilar adenopathy is likely reactive. Foll ow-up in 3 months is recommended. 2. No evidence of pulmonary. 3. No evidence of thoracic aortic aneurysm or dissection.
[2023-09-08] MEDS ORDERED: PNEUMONIA PROTOCOL UTILIZED 1 EACH MISC PO PRN (14:37)
[2023-09-08] MEDS ORDERED: IPRATROPIUM-ALBUTEROL 3 ML NEB INHALATION PRN (14:42)
--- NOTE | 2023-09-08 14:49 | ED ---
Weakness HPI - General Chief complaint: Weakness Stated complaint: weakness Time Seen by Provider: 09/08/23 11:10 Source: EMS Mode of arrival: EMS Limitations: no limitations - History of Present Illness Initial comments: 78-year-old female with past medical history of ankylosing spondylolysis who presents to the emergency department with diffuse myalgias and weakness. States that she is postop 1 week from having a pacemaker placed. States that she has been so weak at home that she tried to get up from her chair and slid down onto her bottom. Denies hitting her head. She has had shortness of breath with a productive cough. Patient arrives and is hypoxic with an oxygenation of 89%. Patient does not wear oxygen at home. Denies history of COPD. She denies any chest pain. No numbness or tingling in her extremities. No other alleviating, precipitating modifying factors - Related Data Home Medications Medication Instructions Recorded Confirmed oxyBUTYnin chloride [oxyBUTYnin 5 mg PO HS 11/16/22 09/08/23 chloride ER] Escitalopram [Lexapro] 10 mg PO HS 08/20/23 09/08/23 amLODIPine [Norvasc] 10 mg PO HS 08/20/23 09/08/23 Albuterol Inhaler [Ventolin Hfa 1 - 2 puff INHALATION RT-Q6H PRN 09/08/23 09/08/23 Inhaler] Aspirin EC [Ecotrin] 325 mg PO BID 09/08/23 09/08/23 Famotidine [Pepcid] 20 mg PO BID 09/08/23 09/08/23 Previous Rx's Medication Instructions Recorded Acetaminophen Tab [Tylenol] 650 mg PO Q6HR PRN #20 tab 08/27/23 Cefdinir [Omnicef] 300 mg PO BID #10 cap 09/13/23 Fluconazole [Diflucan] 200 mg PO DAILY #5 tablet 09/13/23 guaiFENesin [Mucinex] 600 mg PO Q12HR tab 09/13/23 Allergies Allergy/AdvReac Type Severity Reaction Status Date / Time benazepril Allergy Anaphylaxis Verified 09/08/23 12:42 codeine Allergy Rash/Hives Verified 09/08/23 12:42 gluten Allergy Abdominal Verified 09/08/23 12:42 Pain hydrocodone Allergy Rash/Hives Verified 09/08/23 12:42 hydromorphone [From Dilaudid] Allergy Rash/Hives Verified 09/08/23 12:42 ibuprofen [From Motrin] Allergy Unknown Verified 09/08/23 12:42 lisinopril Allergy Anaphylaxis Verified 09/08/23 12:42 meperidine [From Demerol] Allergy Rash/Hives Verified 09/08/23 12:42 morphine Allergy Rash/Hives Verified 09/08/23 12:42 propoxyphene Allergy Rash/Hives Verified 09/08/23 12:42 [From Darvocet-N] Tetracyclines Allergy Rash/Hives Verified 09/08/23 12:42 azathioprine [From Imuran] AdvReac liver Verified 09/08/23 12:42 inflammation clonidine [From Catapres] AdvReac Cough Verified 09/08/23 12:42 Review of Systems ROS Statement: Those systems with pertinent positive or pertinent negative responses have been documented in the HPI. ROS Other: All systems not noted in ROS Statement are negative. Past Medical History Past Medical History: Coronary Artery Disease (CAD), Cancer, Hypertension Additional Past Medical History / Comment(s): Back pain (DDD), breast cancer (in remission), states esophageous doesn't work right-has a hard time swallowing and stomach contents come back up, +COVID 06/30/21, " LOW HR AND OXYGEN LEVELS 89-91%- HAD ANTIBODY INFUSION. History of Any Multi-Drug Resistant Organisms: None Reported Past Surgical History: Back Surgery, Heart Catheterization, Joint Replacement Additional Past Surgical History / Comment(s): Breast masectomy(right), bilateral hip replacements, back surgery X5(rods and screws/fusion), BILATERAL CATARACTS REMOVED WITH LENS IMPLANTS. Past Anesthesia/Blood Transfusion Reactions: Previous Problems w/ Anesthesia Additional Past Anesthesia/Blood Transfusion Reaction / Comment(s): Stopped breathing in recovery after spinal fusion revision in 2012 (7 hr surgery),no problems with 2 surgeries after that one. Past Psychological History: No Psychological Hx Reported Smoking Status: Never smoker Past Alcohol Use History: None Reported Past Drug Use History: None Reported - Past Family History Brother(s) Family Medical History: Cancer Additional Family Medical History / Comment(s): Colon cancer. Mother Family Medical History: Cancer Additional Family Medical History / Comment(s): Gallbladder. Father Family Medical History: Cancer General Exam Limitations: no limitations General appearance: alert, in no apparent distress Head exam: Present: atraumatic, normocephalic, normal inspection Eye exam: Present: normal appearance, PERRL, EOMI. Absent: scleral icterus, conjunctival injection, periorbital swelling ENT exam: Present: normal exam, mucous membranes moist Neck exam: Present: normal inspection. Absent: tenderness, meningismus, lymphadenopathy Respiratory exam: Present: other (Coarse breath sounds). Absent: respiratory distress, wheezes, rales, rhonchi, stridor Cardiovascular Exam: Present: regular rate, normal rhythm, normal heart sounds. Absent: systolic murmur, diastolic murmur, rubs, gallop, clicks GI/Abdominal exam: Present: soft, normal bowel sounds. Absent: distended, tenderness, guarding, rebound, rigid Extremities exam: Present: normal inspection, full ROM, normal capillary refill. Absent: tenderness, pedal edema, joint swelling, calf tenderness Back exam: Present: normal inspection Neurological exam: Present: alert, oriented X3, CN II-XII intact Psychiatric exam: Present: normal affect, normal mood Skin exam: Present: warm, dry, intact, normal color. Absent: rash Course Vital Signs 09/08/23 09/08/23 09/08/23 11:09 11:20 13:08 Temperature 99.6 F Pulse Rate 74 78 Respiratory 16 18 Rate Blood Pressure 154/66 166/70 O2 Sat by Pulse 89 L 93 L 94 L Oximetry 09/08/23 09/08/23 09/08/23 14:00 14:06 14:55 Temperature Pulse Rate 66 Respiratory 18 Rate Blood Pressure 145/67 O2 Sat by Pulse 88 L 95 94 L Oximetry Medical Decision Making - Medical Decision Making Was pt. sent in by a medical professional or institution (, PA, MANAGER INTERNAL, urgent care, hospital, or snf...) When possible be specific @ -No Did you speak to anyone other than the patient for history (EMS, parent, family, police, friend...)? What history was obtained from this source @ -EMS Did you review nursing and triage notes (agree or disagree)? Why? @ -I reviewed and agree with nursing and triage notes Were old charts reviewed (outside hosp., previous admission, EMS record, old EKG, old radiological studies, urgent care reports/EKG's, snf records)? Report findings @ -I reviewed patient's operative note from August 23 Differential Diagnosis (chest pain, altered mental status, abdominal pain women, abdominal pain men, vaginal bleeding, weakness, fever, dyspnea, syncope, headache, dizziness, GI bleed, back pain, seizure, CVA, palpatations, mental health, musculoskeletal)? @ -Differential Weakness: Hypoglycemia, shock, sepsis, hyponatremia, anemia, infection, AL, ETOH, adverse medicine reaction, overdose, stroke, this is not meant to be an all-inclusive list. EKG interpreted by me (3pts min.). @ -Yes and demonstrates sinus rhythm with a rate of 83. AR interval 128. QRS 108. QTc of 398. No acute ST segment elevations or depressions X-rays interpreted by me (1pt min.). @ -Yes and demonstrates no acute process CT interpreted by me (1pt min.). @ -Yes and demonstrates multifocal pneumonia U/S interpreted by me (1pt. min.). @ -None done What testing was considered but not performed or refused? (CT, X-rays, U/S, labs)? Why? @ -None What meds were considered but not given or refused? Why? @ -None Did you discuss the management of the patient with other professionals (professionals i.e. , PA, MANAGER INTERNAL, lab, RT, psych nurse, director social welfare, gallery or museum attendant, teacher, chief growth officer, case specialist)? Give summary @ -Spoke with Dr. Pizarro for admission Was smoking cessation discussed for >3mins.? @ -No Was critical care preformed (if so, how long)? @ -No Were there social determinants of health that impacted care today? How? (Homelessness, low income, unemployed, alcoholism, drug addiction, transportation, low edu. Level, literacy, decrease access to med. care, senior living, rehab)? @ -No Was there de-escalation of care discussed even if they declined (Discuss DNR or withdrawal of care, Hospice)? DNR status @ -No What co-morbidities impacted this encounter? (DM, HTN, Smoking, COPD, CAD, Cancer, CVA, ARF, Chemo, Hep., AIDS, mental health diagnosis, sleep apnea, morbid obesity)? @ -Coronary artery disease, hypertension Was patient admitted / discharged? Hospital course, mention meds given and route, prescriptions, significant lab abnormalities, going to OR and other pertinent info. @ -Upon arrival patient was seen and evaluated in the emergency department. Thorough history and physical exam was performed. Patient does arrive hypoxic. Her oxygenation is 89%. She is placed on 2 L nasal cannula and does improve to 95%. IV is established. Laboratory studies are conducted. Chest x-ray was performed. This was followed by a CT of the chest for evaluation of PE. No PE identified. Patient does have multifocal pneumonia on her CT. This is identified at 1402. Blood cultures obtained and patient is initiated on antibiotics. Recommended admission due to hypoxia. Discussed case with Dr. Pizarro was agreeable to admission Undiagnosed new problem with uncertain prognosis? @ -Yes Drug Therapy requiring intensive monitoring for toxicity (Heparin, Nitro, Insulin, Cardizem)? @ -No Were any procedures done? @ -No Diagnosis/symptom? @ -Acute fall, acute hypoxic respiratory failure, multifocal pneumonia, recent pacemaker placement Acute, or Chronic, or Acute on Chronic? @ -Acute Uncomplicated (without systemic symptoms) or Complicated (systemic symptoms)? @ -Complicated Side effects of treatment? @ -No Exacerbation, Progression, or Severe Exacerbation? @ -No Poses a threat to life or bodily function? How? (Chest pain, [place], AL, pneumonia, PE, COPD, DKA, ARF, appy, cholecystitis, CVA, Diverticulitis, Homicidal, Suicidal, threat to staff... and all critical care pts) @ -No - Lab Data Result diagrams: 09/13/23 06:12 09/13/23 06:12 Lab Results 09/08/23 09/08/23 09/08/23 Range/Units 11:49 11:49 11:49 WBC 17.3 H (3.8-10.6) k/uL RBC 4.06 (3.80-5.40) m/uL Hgb 11.5 (11.4-16.0) gm/dL Hct 35.7 (34.0-46.0) % MCV 88.1 (80.0-100.0) fL MCH 28.3 (25.0-35.0) pg MCHC 32.1 (31.0-37.0) g/dL RDW 14.2 (11.5-15.5) % Plt Count 285 (150-450) k/uL MPV 8.4 Neutrophils % 91 % Lymphocytes % 5 % Monocytes % 3 % Eosinophils % 0 % Basophils % 0 % Neutrophils # 15.7 H (1.3-7.7) k/uL Lymphocytes # 0.8 L (1.0-4.8) k/uL Monocytes # 0.6 (0-1.0) k/uL Eosinophils # 0.1 (0-0.7) k/uL Basophils # 0.1 (0-0.2) k/uL PT 9.7 L (10.0-12.5) sec INR 0.9 (<1.2) APTT 22.4 (22.0-30.0) sec D-Dimer 5.35 H (<0.60) mg/L FEU Sodium (137-145) mmol/L Potassium (3.5-5.1) mmol/L Chloride (98-107) mmol/L Carbon Dioxide (22-30) mmol/L Anion Gap mmol/L BUN (7-17) mg/dL Creatinine (0.52-1.04) mg/dL Est GFR (CKD-EPI)AfAm (>60 ml/min/1.73 sqM) Est GFR (CKD-EPI)NonAf (>60 ml/min/1.73 sqM) Glucose (74-99) mg/dL Plasma Lactic Acid Mj (0.7-2.0) mmol/L Calcium (8.4-10.2) mg/dL Magnesium (1.6-2.3) mg/dL Total Bilirubin (0.2-1.3) mg/dL AST (14-36) U/L ALT (4-34) U/L Alkaline Phosphatase (38-126) U/L Troponin I (0.000-0.034) ng/mL NT-Pro-B Natriuret Pep pg/mL Total Protein (6.3-8.2) g/dL Albumin (3.5-5.0) g/dL Urine Color Colorless Urine Appearance Clear (Clear) Urine pH 6.0 (5.0-8.0) Ur Specific [place] 1.011 (1.001-1.035) Urine Protein 2+ H (Negative) Urine Glucose (UA) Negative (Negative) Urine Ketones Negative (Negative) Urine Blood Negative (Negative) Urine Nitrite Negative (Negative) Urine Bilirubin Negative (Negative) Urine Urobilinogen <2.0 (<2.0) mg/dL Ur Leukocyte Esterase Negative (Negative) Urine RBC <1 (0-5) /hpf Urine WBC <1 (0-5) /hpf Influenza Type A (PCR) (Not Detectd) Influenza Type B (PCR) (Not Detectd) RSV (PCR) (Not Detectd) SARS-CoV-2 (PCR) (Not Detectd) 09/08/23 09/08/23 09/08/23 Range/Units 11:49 11:49 11:49 WBC (3.8-10.6) k/uL RBC (3.80-5.40) m/uL Hgb (11.4-16.0) gm/dL Hct (34.0-46.0) % MCV (80.0-100.0) fL MCH (25.0-35.0) pg MCHC (31.0-37.0) g/dL RDW (11.5-15.5) % Plt Count (150-450) k/uL MPV Neutrophils % % Lymphocytes % % Monocytes % % Eosinophils % % Basophils % % Neutrophils # (1.3-7.7) k/uL Lymphocytes # (1.0-4.8) k/uL Monocytes # (0-1.0) k/uL Eosinophils # (0-0.7) k/uL Basophils # (0-0.2) k/uL PT (10.0-12.5) sec INR (<1.2) APTT (22.0-30.0) sec D-Dimer (<0.60) mg/L FEU Sodium 140 (137-145) mmol/L Potassium 4.5 (3.5-5.1) mmol/L Chloride 110 H (98-107) mmol/L Carbon Dioxide 17 L (22-30) mmol/L Anion Gap 13 mmol/L BUN 38 H (7-17) mg/dL Creatinine 1.51 H (0.52-1.04) mg/dL Est GFR (CKD-EPI)AfAm 38 (>60 ml/min/1.73 sqM) Est GFR (CKD-EPI)NonAf 33 (>60 ml/min/1.73 sqM) Glucose 151 H (74-99) mg/dL Plasma Lactic Acid Mj 1.4 (0.7-2.0) mmol/L Calcium 9.4 (8.4-10.2) mg/dL Magnesium 1.8 (1.6-2.3) mg/dL Total Bilirubin 0.5 (0.2-1.3) mg/dL AST 27 (14-36) U/L ALT 13 (4-34) U/L Alkaline Phosphatase 122 (38-126) U/L Troponin I <0.012 (0.000-0.034) ng/mL NT-Pro-B Natriuret Pep 780 pg/mL Total Protein 7.2 (6.3-8.2) g/dL Albumin 4.0 (3.5-5.0) g/dL Urine Color Urine Appearance (Clear) Urine pH (5.0-8.0) Ur Specific [place] (1.001-1.035) Urine Protein (Negative) Urine Glucose (UA) (Negative) Urine Ketones (Negative) Urine Blood (Negative) Urine Nitrite (Negative) Urine Bilirubin (Negative) Urine Urobilinogen (<2.0) mg/dL Ur Leukocyte Esterase (Negative) Urine RBC (0-5) /hpf Urine WBC (0-5) /hpf Influenza Type A (PCR) (Not Detectd) Influenza Type B (PCR) (Not Detectd) RSV (PCR) (Not Detectd) SARS-CoV-2 (PCR) (Not Detectd) 09/08/23 Range/Units 11:49 WBC (3.8-10.6) k/uL RBC (3.80-5.40) m/uL Hgb (11.4-16.0) gm/dL Hct (34.0-46.0) % MCV (80.0-100.0) fL MCH (25.0-35.0) pg MCHC (31.0-37.0) g/dL RDW (11.5-15.5) % Plt Count (150-450) k/uL MPV Neutrophils % % Lymphocytes % % Monocytes % % Eosinophils % % Basophils % % Neutrophils # (1.3-7.7) k/uL Lymphocytes # (1.0-4.8) k/uL Monocytes # (0-1.0) k/uL Eosinophils # (0-0.7) k/uL Basophils # (0-0.2) k/uL PT (10.0-12.5) sec INR (<1.2) APTT (22.0-30.0) sec D-Dimer (<0.60) mg/L FEU Sodium (137-145) mmol/L Potassium (3.5-5.1) mmol/L Chloride (98-107) mmol/L Carbon Dioxide (22-30) mmol/L Anion Gap mmol/L BUN (7-17) mg/dL Creatinine (0.52-1.04) mg/dL Est GFR (CKD-EPI)AfAm (>60 ml/min/1.73 sqM) Est GFR (CKD-EPI)NonAf (>60 ml/min/1.73 sqM) Glucose (74-99) mg/dL Plasma Lactic Acid Mj (0.7-2.0) mmol/L Calcium (8.4-10.2) mg/dL Magnesium (1.6-2.3) mg/dL Total Bilirubin (0.2-1.3) mg/dL AST (14-36) U/L ALT (4-34) U/L Alkaline Phosphatase (38-126) U/L Troponin I (0.000-0.034) ng/mL NT-Pro-B Natriuret Pep pg/mL Total Protein (6.3-8.2) g/dL Albumin (3.5-5.0) g/dL Urine Color Urine Appearance (Clear) Urine pH (5.0-8.0) Ur Specific [place] (1.001-1.035) Urine Protein (Negative) Urine Glucose (UA) (Negative) Urine Ketones (Negative) Urine Blood (Negative) Urine Nitrite (Negative) Urine Bilirubin (Negative) Urine Urobilinogen (<2.0) mg/dL Ur Leukocyte Esterase (Negative) Urine RBC (0-5) /hpf Urine WBC (0-5) /hpf Influenza Type A (PCR) Not Detected (Not Detectd) Influenza Type B (PCR) Not Detected (Not Detectd) RSV (PCR) Not Detected (Not Detectd) SARS-CoV-2 (PCR) Not Detected (Not Detectd) Disposition Clinical Impression: Hypoxia, CAP (community acquired pneumonia), Myalgia, Fall Disposition: ADMITTED IP TO THIS HOSP Condition: Stable Is patient prescribed a controlled substance at d/c from ED?: No Time of Disposition: :49 Decision to Admit Reason: Admit from EC Decision Date: 09/08/23 Decision Time: 14:49
[2023-09-08] MEDS: SODIUM CHLORIDE 0.9% 1,000 ML IV SCH (16:24)
[2023-09-08] MEDS: AZITHROMYCIN 500 MG in SODIUM CHLORIDE 0.9% 250 ML IVPB STA (17:30)
[2023-09-08] MEDS ORDERED: NON FORMULARY DRUG (Albuterol Inhaler 90 MCG Puff) INHALATION PRN (19:40)
[2023-09-08] MEDS: traMADol 50 MG TAB PO PRN (20:00)
[2023-09-08] MEDS: ASPIRIN 325 MG TAB PO SCH (20:01)
[2023-09-08] MEDS: amLODIPine 10 MG TAB PO SCH (20:01)
[2023-09-08] MEDS: FAMOTIDINE 20 MG TAB PO SCH (20:01)
[2023-09-08] MEDS: OXYBUTYNIN XL 5 MG TAB.ER.24 PO SCH (20:01)
[2023-09-08] MEDS: ESCITALOPRAM 10 MG TAB PO SCH (21:51)
--- NOTE | 2023-09-09 05:29 | P.CNPUL ---
History of Present Illness Consult date: 09/09/23 Requesting physician: Syl Waldrop Reason for consult: pneumonia Chief complaint: Weakness, near fall, shortness of breath and cough History of present illness: I am seeing this patient in consultation today 09/09/2023 after she was brought in with the chief complaint of shortness of breath, cough, and generalized weakness. She had a near fall while at home. Patient is a 78-year-old white f emale with past medical history significant for coronary artery disease, hypertension, right-sided breast cancer status/post partial mastectomy and radiation, squamous cell carcinoma of the forehead, Vergara's palsy with left-sided facial weakness, bradycardia and sick sinus syndrome status post recent implanted dual-chamber pacemaker, among other things . Her primary care provider is Dr. Pizarro. Patient does follow in the pulmonary office with Dr. Ojeda, she states that she was told she has COPD and pulmonary fibrosis. Patient had a recent hospital admission 08/20/2023 through 08/23/2023, she was bradycardic and she ended up receiving a dual-chamber implanted pacemaker during this admission. Patient returned to the emergency room yesterday morning complaining of shortness of breath, coughing with copious white sputum, subjective fevers, generalized weakness and myalgias. Denies any hemoptysis. She states that she occasionally has trouble swallowing. Denies any chest pain, heart palpitations, lower extremity swelling. Denies syncope. Initial chest x- ray showed a possible focal retrocardiac infiltrate. D-dimer was elevated and a follow-up chest CTA was ordered. No evidence of pulmonary embolism. There was patchy areas of opacities in the upper lobes bilaterally and extensive consolidations in the lower lobes bilaterally. Consistent with multifocal pneumonia, there was some scattered mediastinal and hilar reactive lymphadenopathy. CBC shows leukocytosis with a WBC count of 17.3. BMP on arrival: Sodium 140, potassium 4.5, chloride 110, serum bicarb 17, BUN 38, creatinine 1.51, glucose 151. Troponin less than 0.012. NT proBNP 780. Negative for influenza, RSV, COVID. Patient is currently sitting up in bed, on 4 L/min nasal cannula, in no acute distress. She is weak. Overall nontoxic appearance. Her left chest incision appears to be healing nicely. Approximated without any erythema or drainage. Normal saline is infusing at 75 mL/h. She is empirically covered on a combination of azithromycin and Rocephin. Afebrile. Vital signs are stable. Review of Systems REVIEW OF SYSTEMS: CONSTITUTIONAL: Denies any recent significant weight loss or weight gain. EYES: Denies change in vision. EARS, NOSE, MOUTH, THROAT: Denies headaches, denies sore throat. Admits to chronic left facial droop. CARDIOVASCULAR: Denies chest pain, palpitations or syncopal episodes. RESPIRATORY: See HPI GASTROINTESTINAL: Denies change in appetite, abdominal pain. Admits intermittent nausea and vomiting as well as diarrhea that is chronic. States she has gluten intolerance. Admits occasional difficulty swallowing. GENITOURINARY: Denies hematuria, denies infections. MUSKULOSKELETAL: Denies pain, denies swelling. Admits chronic limited mobility of the left lower extremity and walks with a walker INTEGUMENTARY: Denies rash, denies eczema. NEUROLOGICAL: Denies recent memory loss, no recent seizure activity. PSYCHIATRIC: Denies anxiety, denies depression. HEMATOLOGIC/LYMPHATIC: Denies anemia, denies enlarged lymph node Past Medical History Past Medical History: Coronary Artery Disease (CAD), Cancer, Hypertension Additional Past Medical History / Comment(s): Back pain (DDD), breast cancer (in remission), states esophageous doesn't work right-has a hard time swallowing and stomach contents come back up, +COVID 06/30/21, " LOW HR AND OXYGEN LEVELS 89-91%-HAD ANTIBODY INFUSION. History of Any Multi-Drug Resistant Organisms: None Reported Past Surgical History: Back Surgery, Heart Catheterization, Joint Replacement Additional Past Surgical History / Comment(s): Breast masectomy(right), bilatera l hip replacements, back surgery X5(rods and screws/fusion), BILATERAL CATARACTS REMOVED WITH LENS IMPLANTS. Past Anesthesia/Blood Transfusion Reactions: Previous Problems w/ Anesthesia Additional Past Anesthesia/Blood Transfusion Reaction / Comment(s): Stopped breathing in recovery after spinal fusion revision in 2012 (7 hr surgery),no problems with 2 surgeries after that one. Past Psychological History: No Psychological Hx Reported Smoking Status: Never smoker Past Alcohol Use History: None Reported Past Drug Use History: None Reported - Past Family History Brother(s) Family Medical History: Cancer Additional Family Medical History / Comment(s): Colon cancer. Mother Family Medical History: Cancer Additional Family Medical History / Comment(s): Gallbladder. Father Family Medical History: Cancer Medications and Allergies Home Medications Medication Instructions Recorded Confirmed Type oxyBUTYnin chloride [oxyBUTYnin 5 mg PO HS 11/16/22 09/08/23 History chloride ER] Escitalopram [Lexapro] 10 mg PO HS 08/20/23 09/08/23 History amLODIPine [Norvasc] 10 mg PO HS 08/20/23 09/08/23 History Acetaminophen Tab [Tylenol] 650 mg PO Q6HR PRN #20 tab 08/27/23 09/08/23 Rx Albuterol Inhaler [Ventolin Hfa 1 - 2 puff INHALATION RT-Q6H PRN 09/08/23 09/08/23 History Inhaler] Aspirin EC [Ecotrin] 325 mg PO BID 09/08/23 09/08/23 History Famotidine [Pepcid] 20 mg PO BID 09/08/23 09/08/23 History Allergies Allergy/AdvReac Type Severity Reaction Status Date / Time benazepril Allergy Anaphylaxis Verified 09/08/23 12:42 codeine Allergy Rash/Hives Verified 09/08/23 12:42 gluten Allergy Abdominal Verified 09/08/23 12:42 Pain hydrocodone Allergy Rash/Hives Verified 09/08/23 12:42 hydromorphone [From Dilaudid] Allergy Rash/Hives Verified 09/08/23 12:42 ibuprofen [From Motrin] Allergy Unknown Verified 09/08/23 12:42 lisinopril Allergy Anaphylaxis Verified 09/08/23 12:42 meperidine [From Demerol] Allergy Rash/Hives Verified 09/08/23 12:42 morphine Allergy Rash/Hives Verified 09/08/23 12:42 propoxyphene Allergy Rash/Hives Verified 09/08/23 12:42 [From Darvocet-N] Tetracyclines Allergy Rash/Hives Verified 09/08/23 12:42 azathioprine [From Imuran] AdvReac liver Verified 09/08/23 12:42 inflammation clonidine [From Catapres] AdvReac Cough Verified 09/08/23 12:42 Physical Exam Vitals: Vital Signs Temp Pulse Pulse Resp BP BP Pulse Ox 09/09/23 01:36 98.0 F 55 L 15 107/60 97 09/08/23 19:36 98.0 F 59 L 15 106/46 96 09/08/23 14:55 66 18 145/67 94 L 09/08/23 14:06 95 09/08/23 14:00 88 L 09/08/23 13:08 78 18 166/70 94 L 09/08/23 11:20 93 L 09/08/23 11:09 99.6 F 74 16 154/66 89 L Intake and Output 09/08/23 09/08/23 09/09/23 14:59 22:59 06:59 Output Total 800 Balance -800 Output: Urine 800 Other: Voiding Method External Catheter Weight 81.193 kg 81.193 kg GENERAL EXAM: Alert, 78-year-old white female, appearing stated age, comfortable in no apparent distress. HEAD: Normocephalic and atraumatic EYES: Normal reaction of pupils, equal size. NOSE: Clear with pink turbinates. THROAT: No erythema or exudates. NECK: No masses, no JVD. CHEST: No chest wall deformity. Left chest incision clean, dry, approximated. No erythema or drainage. LUNGS: Equal air entry with bibasilar inspiratory crackles. No wheezing, rho nchi, focal dullness. On 4 L/min nasal cannula. No conversational dyspnea or accessory muscle use.. CVS: S1 and S2 normal with no audible murmur, regular rhythm. No extra heart sounds ABDOMEN: No hepatosplenomegaly, active bowel sounds, no guarding or rigidity. SPINE: No scoliosis or deformity SKIN: No rashes CENTRAL NERVOUS SYSTEM: There is a left facial droop, otherwise neurological exam is nonfocal. Tone is normal in all 4 extremities. EXTREMITIES: Limited active and passive range of motion of the left lower extremity. There is no peripheral edema, clubbing, or cyanosis. Peripheral p ulses are intact. Results - Laboratory Findings CBC and BMP: 09/08/23 11:49 09/08/23 11:49 PT/INR, D-dimer PT 9.7 sec (10.0-12.5) L 09/08/23 11:49 INR 0.9 (<1.2) 09/08/23 11:49 D-Dimer 5.35 mg/L FEU (<0.60) H 09/08/23 11:49 Abnormal lab findings: Abnormal Labs 09/08/23 09/08/23 09/08/23 11:49 11:49 11:49 WBC 17.3 H Neutrophils # 15.7 H Lymphocytes # 0.8 L PT 9.7 L D-Dimer 5.35 H Chloride Carbon Dioxide BUN Creatinine Glucose Urine Protein 2+ H 09/08/23 11:49 WBC Neutrophils # Lymphocytes # PT D-Dimer Chloride 110 H Carbon Dioxide 17 L BUN 38 H Creatinine 1.51 H Glucose 151 H Urine Protein - Diagnostic Findings Chest x-ray: image reviewed CT scan - chest: image reviewed Assessment and Plan Assessment: Acute hypoxemic respiratory failure, on 4 L/min nasal cannula, secondary to hospital-acquired multifocal pneumonia. Chest CTA did not show evidence of pulmonary embolism. There was patchy areas of opacities in the upper lobes bilaterally and extensive consolidations in the lower lobes bilaterally. Consistent with multifocal pneumonia, there was some scattered mediastinal and hilar likely reactive lymphadenopathy. 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 Collect sputum culture. Negative for RSV, influenza, COVID. Obtain swallow evaluation to rule out aspiration Continue DuoNeb treatments We will continue to follow I have personally seen and examined the patient, performed the documentation and the assessment and plan as written. Number of minutes spent on the visit:20 Time with Patient: Greater than 30
--- NOTE | 2023-09-09 07:22 | XR ---
EXAMINATION TYPE: XR chest 2V DATE OF EXAM: 09/09/2023 COMPARISON: 09/08/2023 HISTORY: 78-year-old female with respiratory failure, pneumonia TECHNIQUE: PA and lateral views FINDINGS: Left anterior chest wall pacemaker generator with right atrial and right ventricular leads. Surgical clips right axilla. Some residual patchy bibasilar opacities remain though appear to be increasing fr om prior. Mild interstitial density remains. Heart remains upper limits of normal in size. Lower thor acic and lumbar posterior fusion hardware. IMPRESSION: Patchy bibasilar densities remain but show some improvement from prior, especially in the retrocardia c region.
[2023-09-09] MEDS: IPRATROPIUM-ALBUTEROL 3 ML NEB INHALATION SCH (08:54)
[2023-09-09] MEDS: AZITHROMYCIN 500 MG TAB PO SCH (09:34)
[2023-09-09] MEDS: FAMOTIDINE 20 MG TAB PO SCH (09:34)
[2023-09-09] MEDS: ACETAMINOPHEN TAB 325 MG TAB PO PRN (09:40)
[2023-09-09] MEDS: PANTOPRAZOLE 40 MG/10 ML VIAL IVP SCH (09:58)
--- NOTE | 2023-09-09 14:14 | P.HPIM ---
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 Denies syncope. Elevated D-dimer, CTA reported no evidence of pulmonary embolism, multifocal pneumonia with some scattered mediastinal and hilar adenopathy likely reactive, follow-up in 3 months. viral studies negative. Currently maintaining O2 sats in the 90s on 4 L nasal cannula. Afebrile, Tmax 99.6, WBC 17.3, lactic acid 1.4. hemoglobin 11.5, platelets 285. Sodium 140, potassium 4.5, magnesium 1.8, bicarb 17, BUN 38, creatinine 1.51-baseline creatinine 1.1-1.3. Troponin negative x 1,proBNP 780. UA negative. IV fluid hydration, empiric antibiotics of Rocephin and azithromycin initiated in the ER. Review of Systems ROS Statement: Those systems with pertinent positive or pertinent negative responses have been documented in the HPI. ROS Other: All systems not noted in ROS Statement are negative. Past Medical History Past Medical History: Coronary Artery Disease (CAD), Cancer, Hypertension Additional Past Medical History / Comment(s): Back pain (DDD), breast cancer (in remission), states esophageous doesn't work right-has a hard time swallowing and stomach contents come back up, +COVID 06/30/21, " LOW HR AND OXYGEN LEVELS 89-91%-HAD ANTIBODY INFUSION. History of Any Multi-Drug Resistant Organisms: None Reported Past Surgical History: Back Surgery, Heart Catheterization, Joint Replacement Additional Past Surgical History / Comment(s): Breast masectomy(right), bilatera l hip replacements, back surgery X5(rods and screws/fusion), BILATERAL CATARACTS REMOVED WITH LENS IMPLANTS. Past Anesthesia/Blood Transfusion Reactions: Previous Problems w/ Anesthesia Additional Past Anesthesia/Blood Transfusion Reaction / Comment(s): Stopped breathing in recovery after spinal fusion revision in 2012 (7 hr surgery),no problems with 2 surgeries after that one. Past Psychological History: No Psychological Hx Reported Smoking Status: Never smoker Past Alcohol Use History: None Reported Past Drug Use History: None Reported - Past Family History Brother(s) Family Medical History: Cancer Additional Family Medical History / Comment(s): Colon cancer. Mother Family Medical History: Cancer Additional Family Medical History / Comment(s): Gallbladder. Father Family Medical History: Cancer Medications and Allergies Home Medications Medication Instructions Recorded Confirmed Type oxyBUTYnin chloride [oxyBUTYnin 5 mg PO HS 11/16/22 09/08/23 History chloride ER] Escitalopram [Lexapro] 10 mg PO HS 08/20/23 09/08/23 History amLODIPine [Norvasc] 10 mg PO HS 08/20/23 09/08/23 History Acetaminophen Tab [Tylenol] 650 mg PO Q6HR PRN #20 tab 08/27/23 09/08/23 Rx Albuterol Inhaler [Ventolin Hfa 1 - 2 puff INHALATION RT-Q6H PRN 09/08/23 09/08/23 History Inhaler] Aspirin EC [Ecotrin] 325 mg PO BID 09/08/23 09/08/23 History Famotidine [Pepcid] 20 mg PO BID 09/08/23 09/08/23 History Allergies Allergy/AdvReac Type Severity Reaction Status Date / Time benazepril Allergy Anaphylaxis Verified 09/08/23 12:42 codeine Allergy Rash/Hives Verified 09/08/23 12:42 gluten Allergy Abdominal Verified 09/08/23 12:42 Pain hydrocodone Allergy Rash/Hives Verified 09/08/23 12:42 hydromorphone [From Dilaudid] Allergy Rash/Hives Verified 09/08/23 12:42 ibuprofen [From Motrin] Allergy Unknown Verified 09/08/23 12:42 lisinopril Allergy Anaphylaxis Verified 09/08/23 12:42 meperidine [From Demerol] Allergy Rash/Hives Verified 09/08/23 12:42 morphine Allergy Rash/Hives Verified 09/08/23 12:42 propoxyphene Allergy Rash/Hives Verified 09/08/23 12:42 [From Darvocet-N] Tetracyclines Allergy Rash/Hives Verified 09/08/23 12:42 azathioprine [From Imuran] AdvReac liver Verified 09/08/23 12:42 inflammation clonidine [From Catapres] AdvReac Cough Verified 09/08/23 12:42 Physical Exam Vitals: Vital Signs Temp Pulse Pulse Resp BP BP Pulse Ox 09/09/23 11:52 60 09/09/23 11:41 60 09/09/23 09:07 64 09/09/23 08:54 60 09/09/23 07:00 98.5 F 62 17 119/63 95 09/09/23 01:36 98.0 F 55 L 15 107/60 97 09/08/23 19:36 98.0 F 59 L 15 106/46 96 09/08/23 14:55 66 18 145/67 94 L 09/08/23 14:06 95 09/08/23 14:00 88 L Intake and Output 09/08/23 09/09/23 09/09/23 22:59 06:59 14:59 Output Total 1150 Balance -1150 Output: Urine 1150 Other: Voiding Method External Catheter External Catheter Weight 81.193 kg General Impression: Alert and oriented x3, not in acute distress HEENT: Normocephalic atraumatic, extra-ocular movements intact, pupils equal and reactive to light bilaterally, mucous membranes moist. Cardiovascular: Heart regular rate and rhythm. Pacemaker surgical site well- approximated, without drainage. Chest: Equal air entry, respiratory effort mildly increased with bibasilar crackles and expiratory wheezing Abdomen: abdomen soft, non-tender, non-distended, no organomegaly Musculoskeletal: Pulses present and equal in all extremities, no peripheral edema Motor: no focal deficits noted Neurological: CN II-XII grossly intact, no focal motor or sensory deficits noted Skin: Intact with no visualized rashes, bandage on forehead secondary to recent resection of SCC Psych: Normal affect and mood Results CBC & Chem 7: 09/08/23 11:49 09/08/23 11:49 Assessment and Plan Assessment: Acute multifocal pneumonia, hospital-acquired. CTA reported some scattered mediastinal and hilar lymphadenopathy, likely reactive, follow-up in 3 months Acute hypoxic respiratory failure secondary to the above Leukocytosis secondary to #1 Acute on chronic kidney disease stage IIIa with baseline creatinine 1.1-1.3 secondary to nephrosclerosis. 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 Speech therapy consulted for swallow eval. Maintain IV fluid hydration, empiric antibiotics, avoid nephrotoxic agents. Blood cultures in progress, sputum culture ordered. Aggressive pulmonary toileting with nebulized bronchodilators. Increase ambulation as tolerated. Weaning of O2 as per parameters established by pulmonary, maintaining O2 sat 92% or greater. The impression and plan of care has been dictated as directed. : I performed a history and examination of this patient, discussed the same with the dictator. I agree with the dictator's note ,documented as a scribe. Any additional findings or plans will be noted.
[2023-09-10 08:59] LABS: Basophils % (A) 0 %; Eosinophils # (A) 0.1 k/uL (0-0.7); Eosinophils % (A) 1 %; HCT 30.4 % (34.0-46.0); Hypochromasia Slight; Lymphocytes # (A) 1.1 k/uL (1.0-4.8); Lymphocytes % (A) 12 %; MCHC 31.8 g/dL (31.0-37.0); MCV 91.3 fL (80.0-100.0); Mean Platelet Volume 8.2; Monocytes # (A) 0.5 k/uL (0-1.0); Monocytes % (A) 6 %; Neutrophils # (A) 7.6 k/uL (1.3-7.7); Neutrophils % (A) 80 %; Platelet Count 233 k/uL (150-450); RBC 3.33 m/uL (3.80-5.40); RDW 14.3 % (11.5-15.5); WBC 9.6 k/uL (3.8-10.6)
[2023-09-10 09:03] LABS: HGB 9.7 gm/dL (11.4-16.0)
[2023-09-10 09:06] LABS: African American GFR (CKD) 45 (>60 ml/min/1.73 sqM); Anion Gap 8 mmol/L; Blood Urea Nitrogen 22 mg/dL (7-17); Calcium 8.4 mg/dL (8.4-10.2); Carbon Dioxide 21 mmol/L (22-30); Chloride 111 mmol/L (98-107); Glucose 126 mg/dL (74-99); Non-African American GFR(CKD) 39 (>60 ml/min/1.73 sqM); Potassium 4.6 mmol/L (3.5-5.1); Sodium 140 mmol/L (137-145)
--- NOTE | 2023-09-10 10:40 | P.CRDCN ---
History of Present Illness History of present illness: HISTORY OF PRESENT ILLNESS: This is a 78-year-old female with a past medical history significant for sick sinus syndrome with recent dual-chamber pacemaker implantation, coronary artery disease, and hypertension. Patient follows in the office with Dr. Cason. We have been asked to see the patient in consultation for shortness of breath, pneumonia, and recent pacemaker implantation. Patient examined at the bedside. Patient states she presented to the hospital with a chief complaint of shortness of breath, cough, and low-grade fevers. Patient is being treated for pneumonia. She is currently receiving IV antibiotics. She denies any chest pain or pressure. Patient's recent pacemaker site is healing well with no signs of infection. DIAGNOSTICS: - EKG reveals sinus mechanism with no signs of acute ischemia. - Chest xray patchy bibasilar densities remain but show some improvement from prior especially in the retrocardiac region. - Laboratory data: WBC 17.3. Hemoglobin 11.5. Platelet count 285. D-dimer 5.35. Sodium 140. Potassium 4.5. BUN 38. Creatinine 1.51. Magnesium 1.8. Troponin negative x 1. proBNP 780 - Current home cardiac medications include amlodipine 10 mg at night and aspirin 325 mg twice a day. - Most recent echocardiogram obtained in October 2022 revealed ejection fraction 55 to 60%, mild MR, mild AR, and mild TR - Cardiac catheterization history: October 2019 revealing mild nonobstructive coronary artery disease REVIEW OF SYSTEMS: At the time of my exam: CONSTITUTIONAL: Denies fever or chills. HEENT: Denies blurred vision, vision changes, or eye pain. Denies hemoptysis CARDIOVASCULAR: Denies chest pain. Denies orthopnea. Denies PND. Denies pal pitations RESPIRATORY: Denies shortness of breath. GASTROINTESTINAL: Denies abdominal pain. Denies nausea or vomiting. HEMATOLOGIC: Denies bleeding disorders. GENITOURINARY: Denies any blood in urine. SKIN: Denies pruitis. Denies rash. PHYSICAL EXAM: VITAL SIGNS: Reviewed. GENERAL: Well-developed in no acute distress. HEENT: Head is normocephalic. Pupils are equal, round. Sclerae anicteric. Mucous membranes of the mouth are moist. Neck supple. No JVD or thyromegaly LUNGS: Respirations even and unlabored. Lungs with mild expiratory wheezing and rhonchi noted HEART: Regular rate and rhythm. S1 and S2 heard. ABDOMEN: Soft. Nondistended. Nontender. EXTREMITIES: Normal range of motion. No clubbing or cyanosis. Peripheral pulses intact. No lower extremity edema NEUROLOGIC: Awake and alert. Oriented x 3. 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 Reason unknown. Recommend decreasing to 81mg daily from a cardiac standpoint but will defer to patient's primary physician Patient's pacemaker appears to be functioning properly. Patient's pacemaker site is well-healed Patient has no active cardiac issues We will sign off. Please reconsult if needed. Nurse practitioner note has been reviewed by physician. Signing provider agrees with the documented findings, assessment, and plan of care documented by [employer]CHNICIAN as a scribe. Past Medical History Past Medical History: Coronary Artery Disease (CAD), Cancer, Hypertension Additional Past Medical History / Comment(s): Back pain (DDD), breast cancer (in remission), states esophageous doesn't work right-has a hard time swallowing and stomach contents come back up, +COVID 06/30/21, " LOW HR AND OXYGEN LEVELS 89-91%-HAD ANTIBODY INFUSION. History of Any Multi-Drug Resistant Organisms: None Reported Past Surgical History: Back Surgery, Heart Catheterization, Joint Replacement Additional Past Surgical History / Comment(s): Breast masectomy(right), bilateral hip replacements, back surgery X5(rods and screws/fusion), BILATERAL CATARACTS REMOVED WITH LENS IMPLANTS. Past Anesthesia/Blood Transfusion Reactions: Previous Problems w/ Anesthesia Additional Past Anesthesia/Blood Transfusion Reaction / Comment(s): Stopped breathing in recovery after spinal fusion revision in 2012 (7 hr surgery),no problems with 2 surgeries after that one. Past Psychological History: No Psychological Hx Reported Smoking Status: Never smoker Past Alcohol Use History: None Reported Past Drug Use History: None Reported - Past Family History Brother(s) Family Medical History: Cancer Additional Family Medical History / Comment(s): Colon cancer. Mother Family Medical History: Cancer Additional Family Medical History / Comment(s): Gallbladder. Father Family Medical History: Cancer Medications and Allergies Home Medications Medication Instructions Recorded Confirmed Type oxyBUTYnin chloride [oxyBUTYnin 5 mg PO HS 11/16/22 09/08/23 History chloride ER] Escitalopram [Lexapro] 10 mg PO HS 08/20/23 09/08/23 History amLODIPine [Norvasc] 10 mg PO HS 08/20/23 09/08/23 History Acetaminophen Tab [Tylenol] 650 mg PO Q6HR PRN #20 tab 08/27/23 09/08/23 Rx Albuterol Inhaler [Ventolin Hfa 1 - 2 puff INHALATION RT-Q6H PRN 09/08/23 09/08/23 History Inhaler] Aspirin EC [Ecotrin] 325 mg PO BID 09/08/23 09/08/23 History Famotidine [Pepcid] 20 mg PO BID 09/08/23 09/08/23 History Allergies Allergy/AdvReac Type Severity Reaction Status Date / Time benazepril Allergy Anaphylaxis Verified 09/08/23 12:42 codeine Allergy Rash/Hives Verified 09/08/23 12:42 gluten Allergy Abdominal Verified 09/08/23 12:42 Pain hydrocodone Allergy Rash/Hives Verified 09/08/23 12:42 hydromorphone [From Dilaudid] Allergy Rash/Hives Verified 09/08/23 12:42 ibuprofen [From Motrin] Allergy Unknown Verified 09/08/23 12:42 lisinopril Allergy Anaphylaxis Verified 09/08/23 12:42 meperidine [From Demerol] Allergy Rash/Hives Verified 09/08/23 12:42 morphine Allergy Rash/Hives Verified 09/08/23 12:42 propoxyphene Allergy Rash/Hives Verified 09/08/23 12:42 [From Darvocet-N] Tetracyclines Allergy Rash/Hives Verified 09/08/23 12:42 azathioprine [From Imuran] AdvReac liver Verified 09/08/23 12:42 inflammation clonidine [From Catapres] AdvReac Cough Verified 09/08/23 12:42 Physical Exam Vitals: Vital Signs Temp Pulse Pulse Resp BP BP Pulse Ox 09/09/23 09:07 64 09/09/23 08:54 60 09/09/23 07:00 98.5 F 62 17 119/63 95 09/09/23 01:36 98.0 F 55 L 15 107/60 97 09/08/23 19:36 98.0 F 59 L 15 106/46 96 09/08/23 14:55 66 18 145/67 94 L 09/08/23 14:06 95 09/08/23 14:00 88 L 09/08/23 13:08 78 18 166/70 94 L 09/08/23 11:20 93 L 09/08/23 11:09 99.6 F 74 16 154/66 89 L Intake and Output 09/08/23 09/09/23 09/09/23 22:59 06:59 14:59 Output Total 1150 Balance -1150 Output: Urine 1150 Other: Voiding Method External Catheter Weight 81.193 kg Results 09/10/23 07:56 09/10/23 07:56 Cardiac Enzymes 09/08/23 09/08/23 Range/Units 11:49 11:49 AST 27 (14-36) U/L Troponin I <0.012 (0.000-0.034) ng/mL Coagulation 09/08/23 Range/Units 11:49 PT 9.7 L (10.0-12.5) sec APTT 22.4 (22.0-30.0) sec CBC 09/08/23 Range/Units 11:49 WBC 17.3 H (3.8-10.6) k/uL RBC 4.06 (3.80-5.40) m/uL Hgb 11.5 (11.4-16.0) gm/dL Hct 35.7 (34.0-46.0) % Plt Count 285 (150-450) k/uL Comprehensive Metabolic Panel 09/08/23 Range/Units 11:49 Sodium 140 (137-145) mmol/L Potassium 4.5 (3.5-5.1) mmol/L Chloride 110 H (98-107) mmol/L Carbon Dioxide 17 L (22-30) mmol/L BUN 38 H (7-17) mg/dL Creatinine 1.51 H (0.52-1.04) mg/dL Glucose 151 H (74-99) mg/dL Calcium 9.4 (8.4-10.2) mg/dL AST 27 (14-36) U/L ALT 13 (4-34) U/L Alkaline Phosphatase 122 (38-126) U/L Total Protein 7.2 (6.3-8.2) g/dL Albumin 4.0 (3.5-5.0) g/dL Current Medications Generic Name Dose Route Start Last Admin Trade Name Freq PRN Reason Stop Dose Admin Acetaminophen 650 mg 09/08/23 19:36 09/09/23 09:40 Acetaminophen Tab 325 Mg Tab PO 650 mg Q6HR PRN Administration Mild Pain (Scale 1 to 3) Albuterol/Ipratropium 3 ml 09/08/23 14:42 Ipratropium-Albuterol 3 Ml Neb INHALATION RT-Q4H PRN shortness of breath Albuterol/Ipratropium 3 ml 09/09/23 08:00 09/09/23 08:54 Ipratropium-Albuterol 3 Ml Neb INHALATION 3 ml RT-QID RENUKA Administration Amlodipine Besylate 10 mg 09/08/23 21:00 09/08/23 20:01 Amlodipine 10 Mg Tab PO 10 mg HS RENUKA Administration Aspirin 325 mg 09/08/23 21:00 09/09/23 09:34 Aspirin 325 Mg Tab PO 325 mg BID RENUKA Administration Azithromycin 500 mg 09/09/23 09:00 09/09/23 09:34 Azithromycin 500 Mg Tab PO 09/10/23 09:01 500 mg DAILY RENUKA Administration Protocol Escitalopram Oxalate 10 mg 09/08/23 21:00 09/08/23 21:51 Escitalopram 10 Mg Tab PO 10 mg HS RENUKA Administration Famotidine 20 mg 09/09/23 09:30 09/09/23 09:34 Famotidine 20 Mg Tab PO 20 mg DAILY RENUKA Administration Ceftriaxone Sodium 2 gm/ 50 mls @ 100 mls/hr 09/09/23 09:00 09/09/23 09:33 Sodium Chloride IVPB 09/12/23 09:29 100 mls/hr Q24HR RENUKA Administration Protocol Sodium Chloride 1,000 mls @ 75 mls/hr 09/08/23 15:15 09/08/23 16:24 Saline 0.9% IV 75 mls/hr .[id number] RENUKA Administration Miscellaneous Information 1 each 09/08/23 14:37 Pneumonia Protocol Utilized 1 Each Misc PO ONCE PRN Per Protocol Oxybutynin Chloride 5 mg 09/08/23 21:00 09/08/23 20:01 Oxybutynin Xl 5 Mg Tab.Er.24 PO 5 mg HS RENUKA Administration Pantoprazole Sodium 40 mg 09/09/23 09:00 09/09/23 09:58 Pantoprazole 40 Mg/10 Ml Vial IVP 40 mg DAILY RENUKA Administration Tramadol HCl 50 mg 09/08/23 14:48 09/09/23 09:40 Tramadol 50 Mg Tab PO 50 mg Q6HR PRN Administration Pain Intake and Output 09/08/23 09/09/23 09/09/23 22:59 06:59 14:59 Output Total 1150 Balance -1150 Output: Urine 1150 Other: Voiding Method External Catheter Weight 81.193 kg 09/08/23 11:49 09/08/23 11:49
[2023-09-10] MEDS: guaiFENesin 600 MG TABLET.ER PO SCH (11:27)
--- NOTE | 2023-09-10 11:49 | P.PN ---
Subjective Progress Note Date: 09/10/23 Principal diagnosis: Pneumonia. I am seeing this patient in consultation today 09/09/2023 after she was brought in with the chief complaint of shortness of breath, cough, and generalized weakness. She had a near fall while at home. Patient is a 78-year-old white female with past medical history significant for coronary artery disease, hypertension, right-sided breast cancer status/post partial mastectomy and radiation, squamous cell carcinoma of the forehead, Vergara's palsy with left-sided facial weakness, bradycardia and sick sinus syndrome status post recent implanted dual-chamber pacemaker, among other things . Her primary care provider is Dr. Pizarro. Patient does follow in the pulmonary office with Dr. Ojeda, she states that she was told she has COPD and pulmonary fibrosis. Patient had a recent hospital admission 08/20/2023 through 08/23/2023, she was bradycardic and she ended up receiving a dual-chamber implanted pacemaker during this admission. Patient returned to the emergency room yesterday morning complaining of shortness of breath, coughing with copious white sputum, subjective fevers, generalized weakness and myalgias. Denies any hemoptysis. She states that she occasionally has trouble swallowing. Denies any chest pain, heart palpitations, lower extremity swelling. Denies syncope. Initial chest x- ray showed a possible focal retrocardiac infiltrate. D-dimer was elevated and a follow-up chest CTA was ordered. No evidence of pulmonary embolism. There was patchy areas of opacities in the upper lobes bilaterally and extensive consolidations in the lower lobes bilaterally. Consistent with multifocal pneumonia, there was some scattered mediastinal and hilar reactive lymphadenopathy. CBC shows leukocytosis with a WBC count of 17.3. BMP on arrival: Sodium 140, potassium 4.5, chloride 110, serum bicarb 17, BUN 38, creatinine 1.51, glucose 151. Troponin less than 0.012. NT proBNP 780. Negative for influenza, RSV, COVID. Patient is currently sitting up in bed, on 4 L/min nasal cannula, in no acute distress. She is weak. Overall nontoxic appearance. Her left chest incision appears to be healing nicely. Approximated without any erythema or drainage. Normal saline is infusing at 75 mL/h. She is empirically covered on a combination of azithromycin and Rocephin. Afebrile. Vital signs are stable. Progress note dated September 10, 2023. 78-year-old female seen in consultation yesterday. The patient presented with complaints of shortness of breath, cough, and generalized weakness. Chest x-ray revealed bilateral pneumonia. The patient does have a history of CAD, hypertension, breast cancer, squamous cell carcinoma of the forehead, Vergara's palsy, left facial weakness, and sick sinus syndrome. The patient does follow in the office with my partner. The patient apparently was told that she had a diagnosis of COPD and pulmonary fibrosis. She had a recent hospital admission between August 20 and August 23. Currently, the patient is resting comfortably. She currently continues on oxygen at 3 L by nasal cannula. The patient is getting saline at 75 cc an hour, and IV Rocephin. Will check a procalcitonin level, and also add some Mucinex, because one of her complaints is difficulty and coughing up phlegm. White count 9.6, hemoglobin 9.7, hematocrit 30.4, and platelet count normal. D-dimer was 5.35. Sodium 140, potassium 4.6, chlorides 111, CO2 21, BUN 22, and creatinine 1.31. Glucose is 126. Objective - Vital Signs Vital signs: Vital Signs Temp 97.5 F L 09/10/23 07:40 Pulse 64 09/10/23 09:19 Resp 19 09/10/23 07:40 BP 129/56 09/10/23 07:40 Pulse Ox 93 L 09/10/23 07:40 FiO2 Intake & Output 09/09/23 09/10/23 09/10/23 18:59 06:59 18:59 Intake Total 900 Output Total 700 2200 Balance -700 -1300 Intake: Intake, IV Titration 900 Amount Sodium Chloride 0.9% 1, 900 000 ml @ 75 mls/hr IV . [id number] [facility] Rx#:[id number] Output: Urine 700 2200 Other: Voiding Method External Catheter Toilet External Catheter - Exam No acute distress, oriented 3. No respiratory distress. Currently on 3 L. No conversational dyspnea. HEENT examination is grossly unremarkable. Mucous membranes are moist. No oral lesions. Neck supple. Full range of motion. No adenopathy thyromegaly or neck vein distention. Cardiovascular examination reveals regular rhythm rate. S1-S2 normal. No S3 or S4. No discernible murmur noted. Heart rate 64 bpm. Lungs reveal scattered rhonchi. No wheezes. No crackles. Breath sounds are equal bilaterally. Saturations are 93 to 95%. Abdomen soft bowel sounds are heard. No masses or tenderness. Extremities are intact. No cyanosis clubbing or edema. Skin is without rash or lesion. Neurologic examination is brief but nonfocal. - Labs CBC & Chem 7: 09/10/23 07:56 09/10/23 07:56 Labs: Abnormal Lab Results - Last 24 Hours (Table) 09/10/23 09/10/23 Range/Units 07:56 07:56 RBC 3.33 L (3.80-5.40) m/uL Hgb 9.7 L D (11.4-16.0) gm/dL Hct 30.4 L (34.0-46.0) % Chloride 111 H (98-107) mmol/L Carbon Dioxide 21 L (22-30) mmol/L BUN 22 H (7-17) mg/dL Creatinine 1.31 H (0.52-1.04) mg/dL Glucose 126 H (74-99) mg/dL Microbiology - Last 24 Hours (Table) 09/08/23 16:00 Blood Culture - Preliminary Blood Assessment and Plan Assessment: Acute hypoxemic respiratory failure, secondary to hospital-acquired multifocal pneumonia. Leukocytosis, secondary to above. Acute on chronic kidney disease. History of symptomatic bradycardia and sick sinus syndrome status post implanted dual-chamber pacemaker 08/23/2023. History of COPD, stable. History of coronary artery disease. History of hypertension. History of right-sided breast cancer status post partial mastectomy and radiation. History of recent skin biopsy, positive for squamous cell carcinoma of the forehead. 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 Plan: Plan dated September 10, 2023. The patient continues on Rocephin. The patient is also getting saline at 75 cc an hour. We will check a procalcitonin level. We add Mucinex to her regimen. No additional recommendations are made. In addition, the patient is getting breathing treatments, with albuterol sulfate, and ipratropium bromide. We will continue to follow the patient, and make recommendations along the way. Prognosis is guarded. Time with Patient: Less than 30
--- NOTE | 2023-09-10 14:19 | P.PN ---
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 Denies syncope. Elevated D-dimer, CTA reported no evidence of pulmonary embolism, multifocal pneumonia with some scattered mediastinal and hilar adenopathy likely reactive, follow-up in 3 months. viral studies negative. Currently maintaining O2 sats in the 90s on 4 L nasal cannula. Afebrile, Tmax 99.6, WBC 17.3, lactic acid 1.4. hemoglobin 11.5, platelets 285. Sodium 140, potassium 4.5, magnesium 1.8, bicarb 17, BUN 38, creatinine 1.51-baseline creatinine 1.1-1.3. Troponin negative x 1,proBNP 780. UA negative. IV fluid hydration, empiric antibiotics of Rocephin and azithromycin initiated in the ER. 09/10/2023 evaluated by cardiology, recommendations noted. Ambulating, tolerating exertion well. Continues on IV Rocephin , nebulized bronchodilators, Mucinex and gentle IV fluid hydration maintaining O2 sats in the low 90s on 3 L nasal cannula. Reports earlier this morning she had forgotten to put her nasal cannula back on and dropped her O2 sats to 81% on room air. Nonproductive cough .afebrile, normal WBC, hemoglobin decreased 9.7 renal function improving with BUN 22, creatinine 1.31. Blood sugars controlled. Objective - Vital Signs Vital signs: Vital Signs Temp 97.5 F L 09/10/23 07:40 Pulse 64 09/10/23 12:27 Resp 19 09/10/23 07:40 BP 129/56 09/10/23 07:40 Pulse Ox 93 L 09/10/23 07:40 FiO2 Intake & Output 09/09/23 09/10/23 09/10/23 18:59 06:59 18:59 Intake Total 900 Output Total 700 2200 Balance -700 -1300 Intake: Intake, IV Titration 900 Amount Sodium Chloride 0.9% 1, 900 000 ml @ 75 mls/hr IV . [id number] [facility] Rx#:[id number] Output: Urine 700 2200 Other: Voiding Method External Catheter Toilet External Catheter - Exam General Impression: Alert and oriented x3, sitting up in chair, not in acute distress HEENT: Normocephalic atraumatic, extra-ocular movements intact, pupils equal and reactive to light bilaterally, mucous membranes moist. Cardiovascular: Heart regular rate and rhythm. Pacemaker surgical site well-a pproximated Chest: Equal air entry, respiratory effort mild rhonchi scattered, expiratory wheeze Abdomen: abdomen soft, non-tender, non-distended, no organomegaly Musculoskeletal: Pulses present and equal in all extremities, no peripheral edema Motor: no focal deficits noted Neurological: CN II-XII grossly intact, no focal motor or sensory deficits noted Skin: Intact with no visualized rashes, bandage on forehead secondary to recent resection of SCC Psych: Normal affect and mood - Labs CBC & Chem 7: 09/10/23 07:56 09/10/23 07:56 Labs: Abnormal Lab Results - Last 24 Hours (Table) 09/10/23 09/10/23 Range/Units 07:56 07:56 RBC 3.33 L (3.80-5.40) m/uL Hgb 9.7 L D (11.4-16.0) gm/dL Hct 30.4 L (34.0-46.0) % Chloride 111 H (98-107) mmol/L Carbon Dioxide 21 L (22-30) mmol/L BUN 22 H (7-17) mg/dL Creatinine 1.31 H (0.52-1.04) mg/dL Glucose 126 H (74-99) mg/dL Microbiology - Last 24 Hours (Table) 09/08/23 16:00 Blood Culture - Preliminary Blood Assessment and Plan Assessment: Acute multifocal pneumonia, hospital-acquired. 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 Aggressive pulmonary toileting with ceftriaxone, nebulized bronchodilators, Mucinex. Procalcitonin pending. increase ambulation as tolerated. Weaning of O2 as per parameters established by pulmonary, maintaining O2 sat 92% or greater. Close monitoring of hemoglobin, renal function with repeat labs ordered for a.m. The impression and plan of care has been dictated as directed. : I performed a history and examination of this patient, discussed the same with the dictator. I agree with the dictator's note ,documented as a scribe. Any additional findings or plans will be noted.
[2023-09-11 07:56] LABS: Basophils % (A) 1 %; Eosinophils # (A) 0.2 k/uL (0-0.7); Eosinophils % (A) 2 %; HCT 29.4 % (34.0-46.0); HGB 9.2 gm/dL (11.4-16.0); Hypochromasia Slight; Lymphocytes # (A) 1.1 k/uL (1.0-4.8); Lymphocytes % (A) 13 %; MCH 28.5 pg (25.0-35.0); MCHC 31.2 g/dL (31.0-37.0); MCV 91.5 fL (80.0-100.0); Mean Platelet Volume 8.3; Monocytes # (A) 0.6 k/uL (0-1.0); Monocytes % (A) 7 %; Neutrophils # (A) 6.3 k/uL (1.3-7.7); Neutrophils % (A) 76 %; Platelet Count 240 k/uL (150-450); RBC 3.22 m/uL (3.80-5.40); RDW 14.3 % (11.5-15.5); WBC 8.3 k/uL (3.8-10.6)
[2023-09-11 08:53] LABS: African American GFR (CKD) 52 (>60 ml/min/1.73 sqM); Anion Gap 8 mmol/L; Blood Urea Nitrogen 18 mg/dL (7-17); Calcium 8.8 mg/dL (8.4-10.2); Carbon Dioxide 19 mmol/L (22-30); Chloride 115 mmol/L (98-107); Glucose 91 mg/dL (74-99); Non-African American GFR(CKD) 45 (>60 ml/min/1.73 sqM); Potassium 4.6 mmol/L (3.5-5.1); Sodium 142 mmol/L (137-145)
--- NOTE | 2023-09-11 12:05 | P.PN ---
Subjective Progress Note Date: 09/11/23 Principal diagnosis: Pneumonia. I am seeing this patient in consultation today 09/09/2023 after she was brought in with the chief complaint of shortness of breath, cough, and generalized weakness. She had a near fall while at home. Patient is a 78-year-old white female with past medical history significant for coronary artery disease, hypertension, right-sided breast cancer status/post partial mastectomy and radiation, squamous cell carcinoma of the forehead, Vergara's palsy with left-sided facial weakness, bradycardia and sick sinus syndrome status post recent implanted dual-chamber pacemaker, among other things . Her primary care provider is Dr. Pizarro. Patient does follow in the pulmonary office with Dr. Ojeda, she states that she was told she has COPD and pulmonary fibrosis. Patient had a recent hospital admission 08/20/2023 through 08/23/2023, she was bradycardic and she ended up receiving a dual-chamber implanted pacemaker during this admission. Patient returned to the emergency room yesterday morning complaining of shortness of breath, coughing with copious white sputum, subjective fevers, generalized weakness and myalgias. Denies any hemoptysis. She states that she occasionally has trouble swallowing. Denies any chest pain, heart palpitations, lower extremity swelling. Denies syncope. Initial chest x- ray showed a possible focal retrocardiac infiltrate. D-dimer was elevated and a follow-up chest CTA was ordered. No evidence of pulmonary embolism. There was patchy areas of opacities in the upper lobes bilaterally and extensive consolidations in the lower lobes bilaterally. Consistent with multifocal pneumonia, there was some scattered mediastinal and hilar reactive lymphadenopathy. CBC shows leukocytosis with a WBC count of 17.3. BMP on arrival: Sodium 140, potassium 4.5, chloride 110, serum bicarb 17, BUN 38, creatinine 1.51, glucose 151. Troponin less than 0.012. NT proBNP 780. Negative for influenza, RSV, COVID. Patient is currently sitting up in bed, on 4 L/min nasal cannula, in no acute distress. She is weak. Overall nontoxic appearance. Her left chest incision appears to be healing nicely. Approximated without any erythema or drainage. Normal saline is infusing at 75 mL/h. She is empirically covered on a combination of azithromycin and Rocephin. Afebrile. Vital signs are stable. Progress note dated September 10, 2023. 78-year-old female seen in consultation yesterday. The patient presented with complaints of shortness of breath, cough, and generalized weakness. Chest x-ray revealed bilateral pneumonia. The patient does have a history of CAD, hypertension, breast cancer, squamous cell carcinoma of the forehead, Vergara's palsy, left facial weakness, and sick sinus syndrome. The patient does follow in the office with my partner. The patient apparently was told that she had a diagnosis of COPD and pulmonary fibrosis. She had a recent hospital admission between August 20 and August 23. Currently, the patient is resting comfortably. She currently continues on oxygen at 3 L by nasal cannula. The patient is getting saline at 75 cc an hour, and IV Rocephin. Will check a procalcitonin level, and also add some Mucinex, because one of her complaints is difficulty and coughing up phlegm. White count 9.6, hemoglobin 9.7, hematocrit 30.4, and platelet count normal. D-dimer was 5.35. Sodium 140, potassium 4.6, chlorides 111, CO2 21, BUN 22, and creatinine 1.31. Glucose is 126. Progress note dated September 11, 2023. 78-year-old female seen for pneumonia. She is seen again today in room 460. She continues on oxygen at 3 L, and saline at 75 cc an hour. We have asked her to use incentive spirometer, every hour while awake, and will also get her a flutter valve. The patient will have another chest x-ray today. She did cough up some sputum, which will be sent to the laboratory for analysis. Current laboratory includes a white count 8.3, hemoglobin 9.2, hematocrit 29.4, and a normal platelet count. Sodium 142, potassium 4.6, chlorides 115, CO2 19, BUN 18, creatinine 1.15. Procalcitonin level, was 5.01. Blood cultures are currently pending are negative. Chest x-ray in my opinion does show some improvement. Objective - Vital Signs Vital signs: Vital Signs Temp 98.2 F 09/11/23 07:03 Pulse 69 09/11/23 07:03 Resp 18 09/11/23 08:30 BP 134/67 09/11/23 07:03 Pulse Ox 92 L 09/11/23 07:03 FiO2 Intake & Output 09/10/23 09/11/23 09/11/23 18:59 06:59 18:59 Intake Total 950 240 Balance 950 240 Intake: Intake, IV Titration 950 Amount Sodium Chloride 0.9% 1, 900 000 ml @ 75 mls/hr IV . [id number] RENUKA Rx#:[id number] cefTRIAXone 2 gm In 50 Sodium Chloride 0.9% 50 ml @ 100 mls/hr IVPB Q24HR RENUKA Rx#:[id number] Oral 240 Other: Voiding Method Toilet Toilet # Voids 2 1 - Exam No acute distress, oriented 3. No respiratory distress. Currently on 3 L. No conversational dyspnea. HEENT examination is grossly unremarkable. Mucous membranes are moist. No oral lesions. Neck supple. Full range of motion. No adenopathy thyromegaly or neck vein distention. Cardiovascular examination reveals regular rhythm rate. S1-S2 normal. No S3 or S4. No discernible murmur noted. Heart rate 69 bpm. Lungs reveal scattered rhonchi. No wheezes. No crackles. Breath sounds are equal bilaterally. Saturation is 93%. Abdomen soft bowel sounds are heard. No masses or tenderness. Extremities are intact. No cyanosis clubbing or edema. Skin is without rash or lesion. Neurologic examination is brief but nonfocal. - Labs CBC & Chem 7: 09/11/23 06:59 09/11/23 06:59 Labs: Abnormal Lab Results - Last 24 Hours (Table) 09/10/23 09/11/23 09/11/23 Range/Units 09:43 06:59 06:59 RBC 3.22 L (3.80-5.40) m/uL Hgb 9.2 L (11.4-16.0) gm/dL Hct 29.4 L (34.0-46.0) % Chloride 115 H (98-107) mmol/L Carbon Dioxide 19 L (22-30) mmol/L BUN 18 H (7-17) mg/dL Creatinine 1.15 H (0.52-1.04) mg/dL Procalcitonin 5.01 H (0.02-0.09) ng/mL Microbiology - Last 24 Hours (Table) 09/08/23 16:00 Blood Culture - Preliminary Blood Assessment and Plan Assessment: Acute hypoxemic respiratory failure, secondary to hospital-acquired multifocal pneumonia. Leukocytosis, secondary to above. Acute on chronic kidney disease. History of symptomatic bradycardia and sick sinus syndrome status post implanted dual-chamber pacemaker 08/23/2023. History of COPD, stable. History of coronary artery disease. History of hypertension. History of right-sided breast cancer status post partial mastectomy and radiation. History of recent skin biopsy, positive for squamous cell carcinoma of the forehead. 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 Plan: Plan dated September 10, 2023. The patient continues on Rocephin. The patient is also getting saline at 75 cc an hour. We will check a procalcitonin level. We add Mucinex to her regimen. No additional recommendations are made. In addition, the patient is getting breathing treatments, with albuterol sulfate, and ipratropium bromide. We will continue to follow the patient, and make recommendations along the way. Prognosis is guarded. Plan dated September 11, 2023. The patient had a chest x-ray today, which in my opinion, it does show some improvement. Her procalcitonin level was elevated. She continues on antibiotics. The patient will use the incentive spirometer, every hour while awake, and use a flutter valve at least 4-6 times a day. Labs, x-rays, medications are reviewed. The patient's prognosis is good. The patient will likely be discharged on Wednesday. No additional recommendations are made. Prognosis is guarded. We will continue to follow the patient, and make recommendations. Time with Patient: Less than 30
--- NOTE | 2023-09-11 12:36 | XR ---
EXAM: XR chest 1V portable CLINICAL INDICATION:Female, 78 years old with history of pneumonia; [facility] COMPARISON: 09/09/2023 TECHNIQUE: Chest single view. FINDINGS: Lines/tubes/devices: EKG leads overlie the chest. No indwelling lines are seen. Cardiomediastinum: Cardiac silhouette appears stable, mildly enlarged. Stable mediastinal silhouette. Stable position of left chest pacemaker device with lead tips over the RA and RV. Vasculature: Mild vascular congestion and interstitial densities. Lungs/pleura: Improved aeration of right basilar patchy opacity with slight residual. Opacity in the retrocardiac l eft lung base shows little interval change. Slightly greater blunting of the left costophrenic angle. Right costophrenic angle is sharp. No evidence of pneumothorax. Bones/soft tissues: Bony thorax appears grossly unchanged as seen. Degenerative changes. Partially seen lumbar fusion kanika dware. Regional soft tissues appear unremarkable. IMPRESSION: 1. Mild cardiomegaly and vascular congestion, similar to previous. 2. Slightly greater blunting of the left costophrenic angle, suggestive of small effusion with adjac ent atelectasis and/or infiltrate. 3. Improved aeration of right basilar patchy opacity with slight residual. Opacity in the retrocardi ac left lung base shows little interval change.
--- NOTE | 2023-09-11 14:20 | P.PN ---
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 Denies syncope. Elevated D-dimer, CTA reported no evidence of pulmonary embolism, multifocal pneumonia with some scattered mediastinal and hilar adenopathy likely reactive, follow-up in 3 months. viral studies negative. maintaining O2 sats in the 90s on 4 L nasal cannula. Afebrile, Tmax 99.6, WBC 17.3, lactic acid 1.4. h emoglobin 11.5, platelets 285. Sodium 140, potassium 4.5, magnesium 1.8, bicarb 17, BUN 38, creatinine 1.51-baseline creatinine 1.1-1.3. Troponin negative x 1,proBNP 780. UA negative. IV fluid hydration, empiric antibiotics of Rocephin and azithromycin initiated in the ER. 09/10/2023 evaluated by cardiology, recommendations noted. Ambulating, tolerating exertion well. Continues on IV Rocephin , nebulized bronchodilators, Mucinex and gentle IV fluid hydration maintaining O2 sats in the low 90s on 3 L nasal cannula. Reports earlier this morning she had forgotten to put her nasal cannula back on and dropped her O2 sats to 81% on room air. Nonproductive cough .afebrile, normal WBC, hemoglobin decreased 9.7 renal function improving with BUN 22, creatinine 1.31. Blood sugars 09/11/23: Patient seen and evaluated bedside, on evaluation patient is awake and alert, patient does complain of cough, patient is on 3 L of oxygen, does not wear oxygen at home PHYSICAL EXAMINATION: GENERAL: The patient is alert and oriented x3, nasal cannula in place HEENT: Pupils are round and equally reacting to light. EOMI. No scleral icterus. No conjunctival pallor. Normocephalic, atraumatic. No pharyngeal erythema. No thyromegaly. CARDIOVASCULAR: S1 and S2 present. No murmurs, rubs, or gallops. PULMONARY: Chest is clear to auscultation, no wheezing or crackles. ABDOMEN: Soft, nontender, nondistended, normoactive bowel sounds. No palpable organomegaly. MUSCULOSKELETAL: No joint swelling or deformity. EXTREMITIES: No cyanosis, clubbing, or pedal edema. NEUROLOGICAL: Gross neurological examination did not reveal any focal deficits. SKIN: No rashes. Assessment and plan * Multifocal pneumonia * Acute hypoxic respiratory failure * History of sick sinus syndrome with pacemaker in place * History of pulmonary fibrosis and COPD with acute exacerbation * Coronary artery disease * History of breast cancer in remission * In regards to multifocal pneumonia continue patient on IV Rocephin day 3, followed up by pulmonary medicine * Regard to acute hypoxemic respiratory failure continue breathing treatment with DuoNeb continue Mucinex incentive spirometer * Regards to history of sick sinus syndrome patient has pacemaker in place, continue aspirin * Regards to history of COPD with exacerbation pulmonary medicine following Objective - Vital Signs Vital signs: Vital Signs Temp 98.2 F 09/11/23 07:03 Pulse 69 09/11/23 07:03 Resp 18 09/11/23 08:30 BP 134/67 09/11/23 07:03 Pulse Ox 92 L 09/11/23 07:03 FiO2 Intake & Output 09/10/23 09/11/23 09/11/23 18:59 06:59 18:59 Intake Total 950 240 Balance 950 240 Intake: Intake, IV Titration 950 Amount Sodium Chloride 0.9% 1, 900 000 ml @ 75 mls/hr IV . [id number] RENUKA Rx#:[id number] cefTRIAXone 2 gm In 50 Sodium Chloride 0.9% 50 ml @ 100 mls/hr IVPB Q24HR RENUKA Rx#:[id number] Oral 240 Other: Voiding Method Toilet Toilet # Voids 2 1 - Labs CBC & Chem 7: 09/11/23 06:59 09/11/23 06:59 Labs: Abnormal Lab Results - Last 24 Hours (Table) 09/10/23 09/11/23 09/11/23 Range/Units 09:43 06:59 06:59 RBC 3.22 L (3.80-5.40) m/uL Hgb 9.2 L (11.4-16.0) gm/dL Hct 29.4 L (34.0-46.0) % Chloride 115 H (98-107) mmol/L Carbon Dioxide 19 L (22-30) mmol/L BUN 18 H (7-17) mg/dL Creatinine 1.15 H (0.52-1.04) mg/dL Procalcitonin 5.01 H (0.02-0.09) ng/mL Microbiology - Last 24 Hours (Table) 09/08/23 16:00 Blood Culture - Preliminary Blood
[2023-09-12 10:09] LABS: HCT 31.2 % (37.2-46.3); HGB 9.8 g/dL (12.0-15.0); MCHC 31.4 g/dL (32.0-37.0); MCV 89.1 FL (80.0-97.0); Mean Platelet Volume 10.6 FL (9.5-12.2); NRBC Per 100 WBC 0 X 10*3/uL (0.00-0.01); Platelet Count 289 X 10*3/uL (140-440); RDW 14.2 % (11.5-14.5); WBC 9.29 X 10*3/uL (4.50-10.00)
--- NOTE | 2023-09-12 10:38 | P.PN ---
Subjective Progress Note Date: 09/12/23 Principal diagnosis: Pneumonia. I am seeing this patient in consultation today 09/09/2023 after she was brought in with the chief complaint of shortness of breath, cough, and generalized weakness. She had a near fall while at home. Patient is a 78-year-old white female with past medical history significant for coronary artery disease, hypertension, right-sided breast cancer status/post partial mastectomy and radiation, squamous cell carcinoma of the forehead, Vergara's palsy with left-sided facial weakness, bradycardia and sick sinus syndrome status post recent implanted dual-chamber pacemaker, among other things . Her primary care provider is Dr. Pizarro. Patient does follow in the pulmonary office with Dr. Ojeda, she states that she was told she has COPD and pulmonary fibrosis. Patient had a recent hospital admission 08/20/2023 through 08/23/2023, she was bradycardic and she ended up receiving a dual-chamber implanted pacemaker during this admission. Patient returned to the emergency room yesterday morning complaining of shortness of breath, coughing with copious white sputum, subjective fevers, generalized weakness and myalgias. Denies any hemoptysis. She states that she occasionally has trouble swallowing. Denies any chest pain, heart palpitations, lower extremity swelling. Denies syncope. Initial chest x- ray showed a possible focal retrocardiac infiltrate. D-dimer was elevated and a follow-up chest CTA was ordered. No evidence of pulmonary embolism. There was patchy areas of opacities in the upper lobes bilaterally and extensive consolidations in the lower lobes bilaterally. Consistent with multifocal pneumonia, there was some scattered mediastinal and hilar reactive lymphadenopathy. CBC shows leukocytosis with a WBC count of 17.3. BMP on arrival: Sodium 140, potassium 4.5, chloride 110, serum bicarb 17, BUN 38, creatinine 1.51, glucose 151. Troponin less than 0.012. NT proBNP 780. Negative for influenza, RSV, COVID. Patient is currently sitting up in bed, on 4 L/min nasal cannula, in no acute distress. She is weak. Overall nontoxic appearance. Her left chest incision appears to be healing nicely. Approximated without any erythema or drainage. Normal saline is infusing at 75 mL/h. She is empirically covered on a combination of azithromycin and Rocephin. Afebrile. Vital signs are stable. Progress note dated September 10, 2023. 78-year-old female seen in consultation yesterday. The patient presented with complaints of shortness of breath, cough, and generalized weakness. Chest x-ray revealed bilateral pneumonia. The patient does have a history of CAD, hypertension, breast cancer, squamous cell carcinoma of the forehead, Vergara's palsy, left facial weakness, and sick sinus syndrome. The patient does follow in the office with my partner. The patient apparently was told that she had a diagnosis of COPD and pulmonary fibrosis. She had a recent hospital admission between August 20 and August 23. Currently, the patient is resting comfortably. She currently continues on oxygen at 3 L by nasal cannula. The patient is getting saline at 75 cc an hour, and IV Rocephin. Will check a procalcitonin level, and also add some Mucinex, because one of her complaints is difficulty and coughing up phlegm. White count 9.6, hemoglobin 9.7, hematocrit 30.4, and platelet count normal. D-dimer was 5.35. Sodium 140, potassium 4.6, chlorides 111, CO2 21, BUN 22, and creatinine 1.31. Glucose is 126. Progress note dated September 11, 2023. 78-year-old female seen for pneumonia. She is seen again today in room 460. She continues on oxygen at 3 L, and saline at 75 cc an hour. We have asked her to use incentive spirometer, every hour while awake, and will also get her a flutter valve. The patient will have another chest x-ray today. She did cough up some sputum, which will be sent to the laboratory for analysis. Current laboratory includes a white count 8.3, hemoglobin 9.2, hematocrit 29.4, and a normal platelet count. Sodium 142, potassium 4.6, chlorides 115, CO2 19, BUN 18, creatinine 1.15. Procalcitonin level, was 5.01. Blood cultures are currently pending are negative. Chest x-ray in my opinion does show some improvement. Progress note dated September 12, 2023. 78-year-old female seen today in room 460. The patient is currently on saline at 75 cc an hour, and oxygen, by nasal cannula, at 3 L. Chest x-ray done yesterday does show some improvement. Clinically, the patient is feeling a bit better. Still with significant chest congestion, cough, and tightness in her chest. Her white count is 9.29, hemoglobin 9.8, hematocrit 31.2, and platelet count is 289,000. No additional labs today. Her most recent procalcitonin level on 09 September was 5.01. Thus far, blood and sputum sampling is negative or pending. Objective - Vital Signs Vital signs: Vital Signs Temp 98.8 F 09/12/23 07:30 Pulse 85 09/12/23 07:59 Resp 18 09/12/23 07:30 BP 147/72 09/12/23 07:30 Pulse Ox 96 09/12/23 07:30 FiO2 Intake & Output 09/11/23 09/12/23 09/12/23 18:59 06:59 18:59 Intake Total 540 Balance 540 Intake: Oral 540 Other: Voiding Method Toilet # Voids 5 1 - Exam No acute distress, oriented 3. No respiratory distress. Currently on 3 L. No conversational dyspnea. HEENT examination is grossly unremarkable. Mucous membranes are moist. No oral lesions. Neck supple. Full range of motion. No adenopathy thyromegaly or neck vein distention. Cardiovascular examination reveals regular rhythm rate. S1-S2 normal. No S3 or S4. No discernible murmur noted. Heart rate 85 bpm. Lungs reveal scattered rhonchi. No wheezes. No crackles. Breath sounds are equal bilaterally. Saturation is 96 %. Abdomen soft bowel sounds are heard. No masses or tenderness. Extremities are intact. No cyanosis clubbing or edema. Skin is without rash or lesion. Neurologic examination is brief but nonfocal. - Labs CBC & Chem 7: 09/12/23 05:51 09/11/23 06:59 Labs: Abnormal Lab Results - Last 24 Hours (Table) 09/12/23 Range/Units 05:51 RBC 3.50 L (4.10-5.20) X 10*6/uL Hgb 9.8 L (12.0-15.0) g/dL Hct 31.2 L (37.2-46.3) % MCHC 31.4 L (32.0-37.0) g/dL Microbiology - Last 24 Hours (Table) 09/11/23 11:14 Gram Stain - Preliminary Sputum 09/08/23 16:00 Blood Culture - Preliminary Blood Assessment and Plan Assessment: Acute hypoxemic respiratory failure, secondary to hospital-acquired multifocal pneumonia. Leukocytosis, secondary to above. Acute on chronic kidney disease. History of symptomatic bradycardia and sick sinus syndrome status post implanted dual-chamber pacemaker 08/23/2023. History of COPD, stable. History of coronary artery disease. History of hypertension. History of right-sided breast cancer status post partial mastectomy and radiation. History of recent skin biopsy, positive for squamous cell carcinoma of the forehead. 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 Plan: Plan dated September 10, 2023. The patient continues on Rocephin. The patient is also getting saline at 75 cc an hour. We will check a procalcitonin level. We add Mucinex to her regimen. No additional recommendations are made. In addition, the patient is getting breathing treatments, with albuterol sulfate, and ipratropium bromide. We will continue to follow the patient, and make recommendations along the way. Prognosis is guarded. Plan dated September 11, 2023. The patient had a chest x-ray today, which in my opinion, it does show some improvement. Her procalcitonin level was elevated. She continues on antibiotics. The patient will use the incentive spirometer, every hour while awake, and use a flutter valve at least 4-6 times a day. Labs, x-rays, medications are reviewed. The patient's prognosis is good. The patient will likely be discharged on Wednesday. No additional recommendations are made. Prognosis is guarded. We will continue to follow the patient, and make recommendations. Plan dated September 12, 2023. The patient's procalcitonin level was elevated. She continues on antibiotics. We also recommend the use of the flutter valve, and incentive spirometry. The patient continues on saline at 75 cc an hour. She is on oxygen at 3 L. Labs, x-rays, medications are reviewed. We will continue to follow the patient, and make recommendations along the way. Sputum sampling in the laboratory, is currently pending. Blood cultures are negative. Time with Patient: Less than 30
[2023-09-12 10:52] LABS: BUN/Creat Ratio 9.14 Ratio (12.00-20.00); Blood Urea Nitrogen 12.8 mg/dL (9.0-27.0); Calcium 9.4 mg/dL (8.7-10.3); Carbon Dioxide 24.5 mmol/L (21.6-31.8); Chloride 107 mmol/L (96-109); Glucose 91 mg/dL (70-110); Potassium 4.3 mmol/L (3.5-5.5); Sodium 142 mmol/L (135-145)
[2023-09-12] MEDS: CEFDINIR 300 MG CAP PO SCH (11:48)
--- NOTE | 2023-09-12 12:54 | P.PN ---
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 Denies syncope. Elevated D-dimer, CTA reported no evidence of pulmonary embolism, multifocal pneumonia with some scattered mediastinal and hilar adenopathy likely reactive, follow-up in 3 months. viral studies negative. maintaining O2 sats in the 90s on 4 L nasal cannula. Afebrile, Tmax 99.6, WBC 17.3, lactic acid 1.4. h emoglobin 11.5, platelets 285. Sodium 140, potassium 4.5, magnesium 1.8, bicarb 17, BUN 38, creatinine 1.51-baseline creatinine 1.1-1.3. Troponin negative x 1,proBNP 780. UA negative. IV fluid hydration, empiric antibiotics of Rocephin and azithromycin initiated in the ER. 09/10/2023 evaluated by cardiology, recommendations noted. Ambulating, tolerating exertion well. Continues on IV Rocephin , nebulized bronchodilators, Mucinex and gentle IV fluid hydration maintaining O2 sats in the low 90s on 3 L nasal cannula. Reports earlier this morning she had forgotten to put her nasal cannula back on and dropped her O2 sats to 81% on room air. Nonproductive cough .afebrile, normal WBC, hemoglobin decreased 9.7 renal function improving with BUN 22, creatinine 1.31. Blood sugars 09/11/23: Patient seen and evaluated bedside, on evaluation patient is awake and alert, patient does complain of cough, patient is on 3 L of oxygen, does not wear oxygen at home 09/12/2023: Patient seen and evaluated bedside on evaluation patient is awake and alert, patient on 4 L of oxygen. Continue patient on Mucinex, pulmonary medicine following wean off as tolerated. Patient does have dry cough no sputum production PHYSICAL EXAMINATION: GENERAL: The patient is alert and oriented x3, nasal cannula in place HEENT: Pupils are round and equally reacting to light. EOMI. CARDIOVASCULAR: S1 and S2 present. No murmurs, rubs, or gallops. PULMONARY: Chest is clear to auscultation, no wheezing or crackles. ABDOMEN: Soft, nontender, nondistended, normoactive bowel sounds. No palpable organomegaly. MUSCULOSKELETAL: No joint swelling or deformity. EXTREMITIES: No cyanosis, clubbing, or pedal edema. NEUROLOGICAL: Gross neurological examination did not reveal any focal deficits. SKIN: No rashes. Assessment and plan * Multifocal pneumonia * Acute hypoxic respiratory failure * History of sick sinus syndrome with pacemaker in place * History of pulmonary fibrosis and COPD with acute exacerbation * Coronary artery disease * History of breast cancer in remission * In regards to multifocal pneumonia continue patient on IV Rocephin, transition to oral cefdinir followed up by pulmonary medicine * Regard to acute hypoxemic respiratory failure continue breathing treatment with DuoNeb continue Mucinex incentive spirometer * Regards to history of sick sinus syndrome patient has pacemaker in place, continue aspirin * Regards to history of COPD with exacerbation pulmonary medicine following Objective - Vital Signs Vital signs: Vital Signs Temp 98.8 F 09/12/23 07:30 Pulse 85 09/12/23 11:42 Resp 18 09/12/23 07:30 BP 147/72 09/12/23 07:30 Pulse Ox 96 09/12/23 07:30 FiO2 Intake & Output 09/11/23 09/12/23 09/12/23 18:59 06:59 18:59 Intake Total 540 Balance 540 Intake: Oral 540 Other: Voiding Method Toilet Toilet # Voids 5 1 - Labs CBC & Chem 7: 09/12/23 05:51 09/12/23 05:51 Labs: Abnormal Lab Results - Last 24 Hours (Table) 09/12/23 09/12/23 Range/Units 05:51 05:51 RBC 3.50 L (4.10-5.20) X 10*6/uL Hgb 9.8 L (12.0-15.0) g/dL Hct 31.2 L (37.2-46.3) % MCHC 31.4 L (32.0-37.0) g/dL Est GFR (CKD-EPI) 38 L (>=60) BUN/Creatinine Ratio 9.14 L (12.00-20.00) Ratio Microbiology - Last 24 Hours (Table) 09/11/23 11:14 Gram Stain - Preliminary Sputum 09/08/23 16:00 Blood Culture - Preliminary Blood
[2023-09-13 08:16] VITALS: BP 159/75; RESP 17; TEMP 98.4
[2023-09-13 10:01] VITALS: PULSE 84
[2023-09-13 11:23] LABS: HCT 34.4 % (37.2-46.3); HGB 10.7 g/dL (12.0-15.0); MCH 27.5 pg (27.0-32.0); MCHC 31.1 g/dL (32.0-37.0); MCV 88.4 FL (80.0-97.0); Mean Platelet Volume 10.1 FL (9.5-12.2); NRBC Per 100 WBC 0 X 10*3/uL (0.00-0.01); Platelet Count 332 X 10*3/uL (140-440); RBC 3.89 X 10*6/uL (4.10-5.20); WBC 10.84 X 10*3/uL (4.50-10.00)
[2023-09-13 11:40] LABS: BUN/Creat Ratio 8.54 Ratio (12.00-20.00); Blood Urea Nitrogen 11.1 mg/dL (9.0-27.0); Calcium 10.4 mg/dL (8.7-10.3); Carbon Dioxide 24.7 mmol/L (21.6-31.8); Chloride 107 mmol/L (96-109); Glucose 92 mg/dL (70-110); Potassium 4.5 mmol/L (3.5-5.5); Sodium 144 mmol/L (135-145)
[2023-09-13] MEDS: NYSTATIN 100,000 UNIT/ML SUSP 500,000 UNIT/5 ML CUP PO SCH (13:11)
--- NOTE | 2023-09-13 13:15 | P.DS ---
Providers Date of admission: 09/08/23 14:37 Expected date of discharge: 09/13/23 Attending physician: Pk Pizarro Consults: 09/08/23 15:10 Consult Physician Urgent Consulting Provider: George Sy Reason/Comments: Hypoxic respiratory failure, CAP Do you want consulting provider notified?: Yes Primary care physician: Pk Pizarro [facility] Course: Final Diagnoses: Acute multifocal pneumonia, hospital-acquired Acute hypoxic respiratory failure secondary to the above, resolved. Neck pain, back pain, increased weakness, in a patient with history of fall nearly 2 weeks ago, orthopedic spine surgery consulted. Cephalgia, resolved Chest discomfort, suspect muscle skeletal, evaluated by cardiology. Severe pulmonary hypertension History of COVID-pneumonia 06/16 Mitral regurgitation, severe, further follow-up outpatient with cardiology Chronic persistent atrial fibrillation. Anticoagulated on Eliquis. Acute on chronic renal failure, stage III, baseline 1.1 Hypertension Rheumatoid arthritis, history of Colon cancer with history of bowel resection Degenerative joint disease, status post total hip arthroplasty Gait dysfunction, uses walker and a cane Hospital course: This is a pleasant 84-year-old female history of atrial fibrillation, skin cancer-type unknown, hypertension, PE-anticoagulated on Eliquis, rheumatoid arthritis, left total knee surgery, history of colon cancer, bowel resection and multiple other medical issues presented to the ER with complaints of waking up this morning, with significant abrupt left-sided neck pain radiating down to her left shoulder, left hip and left groin with increased difficulty ambulating. Reports she had a fall 1-1/2 weeks ago on Tuesday 08/29; she was ambulating from the bathroom to bedroom and "flung" while using her cane. 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 Afebrile, normal WBC, hemoglobin 9.7, platelets 234, INR 1.1, sodium 139, potassium 4.7, bicarb 20, BUN 32, creatinine 1.32(Baseline), lactic acid 1.1, magnesium 2.5, AST 48 alk phos 138, UA negative.Head/cervical spine CT reported no acute fracture or dislocation evident in the cervical spine, no acute intracranial hemorrhage or midline shift seen. CT of abdomen pelvis reported suboptimal study, no suspicious acute findings. Orthopedic spine consulted Significant clinical improvement. Telemetry atrial fibrillation with controlled ventricular rate .denies chest pain, palpitations or shortness of breath. Echocardiogram reported normal LV function, severe pulmonary hypertension, moderate to severe mitral regurg and moderate to severe tricuspid regurg. Denies chest pain, palpitations or increased shortness of breath. Maintaining O2 sats in the 90s on room air. Complaining of esophageal and mouth soreness, nystatin swish and swallow, Diflucan ordered. Legionella, sputum cultures pending. Blood cultures reporting no growth. Afebrile. Cleared by cardiology for discharge. Patient will be discharged home today in a stable condition with guarded prognosis pending final DC recommendations and clearance as per pulmonary. The impression and plan of care has been dictated as directed. : I performed a history and examination of this patient, discussed the same with the dictator. I agree with the dictator's note ,documented as a scribe. Any additional findings or plans will be noted. Patient Condition at Discharge: Stable Plan - Discharge Summary Discharge Rx Participant: No New Discharge Prescriptions: New guaiFENesin [Mucinex] 600 mg PO Q12HR tab Fluconazole [Diflucan] 200 mg PO DAILY #5 tablet Cefdinir [Omnicef] 300 mg PO BID #10 cap Azithromycin [Zithromax Tri-Rodrigue (3 tabs)] 500 mg PO DAILY 3 Days #3 tab Continue amLODIPine [Norvasc] 10 mg PO HS Acetaminophen Tab [Tylenol] 650 mg PO Q6HR PRN #20 tab PRN Reason: Mild Pain (Scale 1 To 3) Famotidine [Pepcid] 20 mg PO BID Aspirin EC [Ecotrin] 325 mg PO BID Albuterol Inhaler [Ventolin Hfa Inhaler] 1 - 2 puff INHALATION RT-Q6H PRN PRN Reason: Shortness Of Breath oxyBUTYnin chloride [oxyBUTYnin chloride ER] 5 mg PO HS Escitalopram [Lexapro] 10 mg PO HS Discharge Medication List oxyBUTYnin chloride [oxyBUTYnin chloride ER] 5 mg PO HS 11/16/22 [History] Escitalopram [Lexapro] 10 mg PO HS 08/20/23 [History] amLODIPine [Norvasc] 10 mg PO HS 08/20/23 [History] Acetaminophen Tab [Tylenol] 650 mg PO Q6HR PRN #20 tab 08/27/23 [Rx] Albuterol Inhaler [Ventolin Hfa Inhaler] 1 - 2 puff INHALATION RT-Q6H PRN 09/08/23 [History] Aspirin EC [Ecotrin] 325 mg PO BID 09/08/23 [History] Famotidine [Pepcid] 20 mg PO BID 09/08/23 [History] Azithromycin [Zithromax Tri-Rodrigue (3 tabs)] 500 mg PO DAILY 3 Days #3 tab 09/13/23 [Rx] Cefdinir [Omnicef] 300 mg PO BID #10 cap 09/13/23 [Rx] Fluconazole [Diflucan] 200 mg PO DAILY #5 tablet 09/13/23 [Rx] guaiFENesin [Mucinex] 600 mg PO Q12HR tab 09/13/23 [Rx] Follow up Appointment(s)/Referral(s): [facility], [NON-STAFF] - As Needed ([facility] will call you to schedule your in home nursing, physical therapy, and occupational therapy visits. ) Pk Pizarro, [Primary Care Provider] - 3 Days
--- NOTE | 2023-09-13 13:46 | P.DS ---
Providers Date of admission: 09/08/23 14:37 Expected date of discharge: 09/13/23 Attending physician: Pk Pizarro Consults: 09/08/23 15:10 Consult Physician Urgent Consulting Provider: George Sy Consult Reason/Comments: Hypoxic respiratory failure, CAP Do you want consulting provider notified?: Yes Primary care physician: Pk Pizarro Hospital Course: Final Diagnoses: Acute multifocal pneumonia, hospital-acquired. CTA reported some scattered mediastinal and hilar lymphadenopathy, likely reactive, follow-up in 3 months Acute hypoxic respiratory failure secondary to the above, resolved Leukocytosis secondary to #1 Acute on chronic kidney disease stage IIIa with baseline creatinine 1.1-1.3 secondary to nephrosclerosis. 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 History of Vergara's palsy with residual left-sided facial weakness History of right-sided breast cancer status postmastectomy with radiation Hospital course:This is a pleasant 78-year-old female with past medical history significant for recent dual-chamber pacemaker implantation July 2023 secondary to symptomatic bradycardia, sick sinus syndrome, COPD, pulmonary fibrosis, CAD, hypertension, chronic kidney disease, breast cancer in remission- s/p mastectomy with radiation, s/p resection of, cell CA of the forehead, 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 Denies syncope. Elevated D-dimer, CTA reported no evidence of pulmonary embolism, multifocal pneumonia with some scattered mediastinal and hilar adenopathy likely reactive, follow-up in 3 months. viral studies negative. Currently maintaining O2 sats in the 90s on 4 L nasal cannula. Afebrile, Tmax 99.6, WBC 17.3, lactic acid 1.4. hemoglobin 11.5, platelets 285. Sodium 140, potassium 4.5, magnesium 1.8, bicarb 17, BUN 38, creatinine 1.51-baseline creatinine 1.1-1.3. Troponin negative x 1,proBNP 780. UA negative. IV fluid hydration, empiric antibiotics of Rocephin and azithromycin initiated in the ER. Speech therapy consulted for swallow eval. Maintain IV fluid hydration, empiric antibiotics, avoid nephrotoxic agents. Blood cultures in progress, sputum culture ordered. Aggressive pulmonary toileting with nebulized bronchodilators. Increase ambulation as tolerated. Weaning of O2 as per parameters established by pulmonary, maintaining O2 sat 92% or greater. Significant clinical improvement. Continues on antibiotics, using her flutter valve .maintaining O2 sats in the mid 90s on room air. Afebrile, WBC 10.84. Renal function improving, creatinine down to 1.3. sputum, Legionella pending. Blood cultures reporting no growth. Feels better, minimal expiratory wheeze. C omplains of esophageal and mouth soreness, nystatin initiated. Patient will be discharged home today in a stable condition with guarded prognosis pending final DC recommendations and clearance as per pulmonary. The impression and plan of care has been dictated as directed. : I performed a history and examination of this patient, discussed the same with the dictator. I agree with the dictator's note ,documented as a scribe. Any additional findings or plans will be noted. Patient Condition at Discharge: Stable Plan - Discharge Summary Discharge Rx Participant: No New Discharge Prescriptions: New guaiFENesin [Mucinex] 600 mg PO Q12HR tab Fluconazole [Diflucan] 200 mg PO DAILY #5 tablet Cefdinir [Omnicef] 300 mg PO BID #10 cap Continue amLODIPine [Norvasc] 10 mg PO HS Acetaminophen Tab [Tylenol] 650 mg PO Q6HR PRN #20 tab PRN Reason: Mild Pain (Scale 1 To 3) Famotidine [Pepcid] 20 mg PO BID Aspirin EC [Ecotrin] 325 mg PO BID Albuterol Inhaler [Ventolin Hfa Inhaler] 1 - 2 puff INHALATION RT-Q6H PRN PRN Reason: Shortness Of Breath oxyBUTYnin chloride [oxyBUTYnin chloride ER] 5 mg PO HS Escitalopram [Lexapro] 10 mg PO HS Discharge Medication List oxyBUTYnin chloride [oxyBUTYnin chloride ER] 5 mg PO HS 11/16/22 [History] Escitalopram [Lexapro] 10 mg PO HS 08/20/23 [History] amLODIPine [Norvasc] 10 mg PO HS 08/20/23 [History] Acetaminophen Tab [Tylenol] 650 mg PO Q6HR PRN #20 tab 08/27/23 [Rx] Albuterol Inhaler [Ventolin Hfa Inhaler] 1 - 2 puff INHALATION RT-Q6H PRN 09/08/23 [History] Aspirin EC [Ecotrin] 325 mg PO BID 09/08/23 [History] Famotidine [Pepcid] 20 mg PO BID 09/08/23 [History] Cefdinir [Omnicef] 300 mg PO BID #10 cap 09/13/23 [Rx] Fluconazole [Diflucan] 200 mg PO DAILY #5 tablet 09/13/23 [Rx] guaiFENesin [Mucinex] 600 mg PO Q12HR tab 09/13/23 [Rx] Follow up Appointment(s)/Referral(s): Pk Pizarro DO [Primary Care Provider] - 09/21/23 11:40 am (with Amy) [facility], [NON-STAFF] - As Needed ([facility] will call you to schedule your in home nursing, physical therapy, and occupational therapy visits. )
--- NOTE | 2023-09-13 14:06 | P.PN ---
Subjective Progress Note Date: 09/13/23 I am seeing this patient in consultation today 09/09/2023 after she was brought in with the chief complaint of shortness of breath, cough, and generalized weakness. She had a near fall while at home. Patient is a 78-year-old white female with past medical history significant for coronary artery disease, hypertension, right-sided breast cancer status/post partial mastectomy and radiation, squamous cell carcinoma of the forehead, Vergara's palsy with left-sided facial weakness, bradycardia and sick sinus syndrome status post recent implanted dual-chamber pacemaker, among other things . Her primary care provider is Dr. Pizarro. Patient does follow in the pulmonary office with Dr. Ojeda, she states that she was told she has COPD and pulmonary fibrosis. Patient had a recent hospital admission 08/20/2023 through 08/23/2023, she was bradycardic and she ended up receiving a dual-chamber implanted pacemaker during this admission. Patient returned to the emergency room yesterday morning complaining of shortness of breath, coughing with copious white sputum, subjective fevers, generalized weakness and myalgias. Denies any hemoptysis. She states that she occasionally has trouble swallowing. Denies any chest pain, heart palpitations, lower extremity swelling. Denies syncope. Initial chest x-ray showed a possible focal retrocardiac infiltrate. D-dimer was elevated and a follow-up chest CTA was ordered. No evidence of pulmonary embolism. There was patchy areas of opacities in the upper lobes bilaterally and extensive consolidations in the lower lobes bilaterally. Consistent with multifocal pneumonia, there was some scattered mediastinal and hilar reactive lymphadenopathy. CBC shows leukocytosis with a WBC count of 17.3. BMP on arrival: Sodium 140, potassium 4.5, chloride 110, serum bicarb 17, BUN 38, creatinine 1.51, glucose 151. Troponin less than 0.012. NT proBNP 780. Neg ative for influenza, RSV, COVID. Patient is currently sitting up in bed, on 4 L/min nasal cannula, in no acute distress. She is weak. Overall nontoxic appearance. Her left chest incision appears to be healing nicely. Approximated without any erythema or drainage. Normal saline is infusing at 75 mL/h. She is empirically covered on a combination of azithromycin and Rocephin. Afebrile. Vital signs are stable. Progress note dated September 10, 2023. 78-year-old female seen in consultation yesterday. The patient presented with complaints of shortness of breath, cough, and generalized weakness. Chest x-ray revealed bilateral pneumonia. The patient does have a history of CAD, hypertension, breast cancer, squamous cell carcinoma of the forehead, Vergara's palsy, left facial weakness, and sick sinus syndrome. The patient does follow in the office with my partner. The patient apparently was told that she had a diagnosis of COPD and pulmonary fibrosis. She had a recent hospital admission between August 20 and August 23. Currently, the patient is resting comfortably. She currently continues on oxygen at 3 L by nasal cannula. The patient is getting saline at 75 cc an hour, and IV Rocephin. Will check a procalcitonin level, and also add some Mucinex, because one of her complaints is difficulty and coughing up phlegm. White count 9.6, hemoglobin 9.7, hematocrit 30.4, and platelet count normal. D-dimer was 5.35. Sodium 140, potassium 4.6, chlorides 111, CO2 21, BUN 22, and creatinine 1.31. Glucose is 126. Progress note dated September 11, 2023. 78-year-old female seen for pneumonia. She is seen again today in room 460. She continues on oxygen at 3 L, and saline at 75 cc an hour. We have asked her to use incentive spirometer, every hour while awake, and will also get her a flutter valve. The patient will have another chest x-ray today. She did cough up some sputum, which will be sent to the laboratory for analysis. Current laboratory includes a white count 8.3, hemoglobin 9.2, hematocrit 29.4, and a normal platelet count. Sodium 142, potassium 4.6, chlorides 115, CO2 19, BUN 18, creatinine 1.15. Procalcitonin level, was 5.01. Blood cultures are curre ntly pending are negative. Chest x-ray in my opinion does show some improvement. Progress note dated September 12, 2023. 78-year-old female seen today in room 460. The patient is currently on saline a t 75 cc an hour, and oxygen, by nasal cannula, at 3 L. Chest x-ray done yesterday does show some improvement. Clinically, the patient is feeling a bit better. Still with significant chest congestion, cough, and tightness in her chest. Her white count is 9.29, hemoglobin 9.8, hematocrit 31.2, and platelet count is 289,000. No additional labs today. Her most recent procalcitonin level on 09 September was 5.01. Thus far, blood and sputum sampling is negative or pending. On today's evaluation of 09/13/2023, the patient is being seen for a follow-up. Patient is a 78-year-old female who has been diagnosed having multifocal pneumonia/CHF and the patient is improved and she has no specific complaints on today's evaluation. Noted the patient is known to have COPD, coronary artery disease, hypertension, she has also history of sick sinus syndrome and the patient has a dual-chamber pacemaker. Her blood work from today shows a WBC count of 10.8, hemoglobin 10.7 and platelet count of 332. The BUN is at 11 with a creatinine of 1.3 and a sodium levels at 144. The patient is currently on Omn icef. The patient is on DuoNeb nebulized treatments [id number]. Chest x- ray from 09/11/2023 was essentially showing cardiomegaly with mild pulm vascular congestion. This was improvement in aeration of the right base with some residual opacification in the left retrocardiac area. Her previous echocardiogram from October 2022 had shown a normal left-ventricular ejection fraction, no significant valvular abnormalities. Objective - Vital Signs Vital signs: Vital Signs Temp 98.4 F 09/13/23 07:15 Pulse 84 09/13/23 09:53 Resp 17 09/13/23 07:15 BP 159/75 09/13/23 07:15 Pulse Ox 96 09/13/23 09:42 FiO2 Intake & Output 09/12/23 09/13/23 09/13/23 18:59 06:59 18:59 Other: Voiding Method Toilet Toilet # Voids 4 3 - Exam No acute distress, oriented 3. No respiratory distress. On room air oxygen for the time being, breathing is not labored HEENT examination is grossly unremarkable. Mucous membranes are moist. No oral lesions. Neck supple. Full range of motion. No adenopathy thyromegaly or neck vein distention. Cardiovascular examination reveals regular rhythm rate. S1-S2 normal. No S3 or S4. No discernible murmur noted. Lungs reveal scattered rhonchi. No wheezes. No crackles. Breath sounds are equal bilaterally. Abdomen soft bowel sounds are heard. No masses or tenderness. Extremities are intact. No cyanosis clubbing or edema. Skin is without rash or lesion. Neurologic examination is brief but nonfocal. - Labs CBC & Chem 7: 09/13/23 06:12 09/13/23 06:12 Labs: Abnormal Lab Results - Last 24 Hours (Table) 09/12/23 Range/Units 05:51 Est GFR (CKD-EPI) 38 L (>=60) BUN/Creatinine Ratio 9.14 L (12.00-20.00) Ratio Microbiology - Last 24 Hours (Table) 09/08/23 16:05 Blood Culture - Final Blood 09/09/23 06:45 Legionella Culture - Preliminary Sputum 09/11/23 11:14 Gram Stain - Preliminary Sputum Assessment and Plan Plan: Acute hypoxemic respiratory failure, secondary to hospital-acquired multifocal p neumonia. Clinically improved and the patient is currently on Omnicef Leukocytosis, secondary to above, improved Acute on chronic kidney disease, improved and stable History of symptomatic bradycardia and sick sinus syndrome status post implanted dual-chamber pacemaker 08/23/2023. History of COPD, stable. History of coronary artery disease. History of hypertension. History of right-sided breast cancer status post partial mastectomy and radiation. History of recent skin biopsy, positive for squamous cell carcinoma of the forehead. 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 Plan: Clinically stable on room air oxygen and the patient has been switched to oral antibiotics. She would likely get discharged home either today with the next within 4 hours to be followed up on outpatient basis.
== END 2023-09-13 15:55 | disposition home health service (06) | DRG 193 ==
LOC: EC 11:08 → 4SSUR 14:37
PROVIDERS: ADMIT Family Medicine; ATTEND Family Medicine
DX: J18.9 Pneumonia, unspecified organism (principal); J96.01 Acute respiratory failure with hypoxia; J44.0 Chronic obstructive pulmonary disease with (acute) lower respiratory infection; N17.9 Acute kidney failure, unspecified; J84.10 Pulmonary fibrosis, unspecified; N18.31 Chronic kidney disease, stage 3a; R13.10 Dysphagia, unspecified; G89.29 Other chronic pain; I08.3 Combined rheumatic disorders of mitral, aortic and tricuspid valves; R79.1 Abnormal coagulation profile; I49.5 Sick sinus syndrome; G51.0 Bell's palsy; I50.9 Heart failure, unspecified; R59.0 Localized enlarged lymph nodes; M43.00 Spondylolysis, site unspecified; Y95 Nosocomial condition; I25.10 Atherosclerotic heart disease of native coronary artery without angina pectoris; Z85.3 Personal history of malignant neoplasm of breast; Z92.3 Personal history of irradiation; Z11.52 Encounter for screening for COVID-19; Z86.16 Personal history of COVID-19; Z90.13 Acquired absence of bilateral breasts and nipples; Z96.643 Presence of artificial hip joint, bilateral; Z91.81 History of falling; Z95.0 Presence of cardiac pacemaker; Z85.828 Personal history of other malignant neoplasm of skin; Z88.6 Allergy status to analgesic agent; Z88.1 Allergy status to other antibiotic agents; Z88.5 Allergy status to narcotic agent; Z79.82 Long term (current) use of aspirin; Z80.0 Family history of malignant neoplasm of digestive organs; Z98.1 Arthrodesis status
CPT/HCPCS: 36415; 71045; 71046; 71275; 80048; 80053; 81001; 83605; 83735; 83880; 84145; 84484; 85025; 85027; 85379; 85610; 85730; 87040; 87070; 87205; 87449; 87636; 93005; 94640; 94667; 94668; 94760; 96360; 96361; 99285

== ENCOUNTER 2023-09-27 17:26 | Observation (INO) | payer MEDICARE ==
[2023-09-27 17:44] LABS: Basophils # (A) 0.1 k/uL (0-0.2); Basophils % (A) 1 %; Eosinophils # (A) 0.2 k/uL (0-0.7); Eosinophils % (A) 2 %; HCT 38.1 % (34.0-46.0); Lymphocytes # (A) 2.9 k/uL (1.0-4.8); Lymphocytes % (A) 29 %; MCH 27.9 pg (25.0-35.0); MCHC 31.6 g/dL (31.0-37.0); MCV 88.4 fL (80.0-100.0); Mean Platelet Volume 7.6; Monocytes # (A) 0.6 k/uL (0-1.0); Monocytes % (A) 6 %; Neutrophils # (A) 5.9 k/uL (1.3-7.7); Neutrophils % (A) 60 %; Platelet Count 273 k/uL (150-450); WBC 9.9 k/uL (3.8-10.6)
[2023-09-27 17:47] VITALS: RESP 18; TEMP 98.2
[2023-09-27 17:53] LABS: ALT 11 U/L (4-34); AST 23 U/L (14-36); African American GFR (CKD) 48 (>60 ml/min/1.73 sqM); Albumin 4.5 g/dL (3.5-5.0); Alkaline Phosphatase 127 U/L (38-126); Anion Gap 11 mmol/L; Blood Urea Nitrogen 19 mg/dL (7-17); Calcium 9.2 mg/dL (8.4-10.2); Carbon Dioxide 22 mmol/L (22-30); Chloride 107 mmol/L (98-107); Glucose 92 mg/dL (74-99); Lipase 66 U/L (23-300); Magnesium 2.3 mg/dL (1.6-2.3); Non-African American GFR(CKD) 42 (>60 ml/min/1.73 sqM); Potassium 4.4 mmol/L (3.5-5.1); Sodium 140 mmol/L (137-145); Total Bilirubin 0.3 mg/dL (0.2-1.3); Total Protein 8.2 g/dL (6.3-8.2)
--- NOTE | 2023-09-27 17:55 | ED ---
Chest Pain HPI - General Chief Complaint: Chest Pain Stated Complaint: chest pain Time Seen by Provider: 09/27/23 17:27 Source: patient, RN notes reviewed, old records reviewed Mode of arrival: EMS Limitations: no limitations - History of Present Illness Initial Comments: This is a 78-year-old female to the ER for evaluation today. Patient presents today for evaluation of chest pain. Patient has anterior left-sided chest pain holding her chest into her jaw into her arm. Patient has history of pacemaker secondary to bradycardia no history of stents placed but this pain is severe with severe heaviness and sharpness especially into her jaw MD Complaint: chest pain -: hour(s) Onset: during rest Pain Location: substernal, left chest Pain Radiation: LUE, jaw/teeth Severity: severe Severity scale (1-10): 9 Quality: heaviness, sharp Consistency: constant Improves With: nothing Worsens With: nothing Anginal Symptoms: sense of impending doom Other Symptoms: palpitations Treatments Prior to Arrival: none - Related Data Home Medications Medication Instructions Recorded Confirmed oxyBUTYnin chloride [oxyBUTYnin 5 mg PO HS 11/16/22 09/27/23 chloride ER] Escitalopram [Lexapro] 10 mg PO HS 08/20/23 09/27/23 amLODIPine [Norvasc] 10 mg PO HS 08/20/23 09/27/23 Albuterol Inhaler [Ventolin Hfa 1 - 2 puff INHALATION RT-Q6H PRN 09/08/23 09/27/23 Inhaler] Famotidine [Pepcid] 20 mg PO BID 09/08/23 09/27/23 ALPRAZolam [Xanax] 0.5 mg PO HS PRN 09/27/23 09/27/23 Previous Rx's Medication Instructions Recorded Acetaminophen Tab [Tylenol] 650 mg PO Q6HR PRN #20 tab 08/27/23 Allergies Allergy/AdvReac Type Severity Reaction Status Date / Time benazepril Allergy Anaphylaxis Verified 09/27/23 19:54 codeine Allergy Rash/Hives Verified 09/27/23 19:54 gluten Allergy Abdominal Verified 09/27/23 19:54 Pain hydrocodone Allergy Rash/Hives Verified 09/27/23 19:54 hydromorphone [From Dilaudid] Allergy Rash/Hives Verified 09/27/23 19:54 ibuprofen [From Motrin] Allergy Unknown Verified 09/27/23 19:54 lisinopril Allergy Anaphylaxis Verified 09/27/23 19:54 meperidine [From Demerol] Allergy Rash/Hives Verified 09/27/23 19:54 morphine Allergy Rash/Hives Verified 09/27/23 19:54 propoxyphene Allergy Rash/Hives Verified 09/27/23 19:54 [From Darvocet-N] Tetracyclines Allergy Rash/Hives Verified 09/27/23 19:54 azathioprine [From Imuran] AdvReac liver Verified 09/27/23 19:54 inflammation clonidine [From Catapres] AdvReac Cough Verified 09/27/23 19:54 Review of Systems ROS Statement: Those systems with pertinent positive or pertinent negative responses have been documented in the HPI. ROS Other: All systems not noted in ROS Statement are negative. EKG Findings - EKG Comments: EKG Findings:: EKG is sinus 66 [place] 150 QRS 121 QTc 409 - EKG Results: EKG: interpreted by ERMD - Dysrhythmias: Sinus rhythms and dysrhythmias: sinus rhythm (EKG is paced 68 [place] 164 QRS 117 QTc 419) Past Medical History Past Medical History: Coronary Artery Disease (CAD), Cancer, Hypertension Additional Past Medical History / Comment(s): Back pain (DDD), breast cancer (in remission), states esophageous doesn't work right-has a hard time swallowing and stomach contents come back up, +COVID 06/30/21, " LOW HR AND OXYGEN LEVELS 89-91%-HAD ANTIBODY INFUSION. History of Any Multi-Drug Resistant Organisms: None Reported Past Surgical History: Back Surgery, Heart Catheterization, Joint Replacement Additional Past Surgical History / Comment(s): Breast masectomy(right), bilateral hip replacements, back surgery X5(rods and screws/fusion), BILATERAL CATARACTS REMOVED WITH LENS IMPLANTS. Past Anesthesia/Blood Transfusion Reactions: Previous Problems w/ Anesthesia Additional Past Anesthesia/Blood Transfusion Reaction / Comment(s): Stopped breathing in recovery after spinal fusion revision in 2012 (7 hr surgery),no problems with 2 surgeries after that one. Past Psychological History: No Psychological Hx Reported Smoking Status: Never smoker Past Alcohol Use History: None Reported Past Drug Use History: None Reported - Past Family History Brother(s) Family Medical History: Cancer Additional Family Medical History / Comment(s): Colon cancer. Mother Family Medical History: Cancer Additional Family Medical History / Comment(s): Gallbladder. Father Family Medical History: Cancer General Exam Limitations: no limitations General appearance: alert, in no apparent distress, anxious Head exam: Present: atraumatic, normocephalic, normal inspection Eye exam: Present: normal appearance, PERRL, EOMI. Absent: scleral icterus, conjunctival injection, periorbital swelling ENT exam: Present: normal exam, mucous membranes moist Neck exam: Present: normal inspection. Absent: tenderness, meningismus, lymphadenopathy Respiratory exam: Present: normal lung sounds bilaterally. Absent: respiratory distress, wheezes, rales, rhonchi, stridor Cardiovascular Exam: Present: regular rate, normal rhythm, normal heart sounds. Absent: systolic murmur, diastolic murmur, rubs, gallop, clicks GI/Abdominal exam: Present: soft, normal bowel sounds. Absent: distended, tenderness, guarding, rebound, rigid Extremities exam: Present: normal inspection, full ROM, normal capillary refill. Absent: tenderness, pedal edema, joint swelling, calf tenderness Back exam: Present: normal inspection Neurological exam: Present: alert, oriented X3, CN II-XII intact Psychiatric exam: Present: normal affect, normal mood Skin exam: Present: warm, dry, intact, normal color. Absent: rash Course Vital Signs 09/27/23 09/27/23 09/27/23 17:27 17:32 19:06 Temperature 98.2 F Pulse Rate 72 59 L Pulse Rate [ 60 Lugger ] Respiratory 18 18 Rate Blood Pressure 173/88 160/83 O2 Sat by Pulse 96 97 Oximetry - Reevaluation(s) Reevaluation #1: 09/27/23 19:49 Medical records reviewed Reevaluation #2: 09/27/23 19:49 Patient still with chest pain here in the ER Reevaluation #3: 09/27/23 19:50 Patient informed of results questions answered Studies Chest x-ray is negative for acute disease Reevaluation #4: Was pt. sent in by a medical professional or institution (, PA, NON DESTRUCTIVE TESTING SCIENTIST, urgent care, hospital, or prison...) When possible be specific @ -no Did you speak to anyone other than the patient for history (EMS, parent, family, police, friend...)? What history was obtained from this source @ -no Did you review nursing and triage notes (agree or disagree)? Why? @ -agree Are old charts reviewed (outside hosp., previous admission, EMS record, old EKG, old radiological studies, urgent care reports/EKG's, prison records)? Report findings @ -yes Differential Diagnosis (chest pain, altered mental status, abdominal pain women, abdominal pain men, vaginal bleeding, weakness, fever, dyspnea, syncope, headache, dizziness, GI bleed, back pain, seizure, CVA, palpatations, mental health, musculoskeletal)? @ -prior EKG interpreted by me (3pts min.). @ -yes X-rays interpreted by me (1pt min.). @ -yes negative for acute disease CT interpreted by me (1pt min.). @ -no U/S interpreted by me (1pt. min.). @ -no What testing was considered but not performed or refused? (CT, X-rays, U/S, labs)? Why? @ -none What meds were considered but not given or refused? Why? @ -none Did you discuss the management of the patient with other professionals (professionals i.e. , PA, NON DESTRUCTIVE TESTING SCIENTIST, lab, RT, psych nurse, social worker assistant, food and beverage controller, teacher, fare enforcement officer, case consultant)? Give summary @ -no Was smoking cessation discussed for >3mins.? @ -no Was critical care preformed (if so, how long)? @ -yes31 Were there social determinants of health that impacted care today? How? (Homelessness, low income, unemployed, alcoholism, drug addiction, transportation, low edu. Level, literacy, decrease access to med. care, skilled nursing, rehab)? @ -none Was there de-escalation of care discussed even if they declined (Discuss DNR or withdrawal of care, Hospice)? DNR status @ -no What co-morbidities impacted this encounter? (DM, HTN, Smoking, COPD, CAD, Cancer, CVA, ARF, Chemo, Hep., AIDS, mental health diagnosis, sleep apnea, morbid obesity)? @ -none Was patient admitted / discharged? Hospital course, mention meds given and route, prescriptions, significant lab abnormalities, going to OR and other pertinent info. @ - 78 female to ER for evaluation of chest pain today. Patient has a paced rhythm but no signs of ischemia, patient has normal troponin but will be admitted for cardiology observation still holding left side of chest and pain Admitted Undiagnosed new problem with uncertain prognosis? @ -no Drug Therapy requiring intensive monitoring for toxicity (Heparin, Nitro, Insulin, Cardizem)? @ -no Were any procedures done? @ -no Diagnosis/symptom? @ -Chest pain Acute, or Chronic, or Acute on Chronic? @ -Acute Uncomplicated (without systemic symptoms) or Complicated (systemic symptoms)? @ -Complicated Side effects of treatment? @ -no Exacerbation, Progression, or Severe Exacerbation? @ -exacerbation Poses a threat to life or bodily function? How? (Chest pain, [place], [place], pneumonia, PE, COPD, DKA, ARF, appy, cholecystitis, CVA, Diverticulitis, Homicidal, Suicidal, threat to staff... and all critical care pts) @ -yes with significant chest pain Reevaluation #5: Differential Chest Pain: Stable Angina, Unstable Angina, STEMI, NSTEMI Aortic Dissection, Pneumothorax, Musculoskeletal, Esophageal Spasm GERD, Cholecystitis, Pancreatitis, Zoster, this is not meant to be an all-inclusive list. - Consultations Consultation #1: Spoke with Dr. Pizarro who agrees to admit this patient Chest Pain MDM - MDM 78 female to ER for evaluation of chest pain today. Patient has a paced rhythm but no signs of ischemia, patient has normal troponin but will be admitted for cardiology observation still holding left side of chest and pain Critical Care Time Critical Care Time: Yes Total Critical Care Time: 31 Disposition Clinical Impression: Chest pain, Bradycardia, Unstable angina pectoris Disposition: ADMITTED IP TO THIS HOSP Condition: Fair Is patient prescribed a controlled substance at d/c from ED?: No Time of Disposition: 19:40
[2023-09-27 17:57] LABS: INR 0.8 (<1.2); Partial Thromboplastin Time 23.4 sec (22.0-30.0); Prothrombin Time 9.5 sec (10.0-12.5)
[2023-09-27 18:03] LABS: NT-Pro-B-Type Natriuretic Pept 282 pg/mL
--- NOTE | 2023-09-27 18:18 | XR ---
EXAMINATION TYPE: XR chest 2V DATE OF EXAM: 09/27/2023 5:59 PM CLINICAL INDICATION:Female, 78 years old with history of Chest Pain; [facility] COMPARISON: Chest radiographs from 09/11/2023. TECHNIQUE: XR chest 2V Frontal and lateral views of the chest. FINDINGS: Lungs/Pleura: There is no evidence of pleural effusion, focal consolidation, or pneumothorax. Pulmonary vascularity: Unremarkable. Heart/mediastinum: Cardiomediastinal silhouette is prominent in size. Two lead cardiac conduction dev ice overlying the left hemithorax with lead tips projecting over the right ventricle and right atrium . Musculoskeletal: No acute osseous pathology. There is lower spine fixation hardware is present. Degen eration changes of the shoulders. Other findings: None IMPRESSION: No acute cardiopulmonary disease/process.
[2023-09-27] MEDS ORDERED: NITROGLYCERIN SL TABS 0.4 MG TAB SUBLINGUAL PRN (19:51)
[2023-09-27] MEDS: ASPIRIN 81 MG PO STA (20:29)
[2023-09-27 21:07] VITALS: BP 157/82; PULSE 60
[2023-09-28] MEDS ORDERED: ASPIRIN 325 MG TAB PO SCH (09:00)
[2023-09-28] MEDS ORDERED: ATORVASTATIN 80 MG TAB PO SCH (09:00)
== END 2023-09-27 21:02 | disposition left against medical advice (07) ==
LOC: EC 17:26 → 6NMEDSUR 19:52
PROVIDERS: ADMIT Family Medicine; ATTEND Family Medicine
DX: R07.89 Other chest pain (principal); I25.10 Atherosclerotic heart disease of native coronary artery without angina pectoris; Z79.82 Long term (current) use of aspirin; Z80.0 Family history of malignant neoplasm of digestive organs; Z85.3 Personal history of malignant neoplasm of breast; Z86.16 Personal history of COVID-19; Z95.0 Presence of cardiac pacemaker; Z96.1 Presence of intraocular lens; Z96.643 Presence of artificial hip joint, bilateral; Z98.1 Arthrodesis status
CPT/HCPCS: 99285; 36415; 93005; 83880; 80053; 83690; 83735; 84484; 85025; 85610; 85730; 71046; G0378

== ENCOUNTER 2023-12-11 13:04 | Emergency (ER) | payer MEDICARE ==
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
[2023-12-11 16:14] VITALS: BP 160/82; PULSE 59; RESP 20; TEMP 98.2
== END 2023-12-11 16:14 | disposition home or self-care (01) ==
LOC: EC 13:04
DX: S16.1XXA Strain of muscle, fascia and tendon at neck level, initial encounter (principal); Z88.5 Allergy status to narcotic agent; Z88.6 Allergy status to analgesic agent; Z88.8 Allergy status to other drugs, medicaments and biological substances; V89.2XXA Person injured in unspecified motor-vehicle accident, traffic, initial encounter; Y92.410 Unspecified street and highway as the place of occurrence of the external cause
CPT/HCPCS: 70450; 72125; 99284

== ENCOUNTER → 2024-02-01 | Outpatient (CLI) | payer MEDICARE ==
--- NOTE | 2024-02-24 10:47 | MM ---
Reason for Exam: Screening (asymptomatic). Last mammogram was performed 1 year(s) and 5 month(s) ago. Patient History: Menarche at age 12. First Full-Term at age 25. Right ovary removed at age 32. Hysterectomy at age 32. Postmenopausal. Other cancer, age 69. Breast cancer, right, age 59. Previous chest radiation therapy at age 59. Patient used Estrogen for 30 years. 1989, Benign Core Biopsy on the left side. 1987, Benign Core Biopsy on the left side. 2003, Lumpectomy on the Right side. 2004, Radiation Therapy on the right side. Paternal cousin had breast cancer, age 60. Prior Study Comparison: 06/04/2020 Bilateral Diagnostic Mammogram, [facility]. 09/04/2021 Bilateral Diagnostic Mammogram, [facility]. 09/23/2022 Bilateral MG 3D screening mammo w/cad, [facility]. Tissue Density: There are scattered areas of fibroglandular density. Findings: Analyzed By CAD. Right breast surgical clips. Right breast: There is no suspicious group of microcalcifications or new suspicious mass. Benign-appearing calcifications right breast. Left breast: There is no suspicious group of microcalcifications or new suspicious mass. Benign-appearing calcifications left breast. Overall Assessment: Negative, BI-RAD 1 Management: Screening Mammogram of both breasts in [address] [facility] will attempt to contact patient to return for supplemental views and ultrasound if indicated. Patient should continue monthly self-breast exams. A clinical breast exam by your physician is recommended on an annual basis. This exam should not preclude additional follow-up of suspicious palpable abnormalities. Note on Mayte scores and lifetime risk: 1. A Mayte score greater than 3% is considered moderate risk. If this is the case, consider specialist referral to assess eligibility for a risk reducing agent. 2. If overall lifetime risk for the development of breast cancer is 20% or higher, the patient may qualify for future screening with alternating mammogram and breast MRI. Electronically signed and approved by: George Gutierrez DO
--- NOTE | 2024-02-29 12:49 | US ---
Site ID [facility] Emilee Esquivel ID [id number] Age/Gender: 78Y, F Order # N/A Procedure US thyroid st tissue head/neck Date 02/01/2024 1:45:00 PM EXAMINATION TYPE: US thyroid st tissue head/neck DATE OF EXAM: 02/21/2024 COMPARISON: None, please note PACS Production downtime occurred during the radiologist interpretation of these images with limited priors/reports. CLINICAL INDICATION: Female, 78 year old with history of nodule. GLAND SIZE: Right Lobe: 5.2 x 1.8 x 2.1 cm Overall Parenchyma: heterogeneous Left Lobe: 5.2 x 1.6 x 2.2 cm Overall Parenchyma: heterogeneous Isthmus Thickness: 0.2 cm NODULES RIGHT: # of nodules measured on right: 2 1. 1.8 X 1.8 x 1.7 cm, lower lateral, solid or almost completely solid, hypoechoic nodule, which is wider than tall, with smooth margins, without echogenic foci. TR 4. 2. 1.1 X 0.8 x 0.7 cm, upper mid, mixed cystic and solid, isoechoic nodule, which is wider than jozef l, with smooth margins, without echogenic foci. TR 2. LEFT: No discrete nodule identified. ISTHMUS: No discrete nodule identified. Bilateral neck scanned, no evidence of lymphadenopathy. IMPRESSION: Heterogenous thyroid gland with 2 discrete right thyroid lobe nodules as described above. ACR TI-RADS LEVEL: TR-RADS 4 - Moderately Suspicious: Follow if > 1 cm, FNA if > 1.5 cm *Highest TI-RADS level nodule reported
== END | disposition home or self-care (01) ==
LOC: RADUSWWP 13:27
PROVIDERS: ATTEND Family Medicine
DX: Z12.31 Encounter for screening mammogram for malignant neoplasm of breast (principal); C50.919 Malignant neoplasm of unspecified site of unspecified female breast; R91.1 Solitary pulmonary nodule; I10 Essential (primary) hypertension; E04.2 Nontoxic multinodular goiter; G47.31 Primary central sleep apnea; Z80.3 Family history of malignant neoplasm of breast; Z90.721 Acquired absence of ovaries, unilateral; Z85.3 Personal history of malignant neoplasm of breast; Z92.3 Personal history of irradiation; Z78.0 Asymptomatic menopausal state
CPT/HCPCS: 76536; 77063; 77067

== ENCOUNTER 2024-03-24 08:36 | Day surgery (SDC) | payer MEDICARE, OTHER ==
[2024-03-24 09:31] VITALS: RESP 16; TEMP 98
[2024-03-24 10:30] VITALS: BP 121/54; PULSE 60
--- NOTE | 2024-03-24 10:31 | US ---
ULTRASOUND GUIDED FNA THYROID BIOPSY: CLINICAL HISTORY: Right thyroid nodule FINDINGS: The procedure was explained to the patient. The risks, complications, benefits and alternatives were discussed and any questions were answered. Informed consent was obtained. Patient was placed supin e on the ultrasound table and prepped and draped in the usual sterile fashion. Utilizing a 25 gauge needle, five passes were made into the requested right thyroid nodule. Patient was stable throughout the procedure. Pathology is pending. All elements of maximal barrier technique were utilized. IMPRESSION: 1. Successful ultrasound guided FNA thyroid biopsy. [facility], , 03/24/2024 10:29 AM
== END 2024-03-24 10:33 | disposition home or self-care (01) ==
LOC: RADPROMAIN 08:36
PROVIDERS: ATTEND Internal Medicine Endocrinology, Diabetes & Metabolism
DX: E04.1 Nontoxic single thyroid nodule
CPT/HCPCS: 10005; 88173; 88305

== ENCOUNTER → 2024-09-06 | Outpatient (CLI) | payer MEDICARE ==
[2024-09-06 11:30] LABS: African American GFR (CKD) 29 (>60 ml/min/1.73 sqM); Blood Urea Nitrogen 31 mg/dL (7-17); Non-African American GFR(CKD) 25 (>60 ml/min/1.73 sqM)
--- NOTE | 2024-09-06 13:13 | CT ---
EXAMINATION TYPE: CT abdomen pelvis wo con DATE OF EXAM: 09/06/2024 COMPARISON: 05/07/2021 CLINICAL INDICATION: Female, 79 years old with history of K57.92 DVTRCLI OF INTEST, PART UNSP, W/O PE RF OR A; PHH, Nausea, yellow eyes and skin, ramires yellow stool and abdominal pain TECHNIQUE: CT scan of the abdomen and pelvis is performed without oral or IV contrast. CT DLP: 1025.[address] CTDI: mGy Automated exposure control for dose reduction was used. FINDINGS: Within the limitations of a non-contrast study, the following observations are made. The lungs are clear. The gallbladder is surgically absent. There is no biliary ductal dilatation. There is no organomegaly of the liver, pancreas, spleen or adrenal glands. There are no renal calcifications or hydronephrosis. The caliber of the abdominal aorta is normal and there is no retroperitoneal adenopathy or hemorrhage . The bowel loops are normal in caliber is no evidence of obstruction. No inflammatory changes are iden tified in the mesentery and there is no free intraperitoneal air or fluid. There is no pelvic mass, free fluid, abscess or adenopathy. There is mild diverticulosis of the colon without CT evidence of diverticulitis. There are postsurgical changes of posterior metallic stabilization of the thoracic and lumbar spine. There are bilateral hip prostheses. There are no focal osseous abnormalities. IMPRESSION: 1. No acute changes within the pelvis. 2. Postsurgical changes as described above. [facility], , 09/06/2024 1:10 PM
== END | disposition home or self-care (01) ==
LOC: RADCTMAIN 10:53
PROVIDERS: ATTEND Family Medicine
DX: K57.92 Diverticulitis of intestine, part unspecified, without perforation or abscess without bleeding (principal); Z98.890 Other specified postprocedural states
CPT/HCPCS: 36415; 74176; 82565; 84520

== ENCOUNTER 2024-12-04 07:02 | Emergency (ER) | payer MEDICARE ==
[2024-12-04 07:26] VITALS: TEMP 98
--- NOTE | 2024-12-04 07:54 | ED ---
General Adult HPI - General Chief complaint: Neuro Symptoms/Deficit Stated complaint: headache, numbness Time Seen by Provider: 12/04/24 07:17 Source: patient Mode of arrival: wheelchair Limitations: no limitations - History of Present Illness Initial comments: Dictation was produced using [employer] dictation software. please excuse any grammatical, word or spelling errors. Chief Complaint: 79-year-old female presents to the emergency department headach e History of Present Illness: Patient is 79-year-old female recently admitted for stroke. Patient states that her initial symptoms prompted her to come to the emergency department approximately 2 and half weeks ago was symptoms of headache. She was seen here in the ER admitted. At that time she had a CT performing involving infarct. She was admitted and was inpatient for 2 days she was evaluated by neurology discharged with Plavix. Since that time she has been having intermittent symptoms of headaches. States that the headache is to the vertex and front of the head. States that she has been having intermittent episodes of left-sided extremity motor and sensory deficits as well. The ROS documented in this emergency department record has been reviewed and confirmed by me. Those systems with pertinent positive or negative responses have been documented in the HPI. All other systems are other negative and/or noncontributory. - Related Data Home Medications Medication Instructions Recorded Confirmed Omeprazole 20 mg PO HS 03/15/24 11/18/24 traMADol HCl [Ultram] 50 mg PO BID PRN 03/15/24 11/18/24 Empagliflozin [Jardiance] 10 mg PO DAILY 11/14/24 11/18/24 amLODIPine [Norvasc] 10 mg PO DAILY 11/14/24 11/18/24 traMADol HCL 50 mg PO HS 11/14/24 11/18/24 Previous Rx's Medication Instructions Recorded Aspirin 81 mg PO DAILY 30 Days #30 tab 11/19/24 Atorvastatin [Lipitor] 40 mg PO HS 30 Days #30 tab 11/19/24 Clopidogrel [Plavix] 75 mg PO DAILY 21 Days #21 tab 11/19/24 Allergies Allergy/AdvReac Type Severity Reaction Status Date / Time benazepril Allergy Anaphylaxis Verified 12/04/24 07:26 codeine Allergy Rash/Hives Verified 12/04/24 07:26 gluten Allergy Abdominal Verified 12/04/24 07:26 Pain hydrocodone Allergy Rash/Hives Verified 12/04/24 07:26 hydromorphone [From Dilaudid] Allergy Rash/Hives Verified 12/04/24 07:26 ibuprofen [From Motrin] Allergy Unknown Verified 12/04/24 07:26 lisinopril Allergy Anaphylaxis Verified 12/04/24 07:26 meperidine [From Demerol] Allergy Rash/Hives Verified 12/04/24 07:26 morphine Allergy Rash/Hives Verified 12/04/24 07:26 propoxyphene Allergy Rash/Hives Verified 12/04/24 07:26 [From Darvocet-N] Tetracyclines Allergy Rash/Hives Verified 12/04/24 07:26 azathioprine [From Imuran] AdvReac liver Verified 12/04/24 07:26 inflammation clonidine [From Catapres] AdvReac Cough Verified 12/04/24 07:26 Review of Systems ROS Statement: Those systems with pertinent positive or pertinent negative responses have been documented in the HPI. ROS Other: All systems not noted in ROS Statement are negative. Past Medical History Past Medical History: Coronary Artery Disease (CAD), Cancer, Hypertension Additional Past Medical History / Comment(s): Back pain (DDD), breast cancer (in remission), states esophageous doesn't work right-has a hard time swallowing and stomach contents come back up, +COVID 06/30/21, " LOW HR AND OXYGEN LEVELS 89-91%-HAD ANTIBODY INFUSION. skin cancer 10/2023, breast cancer 2002 History of Any Multi-Drug Resistant Organisms: None Reported Past Surgical History: Back Surgery, Heart Catheterization, Joint Replacement Additional Past Surgical History / Comment(s): Breast masectomy(right), bilateral hip replacements, back surgery X5(rods and screws/fusion), BILATERAL CATARACTS REMOVED WITH LENS IMPLANTS. Past Anesthesia/Blood Transfusion Reactions: Previous Problems w/ Anesthesia Additional Past Anesthesia/Blood Transfusion Reaction / Comment(s): Stopped breathing in recovery after spinal fusion revision in 2012 (7 hr surgery),no problems with 2 surgeries after that one. Type of Cardiac Device: Biventricular Pacemaker, Permanent Pacemaker Device Placement Date:: 08/20/23 Past Psychological History: No Psychological Hx Reported Smoking Status: Second hand smoke exposure Past Alcohol Use History: None Reported Past Drug Use History: None Reported - Past Family History Brother(s) Family Medical History: Cancer Additional Family Medical History / Comment(s): Colon cancer. Mother Family Medical History: Cancer Additional Family Medical History / Comment(s): Gallbladder. Father Family Medical History: Cancer General Exam - General Exam Comments Initial Comments: PHYSICAL EXAM: General Impression: Alert and oriented x3, not in acute distress HEENT: Normocephalic atraumatic, extra-ocular movements intact, pupils equal and reactive to light bilaterally, mucous membranes moist. Cardiovascular: Heart regular rate and rhythm Chest: Able to complete full sentences, no retractions, no tachypnea Abdomen: abdomen soft, non-tender, non-distended, no organomegaly Musculoskeletal: Pulses present and equal in all extremities, no peripheral edema Motor: no focal deficits noted Neurological: CN II-XII grossly intact, slight weakness to the left arm and left leg Skin: Intact with no visualized rashes Psych: Normal affect and mood Limitations: no limitations Course Vital Signs 12/04/24 12/04/24 07:22 08:35 Temperature 98.0 F 98.0 F Pulse Rate 73 73 Respiratory 18 22 Rate Blood Pressure 143/81 158/82 O2 Sat by Pulse 95 95 Oximetry Medical Decision Making - Medical Decision Making Was pt. sent in by a medical professional or institution (, PA, ASSISTANT ATHLETIC TRAINER, urgent care, hospital, or intermediate...) When possible be specific @ -No Did you speak to anyone other than the patient for history (EMS, parent, family, police, friend...)? What history was obtained from this source @ -No Did you review nursing and triage notes (agree or disagree)? Why? @ -I reviewed and agree with nursing and triage notes Were old charts reviewed (outside hosp., previous admission, EMS record, old EKG, old radiological studies, urgent care reports/EKG's, intermediate records)? Report findings @ -Discharge summary neurology notes reviewed from previous admission from November 19 Differential Diagnosis (chest pain, altered mental status, abdominal pain women, abdominal pain men, vaginal bleeding, musculoskeletal, weakness, fever, dyspnea, syncope, headache, dizziness, GI bleed, back pain, seizure, CVA, palpatations, mental health)? @ -Differential Headache: Migraine, tension, cluster, carbon monoxide, central venous thrombosis, pension karma temporal arteritis, acute closure glaucoma, intercranial hemorrhage, mastoiditis, sinusitis, head injury, this is not meant to be an all-inclusive list. EKG interpreted by me (3pts min.). @ -My EKG interpretation: Ventricular rate 69, sinus rhythm, SC 162, QRS 121, QTc 415. No SC prolongation, no QTC prolongation, no ST or T-wave changes noted. Overall, this EKG is unremarkable X-rays interpreted by me (1pt min.). @ -None done CT interpreted by me (1pt min.). @ -CT brain shows no acute processes. U/S interpreted by me (1pt. min.). @ -None done What testing was considered but not performed or refused? (CT, X-rays, U/S, labs)? Why? @ -None What meds were considered but not given or refused? Why? @ -None Was smoking cessation discussed for >3mins.? @ -No Were there social determinants of health that impacted care today? How? (Homelessness, low income, unemployed, alcoholism, drug addiction, transportation, low edu. Level, literacy, decrease access to med. care, senior living, rehab)? @ -No Was there de-escalation of care discussed even if they declined (Discuss DNR or withdrawal of care, Hospice)? DNR status @ -No What co-morbidities impacted this encounter? (DM, HTN, Smoking, COPD, CAD, Cancer, CVA, ARF, Chemo, Hep., AIDS, mental health diagnosis, sleep apnea, morbid obesity)? @ -None Was patient admitted / discharged? Hospital course, mention meds given and route, prescriptions, significant lab abnormalities, going to OR and other pertinent info. @ -79-year-old female presents to the emergency department with headache. Patient states that she was just admitted to the hospital were she had headache and was seen in the ER and found to have a stroke. Patient was admitted at that time seen by neurology. She had CT brain that showed occipital infarct. Olga ent presents with similar headache from presentation recently. Patient otherwise has no neurodeficits. CT brain shows no acute process. Vital signs stable. Patient with headache cocktail with improvement of symptoms. Patient does have close outpatient follow-up with neurologist. Patient discharged. Did you discuss the management of the patient with other professionals (professionals i.e. , PA, ASSISTANT ATHLETIC TRAINER, lab, RT, psych nurse, director of social services, director of patient care, teacher, district resource officer, block and case maker)? Give summary @ -No Was critical care preformed (if so, how long)? @ -No Undiagnosed new problem with uncertain prognosis? @ -No Drug Therapy requiring intensive monitoring for toxicity (Heparin, Nitro, Insulin, Cardizem)? @ -No Were any procedures done? @ -No Diagnosis/symptom? Acute, or Chronic, or Acute on Chronic? Uncomplicated (without systemic symptoms) or Complicated (systemic symptoms)? @ -Acute headache Side effects of treatment? @ -No Exacerbation, Progression, or Severe Exacerbation? @ -No Poses a threat to life or bodily function? How? (Chest pain, [place], [place], pneumonia, PE, COPD, DKA, ARF, appy, cholecystitis, CVA, Diverticulitis, Homicidal, Suicidal, threat to staff... and all critical care pts) @ -No - Lab Data Result diagrams: 12/04/24 08:33 12/04/24 08:33 Lab Results 12/04/24 12/04/24 Range/Units 08:33 08:33 WBC 11.61 H (4.50-10.00) 10*3/uL RBC 4.37 (4.10-5.20) 10*6/uL Hgb 12.4 (12.0-15.0) g/dL Hct 37.9 (37.2-46.3) % MCV 86.7 (80.0-97.0) fL MCH 28.4 (27.0-32.0) pg MCHC 32.7 (32.0-37.0) g/dL Plt Count 273 (140-440) 10*3/uL MPV 10.2 (9.5-12.2) fL Immature Gran % (Auto) 0.4 % Neutrophils % 64.3 % Lymphocytes % 23.1 % Monocytes % 9.6 % Eosinophils % 1.9 % Basophils % 0.7 % Immature Gran # 0.05 H (0.00-0.04) 10*3/uL Neutrophils # 7.46 (1.80-7.70) 10*3/uL Lymphocytes # 2.68 (0.90-5.00) 10*3/uL Monocytes # 1.12 H (0.20-1.00) 10*3/uL Eosinophils # 0.22 (0.04-0.35) 10*3/uL Basophils # 0.08 (0.00-0.10) 10*3/uL Sodium 141 (137-145) mmol/L Potassium 4.7 (3.5-5.1) mmol/L Chloride 105 (98-107) mmol/L Carbon Dioxide 25 (22-30) mmol/L Anion Gap 11 mmol/L BUN 26 H (7-17) mg/dL Creatinine 1.59 H (0.52-1.04) mg/dL Est GFR (CKD-EPI)AfAm 35 (>60 ml/min/1.73 sqM) Est GFR (CKD-EPI)NonAf 30 (>60 ml/min/1.73 sqM) Glucose 103 H (74-99) mg/dL Calcium 9.9 (8.4-10.2) mg/dL Disposition Clinical Impression: Acute headache Disposition: HOME SELF-CARE Condition: Good Instructions (If sedation given, give patient instructions): Acute Headache (ED) Is patient prescribed a controlled substance at d/c from ED?: No Referrals: Pk Pizarro DO [Primary Care Provider] - 1-2 days Time of Disposition: 10:01
--- NOTE | 2024-12-04 08:26 | CT ---
EXAMINATION TYPE: CT brain wo con DATE OF EXAM: 12/04/2024 8:07 AM COMPARISON: None. CLINICAL INDICATION: Female, 79 years old with history of headache, HEADACHE TECHNIQUE: CT of the brain is performed utilizing 3 mm thick sections through the posterior fossa and 3 mm thick sections through the remaining calvarium. Study is performed within 24 hours of arrival to the hospital. Contrast used: mL of , (none if empty) CT DLP: 1097.9 mGycm, Automated exposure control for dose reduction was used. FINDINGS: No abnormal hyperdensity is present to suggest an acute intracranial hemorrhage. No mass lesion is evident. No acute infarcts are evident. Subacute infarct of the inferior medial right occipital lobe is less a pparent and appears to be maturing normally. No extension or increase in size is evident. Ventricles and sulci are appropriate for the patient age. Paranasal sinuses and mastoid air cells within the [id number] are clear. IMPRESSION: 1. No new or expanding infarct evident. Subacute infarct inferior medial right occipital lobe remains present. Follow-up MRI can be performed as clinically indicated. [facility], , 12/04/2024 8:23 AM
[2024-12-04] MEDS: ONDANSETRON 4 MG/2 ML VIAL IVP STA (08:34)
[2024-12-04] MEDS: diphenhydrAMINE 50 MG/ML 1 ML VIAL IVP STA (08:34)
[2024-12-04] MEDS: ACETAMINOPHEN IV (For NPO) 1,000 MG in EMPTY BAG 1 BAG IVPB STA (08:37)
[2024-12-04] MEDS: SODIUM CHLORIDE 0.9% 1,000 ML IV STA (08:40)
[2024-12-04 08:43] VITALS: RESP 22
[2024-12-04 08:49] LABS: Basophils # (A) 0.08 10*3/uL (0.00-0.10); Basophils % (A) 0.7 %; Eosinophils # (A) 0.22 10*3/uL (0.04-0.35); Eosinophils % (A) 1.9 %; HCT 37.9 % (37.2-46.3); HGB 12.4 g/dL (12.0-15.0); Lymphocytes # (A) 2.68 10*3/uL (0.90-5.00); Lymphocytes % (A) 23.1 %; MCH 28.4 pg (27.0-32.0); MCHC 32.7 g/dL (32.0-37.0); MCV 86.7 fL (80.0-97.0); Mean Platelet Volume 10.2 fL (9.5-12.2); Monocytes # (A) 1.12 10*3/uL (0.20-1.00); Monocytes % (A) 9.6 %; Neutrophils # (A) 7.46 10*3/uL (1.80-7.70); Neutrophils % (A) 64.3 %; Platelet Count 273 10*3/uL (140-440); RBC 4.37 10*6/uL (4.10-5.20); RDW 13.2 % (11.5-14.5); WBC 11.61 10*3/uL (4.50-10.00)
[2024-12-04 09:06] LABS: African American GFR (CKD) 35 (>60 ml/min/1.73 sqM); Anion Gap 11 mmol/L; Blood Urea Nitrogen 26 mg/dL (7-17); Calcium 9.9 mg/dL (8.4-10.2); Carbon Dioxide 25 mmol/L (22-30); Chloride 105 mmol/L (98-107); Glucose 103 mg/dL (74-99); Non-African American GFR(CKD) 30 (>60 ml/min/1.73 sqM); Potassium 4.7 mmol/L (3.5-5.1); Sodium 141 mmol/L (137-145)
[2024-12-04 10:20] VITALS: BP 146/81; PULSE 78
== END 2024-12-04 10:17 | disposition home or self-care (01) ==
LOC: EC 07:02
DX: R51.9 Headache, unspecified (principal); Z88.5 Allergy status to narcotic agent; Z88.6 Allergy status to analgesic agent; Z88.8 Allergy status to other drugs, medicaments and biological substances; Z77.22 Contact with and (suspected) exposure to environmental tobacco smoke (acute) (chronic); Z86.16 Personal history of COVID-19
CPT/HCPCS: 36415; 93005; 80048; 85025; 70450; 99285; 96374; 96375 ×2; 96361; J1200; J2405; J0131

== ENCOUNTER 2024-12-13 17:35 | Observation (INO) | payer MEDICARE ==
--- NOTE | 2024-12-13 17:56 | ED ---
General Adult HPI - General Chief complaint: Chest Pain Stated complaint: chest pain Time Seen by Provider: 12/13/24 17:40 Source: EMS Mode of arrival: EMS - History of Present Illness Initial comments: Dictation was produced using [employer] dictation software. please excuse any gramma tical, word or spelling errors. Chief Complaint: 79-year-old female with 1 day of chest pain History of Present Illness: Patient is 79-year-old female denies any coronary artery history states that for 1 day she has been having an ache to her substernal chest. Nonradiating but associate with nausea. No associate diaphoresis. Denies any coronary artery disease. Denies any coronary artery s tents. Denies any family history of cardiac disease. Patient was given nitroglycerin and aspirin by previous providers with alleviation of her symptoms. The ROS documented in this emergency department record has been reviewed and confirmed by me. Those systems with pertinent positive or negative responses have been documented in the HPI. All other systems are other negative and/or noncontributory. - Related Data Home Medications Medication Instructions Recorded Confirmed Omeprazole 20 mg PO HS 03/15/24 11/18/24 traMADol HCl [Ultram] 50 mg PO BID PRN 03/15/24 11/18/24 Empagliflozin [Jardiance] 10 mg PO DAILY 11/14/24 11/18/24 amLODIPine [Norvasc] 10 mg PO DAILY 11/14/24 11/18/24 traMADol HCL 50 mg PO HS 11/14/24 11/18/24 Previous Rx's Medication Instructions Recorded Aspirin 81 mg PO DAILY 30 Days #30 tab 11/19/24 Atorvastatin [Lipitor] 40 mg PO HS 30 Days #30 tab 11/19/24 Clopidogrel [Plavix] 75 mg PO DAILY 21 Days #21 tab 11/19/24 Allergies Allergy/AdvReac Type Severity Reaction Status Date / Time benazepril Allergy Anaphylaxis Verified 12/04/24 07:26 codeine Allergy Rash/Hives Verified 12/04/24 07:26 gluten Allergy Abdominal Verified 12/04/24 07:26 Pain hydrocodone Allergy Rash/Hives Verified 12/04/24 07:26 hydromorphone [From Dilaudid] Allergy Rash/Hives Verified 12/04/24 07:26 ibuprofen [From Motrin] Allergy Unknown Verified 12/04/24 07:26 lisinopril Allergy Anaphylaxis Verified 12/04/24 07:26 meperidine [From Demerol] Allergy Rash/Hives Verified 12/04/24 07:26 morphine Allergy Rash/Hives Verified 12/04/24 07:26 propoxyphene Allergy Rash/Hives Verified 12/04/24 07:26 [From Darvocet-N] Tetracyclines Allergy Rash/Hives Verified 12/04/24 07:26 azathioprine [From Imuran] AdvReac liver Verified 12/04/24 07:26 inflammation clonidine [From Catapres] AdvReac Cough Verified 12/04/24 07:26 Review of Systems ROS Statement: Those systems with pertinent positive or pertinent negative responses have been documented in the HPI. ROS Other: All systems not noted in ROS Statement are negative. Past Medical History Past Medical History: Coronary Artery Disease (CAD), Cancer, Hypertension Additional Past Medical History / Comment(s): Back pain (DDD), breast cancer (in remission), states esophageous doesn't work right-has a hard time swallowing and stomach contents come back up, +COVID 06/30/21, " LOW HR AND OXYGEN LEVELS 89-91%-HAD ANTIBODY INFUSION. skin cancer 10/2023, breast cancer 2002 History of Any Multi-Drug Resistant Organisms: None Reported Past Surgical History: Back Surgery, Heart Catheterization, Joint Replacement Additional Past Surgical History / Comment(s): Breast masectomy(right), bilateral hip replacements, back surgery X5(rods and screws/fusion), BILATERAL CATARACTS REMOVED WITH LENS IMPLANTS. Past Anesthesia/Blood Transfusion Reactions: Previous Problems w/ Anesthesia Additional Past Anesthesia/Blood Transfusion Reaction / Comment(s): Stopped breathing in recovery after spinal fusion revision in 2012 (7 hr surgery),no problems with 2 surgeries after that one. Type of Cardiac Device: Biventricular Pacemaker, Permanent Pacemaker Device Placement Date:: 08/20/23 Past Psychological History: No Psychological Hx Reported Smoking Status: Second hand smoke exposure Past Alcohol Use History: None Reported Past Drug Use History: None Reported - Past Family History Brother(s) Family Medical History: Cancer Additional Family Medical History / Comment(s): Colon cancer. Mother Family Medical History: Cancer Additional Family Medical History / Comment(s): Gallbladder. Father Family Medical History: Cancer General Exam - General Exam Comments Initial Comments: PHYSICAL EXAM: General Impression: Alert and oriented x3, not in acute distress HEENT: Normocephalic atraumatic, extra-ocular movements intact, pupils equal and reactive to light bilaterally, mucous membranes moist. Cardiovascular: Heart regular rate and rhythm Chest: Able to complete full sentences, no retractions, no tachypnea Abdomen: abdomen soft, non-tender, non-distended, no organomegaly Musculoskeletal: Pulses present and equal in all extremities, no peripheral edema Motor: no focal deficits noted Neurological: CN II-XII grossly intact, no focal motor or sensory deficits noted Skin: Intact with no visualized rashes Psych: Normal affect and mood Course Vital Signs 12/13/24 17:36 Temperature 97.5 F L Pulse Rate 84 Respiratory 18 Rate Blood Pressure 160/76 O2 Sat by Pulse 95 Oximetry EKG Findings - EKG Comments: EKG Findings:: My EKG interpretation: Ventricular rate 77, sinus rhythm, SC 160, QRS 123, QTc 413. No SC prolongation, no QTC prolongation, no ST or T-wave changes noted. Overall, this EKG is unremarkable Medical Decision Making - Medical Decision Making Was pt. sent in by a medical professional or institution (, PA, VALUE ENGINEER, urgent care, hospital, or prison...) When possible be specific @ -No Did you speak to anyone other than the patient for history (EMS, parent, family, police, friend...)? What history was obtained from this source @ -No Did you review nursing and triage notes (agree or disagree)? Why? @ -I reviewed and agree with nursing and triage notes Were old charts reviewed (outside hosp., previous admission, EMS record, old EKG, old radiological studies, urgent care reports/EKG's, prison records)? Report findings @ -No old charts were reviewed Differential Diagnosis (chest pain, altered mental status, abdominal pain women, abdominal pain men, vaginal bleeding, musculoskeletal, weakness, fever, dyspnea, syncope, headache, dizziness, GI bleed, back pain, seizure, CVA, palpatations, mental health)? @ -Differential Chest Pain: Stable Angina, Unstable Angina, STEMI, NSTEMI Aortic Dissection, Pneumothorax, Musculoskeletal, Esophageal Spasm GERD, Cholecystitis, Pancreatitis, Zoster, thi s is not meant to be an all-inclusive list. EKG interpreted by me (3pts min.). @ -See above X-rays interpreted by me (1pt min.). @ -Chest x-ray is unremarkable CT interpreted by me (1pt min.). @ -None done U/S interpreted by me (1pt. min.). @ -None done What testing was considered but not performed or refused? (CT, X-rays, U/S, labs)? Why? @ -None What meds were considered but not given or refused? Why? @ -None Was smoking cessation discussed for >3mins.? @ -No Were there social determinants of health that impacted care today? How? (Homelessness, low income, unemployed, alcoholism, drug addiction, transportation, low edu. Level, literacy, decrease access to med. care, retirement, rehab)? @ -No Was there de-escalation of care discussed even if they declined (Discuss DNR or withdrawal of care, Hospice)? DNR status @ -No What co-morbidities impacted this encounter? (DM, HTN, Smoking, COPD, CAD, Cancer, CVA, ARF, Chemo, Hep., AIDS, mental health diagnosis, sleep apnea, morbid obesity)? @ -None Was patient admitted / discharged? Hospital course, mention meds given and route, prescriptions, significant lab abnormalities, going to OR and other pertinent info. @ -79-year-old female presents emergency department atypical chest pain typical features she has multiple risk factors. Vital signs stable. EKG is unremarkable. Patient pain-free at the bedside. Laboratory evaluation u nremarkable. Patient be admitted consultation cardiology. Case discussed with hospitalist for admission Did you discuss the management of the patient with other professionals (professionals i.e. , PA, VALUE ENGINEER, lab, RT, psych nurse, elementary school social worker, net developer programmer, teacher, corporation officer, mattress spring encaser)? Give summary @ -No Was critical care preformed (if so, how long)? @ -No Undiagnosed new problem with uncertain prognosis? @ -No Drug Therapy requiring intensive monitoring for toxicity (Heparin, Nitro, Insulin, Cardizem)? @ -No Were any procedures done? @ -No Diagnosis/symptom? Acute, or Chronic, or Acute on Chronic? Uncomplicated (without systemic symptoms) or Complicated (systemic symptoms)? @ -Chest pain Side effects of treatment? @ -No Exacerbation, Progression, or Severe Exacerbation? @ -No Poses a threat to life or bodily function? How? (Chest pain, [place], [place], pneumonia, PE, COPD, DKA, ARF, appy, cholecystitis, CVA, Diverticulitis, Homicidal, Suicidal, threat to staff... and all critical care pts) @ -yes - Lab Data Result diagrams: 12/13/24 17:53 12/13/24 17:53 Lab Results 12/13/24 12/13/24 12/13/24 Range/Units 17:53 17:53 17:53 WBC 11.63 H (4.50-10.00) 10*3/uL RBC 4.08 L (4.10-5.20) 10*6/uL Hgb 11.6 L (12.0-15.0) g/dL Hct 35.0 L (37.2-46.3) % MCV 85.8 (80.0-97.0) fL MCH 28.4 (27.0-32.0) pg MCHC 33.1 (32.0-37.0) g/dL Plt Count 265 (140-440) 10*3/uL MPV 10.1 (9.5-12.2) fL Immature Gran % (Auto) 0.6 % Neutrophils % 64.8 % Lymphocytes % 24.5 % Monocytes % 8.1 % Eosinophils % 1.3 % Basophils % 0.7 % Immature Gran # 0.07 H (0.00-0.04) 10*3/uL Neutrophils # 7.54 (1.80-7.70) 10*3/uL Lymphocytes # 2.85 (0.90-5.00) 10*3/uL Monocytes # 0.94 (0.20-1.00) 10*3/uL Eosinophils # 0.15 (0.04-0.35) 10*3/uL Basophils # 0.08 (0.00-0.10) 10*3/uL PT 9.7 L (10.0-12.5) sec INR 0.9 (<1.2) APTT 22.9 (22.0-30.0) sec Sodium 139 (137-145) mmol/L Potassium 4.3 (3.5-5.1) mmol/L Chloride 107 (98-107) mmol/L Carbon Dioxide 19 L (22-30) mmol/L Anion Gap 13 mmol/L BUN 32 H (7-17) mg/dL Creatinine 1.56 H (0.52-1.04) mg/dL Est GFR (CKD-EPI)AfAm 36 (>60 ml/min/1.73 sqM) Est GFR (CKD-EPI)NonAf 31 (>60 ml/min/1.73 sqM) Glucose 91 (74-99) mg/dL Calcium 9.5 (8.4-10.2) mg/dL Magnesium 2.3 (1.6-2.3) mg/dL Total Bilirubin 0.4 (0.2-1.3) mg/dL AST 21 (14-36) U/L ALT 13 (4-34) U/L Alkaline Phosphatase 123 (38-126) U/L Troponin I (0.000-0.034) ng/mL Total Protein 7.4 (6.3-8.2) g/dL Albumin 4.2 (3.5-5.0) g/dL 12/13/24 Range/Units 17:53 WBC (4.50-10.00) 10*3/uL RBC (4.10-5.20) 10*6/uL Hgb (12.0-15.0) g/dL Hct (37.2-46.3) % MCV (80.0-97.0) fL MCH (27.0-32.0) pg MCHC (32.0-37.0) g/dL Plt Count (140-440) 10*3/uL MPV (9.5-12.2) fL Immature Gran % (Auto) % Neutrophils % % Lymphocytes % % Monocytes % % Eosinophils % % Basophils % % Immature Gran # (0.00-0.04) 10*3/uL Neutrophils # (1.80-7.70) 10*3/uL Lymphocytes # (0.90-5.00) 10*3/uL Monocytes # (0.20-1.00) 10*3/uL Eosinophils # (0.04-0.35) 10*3/uL Basophils # (0.00-0.10) 10*3/uL PT (10.0-12.5) sec INR (<1.2) APTT (22.0-30.0) sec Sodium (137-145) mmol/L Potassium (3.5-5.1) mmol/L Chloride (98-107) mmol/L Carbon Dioxide (22-30) mmol/L Anion Gap mmol/L BUN (7-17) mg/dL Creatinine (0.52-1.04) mg/dL Est GFR (CKD-EPI)AfAm (>60 ml/min/1.73 sqM) Est GFR (CKD-EPI)NonAf (>60 ml/min/1.73 sqM) Glucose (74-99) mg/dL Calcium (8.4-10.2) mg/dL Magnesium (1.6-2.3) mg/dL Total Bilirubin (0.2-1.3) mg/dL AST (14-36) U/L ALT (4-34) U/L Alkaline Phosphatase (38-126) U/L Troponin I <0.012 (0.000-0.034) ng/mL Total Protein (6.3-8.2) g/dL Albumin (3.5-5.0) g/dL Disposition Clinical Impression: Chest pain Disposition: ADMITTED IP TO THIS [facility] Condition: Fair Referrals: Pk Pizarro DO [Primary Care Provider] - 1-2 days Decision Time: 18:33
[2024-12-13 18:04] LABS: Basophils # (A) 0.08 10*3/uL (0.00-0.10); Basophils % (A) 0.7 %; Eosinophils # (A) 0.15 10*3/uL (0.04-0.35); Eosinophils % (A) 1.3 %; HGB 11.6 g/dL (12.0-15.0); Lymphocytes # (A) 2.85 10*3/uL (0.90-5.00); Lymphocytes % (A) 24.5 %; MCH 28.4 pg (27.0-32.0); MCHC 33.1 g/dL (32.0-37.0); MCV 85.8 fL (80.0-97.0); Mean Platelet Volume 10.1 fL (9.5-12.2); Monocytes # (A) 0.94 10*3/uL (0.20-1.00); Monocytes % (A) 8.1 %; Neutrophils # (A) 7.54 10*3/uL (1.80-7.70); Neutrophils % (A) 64.8 %; Platelet Count 265 10*3/uL (140-440); RBC 4.08 10*6/uL (4.10-5.20); RDW 13.1 % (11.5-14.5); WBC 11.63 10*3/uL (4.50-10.00)
[2024-12-13 18:15] LABS: INR 0.9 (<1.2); Partial Thromboplastin Time 22.9 sec (22.0-30.0); Prothrombin Time 9.7 sec (10.0-12.5)
[2024-12-13 18:17] LABS: ALT 13 U/L (4-34); AST 21 U/L (14-36); African American GFR (CKD) 36 (>60 ml/min/1.73 sqM); Albumin 4.2 g/dL (3.5-5.0); Alkaline Phosphatase 123 U/L (38-126); Anion Gap 13 mmol/L; Blood Urea Nitrogen 32 mg/dL (7-17); Calcium 9.5 mg/dL (8.4-10.2); Carbon Dioxide 19 mmol/L (22-30); Chloride 107 mmol/L (98-107); Glucose 91 mg/dL (74-99); Magnesium 2.3 mg/dL (1.6-2.3); Non-African American GFR(CKD) 31 (>60 ml/min/1.73 sqM); Potassium 4.3 mmol/L (3.5-5.1); Sodium 139 mmol/L (137-145); Total Bilirubin 0.4 mg/dL (0.2-1.3); Total Protein 7.4 g/dL (6.3-8.2)
[2024-12-13] MEDS ORDERED: NITROGLYCERIN SL TABS 0.4 MG TAB SUBLINGUAL PRN (18:31)
--- NOTE | 2024-12-13 18:31 | XR ---
EXAMINATION TYPE: XR chest 2V DATE OF EXAM: 12/13/2024 6:27 PM COMPARISON: Chest radiograph dated 11/14/2024. CLINICAL INDICATION: Female, 79 years old with history of Chest Pain; [facility] TECHNIQUE: XR chest 2V Frontal and lateral views of the chest. FINDINGS: Lungs/Pleura: There is no evidence of pleural effusion, focal consolidation, or pneumothorax. Pulmonary vascularity: Unremarkable. Heart/mediastinum: Cardiomediastinal silhouette is unremarkable. Musculoskeletal: No acute osseous pathology. Posterior spinal fusion hardware. Other findings: None Lines/Tubes: Left chest wall cardiac pacemaker device. IMPRESSION: No acute cardiopulmonary disease/process. [facility], , 12/13/2024 6:28 PM
[2024-12-13] MEDS: traMADol 50 MG TAB PO PRN (22:16)
[2024-12-14 08:41] LABS: Chol/HDL Ratio 2.22 Ratio; LDL Cholesterol,Calculated 26.5 mg/dL (0.0-131.0)
[2024-12-14] MEDS ORDERED: ASPIRIN 325 MG TAB PO SCH (09:00)
[2024-12-14] MEDS: DAPAGLIFLOZIN PROPANEDIOL 5 MG TABLET PO SCH (09:35)
[2024-12-14] MEDS: traMADol 50 MG TAB PO SCH (09:35)
[2024-12-14] MEDS: ASPIRIN 81 MG PO SCH (09:35)
[2024-12-14] MEDS: amLODIPine 10 MG TAB PO SCH (09:36)
[2024-12-14] MEDS: CLOPIDOGREL 75 MG TAB PO SCH (09:36)
[2024-12-14] MEDS: METOPROLOL SUCCINATE (ER) 25 MG TAB.ER.24H PO SCH (09:36)
--- NOTE | 2024-12-14 10:15 | P.CRDCN ---
History of Present Illness History of present illness: HISTORY OF PRESENT ILLNESS: This is a 79-year-old female with a past medical history significant for mild CAD, dual-chamber pacemaker implantation, hypertension, hyperlipidemia, CKD, CVA, and anxiety. Patient follows in the office with Dr. Cason. We have been asked to see the patient in consultation for chest pain. Patient examined at the bedside. Patient presented to the hospital yesterday with multiple symptoms. She states that she had a recent CVA and states that it affected her vision and her short-term memory. She reports yesterday she had significant pressure throughout her entire body but especially in her head and her chest and felt like her body was going to explode. She reports having mild nausea without vomiting. She also reports that she felt short of breath. She states that she was dizzy and felt ringing in her ears. She states 2 days ago she almost passed out when going to the bathroom. She states that when EMS brought her to the hospital she was noted to have elevated blood pressure. DIAGNOSTICS: - EKG reveals sinus mechanism with no signs of acute ischemia. - Chest xray negative for acute process - Laboratory data: WBC 11.63. Hemoglobin 11.6. Platelet count 265. Sodium 139. Potassium 4.3. BUN 32. Creatinine 1.56. Troponin negative x 3. - Current home cardiac medications include amlodipine 10 mg daily, Jardiance 10 mg daily, Plavix 75 mg daily, Lipitor 40 mg at night. - Most recent echocardiogram obtained in October 2024 revealed ejection fraction 50 to 55%, mild aortic regurgitation, mild tricuspid regurgitation - Patient underwent Lexiscan stress test in October 2023 which was negative for ischemia - Cardiac catheterization history: 2006 revealing mild coronary artery disease REVIEW OF SYSTEMS: At the time of my exam: CONSTITUTIONAL: Denies fever or chills. HEENT: Denies blurred vision, vision changes, or eye pain. Denies hemoptysis CARDIOVASCULAR: Denies chest pain. Denies orthopnea. Denies PND. Denies palpitations RESPIRATORY: Denies shortness of breath. GASTROINTESTINAL: Denies abdominal pain. Denies nausea or vomiting. HEMATOLOGIC: Denies bleeding disorders. GENITOURINARY: Denies any blood in urine. SKIN: Denies pruitis. Denies rash. PHYSICAL EXAM: VITAL SIGNS: Reviewed. GENERAL: Well-developed in no acute distress. HEENT: Head is normocephalic. Pupils are equal, round. Sclerae anicteric. Mucous membranes of the mouth are moist. Neck supple. No JVD or thyromegaly LUNGS: Respirations even and unlabored. Lungs essentially clear to auscultation bilaterally. HEART: Regular rate and rhythm. S1 and S2 heard. Soft systolic murmur noted ABDOMEN: Soft. Nondistended. Nontender. EXTREMITIES: Normal range of motion. No clubbing or cyanosis. Peripheral pulses intact. No lower extremity edema NEUROLOGIC: Awake and alert. Oriented x 3. ASSESSMENT: Chest pain, troponin negative x 3 Headache, dizziness, and ringing in her ears History of mild nonobstructive CAD History of dual-chamber pacemaker implantation Hypertension Hyperlipidemia Chronic kidney disease History of CVA Anxiety PLAN: An acute coronary event has been ruled out Reduce aspirin to 81 mg daily Add metoprolol succinate 25 mg daily Continue to monitor blood pressure No need to repeat echocardiogram as this was performed in October 2024 Further recommendations pending patient course Nurse practitioner note has been reviewed by physician. Signing provider agrees with the documented findings, assessment, and plan of care documented by [employer] OFFICER as a scribe. Past Medical History Past Medical History: Coronary Artery Disease (CAD), Cancer, Hypertension Additional Past Medical History / Comment(s): Back pain (DDD), breast cancer (in remission), states esophageous doesn't work right-has a hard time swallowing and stomach contents come back up, +COVID 06/30/21, " LOW HR AND OXYGEN LEVELS 89-91%-HAD ANTIBODY INFUSION. skin cancer 10/2023, breast cancer 2002 History of Any Multi-Drug Resistant Organisms: None Reported Past Surgical History: Back Surgery, Heart Catheterization, Joint Replacement Additional Past Surgical History / Comment(s): Breast masectomy(right), bilateral hip replacements, back surgery X5(rods and screws/fusion), BILATERAL CATARACTS REMOVED WITH LENS IMPLANTS. Past Anesthesia/Blood Transfusion Reactions: Previous Problems w/ Anesthesia Additional Past Anesthesia/Blood Transfusion Reaction / Comment(s): Stopped breathing in recovery after spinal fusion revision in 2012 (7 hr surgery),no problems with 2 surgeries after that one. Type of Cardiac Device: Biventricular Pacemaker, Permanent Pacemaker Device Placement Date:: 08/20/23 Past Psychological History: No Psychological Hx Reported Smoking Status: Second hand smoke exposure Past Alcohol Use History: None Reported Past Drug Use History: None Reported - Past Family History Brother(s) Family Medical History: Cancer Additional Family Medical History / Comment(s): Colon cancer. Mother Family Medical History: Cancer Additional Family Medical History / Comment(s): Gallbladder. Father Family Medical History: Cancer Medications and Allergies Home Medications Medication Instructions Recorded Confirmed Type Omeprazole 20 mg PO HS 03/15/24 12/13/24 History traMADol HCl [Ultram] 50 mg PO DAILY PRN 03/15/24 12/13/24 History Empagliflozin [Jardiance] 10 mg PO DAILY 11/14/24 12/13/24 History amLODIPine [Norvasc] 10 mg PO DAILY 11/14/24 12/13/24 History traMADol HCL 50 mg PO BID 11/14/24 12/13/24 History Atorvastatin [Lipitor] 40 mg PO HS 30 Days #30 tab 11/19/24 12/13/24 Rx Clopidogrel [Plavix] 75 mg PO DAILY 21 Days #21 tab 11/19/24 12/13/24 Rx Allergies Allergy/AdvReac Type Severity Reaction Status Date / Time benazepril Allergy Anaphylaxis Verified 12/13/24 19:50 codeine Allergy Rash/Hives Verified 12/13/24 19:50 gluten Allergy Abdominal Verified 12/13/24 19:50 Pain hydrocodone Allergy Rash/Hives Verified 12/13/24 19:50 hydromorphone [From Dilaudid] Allergy Rash/Hives Verified 12/13/24 19:50 ibuprofen [From Motrin] Allergy Unknown Verified 12/13/24 19:50 lisinopril Allergy Anaphylaxis Verified 12/13/24 19:50 meperidine [From Demerol] Allergy Rash/Hives Verified 12/13/24 19:50 morphine Allergy Rash/Hives Verified 12/13/24 19:50 propoxyphene Allergy Rash/Hives Verified 12/13/24 19:50 [From Darvocet-N] Tetracyclines Allergy Rash/Hives Verified 12/13/24 19:50 azathioprine [From Imuran] AdvReac liver Verified 12/13/24 19:50 inflammation clonidine [From Catapres] AdvReac Cough Verified 12/13/24 19:50 Physical Exam Vitals: Vital Signs Temp Pulse Pulse Resp BP BP Pulse Ox 12/14/24 06:54 97.9 F 61 17 111/56 97 12/14/24 01:10 98.0 F 75 18 165/81 98 12/14/24 01:00 18 12/14/24 00:00 98.3 F 60 18 124/68 97 12/13/24 22:15 98.5 F 80 18 131/90 97 12/13/24 18:42 75 16 146/74 97 12/13/24 17:36 97.5 F L 84 18 160/76 95 Intake and Output 12/13/24 12/14/24 12/14/24 22:59 06:59 14:59 Intake Total 236 Balance 236 Intake: Oral 236 Other: Voiding Method Toilet # Voids 1 Weight 81.193 kg 81.193 kg Results 12/13/24 17:53 12/13/24 17:53 Cardiac Enzymes 12/13/24 12/13/24 12/13/24 Range/Units 17:53 17:53 20:55 AST 21 (14-36) U/L Troponin I <0.012 <0.012 (0.000-0.034) ng/mL 12/14/24 Range/Units 00:39 AST (14-36) U/L Troponin I <0.012 (0.000-0.034) ng/mL Coagulation 12/13/24 Range/Units 17:53 PT 9.7 L (10.0-12.5) sec APTT 22.9 (22.0-30.0) sec Lipids 12/14/24 Range/Units 00:43 Triglycerides 120.00 (0.00-149.00) mg/dL Cholesterol 92.00 (0.00-200.00) mg/dL HDL Cholesterol 41.50 (40.00-60.00) mg/dL Cholesterol/HDL Ratio 2.22 Ratio CBC 12/13/24 Range/Units 17:53 WBC 11.63 H (4.50-10.00) 10*3/uL RBC 4.08 L (4.10-5.20) 10*6/uL Hgb 11.6 L (12.0-15.0) g/dL Hct 35.0 L (37.2-46.3) % Plt Count 265 (140-440) 10*3/uL Comprehensive Metabolic Panel 12/13/24 Range/Units 17:53 Sodium 139 (137-145) mmol/L Potassium 4.3 (3.5-5.1) mmol/L Chloride 107 (98-107) mmol/L Carbon Dioxide 19 L (22-30) mmol/L BUN 32 H (7-17) mg/dL Creatinine 1.56 H (0.52-1.04) mg/dL Glucose 91 (74-99) mg/dL Calcium 9.5 (8.4-10.2) mg/dL AST 21 (14-36) U/L ALT 13 (4-34) U/L Alkaline Phosphatase 123 (38-126) U/L Total Protein 7.4 (6.3-8.2) g/dL Albumin 4.2 (3.5-5.0) g/dL Current Medications Generic Name Dose Route Start Last Admin Trade Name Freq PRN Reason Stop Dose Admin Amlodipine Besylate 10 mg 12/14/24 09:00 12/14/24 09:36 Amlodipine 10 Mg Tab PO 10 mg DAILY RENUKA Administration Aspirin 81 mg 12/14/24 09:00 12/14/24 09:35 Aspirin 81 Mg PO 81 mg DAILY RENUKA Administration Atorvastatin Calcium 40 mg 12/14/24 21:00 Atorvastatin 40 Mg Tab PO HS [facility] Clopidogrel Bisulfate 75 mg 12/14/24 09:00 12/14/24 09:36 Clopidogrel 75 Mg Tab PO 75 mg DAILY RENUKA Administration Dapagliflozin 5 mg 12/14/24 09:00 12/14/24 09:35 Dapagliflozin Propanediol 5 Mg Tablet PO 5 mg DAILY RENUKA Administration Metoprolol Succinate 25 mg 12/14/24 09:00 12/14/24 09:36 Metoprolol Succinate (Er) 25 Mg Tab.Er.24h PO 25 mg DAILY RENUKA Administration Nitroglycerin 0.4 mg 12/13/24 18:31 Nitroglycerin Sl Tabs 0.4 Mg Tab SUBLINGUAL Q5M PRN Chest Pain Pantoprazole Sodium 40 mg 12/14/24 21:00 Pantoprazole 40 Mg Tablet PO HS [facility] Tramadol HCl 50 mg 12/14/24 09:00 12/14/24 09:35 Tramadol 50 Mg Tab PO 50 mg BID RENUKA Administration Tramadol HCl 50 mg 12/13/24 21:17 12/14/24 01:45 Tramadol 50 Mg Tab PO 50 mg DAILY PRN Administration pain Intake and Output 06/12/14/24 12/14/24 22:59 06:59 14:59 Intake Total 236 Balance 236 Intake: Oral 236 Other: Voiding Method Toilet # Voids 1 Weight 81.193 kg 81.193 kg 12/13/24 17:53 12/13/24 17:53
[2024-12-14] MEDS: ESCITALOPRAM 10 MG TAB PO SCH (12:24)
--- NOTE | 2024-12-14 18:37 | P.HPIM ---
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 Echo of October 2024 reported LV function 50 to 55%. Hypertensive on admission with blood pressure 160/76, heart rate 84, maintaining O2 sats in the high 90s on room air. EKG reported sinus, troponins negative x 3. Chest x-ray nonacute, afebrile, WBC 11.6, hemoglobin 11.6, platelets 265, electrolytes within normal limits, BUN 32, creatinine 1.5, magnesium 2.3. Review of Systems ROS Statement: Those systems with pertinent positive or pertinent negative responses have been documented in the HPI. ROS Other: All systems not noted in ROS Statement are negative. Past Medical History Past Medical History: Coronary Artery Disease (CAD), Cancer, Hypertension Additional Past Medical History / Comment(s): Back pain (DDD), breast cancer (in remission), states esophageous doesn't work right-has a hard time swallowing and stomach contents come back up, +COVID 06/30/21, " LOW HR AND OXYGEN LEVELS 89-91%-HAD ANTIBODY INFUSION. skin cancer 10/2023, breast cancer 2002 History of Any Multi-Drug Resistant Organisms: None Reported Past Surgical History: Back Surgery, Heart Catheterization, Joint Replacement Additional Past Surgical History / Comment(s): Breast masectomy(right), bilateral hip replacements, back surgery X5(rods and screws/fusion), BILATERAL CATARACTS REMOVED WITH LENS IMPLANTS. Past Anesthesia/Blood Transfusion Reactions: Previous Problems w/ Anesthesia Additional Past Anesthesia/Blood Transfusion Reaction / Comment(s): Stopped breathing in recovery after spinal fusion revision in 2012 (7 hr surgery),no problems with 2 surgeries after that one. Type of Cardiac Device: Biventricular Pacemaker, Permanent Pacemaker Device Placement Date:: 08/20/23 Past Psychological History: No Psychological Hx Reported Smoking Status: Second hand smoke exposure Past Alcohol Use History: None Reported Past Drug Use History: None Reported - Past Family History Brother(s) Family Medical History: Cancer Additional Family Medical History / Comment(s): Colon cancer. Mother Family Medical History: Cancer Additional Family Medical History / Comment(s): Gallbladder. Father Family Medical History: Cancer Medications and Allergies Home Medications Medication Instructions Recorded Confirmed Type Omeprazole 20 mg PO HS 03/15/24 12/13/24 History traMADol HCl [Ultram] 50 mg PO DAILY PRN 03/15/24 12/13/24 History Empagliflozin [Jardiance] 10 mg PO DAILY 11/14/24 12/13/24 History amLODIPine [Norvasc] 10 mg PO DAILY 11/14/24 12/13/24 History traMADol HCL 50 mg PO BID 11/14/24 12/13/24 History Atorvastatin [Lipitor] 40 mg PO HS 30 Days #30 tab 11/19/24 12/13/24 Rx Clopidogrel [Plavix] 75 mg PO DAILY 21 Days #21 tab 11/19/24 12/13/24 Rx Allergies Allergy/AdvReac Type Severity Reaction Status Date / Time benazepril Allergy Anaphylaxis Verified 12/13/24 19:50 codeine Allergy Rash/Hives Verified 12/13/24 19:50 gluten Allergy Abdominal Verified 12/13/24 19:50 Pain hydrocodone Allergy Rash/Hives Verified 12/13/24 19:50 hydromorphone [From Dilaudid] Allergy Rash/Hives Verified 12/13/24 19:50 ibuprofen [From Motrin] Allergy Unknown Verified 12/13/24 19:50 lisinopril Allergy Anaphylaxis Verified 12/13/24 19:50 meperidine [From Demerol] Allergy Rash/Hives Verified 12/13/24 19:50 morphine Allergy Rash/Hives Verified 12/13/24 19:50 propoxyphene Allergy Rash/Hives Verified 12/13/24 19:50 [From Darvocet-N] Tetracyclines Allergy Rash/Hives Verified 12/13/24 19:50 azathioprine [From Imuran] AdvReac liver Verified 12/13/24 19:50 inflammation clonidine [From Catapres] AdvReac Cough Verified 12/13/24 19:50 Physical Exam Vitals: Vital Signs Temp Pulse Pulse Resp BP BP Pulse Ox 12/14/24 06:54 97.9 F 61 17 111/56 97 12/14/24 01:10 98.0 F 75 18 165/81 98 12/14/24 01:00 18 12/14/24 00:00 98.3 F 60 18 124/68 97 12/13/24 22:15 98.5 F 80 18 131/90 97 12/13/24 18:42 75 16 146/74 97 12/13/24 17:36 97.5 F L 84 18 160/76 95 Intake and Output 12/13/24 12/14/24 12/14/24 22:59 06:59 14:59 Intake Total 236 Balance 236 Intake: Oral 236 Other: Voiding Method Toilet # Voids 1 Weight 81.193 kg 81.193 kg GENERAL: Well-nourished, well-appearing, alert and oriented x 3, NAD NECK: Supple without JVD or thyromegaly. LUNGS: Unlabored, equal air entry, clear to auscultation. HEART: S1, S2 . regular rate and rhythm, no murmur EXTREMITIES: No edema. No clubbing or cyanosis. Peripheral pulses intact. Neurology: Cranial nerves II through XII grossly intact, no focal deficits. Skin: Warm, dry, no rash noted Results CBC & Chem 7: 12/13/24 17:53 12/13/24 17:53 Labs: Abnormal Lab Results - Last 24 Hours (Table) 12/13/24 12/13/24 12/13/24 Range/Units 17:53 17:53 17:53 WBC 11.63 H (4.50-10.00) 10*3/uL RBC 4.08 L (4.10-5.20) 10*6/uL Hgb 11.6 L (12.0-15.0) g/dL Hct 35.0 L (37.2-46.3) % Immature Gran # 0.07 H (0.00-0.04) 10*3/uL PT 9.7 L (10.0-12.5) sec Carbon Dioxide 19 L (22-30) mmol/L BUN 32 H (7-17) mg/dL Creatinine 1.56 H (0.52-1.04) mg/dL Thrombosis Risk Factor Assmnt - Choose All That Apply Each Factor Represents 1 point: Obesity (BMI >25) Other Risk Factors: Yes Each Risk Factor Represents 3 Points: Age 75 years or older Thrombosis Risk Factor Assessment Total Risk Factor Score: 4 Thrombosis Risk Factor Assessment Level: Moderate Risk Assessment and Plan Assessment: Chest pain, troponins negative x 3, ACS ruled out, cardiology following Recent occipital CVA 11/19 Chronic left eye hemianopsia,bilateral Aphakia reported per previous CT, follows with egg breaker -Dr. Jack. History of bilateral cataracts and lens implants. Chronic kidney disease stage IIIa with baseline creatinine 1.2-1.8 secondary to nephrosclerosis. 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 Patient had previously been on Lexapro, resumed. Cardiology consult in place, recommendations pending. Discharge planning in progress pending final DC recommendations and clearance per cardiology. The impression and plan of care has been dictated as directed. : I performed a history and examination of this patient, discussed the same with the dictator. I agree with the dictator's note ,documented as a scribe. Any additional findings or plans will be noted.
[2024-12-14] MEDS: ATORVASTATIN 40 MG TAB PO SCH (21:42)
[2024-12-14] MEDS: PANTOPRAZOLE 40 MG TABLET PO SCH (21:42)
[2024-12-15 07:48] VITALS: BP 108/58; PULSE 60; RESP 17; TEMP 97.4
--- NOTE | 2024-12-15 10:16 | P.PN ---
Subjective HISTORY OF PRESENT ILLNESS: This is a 79-year-old female with a past medical history significant for mild CAD, dual-chamber pacemaker implantation, hypertension, hyperlipidemia, CKD, CVA, and anxiety. Patient follows in the office with Dr. Cason. We have been asked to see the patient in consultation for chest pain. Patient examined at the bedside. Patient presented to the hospital yesterday with multiple symptoms. She states that she had a recent CVA and states that it affected her vision and her short-term memory. She reports yesterday she had significant pressure throughout her entire body but especially in her head and her chest and felt like her body was going to explode. She reports having mild nausea without vomiting. She also reports that she felt short of breath. She states that she was dizzy and felt ringing in her ears. She states 2 days ago she almost passed out when going to the bathroom. She states that when EMS brought her to the hospital she was noted to have elevated blood pressure. DIAGNOSTICS: - EKG reveals sinus mechanism with no signs of acute ischemia. - Chest xray negative for acute process - Laboratory data: WBC 11.63. Hemoglobin 11.6. Platelet count 265. Sodium 139. Potassium 4.3. BUN 32. Creatinine 1.56. Troponin negative x 3. - Current home cardiac medications include amlodipine 10 mg daily, Jardiance 10 mg daily, Plavix 75 mg daily, Lipitor 40 mg at night. - Most recent echocardiogram obtained in October 2024 revealed ejection fraction 50 to 55%, mild aortic regurgitation, mild tricuspid regurgitation - Patient underwent Lexiscan stress test in October 2023 which was negative for isc hemia - Cardiac catheterization history: 2006 revealing mild coronary artery disease 12/15/2024 Patient examined this morning at bedside. Patient states she is feeling better today. She denies chest pain or pressure. Denies shortness of breath. Vital signs are stable. PHYSICAL EXAM: VITAL SIGNS: Reviewed. GENERAL: Well-developed in no acute distress. HEENT: Head is normocephalic. Pupils are equal, round. Sclerae anicteric. Mucous membranes of the mouth are moist. Neck supple. No JVD or thyromegaly LUNGS: Respirations even and unlabored. Lungs essentially clear to auscultation bilaterally. HEART: Regular rate and rhythm. S1 and S2 heard. Soft systolic murmur noted ABDOMEN: Soft. Nondistended. Nontender. EXTREMITIES: Normal range of motion. No clubbing or cyanosis. Peripheral puls es intact. No lower extremity edema NEUROLOGIC: Awake and alert. Oriented x 3. ASSESSMENT: Chest pain, troponin negative x 3 Headache, dizziness, and ringing in her ears History of mild nonobstructive CAD History of dual-chamber pacemaker implantation Hypertension Hyperlipidemia Chronic kidney disease History of CVA Anxiety PLAN: Continue current cardiac medications Patient is stable for discharge home today from a cardiac standpoint We will sign off. Please reconsult if needed. Nurse practitioner note has been reviewed by physician. Signing provider agrees with the documented findings, assessment, and plan of care documented by MET[employer] WEIGHER as a scribe. Objective - Vital Signs Vital signs: Vital Signs Temp 97.4 F L 12/15/24 07:00 Pulse 60 12/15/24 08:00 Resp 17 12/15/24 07:00 BP 108/58 12/15/24 07:00 Pulse Ox 97 12/15/24 07:00 FiO2 Intake & Output 12/14/24 12/15/24 12/15/24 18:59 06:59 18:59 Intake Total 472 Balance 472 Intake: Oral 472 Other: Voiding Method Toilet # Voids 2 3 - Labs CBC & Chem 7: 12/13/24 17:53 12/13/24 17:53
--- NOTE | 2024-12-15 18:07 | P.DS ---
Providers Date of admission: 12/13/24 18:32 Expected date of discharge: 12/15/24 Attending physician: Pk Pizarro Consults: 12/13/24 18:31 Consult Physician Urgent Consulting Provider: Coleman Mujica Consult Reason/Comments: chest pain Do you want consulting provider notified?: Yes Primary care physician: Pk Pizarro [facility] Course: Final Diagnosis: Chest pain, troponins negative x 3, ACS ruled out, cardiology following Recent occipital CVA 11/19 Chronic left eye hemianopsia,bilateral Aphakia reported per previous CT, follows with buttonhole machine operator -Dr. Jack. History of bilateral cataracts and lens implants. Chronic kidney disease stage IIIa with baseline creatinine 1.2-1.8 secondary to nephrosclerosis. 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 Echo of October 2024 reported LV function 50 to 55%. Hypertensive on admission with blood pressure 160/76, heart rate 84, maintaining O2 sats in the high 90s on room air. EKG reported sinus, troponins negative x 3. Chest x-ray nonacute, afebrile, WBC 11.6, hemoglobin 11.6, platelets 265, electrolytes within normal limits, BUN 32, creatinine 1.5, magnesium 2.3. Patient had previously been on Lexapro, resumed. Cardiology consult in place, recommendations pending. Discharge planning in progress pending final DC recommendations and clearance per cardiology. 12/15/2024 feels better today. Denies chest pain, palpitations or shortness of breath. Cleared by cardiology for discharge. Patient will be discharged home today in a stable condition with guarded prognosis. The impression and plan of care has been dictated as directed. : I performed a history and examination of this patient, discussed the same with the dictator. I agree with the dictator's note ,documented as a scribe. Any ad ditional findings or plans will be noted. Patient Condition at Discharge: Stable Plan - Discharge Summary Discharge Rx Participant: No New Discharge Prescriptions: New Escitalopram [Lexapro] 10 mg PO DAILY #30 tab Metoprolol Succinate (ER) [Toprol XL] 25 mg PO DAILY #30 tab Aspirin EC [Ecotrin Low Dose] 81 mg PO DAILY #30 tab Continue Omeprazole 20 mg PO HS traMADol HCl [Ultram] 50 mg PO DAILY PRN PRN Reason: pain amLODIPine [Norvasc] 10 mg PO DAILY Empagliflozin [Jardiance] 10 mg PO DAILY traMADol HCL 50 mg PO BID Atorvastatin [Lipitor] 40 mg PO HS 30 Days #30 tab Clopidogrel [Plavix] 75 mg PO DAILY 21 Days #21 tab Discharge Medication List Omeprazole 20 mg PO HS 03/15/24 [History] traMADol HCl [Ultram] 50 mg PO DAILY PRN 03/15/24 [History] Empagliflozin [Jardiance] 10 mg PO DAILY 11/14/24 [History] amLODIPine [Norvasc] 10 mg PO DAILY 11/14/24 [History] traMADol HCL 50 mg PO BID 11/14/24 [History] Atorvastatin [Lipitor] 40 mg PO HS 30 Days #30 tab 11/19/24 [Rx] Clopidogrel [Plavix] 75 mg PO DAILY 21 Days #21 tab 11/19/24 [Rx] Aspirin EC [Ecotrin Low Dose] 81 mg PO DAILY #30 tab 12/15/24 [Rx] Escitalopram [Lexapro] 10 mg PO DAILY #30 tab 12/15/24 [Rx] Metoprolol Succinate (ER) [Toprol XL] 25 mg PO DAILY #30 tab 12/15/24 [Rx] Follow up Appointment(s)/Referral(s): Pk Pizarro DO [Primary Care Provider] - 1 Week Pedro Cason MD [STAFF PHYSICIAN] - 01/19/25 1:45 pm Patient Instructions/Handouts: Chest Pain (DC) Activity/Diet/Wound Care/Special Instructions: Event Monitor as ordered prev before this admission Discharge Disposition: HOME SELF-CARE
== END 2024-12-15 10:40 | disposition home or self-care (01) ==
LOC: EC 17:35 → 6NMEDSUR 18:32
PROVIDERS: ADMIT Family Medicine; ATTEND Family Medicine
DX: R07.2 Precordial pain (principal); R42 Dizziness and giddiness; R51.9 Headache, unspecified; H93.13 Tinnitus, bilateral; I25.10 Atherosclerotic heart disease of native coronary artery without angina pectoris; E78.5 Hyperlipidemia, unspecified; F41.9 Anxiety disorder, unspecified; I13.0 Hypertensive heart and chronic kidney disease with heart failure and stage 1 through stage 4 chronic kidney disease, or unspecified chronic kidney disease; I50.9 Heart failure, unspecified; N18.31 Chronic kidney disease, stage 3a; F32.A Depression, unspecified; J44.9 Chronic obstructive pulmonary disease, unspecified; H53.47 Heteronymous bilateral field defects; H27.03 Aphakia, bilateral; Z77.22 Contact with and (suspected) exposure to environmental tobacco smoke (acute) (chronic); Z85.3 Personal history of malignant neoplasm of breast; Z85.828 Personal history of other malignant neoplasm of skin; Z86.73 Personal history of transient ischemic attack (TIA), and cerebral infarction without residual deficits; Z95.0 Presence of cardiac pacemaker; Z79.02 Long term (current) use of antithrombotics/antiplatelets; Z79.82 Long term (current) use of aspirin; Z79.84 Long term (current) use of oral hypoglycemic drugs; Z79.899 Other long term (current) drug therapy; Z88.1 Allergy status to other antibiotic agents; Z88.5 Allergy status to narcotic agent; Z88.6 Allergy status to analgesic agent
CPT/HCPCS: 99285; 36415; 93005; 80061; 80053; 83735; 84484 ×2; 85025; 85610; 85730; 71046; G0378 ×3

== ENCOUNTER → 2024-12-15 | Outpatient (CLI) | payer MEDICARE ==
--- NOTE | 2025-01-17 09:50 | EM ---
30 DAY EVENT MONITOR REPORT: INDICATION: I63.9, cerebral infarction unspecified START DATE: 12/15/2024 END DATE: 01/14/2025 Patient wore the monitor for 8 days 10 minutes FINDINGS: Max HR 118 bpm Minimum HR 53 bpm Average HR 62 bpm No significant PAC PVC burden noticed There were no observed atrial fibrillation, atrial flutter or sustained ventricular rhythm. There were no observed sinus pauses which were more than 2 second long. Patient symptoms correlation: Patient reported symptoms of skipped heartbeat sensation, lightheadedness, shortness of breath. These corresponded to sinus rhythm and sinus bradycardia. Please CC the report to Dr. Pk Pizarro. [facility] [facility]
== END | disposition home or self-care (01) ==
LOC: RADECHMAIN 09:05
PROVIDERS: ATTEND Family Medicine
DX: I63.9 Cerebral infarction, unspecified (principal)
CPT/HCPCS: 93270